=== PATIENT | female | born 1990 | race Caucasian/White ===

== ENCOUNTER 2025-06-28 13:55 | Emergency (ER) | payer OTHER, SELFPAY ==
[2025-06-28 13:56] VITALS: BP 110/76; PULSE 108; RESP 18; TEMP 37.1; O2SAT 99; BMI 28.0
[2025-06-28 16:00] LABS: Hematocrit 42.8 % (37-47); Hemoglobin 14.3 g/dL (12.0-15.0); Immature Granulocytes Count 0.010 X10^3/uL (0.0-0.0); Mean Corp Hgb Conc 33.4 g/dL (32-36); Mean Corpuscular Volume 84.1 fL (81-99); Mean Platelet Vol. 9.8 fl (6.2-12.0); NRBC Flagged by Analyzer 0 % (0-5); Platelet Count 280 K/mm3 (150-450); RBC Distribution Width CV 12.9 % (11.6-14.6); RBC Distribution Width SD 39.2 fl (35.1-43.9); Red Blood Count 5.09 M/mm3 (4.2-5.4); White Blood Count 6.6 K/mm3 (4.4-11.0)
[2025-06-28 17:05] LABS: Lipase 37 U/L (13-75)
[2025-06-28 17:08] LABS: AST(SGOT) 22 U/L (<=31); Alanine Aminotransfer ALT/SGPT 26 U/L (<=34); Albumin, Serum 4.7 g/dL (3.5-5.0); Alkaline Phosphatase 53 U/L (35-104); Anion Gap 13 (5-15); BUN 10 mg/dL (4-19); BUN/Creat Ratio 15.9 RATIO (10-20); Calcium,Total 9.6 mg/dL (7.6-11.0); Carbon Dioxide 19.7 mmol/L (21.0-32.0); Chloride 107 mmol/L (98-108); Estimated Creatinine Clearance 128.26 ml/min (50-250); Globulin 2.8 g/dL (2.2-4.2); Glucose 94 mg/dL (70-99); Potassium 4.0 mmol/L (3.3-5.1)
--- NOTE | 2025-06-28 17:16 | EX.ED.DYSGE1 ---
HPI History of Present Illness Chief Complaint: Abd Pain Detail of Chief Complaint: Right upper quadrant right lower abdominal pain Informant: patient and spouse/S.O. Onset/Context/Timing Onset: Month(s) (Intermittent since May 13 was seen at outside facility and had CAT scan.) Context: Sudden Onset Timing: Intermittent Quality: Pain Location: Points to the right upper quadrant Current Severity: Mild Maximum Severity: Moderate Worsened by: Movement Relieved by: Nothing Associated Symptoms Associated Symptoms: Today she had 3 formed stools which is not normal for her. Narrative Narrative: Patient is a 34-year-old woman. She was seen at outside facility. Records from that facility were obtained. The ER attending's note was reviewed. She did have a CAT scan. The CAT scan interpretation revealed the following: Status postcholecystectomy 3.7 cm slightly heterogeneous cyst in the right adnexa which could represent a hemorrhagic cyst with internal septation. There is also a nonspecific right costophrenic nodule noted. Apparently there is small right and left pleural effusion. There is some minimal atelectasis. Increased fecal stasis involving the right colon and transverse colon. Mild small bowel wall thickening left abdomen with small mesenteric nodes suggestive of underlying enteritis and mild mesenteric adenitis. The appendix was normal at that time. There was no evidence of colitis or pyelonephritis. There is no retroperitoneal hemorrhage noted. There is mild mid to lower lumbar spine degenerative changes noted. Patient did also have a small supraumbilical ventral hernia that contained fat only. She denies intolerance to any food. She denies nausea or vomiting. She denies history of renal ureterolithiasis. She denies dysuria, frequency, urgency or hematuria. There is no history of direct or indirect trauma. She denies cough, shortness of breath or difficulty breathing. She denies chest pain Prior similar symptoms: Yes PFSH PFSH Medical History no medical history no medical history Allergy/AdvReac Type Severity Reaction Status Date / Time No Known Allergies Allergy Verified 06/28/25 14:00 Family History no significant family his no significant family history Social History (Updated 06/28/25 @ 17:[address] Juan Hart MD) household members: spouse and children Smoking Status: Never smoker ROS ROS ED Constitutional Constitutional ED: Denies chills, fever(s), subjective, sweats or weight loss Eyes Eyes: Denies blurry vision or change in vision ENT ENT ED: Denies rhinorrhea or sore throat Cardiovascular Cardiovascular: Denies chest pain or palpitations Respiratory/Chest Respiratory/Chest: Denies cough, dyspnea or dyspnea on exertion Gastrointestinal Gastrointestinal: Reports abdominal pain; Denies constipation, diarrhea, melena, nausea or vomiting Genitourinary Genitourinary ED: Denies dysuria, hematuria or urinary frequency Musculoskeletal Musculoskeletal: Denies back pain Integumentary Denies rash Hematologic/Lymphatic Hematologic/Lymphatic: Reports systems reviewed and no addt'l complaints, except as documented EXAM Physical Exam Const Vital Signs: 06/28/25 13:56 Temperature 98.8 F Temperature Source Oral Pulse Rate 108 H Respiratory Rate 18 Blood Pressure 110/76 Blood Pressure Mean 87 Pulse Ox 99 Oxygen Delivery Method Room Air Positive well nourished and well developed General Appearance ED: well developed; Negative for pallor HEENT Reports moist mucous membranes HEENT Narrative: Head is atraumatic and normocephalic. Eyes PERRL and EOMs intact bilaterally General Eye ED: Negative for pale conjunctiva or scleral icterus Neck no lymphadenopathy, supple and no JVD Resp normal respiratory effort and clear to auscultation bilaterally Cardio regular rate, regular rhythm, S1 normal heart sound, S2 normal heart sound and no murmurs GI normal to inspection, nondistended, normoactive bowel sounds, non-distended and no masses; Negative for non-tender or hepatosplenomegaly GI Narrative: Tenderness right side of the abdomen. There is no tenderness over McBurney's point. Inspection: Negative for abdominal distention Auscultation: hypoactive bowel sounds Palpation: soft and tender other (Right mid abdomen) Extremity normal to inspection General Extremety ED: Negative for edema General Extremity: Negative for edema Neuro oriented x3 and CN's II-XII intact bilaterally Sensorium / Orientation: alert Skin no rashes or lesions noted, no wounds and skin turgor normal General Skin Exam: elasticity normal; Negative for jaundice or pallor MDM MDM MDM Narrative Medical decision making narrative: Differential diagnosis is abdominal pain of unknown etiology, doubt inflammatory bowel disorder. She had 1 episode that radiated to the groin. This may represent atypical presentation for renal/ureterolithiasis. However after reviewing records from outside facility there is no mention of kidney stone. History and physical is not consistent with appendicitis and the CAT scan revealed normal-appearing appendix when she had similar presentation in April this could be due to a ruptured ovarian cyst since that that was noted on the scan that was obtained May 13 at outside facility. Lab Data Attestation: I reviewed the patient's lab results. Lab results narrative: CBC is normal. Electrolyte panel is remarkable for CO2 of 19.7 which is slightly below lower end of normal. Anion gap is normal. Liver enzymes are normal. Lipase is normal Labs: Laboratory Results - last 24 hr 06/28/25 15:53 WBC 6.6 RBC 5.09 Hgb 14.3 Hct 42.8 MCV 84.1 MCH 28.1 MCHC 33.4 RDW Std Deviation 39.2 RDW Coeff of Vi 12.9 Plt Count 280 MPV 9.8 Immature Gran % (Auto) 0.200 Neut % (Auto) 62.4 Lymph % (Auto) 23.7 [place] % (Auto) 8.5 Eos % (Auto) 4.7 Baso % (Auto) 0.5 Absolute Neuts (auto) 4.1 Absolute Lymphs (auto) 1.56 Nucleated RBC % 0 Sodium 139 Potassium 4.0 Chloride 107 Carbon Dioxide 19.7 L Anion Gap 13 BUN 10 Creatinine 0.61 L Estim Creat Clear Calc 128.26 Est GFR (MDRD) Non-Af 120 BUN/Creatinine Ratio 15.9 Glucose 94 Calcium 9.6 Total Bilirubin 0.34 AST 22 ALT 26 Alkaline Phosphatase 53 Total Protein 7.4 Albumin 4.7 Globulin 2.8 Albumin/Globulin Ratio 1.7 Lipase 37 Serum , Qual NEGATIVE Treatment and Re-Evaluation :: Spoke to patient and . Reexamined her. She does not have pain in approximate McBurney's point. With CT that was done approximately 7 weeks ago and was unremarkable for any significant pathology we will discharge her to home with follow-up with Dr. Avila. They were informed of results. Discharge Plan Triage Chief Complaint: Abd Pain ED Provider: Juan Hart Dx/Rx/DC Orders Clinical Impression: Right-sided abdominal pain of unknown cause, Tachycardia, S/P cholecystectomy Instructions: ED Abdominal Pain Unkn Cause Fem Primary Care Provider: Odilia Ramirez Referrals: Sam Avila DO [Med Staff - Active Staff] - Keep Néstor appointment Odilia Ramirez PA [Primary Care Provider] - Activity Restrictions/Additional Instructions: 1. Recommend keeping scheduled appointment with Dr. Avila that the social secretary will schedule for you. 2. Return if you have a temperature greater than 100, unable to eat or drink anything, severe pain, blood or mucus in your stool. Print Language: Uzbek Disposition Disposition: Home, Self Care
[2025-06-28 17:19] LABS: Internal QC Validated? YES +Cl - CLEAR BKGD; Pregnancy, Serum, hCG Quali. NEGATIVE Negative; Record Kit Lot#, Serum Preg. 0000962302
[2025-06-28 18:00] VITALS: BP 117/86; PULSE 74; RESP 18; TEMP 36.8; O2SAT 100
== END 2025-06-28 18:01 | disposition home or self-care (01) ==
PROVIDERS: Emergency Provider Emergency Medicine; Visit Provider Emergency Medicine
DX: R10.11 Right upper quadrant pain (principal); R10.31 Right lower quadrant pain; R00.0 Tachycardia, unspecified; Z90.49 Acquired absence of other specified parts of digestive tract
CPT/HCPCS: 80053; 83690; 84703; 85025; 99283; A4216

== ENCOUNTER → 2025-06-29 | Outpatient (CLI) | payer OTHER, SELFPAY ==
--- NOTE | 2025-06-29 12:36 | CT_ITS ---
PROCEDURE: ABDOMEN/PELVIS WITH CONTRAST 06/29/2025 REASON FOR EXAM: RIGHT SIDE ABD PAIN, PREVIOUS ENTERITIS CT 05.13.25 TECHNIQUE: ABDOMEN/PELVIS WITH CONTRAST Coronal and Sagittal reconstruction series were provided. CONTRAST: Isovue-300 VOLUME: 100 mL One or more dose reduction techniques were used (e.g., Automated exposure control, adjustment of the mA and/or kV according to patient size, use of iterative reconstruction technique. RADIATION DOSE SUMMARY: CTDlvol: 11.5 mGy DLP: 689.28 mGycm COMPARISON: Prior study dated May 13, 2025. FINDINGS: Lung bases: Lung bases are clear. Liver: Normal size. No mass. Gallbladder: Surgically absent. Spleen: Normal size. Pancreas: Normal size without evidence of mass surrounding inflammation or ductal dilation. Adrenals: Unremarkable Kidneys: Normal renal sizes. No hydronephrosis. Bladder: Unremarkable Reproductive Organs: Unremarkable Bowel: Persistent inflammatory changes in the rectosigmoid colon suggestive of colitis. Appendix: The appendix is not identified. There is no inflammatory process identified in the right lower quadrant to suggest appendicitis. Lymph nodes: No suspicious lymph node enlargement. Vasculature: The abdominal aorta and IVC are normal. Peritoneum / Retroperitoneum: Small umbilical hernia containing fat. Bones: Mild degenerative changes. CT/Abdomen/Pelvis WITH Contrast IMPRESSION: Persistent colitis of the rectosigmoid colon. Reading Location: [id number]
== END | disposition home or self-care (01) ==
LOC: CT 12:19
DX: R10.9 Unspecified abdominal pain (principal); R19.7 Diarrhea, unspecified
CPT/HCPCS: 74177; Q9967; A4216

== ENCOUNTER → 2025-06-29 | Outpatient (CLI) | payer OTHER, SELFPAY ==
[2025-06-29 13:12] LABS: CRP < 3.00 mg/L (0.0-3.0)
[2025-06-30 13:08] LABS: ANTINUCLEAR ANTIBODIES DIRECT Negative (Negative)
[2025-07-02 02:07] LABS: Calprotectin, Stool 98 ug/g (0-120)
== END | disposition home or self-care (01) ==
DX: K58.0 Irritable bowel syndrome with diarrhea (principal)
CPT/HCPCS: 36415; 82653; 83993; 86038; 86140; 86225; 87329; 87493; 87506

== ENCOUNTER 2025-07-15 09:08 | Day surgery (SDC) | payer SELFPAY, OTHER ==
[2025-07-15] VITALS (11 sets, daily range): BP systolic 101–116; BP diastolic 70–76; PULSE 75–104; RESP 16; TEMP 36.1–36.7; O2SAT 98–100; BMI 27.2
[2025-07-15 10:18] LABS: Internal QC Validated? YES +Cl - CLEAR BKGD
[2025-07-15 10:19] LABS: Pregnancy, Urine Negative Negative; Record Kit Lot#,Urine Preg 0000962302
[2025-07-15] MEDS: Lactated Ringers 1,000 ML 15 ML IV (10:27)
--- NOTE | 2025-07-15 10:42 | PCM.PRE.AN2 ---
ASA Classification* ASA Classification ASA Classification: 2 Assessment & Plan Anesthesia* Anesthesia Assessment Anesthesia Assessment: Discussed sedation and/or anesthesia options, risks, benefits, and alternatives with patient/parents/legal guardian/POA. Questions invited. The patient/parents/legal guardian/POA seems to understand and agrees to proceed with anesthesia plan. Reviewed the physical assessment, medical history, allergy history and patient home medications list prior to surgery/procedure/anesthetic and documented any changes. Performed airway and anesthesia risk assessments. Anesthesia Type Anesthesia Type: MAC History Source History Obtained from:: Patient and Chart Anesthesia Focused Assessment* Temperature: 98.1 F Pulse Rate: 86 Blood Pressure: 116/74 Respiratory Rate: 16 Pulse Ox: 100 Oxygen Delivery Method: Room Air Airway Assessment Mouth opens: >3 cm Mallampati Score: II Teeth Condition: Intact Neck Range of motion (ROM): Full ROM Labs Anesthesia Preop lab: CBC WBC 6.6 K/mm3 (4.4-11.0) 06/28/25 15:53 06/28/25 RBC 5.09 M/mm3 (4.2-5.4) 06/28/25 15:53 06/28/25 Hgb 14.3 g/dL (12.0-15.0) 06/28/25 15:53 06/28/25 Hct 42.8 % (37-47) 06/28/25 15:53 06/28/25 Plt Count 280 K/mm3 (150-450) 06/28/25 15:53 06/28/25 CHEMISTRY Potassium 4.0 mmol/L (3.3-5.1) 06/28/25 15:53 06/28/25 Sodium 139 mmol/L (133-145) 06/28/25 15:53 06/28/25 BUN 10 mg/dL (4-19) 06/28/25 15:53 06/28/25 Creatinine 0.61 mg/dL (0.70-1.20) L 06/28/25 15:53 06/28/25 Glucose 94 mg/dL (70-99) 06/28/25 15:53 06/28/25 COAG Urine Test Negative Negative 07/15/25 10:00 07/15/25 Pre-Assessment Diagnosis/Proposed Procedure Planned Operative Procedure(s): COLONOSCOPY Anesthesia History Anesthesia History - party plan demonstrator: Anesthesia History - party plan demonstrator Hx Hospitalization No 07/13/25 16:09 Any Problems With Anesthesia No 07/13/25 16:09 Cholinesterase deficiency No 07/13/25 16:09 You/Your Family Experience No 07/13/25 16:09 fever (hyperthermia) with Relationship Recent Exposure to Contagious No 07/15/25 10:24 Disease Does patient have nerve No 07/13/25 16:09 stimulator Patient instructed to have device shut off --Does patient have Pacemaker No 07/15/25 10:24 or ICD? When Was Last Pacemaker Check QUESTION #4 FULL TEXT: You/Your Family Experience fever (hyperthermia) with Anesthesia Last Oral Intake Last Oral intake: Last Oral Intake NPO since 00:00 07/15/25 10:24 Meds taken in AM with sips of No 07/15/25 10:24 water? Meds patient instructed to take am of surgery PONV PONV - party plan demonstrator: PONV - party plan demonstrator Female Yes 07/13/25 16:09 HX of Motion Sickness No 07/13/25 16:09 HX of N/V After Surgery No 07/13/25 16:09 Non-Smoker Yes 07/13/25 16:09 Duration of Surgery greater No 07/13/25 16:09 than 60 minutes Number of Risk Factors 2 07/13/25 16:09 PONV Score Moderate Risk 07/13/25 16:09 Height & Weight Height & Weight: Anesthesia: Height & Weight Height 5 ft 4 in 07/15/25 10:24 Weight: 72 kg 07/15/25 10:24 Body Mass Index (BMI) 27.2 07/15/25 10:24 Respiratory Assessment Respiratory Assessment - party plan demonstrator: Respiratory Tract Infection Hx - party plan demonstrator Hx Respiratory Tract Infection No 07/13/25 16:09 STOP Sleep Apnea STOP Sleep Apnea - party plan demonstrator: STOP Sleep Apnea - party plan demonstrator Hx Hypertension No 07/13/25 16:09 Hx Sleep Apnea No 07/13/25 16:09 CPAP BIPAP Do you snore loudly (louder No 07/13/25 16:09 than talking or can be heard Do you often feel tired/ No 07/13/25 16:09 fatigued/ sleepy during daytime? Has anyone observed you stop No 07/13/25 16:09 breathing during sleep? STOP Results Negative 07/13/25 16:09 QUESTION #5 FULL TEXT : Do you snore loudly (louder than talking or can be heard through closed doors)? Tobacco Use History Tobacco Use History - party plan demonstrator: Tobacco Use History - party plan demonstrator Tobacco Use Smoking Status Never smoker 07/13/25 16:09 Hx Tobacco Use No 07/13/25 16:09 Years Smoking Packs Smoked per Day Smoking Cessation Date was within the last 15 years Hx Smoking Cessation Date Hx Smoking Cessation Counseling Hematologic Medial History Hematologic Hx - party plan demonstrator: Hematologic Medical Hx - visual merchandising coordinator Hx of Blood Transfusion No 07/13/25 16:09 Hx of Transfusion in last 3 No 07/13/25 16:09 Months Date of Last Transfusion (if within last 3 months) Ever experience any problems No 07/13/25 16:09 with transfusion(s)? Specify any problems Hx of Preganancy in last 3 No 07/13/25 16:09 Months Nurse Filling Out Transfusion [email or web address] 07/13/25 16:09 & Questions: Date: 07/13/25 07/13/25 16:09 Time: 16:13 07/13/25 16:09 Patient unable to answer at this time (ie. confused, unrespo /Reproduction History /Reproductive History - party plan demonstrator: /Reproductive Hx- party plan demonstrator Hx Now No 07/13/25 16:09 Gestational Age (in weeks): EDC: Hx Hx Para Hx Section SAB No 07/13/25 16:09 Active Medications Active Medications: Current Medications Generic Name Dose Route Start Last Admin Trade Name Juan Luisq PRN Reason Stop Dose Admin Lactated Ringer's 1,000 mls @ 15 mls/hr 07/15/25 10:15 07/15/25 10:27 IV 15 mls/hr .Q48H MINE Administration PFSH Medical History (Updated 07/13/25 @ 16:16 by Anders Shaw) Wears glasses Low iron Easy bruising Migraine headache Allergy/AdvReac Type Severity Reaction Status Date / Time No Known Allergies Allergy Verified 07/15/25 10:23 Surgical History (Updated 07/13/25 @ 16:16 by Anders Shaw) Hx laparoscopic cholecystectomy Social History household members: spouse and children Smoking Status: Never smoker Review of Systems (Anesthesia) ROS Narrative System reviewed and no additional complaints, except as documented.
--- NOTE | 2025-07-15 11:00 | COLBX_PTH ---
PATIENT: SABRINA BARRIENTOS LOC: EN U#:[id number] AGE/SX: 34/F ROOM: RE07/15/[address]: Dr. Sam Avila DO : 1990 BED: DIS: 07/15/2025 SPEC #: [id number] RECD: 07/15/25 13:23 STATUS: [place] REMarcio #: [id number] LANA: 07/15/25 11:[address]: Sam Avila DEPT: SURGICAL PATHOLOGY RECD BY: Cristian Chaudhry ENTERED: 07/15/25 14:51 SP TYPE: COLON BX OTHR DR: ASIF Aguirre Tissues: A - Ileum, NOS B - COLON BIOPSY Procedures: Surgery Specimen Level IV HEADER OPERATION: Colonoscopy biopsy PRE-OP DIAGNOSIS: Right-sided abdominal pain of unknown cause, diarrhea TISSUE SUBMITTED: A- Terminal ileum biopsy, B- Random colon biopsy MICROSCOPIC DIAGNOSIS A. Terminal ileum, biopsy: * Small bowel mucosa with no pathologic change B. Colon, random biopsy: * Focal active colitis (See note) Note: Sections show areas of focal active cryptitis with involvement of the surface mucosa. There are no granulomas or areas of dysplasia identified. There is minimal to no architectural disorder. The findings are not specific and may be seen in infections, medication-induced, NSAIDS and inflammatory bowel disease. Clinical and endoscopic correlation is recommended. MICROSCOPIC DESCRIPTION Slides are reviewed. GROSS DESCRIPTION A. Received in fixative is one container labeled with the patient's name and designated Terminal ileum biopsy. The specimen consists of three irregular fragments of light santos soft tissue that measure 0.4 to 0.6 cm. The specimen is totally submitted in one cassette. B. Received in fixative is one container labeled with the patient's name and designated Random colon biopsy. The specimen consists of multiple irregular fragments of light santos soft tissue that in aggregate measure 1.5 x 0.9 x 0.2 cm. The specimen is totally submitted in one cassette. DE 07/15/2025 CPT:30807l0
--- NOTE | 2025-07-15 11:04 | PCM.HP.STD ---
HPI - General General Date of Admission: 07/15/25 Date of Service: 07/15/25 Chief Complaint: diarrhea HPI Narrative SABRINA BARRIENTOS, is a 34 F who presentsSABRINA BARRIENTOS, is a 34 Mandae[place] F who presents to the office today for establishment with [facility] regarding concerns of right sided abdominal pain. [facility] ER visit on 06.28.25, CBC and CMP without significant abnormalities, no imaging performed. She states the right-sided abdominal pain is sharp and very crampy, rates the pain 8 out of 10 with 10 being the worst. She denies food increasing symptoms, but states physical activity does increase the severity. She had an ER visit at [facility] on May 13, had a CT of abd/pelvis that demonstrated enteritis of the small bowel and right adnexal cyst. She then visited her DATA REVIEW SPECIALIST MD in [place], where she had been told that she should probably have a hysterectomy but they wanted to try a control medication first, she received an injection of Depo Provera. She denies change in symptoms. She is now reporting, as of this morning, she is having urgent diarrhea. She denies hematochezia, melena, abdominal bloating, gas, and constipation. She has 2 days left of her 7-day Augmentin treatment from her PCP. She uses city water, consumes no raw or undercooked meats, washes all of the foods from her garden, denies exposure to known ill persons. She states that her gallbladder was removed due to gallstones. [facility] Medical History Wears glasses Low iron Easy bruising Migraine headache Allergy/AdvReac Type Severity Reaction Status Date / Time No Known Allergies Allergy Verified 07/15/25 10:23 Surgical History Hx laparoscopic cholecystectomy Social History household members: spouse and children Smoking Status: Never smoker ROS Constitutional Constitutional: Denies fatigue, fever(s), poor appetite, weight gain or weight loss Gastrointestinal Gastrointestinal: Denies belching, bloating, change in bowel habits, change in stool character, chewing difficulty, coffee ground emesis, constipation, cramping, diarrhea, dyspepsia, dysphagia, early satiety, excessive flatus, fecal incontinence, heartburn, hematemesis, hematochezia, hemorrhoids, loose stools, melena, nausea, odynophagia, rectal bleeding, tenesmus, vomiting or weight changes Vital Signs Vital Signs Vital Signs: 07/15/25 10:24 07/15/25 10:24 07/15/25 10:42 Temperature 98.1 F 98.1 F Temperature Source Temporal Pulse Rate 86 86 Respiratory Rate 16 16 Respiratory Pattern Normal Blood Pressure 116/74 116/74 Blood Pressure Mean 88 Blood Pressure Source Monitor Blood Pressure Position Semi-Fowlers Blood Pressure Location Right Arm Pulse Ox 100 100 Oxygen Delivery Method Room Air Room Air Weight Weight: 158 lb 11.725 oz Body Mass Index (BMI) 27.2 Physical Exam Const alert, oriented x3, no apparent distress and healthy appearing General Appearance: cooperative GI normal to inspection, nondistended, normoactive bowel sounds, soft to palpation, non-tender and non-distended Percussion: normal to percussion Rectal Exam: deferred Results Lab / Micro Data Labs: Laboratory Results - last 24 hr 07/15/25 10:00: Urine Test Negative Assessment & Plan Assessment/Plan (1) Diarrhea: QUALIFIERS: Diarrhea type: unspecified type Qualified Code(s): R19.7 - Diarrhea, unspecified PLAN: Assessment and Plan Assessment and Plan (1) Right-sided abdominal pain of unknown cause: Status: Acute (2) Diarrhea: Status: Acute Qualifiers: Diarrhea type: unspecified type Qualified Code(s): R19.7 - Diarrhea, unspecified Orders: Orders Calprotectin, Stool Today R10.9 - Unspecified abdominal pain, R19.7 - Diarrhea, unspecified ENTERIC PATHOGEN PANEL STOOL Today K58.9 - Irritable bowel syndrome, unspecified, R10.9 - Unspecified abdominal pain, R19.7 - Diarrhea, unspecified Giardia Lamblia, Stool EIA Today R10.9 - Unspecified abdominal pain, R19.7 - Diarrhea, unspecified Pancreatic Elastase, Fecal Today R10.9 - Unspecified abdominal pain, R19.7 - Diarrhea, unspecified Abdomen/Pelvis WITH Contrast Today R10.9 - Unspecified abdominal pain, R19.7 - Diarrhea, unspecified CRP Today R10.9 - Unspecified abdominal pain, R19.7 - Diarrhea, unspecified LORELEI w/ Reflex Mult Confirm Today R10.9 - Unspecified abdominal pain, R19.7 - Diarrhea, unspecified CDIFF (PCR) Today R10.9 - Unspecified abdominal pain, R19.7 - Diarrhea, unspecified Plan SABRINA BARRIENTOS, is a 34 F who presents to the office today for establishment with [facility] regarding concerns of right sided abdominal pain. Discussed care plan with her and her present for exam. Called radiology and discussed previous findings of enteritis with continued abdominal symptoms, she is able to complete the CT abd/pelvis today as a STAT order. stool for enteric, calprotectin, cdiff, elastase blood for IBD, inflammation CT abd/pelvis w/IV and PO contrast office FU 2wks
--- NOTE | 2025-07-15 11:32 | PCM.POST.ANE ---
Anesthesia: Postop Eval I Current Vital Signs Temperature: 97 F Pulse Rate: 104 Blood Pressure: 112/76 Respiratory Rate: 16 Pulse Ox: 100 Oxygen Delivery Method: Room Air Assessment Airway patent: Yes Spontaneous unlabored respirations: Yes Mental status: Awake and Calm nausea: No Vomiting: No Anesthesia Complication: No Fluid Hydration Crystalloid volume administer (ml): 100 Total IV fluid infused: 100 Progress Note Anesthesia document: Postop Eval 1 completed: Yes
--- NOTE | 2025-07-15 11:36 | POSTOPAN2_ITS ---
Anesthesia Postop Eval I Sum Postop Eval Completion status Anesthesia document: Postop Eval 1 completed: Yes Anesthesia Postop Eval I Summary Anesthesia Postop Eval I Summary: Anesthesia Postop Eval I: Assessment Summary Airway patent Yes 07/15/25 11:32 PSS DELIVERY PROFESSIONAL.MDOT Spontaneous unlabored Yes 07/15/25 11:32 PSS DELIVERY PROFESSIONAL.MDOT respirations Mental status Awake,Calm 07/15/25 11:32 PSS DELIVERY PROFESSIONAL.MDOT nausea No 07/15/25 11:32 PSS DELIVERY PROFESSIONAL.MDOT Vomiting No 07/15/25 11:32 PSS DELIVERY PROFESSIONAL.MDOT Anesthesia Postop Eval I: Fluid Summary Crystalloid volume administer 100 07/15/25 11:32 PSS DELIVERY PROFESSIONAL.MDOT (ml) Colloids volume administered ( ml) Blood Product volume administered (ml) Total IV fluid infused 100 07/15/25 11:32 PSS DELIVERY PROFESSIONAL.MDOT Anesthesia Postop Eval I: Summary Notes Anesthesia Complication No 07/15/25 11:32 PSS DELIVERY PROFESSIONAL.MDOT Anesthesia Complication Comment: Post-operative progress note Anesthesia: Postop Eval II Evaluation Mental status: Awake and Calm Pain Level: 0 nausea: No Vomiting: No Complications Anesthesia Complication: No
--- NOTE | 2025-07-15 11:36 | PCM.POSTANE2 ---
Anesthesia Postop Eval I Sum Postop Eval Completion status Anesthesia document: Postop Eval 1 completed: Yes Anesthesia Postop Eval I Summary Anesthesia Postop Eval I Summary: Anesthesia Postop Eval I: Assessment Summary Airway patent Yes 07/15/25 11:32 CONFERENCE [email or web address] Spontaneous unlabored Yes 07/15/25 11:32 CONFERENCE [email or web address] respirations Mental status Awake,Calm 07/15/25 11:32 CONFERENCE [email or web address] nausea No 07/15/25 11:32 CONFERENCE [email or web address].MDOT Vomiting No 07/15/25 11:32 CONFERENCE [email or web address] Anesthesia Postop Eval I: Fluid Summary Crystalloid volume administer 100 07/15/25 11:32 CONFERENCE [email or web address].MDOT (ml) Colloids volume administered ( ml) Blood Product volume administered (ml) Total IV fluid infused 100 07/15/25 11:32 CONFERENCE [email or web address] Anesthesia Postop Eval I: Summary Notes Anesthesia Complication No 07/15/25 11:32 CONFERENCE [email or web address] Anesthesia Complication Comment: Post-operative progress note Anesthesia: Postop Eval II Evaluation Mental status: Awake and Calm Pain Level: 0 nausea: No Vomiting: No Complications Anesthesia Complication: No
--- NOTE | 2025-07-15 11:50 | OP.COLON_ITS ---
Patient Name: Alessia Monroe Procedure Date: 07/15/2025 11:07 AM Date of : 1990 Age: 34 Procedure: Colonoscopy Indications: Clinically significant diarrhea of unexplained origin Providers: Sam Avila DO Referring MD: Akhil Aguirre Medicines: Monitored Anesthesia Care Patient Profile: This is a 34 year old female. Refer to note in patient chart for documentation of history and physical. Last Colonoscopy: none. The patient's first colonoscopy is today. Complications: No immediate complications. Procedure: Pre-Anesthesia Assessment: - Prior to the procedure, a History and Physical was performed, and patient medications and allergies were reviewed. The patient is competent. The risks and benefits of the procedure and the sedation options and risks were discussed with the patient. All questions were answered and informed consent was obtained. Patient identification and proposed procedure were verified by the physician in the pre-procedure area. Mental Status Examination: alert and oriented. Airway Examination: normal oropharyngeal airway and neck mobility. Respiratory Examination: clear to auscultation. CV Examination: normal. Prophylactic Antibiotics: The patient does not require prophylactic antibiotics. Prior Anticoagulants: The patient has taken no anticoagulant or antiplatelet agents except for NSAID medication. ASA Grade Assessment: II - A patient with mild systemic disease. After reviewing the risks and benefits, the patient was deemed in satisfactory condition to undergo the procedure. The anesthesia plan was to use monitored anesthesia care (MAC). Immediately prior to administration of medications, the patient was re-assessed for adequacy to receive sedatives. The heart rate, respiratory rate, oxygen saturations, blood pressure, adequacy of pulmonary ventilation, and response to care were monitored throughout the procedure. The physical status of the patient was re-assessed after the procedure. After I obtained informed consent, the scope was passed under direct vision. Throughout the procedure, the patient's blood pressure, pulse, and oxygen saturations were monitored continuously. The pediatric colonoscope was introduced through the anus and advanced to the terminal ileum. The colonoscopy was performed without difficulty. The patient tolerated the procedure well. The quality of the bowel preparation was adequate. Scope In: 11:18:50 AM Scope Withdrawal Time 0 hours 8 minutes 35 seconds Scope Out: 11:29:46 AM Total Procedure Duration Time 0 hours 10 minutes 56 seconds Findings: The perianal and digital rectal examinations were normal. An area of mildly congested mucosa was found at the hepatic flexure, in the ascending colon and in the cecum. Biopsies were taken with a cold forceps for histology. Verification of patient identification for the specimen was done. Estimated blood loss was minimal. The terminal ileum appeared normal. Biopsies were taken with a cold forceps for histology. Verification of patient identification for the specimen was done. Estimated blood loss was minimal. The exam was otherwise without abnormality on direct and retroflexion views. Impression: - Congested mucosa at the hepatic flexure, in the ascending colon and in the cecum. Biopsied. - The examined portion of the ileum was normal. Biopsied. - The examination was otherwise normal on direct and retroflexion views. Recommendation: - Discharge patient to home. - Resume previous diet. - Continue present medications. - Await pathology results. - Repeat colonoscopy in 5 years for surveillance based on pathology results. Procedure Code(s): --- Professional --- 59329, Colonoscopy, flexible; with biopsy, single or multiple CPT copyright 2021 [employer]. All rights reserved. The codes documented in this report are preliminary and upon insurance claims examiner review may be revised to meet current compliance requirements. Sam Avila DO 07/15/2025 11:49:39 AM This report has been signed electronically. Number of Addenda: 0 Note Initiated On: 07/15/2025 11:07 AM
--- NOTE | 2025-07-15 11:50 | OP.PROVAT_ITS ---
07/15/2025 Akhil Aguirre Re : Colonoscopy procedure for Alessia Burrowsr James This procedure was performed on June. My impressions and recommendations are as follows: Impressions : - Congested mucosa at the hepatic flexure, in the ascending colon and in the cecum. Biopsied. - The examined portion of the ileum was normal. Biopsied. - The examination was otherwise normal on direct and retroflexion views. Recommendations : - Discharge patient to home. - Resume previous diet. - Continue present medications. - Await pathology results. - Repeat colonoscopy in 5 years for surveillance based on pathology results. My findings are described in the full procedure note, which is enclosed. If I can be of further assistance, please feel free to contact me at . Sincerely, Sam Avila, 07/15/2025 11:49:39 AM This report has been signed electronically.
== END 2025-07-15 12:53 | disposition home or self-care (01) ==
LOC: EN 09:09 → AC 09:11
PROVIDERS: Anesthesiology; Visit Provider Internal Medicine Gastroenterology
PROC: 0DJD8ZZ Inspection of Lower Intestinal Tract, Via Natural or Artificial Opening Endoscopic (ICD-10-PCS; CPT 45378; principal; 2025-07-15 10:55)
DX: K52.9 Noninfective gastroenteritis and colitis, unspecified (principal); Z90.49 Acquired absence of other specified parts of digestive tract; R10.9 Unspecified abdominal pain; K63.89 Other specified diseases of intestine
CPT/HCPCS: 45380; 81025; 88305

== ENCOUNTER → 2025-09-08 | Outpatient (CLI) | payer OTHER, SELFPAY ==
[2025-09-08 10:54] LABS: Vitamin B12 663 pg/mL (180-914)
== END | disposition home or self-care (01) ==
PROVIDERS: Referring Provider Nurse Practitioner Acute Care; Visit Provider Nurse Practitioner Acute Care
DX: K58.0 Irritable bowel syndrome with diarrhea (principal); R20.8 Other disturbances of skin sensation
CPT/HCPCS: 36415; 82607

== ENCOUNTER → 2025-10-05 | Outpatient (CLI) | payer OTHER, SELFPAY ==
--- OUTSIDE RECORDS SUMMARY | 2025-10-05 17:15 | XMS RPT_ITS | CCD ---
Author Organization [facility] Care Team Providers Care Rapier Insertion Loom Fixer Name Role Phone ROHAN MARTINS Unavailable Unavailable Uptain CNM, Crystal K Unavailable [phone] Radha SENIOR IT RECRUITER, Jannet Unavailable Tierra Vidal MA Unavailable Unavailable Milan SENIOR IT RECRUITER, Gudelia Unavailable Unavailable Marthey SENIOR IT RECRUITER, Polina Unavailable Unavailable Zaugg SENIOR IT RECRUITER, Yeimy Unavailable Unavailable Unavailable Unavailable Reflow Operator/Gynecology Prov. Unavailable Un available Kimberly Roldan PA-C J Unavailable Kimberly Manrique Primary Care Provider Dr. Juan Hart MD Emergency Provider Kimberly Manrique Referring Provider Mane SEVERINO-Steffany Sosa Attending Provider TIARA NORIEGA DO Admitting Unavailable TIARA NORIEGA DO Attending Unavailable TIARA NORIEGA DO Primary Care Unavailable ROLDAN, KIMBERLY PAC Attending Unavailable YULI, KIMBERLY PAC Primary Care Unavailable YULI KIMBERLY PAC Admitting Unavailable Dr. Juan Hart MD Attending Provider Mane SEVERINO-Steffany Sosa Referring Provider Dr. Sam Avila DO Attending Provider Dr. Sam Avila DO Other Provider Micheal EDUCATION PROGRAM COORDINATOR-Dasia Sosa Attending Provider Kimberly Manrqiue Primary Care Physician [phone] Dr. Juan Hart MD Attending Physician [phone] Dr. Juan Hart MD Emergency Department Physician Mane ANNEC, Steffany Attending Physician [phone] Sam SOLER Attending Physician [phone] Sam SOLER Nurse Practitioner Micheal EDUCATION PROGRAM COORDINATOR-C, Dasia Attending Physician [phone] Hollie EDUCATION PROGRAM COORDINATOR-C, Luna Attending Physician [phone] Micheal EDUCATION PROGRAM COORDINATOR-C, Dasia Referring Provider Roldan, Kimberly Referring Unavailable Roldan, Kimberly Primary Care Unavailable Dasia Burton Attending Unavailable Gilliam, Steffany Referring Unavailable Roldan, Kimberly Primary Care Unavailable Steffany Gilliam Attending Unavailable Hart, Juan Attending Unavailable Roldan, Kimberly Primary Care Unavailable Gilliam, Steffany Referring Unavailable Roldan, Kimberly Primary Care Unavailable GilliamSteffany Attending Unavailable Gilliam, Steffany Attending Unavailable Roldan, Kimberly Primary Care Unavailable Roldan, Kimberly Referring Unavailable Luna Browne NP Attending Unavailable Roldan, Kimberly Referring Unavailable Roldan, Kimberly Primary Care Unavailable Roldan, Kimberly Primary Care Unavailable Dasia Burton Attending Unavailable Micheal, Dasia Referring Unavailable Roldan, Kimberly Primary Care Unavailable Roldan, Kimberly Referring Unavailable Sam Avila Attending Unavailable Roldan, Kimberly Referring Unavailable Roldan, Kimberly Primary Care Unavailable MichealDasia sunshine Attending Unavailable Roldan, Kimberly Primary Care Unavailable Roldan, Kimberly Referring Unavailable FriendSam Consulting Unavailable FriendSam Attending Unavailable Medications Current Medications Medication Drug Class(es) Dates Sig (Normalized) Sig (Original) sugar-free cholestyramine resin 4000 mg powder for oral suspension (4 sources) Bile Acid Sequestrant Start: 09-13-2025 take 0.5 dose by mouth twice daily Start: 09-13-2025 take 0.5 dose by beryl th twice daily Start: 09-07-2025 End: 09-08-2025 take 1 dose by mouth twice daily Cholestyramine 4 gram powder in packet Discontinued 2 g PO TWICE A DAY 14 September 07, 2025 12:00am September 08, 2025 8:58am avoid other meds 1hr before/4-6hr after dose estradiol 1 mg oral tablet (2 sources) Estrogen Start: 09-08-2025 take 1 tablet by beryl th once daily Completed/Discontinued Medications Medication Drug Class(es) Dates Sig (Normalized) Sig (Original) amoxicillin 875 mg / clavulanate 125 mg oral tablet (17 sources) Penicillin-class Antibacterial Start: 06-24-2025 End: 07-05-2025 Amoxicillin-Pot Clavulanate 875-125 mg tablet Discontinued 1 {tbl} PO TWICE A DAY June 29, 2025 12:00am July 05, 2025 2:06pm dicyclomine hydrochloride 20 mg oral tablet (4 sources) Anticholinergic Start: 07-06-2025 End: 07-13-2025 take 1 tablet by mouth three times daily as needed for pain Dicyclomine 20 mg tablet Discontinued 20 mg PO THREE TIMES A DAY as needed for abdominal pain 30 0 July 06, 2025 12:00am July 13, 2025 4:09pm hyoscyamine sulfate 0.125 mg disintegrating oral tablet (3 sources) Start: 07-27-2025 End: 09-07-2025 Hyoscyamine Sulfate 0.125 mg tablet,disintegrat ing Discontinued 0.125 mg PO 2 to 4 times per day as needed for dyspepsia 60 2 July 27, 2025 12:00am September 07, 2025 3:00pm Norethindrone (11 sources) Start: 09-06-2022 End: 06-24-2025 norethindrone (contraceptive) 0.35 mg tablet ; 1 (one) Tablet daily for 0 days Quantity: 1 {Packet} Refills: 5 Ordered: 24-Jun-2025 GORDON Yates Start: 06-Sep-2022 End: 24-Jun-2025 Status: Inactive Comments: Micronor OCP Comment on above: Micronor OCP Oral Tablet (11 sources) End: 06-24-2025 take 1 tablet by mouth once daily Oral Tablet ; one tablet daily End: 24-Jun-2025 Status: Inactive take 1 tablet by mouth once tabitha y Oral Tablet ; one tablet daily Problems Active Problems Problem Classification Problem Date Documented Da te Episodic/Chronic Abdominal pain (20 sources) Abdominal pain; Translations: [Epigastric pain] Onset: 07-03-2025 06-24-2025 Episodic Cardiac dysrhythmias (8 sources) Tachycardia; Translations: [Tachycardia, unspecified] 06-28-2025 Episodic Contraceptive and procreative management (20 sources) Patient encounter status; Translations: [Encounter for initial prescription of contraceptive pills] 06-24-2025 Episodic Diseases of mouth; excluding dental (5 sources) Lesion of oral mucosa; Translations: [Unspecified lesions of oral mucosa] Onset: 09-08-2025 09-07-2025 Episodic Early or threatened labor (20 sources) Premature uterine contraction; Translations: [False labor before 37 completed weeks of gestation, unspecified trimester] 05-18-2022 Episodic Noninfectious gastroenteritis (1 source) Noninfective gastroenteritis and colitis, unspecified; Translations: [Noninfective gastroenteritis and colitis, unspecified] Onset: 08-09-2025 Episodic Other female genital disorders (4 sources) Abnormal uterine bleeding; Translations: [Abnormal uterine and vaginal bleeding, unspecified] 09-08-2025 Chronic Other female genital disorders (1 source) Abnormal uterine and vaginal bleeding, unspecified; Translations: [Abnormal uterine and vaginal bleeding, unspecified] Onset: 09-08-2025 Chronic Other gastrointestinal disorders (6 sources) Irritable bowel syndrome with diarrhea; Translations: [Irritable bowel syndrome with diarrhea] 07-27-2025 Chronic Other gastrointestinal disorders (1 source) Irritable bowel syndrome with diarrhea; Translations: [Irritable bowel syndrome with diarrhea] Onset: 09-20-2025 Chronic Other gastrointestinal disorders (18 sources) Diarrhea; Translations: [Diarrhea, unspecified] 06-29-2025 Episodic Other gastrointestinal disorders (2 sources) Diarrhea, unspecified; Translations: [Diarrhea, unspecified] Onset: 08-09-2025 Episodic Other nervous system disorders (3 sources) Other disturbances of skin sensation; Translations: [Burning sensation of mouth] Onset: 09-08-2025 09-07-2025 Episodic Other and delivery including normal (20 sources) Normal ; Translations: [Encounter for supervision of other normal , second trimester] 06-22-2022 Episodic Ovarian cyst (20 sources) Cyst of right ovary; Translations: [Unspecified ovarian cyst, right side] 06-24-2025 Episodic Residual codes; unclassified (11 sources) Tobacco use and exposure - finding; Translations: [Other specified health status] 06-24-2025 Episodic Residual codes; unclassified (11 sources) Gestation period, 39 weeks; Translations: [39 weeks gestation of ] 06-22-2022 Episodic Residual codes; unclassified (11 sources) Gestation period, 38 weeks; Translations: [38 weeks gestation of ] 06-12-2022 Episodic Residual codes; unclassified (11 sources) Gestation period, 37 weeks; Translations: [37 weeks gestation of ] 06-05-2022 Episodic Residual codes; unclassified (11 sources) Gestation period, 35 weeks; Translations: [35 weeks gestation of ] 05-22-2022 Episodic Residual codes; unclassified (11 sources) Gestation period, 32 weeks; Translations: [32 weeks gestation of ] 05-07-2022 Episodic Residual codes; unclassified (11 sources) Gestation period, 30 weeks; Translations: [30 weeks gestation of ] 04-20-2022 Episodic Residual codes; unclassified (11 sources) Gestation period, 26 weeks; Translations: [26 weeks gestation of ] 03-23-2022 Episodic Residual codes; unclassified (11 sources) Gestation period, 22 weeks; Translations: [22 weeks gestation of ] 02-23-2022 Episodic Residual codes; unclassified (11 sources) Gestation period, 18 weeks; Translations: [18 weeks gestation of ] 01-26-2022 Episodic Unclassified (20 sources) Encounter for screening for malignant neoplasm of cervix; Translations: [Patient encounter status] Onset: 01-29-2018 05-22-2022 Episodic Unclassified (11 sources) 08-20-2022 Comment on above: 4. Unclassified (11 sources) Number of Children 08-20-2022 Comment on above: 4. Unclassified (11 sources) Number of Pregnancies 08-20-2022 Comment on above: 4. Unclassified (11 sources) Para 08-20-2022 Comment on above: 4. Unclassified (11 sources) Vaginal deliveries 08-20-2022 Comment on above: 4. Unclassified (8 sources) Cholecystectomy planned 06-28-2025 Unclassified (1 source) Pelvic and perineal pain unspecified side; Translations: [Pelvic and perineal pain unspecified side] Onset: 09-08-2025 Past or Other Problems Problem Classification Problem Date Documented Da te Episodic/Chronic Unclassified (11 sources) Post- visit - The patient is here for a scheduled follow-up visit after induced vaginal delivery. The was complicated by other complication(s) (Retained placenta). The patient feels well with no complaints, is sleeping well and has good energy level. The patient has complaints of abdominal pain. There are no urinary problems. There are no bowel problems. Perineum/wound: perineum healing well. There is no lochia. The patient is breast feeding the . There are no feeding difficulties. Menstruation: has not resumed. Patient states that sexual activity has not resumed and contraception is used. The patient's current method of control is natural family planning. The patient has resumed physical activity. Patient states that she is coping/adjusting to motherhood well and family is interacting well with . 08-20-2022 Unclassified (11 sources) visit - The patient is here for a 39 week (3 days) visit. 06-22-2022 Unclassified (11 sources) visit - The patient is here for a 38 week visit. 06-12-2022 Unclassified (11 sources) visit - The patient is here for a 37 week visit. The patient feels well with no complaints and has good energy level. 06-05-2022 Unclassified (11 sources) visit - The patient is here for a 35 week visit. 05-22-2022 Unclassified (11 sources) visit - The patient is here for a 32 week (6 days) visit. 05-07-2022 Unclassified (11 sources) visit - The patient is here for a 30 week visit. 04-20-2022 Unclassified (11 sources) visit - The patient is here for a 26 week visit. 03-23-2022 Unclassified (11 sources) visit - The patient is here for a 22 week visit. 02-23-2022 Unclassified (11 sources) visit - The patient is here for a 18 week (3 days) visit. 01-26-2022 Unclassified (11 sources) visit (initial) - The patient suspects she is due to missed menses. - (4) Parity - (3) Abortions - (0). The patient complains of nausea. There has been no vaginal discharge. There has been no vaginal bleeding. There have been no urinary problems. There have been no bowel problems. Contraceptive history includes none. There is no medical history of asthma, Crohn's disease, William's disease, diabetes mellitus type I, diabetes mellitus type II, endometriosis, gastritis, gastroesophageal reflux disease, HIV infection, hypertension, iron deficiency anemia, irritable bowel disease, lupus erythematosus, mitral valve disease, pelvic inflammatory disease, peptic ulcer disease, renal stones, rheumatoid arthritis, sexually transmitted disease, sickle cell disease, thalassemia, thyroid disease or menstrual irregularities. There is no previous surgical history. Current medications include vitamins. There is no alcohol, caffeine, illicit drug or tobacco use. 12-15-2021 Unclassified (10 sources) Abdominal pain - The onset of the abdominal pain has been gradual and has been occurring in an intermittent pattern for 4 days. The course has been increasing. The pain is described as a moderate cramping. The pain is located in the right upper quadrant and right lower quadrant and does not radiate. The symptoms have no aggravating factors but are relieved by nothing (Rest sometimes helps). The symptoms have been associated with bloating, while the symptoms have not been associated with bloody stools, chest pain, constipation, diarrhea, dysuria, fever, hematuria, nausea, vaginal discharge, vomiting or weight loss. Previous evaluations have included ultrasound (Patient could not get into [facility] easily, so she called Dr. Nuñez in [place] and got in 05/18/2025 and he told her the cysts are shrinking, he used US to look at them, he also gave her a DEPO shot. She has an OV with him the end of June but she is unsure if she will go back to him) and CT scan (Patient went to [facility] ER 05/13/2025 for abdominal pain, she had a CT scan that showed ovarian cysts with the largest on the right side. This scan also showed constipation and a mild enteritis.). Note for "Abdominal pain": Patient has her period 2 weeks ago.Patient reports that her pain went away for about a week before returning 4 days ago. 06-24-2025 Results Test Name Value Interpretation Reference Range Facility Acid Supervisor Office Visit Reporton 09-08-2025 Acid Supervisor Office Visit Report [facility] [address], [address] [place] [address] OFFICE VISIT Date of Service: 09/08/25 MR#: [id number] Acct: [id number] Name: ALESSIA BARRIENTOS Rep #: [id number] : 1990 Provider: JONATHAN hodgson Age/Sex: 34/F [place] [facility] [place]: Signed Intake Vital Signs 07/27/25 15:31 09/07/25 15:04 09/08/25 08:49 Height 5 ft 4 in 5 ft 4 in 5 ft 4 in Weight: 160 lb 2 oz 157 lb 4 oz 157 lb 8 oz BMI 27.4 26.9 27.0 BP 104/71 114/76 106/73 Respiration 14 16 Pulse 84 75 Temp 97.8 F 98.0 F Pulse Oximetry (%) 84 98 Oxygen Delivery Method room air room air Intake Visit Reasons: Ovarian Cyst (BLANCHARD) L D Rn Required: No Is patient in pain?: No Allergies No Known Allergies Allergy (Verified 09/08/25 08:57) Medications ???Medication ???Instructions ???Recorded ???Confirmed ???Type estradiol 1 mg tablet 1 mg PO DAILY #30 tabs 09/08/25 Rx Is last menstrual period known: No Post menopausal: No Patient : No : No PFSH Medical History Wears glasses Low iron Easy bruising Migraine headache Surgical History Hx laparoscopic cholecystectomy Family History (Updated 09/08/25 @ 08:59 by Gosia Barrientos) Uncle Cancer Paternal- Bone Uncle Cancer Paternal- Kidney Social History (Updated 09/08/25 @ 09:00 by Gosia Barrientos) household members: spouse and children Smoking Status: Never smoker do you feel safe at home: Yes additional social history: - Rajat HPI Ovarian Cyst (CHRISTIANE) Details: ALESSIA BARRIENTOS is a 34 year old who presents for new patient for recurrent ovarian cysts. Denies any pain today. Saw an "OB specialist" in [place] in April after an ED visit and told CT with ovarian cyst. Did office US at that time and confirmed cyst and was given a depoprovera injection. States she has had bleeding or brown discharge since. has had vasectomy History 4 Elective abortions Hx Para 4 Spontaneous abortions Hx # Term Pregnancies Ectopic pregnancies Hx # Pregnancies Multiple births # of living children 4 ROS Const Constitutional: Reports system reviewed and no additional complaints, except as documented Eyes Eyes: Reports system reviewed and no additional complaints, except as documented GI GI: Denies abdominal pain or change in bowel habits : Reports as per HPI Exam Const General: cooperative and no acute distress Orientation: oriented x3 HENMT Head: normal to inspection and normocephalic Eyes General: appearance normal, both eyes and all related structures Neck Neck: normal visual inspection Resp Effort Inspection: normal respiratory effort Neuro Cognition: normal cognition Speech: speech normal Psych Appearance: grossly normal Mood: congruent mood Affect: normal affect Speech and Movement: speech and movement normal Attitude: cooperative Judgment: judgment good Coding Level of Care Code Off vis,new,level 3 Diagnoses Abnormal uterine bleeding (AUB) N93.9 Cyst of right ovary N83.201 Laterality: right Assessment and Plan Assessment and Plan (1) Abnormal uterine bleeding (AUB): Status: Acute (2) Ovarian cyst: Status: Acute Qualifiers: Laterality: right Qualified Code(s): N83.201 - Unspecified ovarian cyst, right side Orders: Orders Pelvic w/ Transvaginal Today N93.9 - Abnormal uterine and vaginal bleeding, unspecified, R10.20 - Pelvic and perineal pain unspecified side Medications: New estradiol 1 mg PO DAILY 30 tabs 0RF Plan Pelvic ultrasound. Will monitor if normal and continues asymptomatic. Did discuss nuvaring and she is open to that if suppression needed. Add back estradiol for 30 days RTO prn Plan Details Follow Up: prn (EDUCATION PROGRAM COORDINATOR 3 code) 09/08/25 0945 Date Luna Browne NP EDUCATION PROGRAM COORDINATOR-Ian Ross Signature: Date (if applicable) CC: Normal [facility] Vitamin B12on 09-08-2025 Cobalamin (Vitamin B12) [Mass/Vol] 663 pg/mL Normal 180-914 [facility] Comment on above: Performed By: #### L [id number] #### [facility] [address] [place], [address] Vitamin B12 ser/plasOrdered By: Dasia Burton on 09-08-2025 Cobalamin (Vitamin B12) [Mass/Vol] 663 pg/mL 180-914 [facility] Gastroenterology Visit Repor ton 09-07-2025 Gastroenterology Visit Report [facility] Gastroenterology [address] [place] [address] OFFICE VISIT Date of Service: 09/07/25 MR#: [id number] Acct: [id number] Name: ALESSIA BARRIENTOS Rep #: [id number] : 1990 Provider: JONATHAN chilel Age/Sex: 34/F Location: [facility] [place] Status: Signed Intake Vital Signs 07/27/25 15:31 09/07/25 15:04 Height 5 ft 4 in 5 ft 4 in Weight: 160 lb 2 oz 157 lb 4 oz BMI 27.4 26.9 BP 104/71 114/76 Respiration 14 16 Pulse 84 75 Temp 97.8 F 98.0 F Temp Source Temporal Temporal Pulse Oximetry (%) 84 98 Oxygen Delivery Method room air room air Intake Visit Reasons: 6 wk FU Chief Complaint: Abdominal Pain L D Rn Required: No Accompanied by: Is patient in pain?: No Allergies No Known Allergies Allergy (Verified 09/07/25 15:11) Medications ???Medication ???Instructions ???Recorded ???Confirmed ???Type NK 09/07/25 09/07/25 History PFSH Medical History Wears glasses Low iron Easy bruising Migraine headache Surgical History Hx laparoscopic cholecystectomy Social History household members: spouse and children Smoking Status: Never smoker HPI HPI Chief Complaint: Abdominal Pain Details: OV 07/27/2025 34-year-old female presents for follow-up post colonoscopy which revealed focal active colitis on random biopsies. TI biopsy was unremarkable. CT scan performed 06/29/2025 revealed some inflammatory changes in the rectosigmoid colon suggestive of colitis. CT prior to this performed April 2025 revealed enteritis and a 3.1 cm right adnexal cyst. Fecal calprotectin was borderline with negative fecal elastase and Giardia. CBC, CMP, CRP and lipase were all unremarkable. She initially presented to the emergency department at [facility] April 2025 with right sided abdominal cramping pain and intermittent diarrhea. Symptoms appear to be dietary triggers with fatty and fried foods. History of cholecystectomy. Due to ongoing symptoms she was seen in our office initially by Steffany Gilliam CNP on 06/29/2025. The pathological findings of focal active colitis, with minimal to no architectural distortion, absence of granulomas, and no dysplasia is nonspecific and combined with borderline fecal calprotectin does not meet criteria for IBD. Her symptoms are triggered by dietary factors and are more likely related to IBS. I have recommended dietary/lifestyle modifications which include a high fiber, low fat diet. I have recommended a daily fiber supplements with probiotic. He will follow-up with our office in 6 weeks, sooner for worsening of symptoms. Note: Compendium speech recognition cyber software engineer software was used to create portions of this document. Sound-alike and misspelled words, as well as other cyber software engineer errors may be contained in the documentation. Patient Instructions: Fibercon 2 tablets once daily with 8 ounces of water after a meal. May take up to 3 weeks for symptom improvement. Start a probiotic ([employer], [employer]CommercialTribee or [employer]MeIn) once daily. These are all multispecies probiotics, pick the cheapest one. Hyoscyamine as needed for - seen in office today with - reports she still has diarrhea, but not as frequent - reports the only time she has abdominal pain is just before an episode of diarrhea - she did start fiber supplement and probiotic after last visit, now having 5-6 BM a day, but primarily formed - no longer having frequent diarrhea - this is a change from 2-3x a day - oral irritation, worse with acidic foods, this is new since last OV - mouth burning - denies any burning on her tongue - new oral lesion x3 days - denies any HB - denies any N/V - denies any regurgitation - denies any change in oral care ROS Const Constitutional: No fatigue, fever(s) or weight change ENT ENT: No difficulty swallowing Gastro GI: Positive for diarrhea; No abdominal pain, belching, bloating, change in bowel habits, change in stool character, coffee ground emesis, constipation, cramping, heartburn, difficulty swallowing, feeling full early, excessive flatus, incontinent of stools, Vomiting blood/hematemesis, Blood in stool, loose stools, Black,tarry stools, nausea/dyspepsia, pain with swallowing, vomiting or other Musc Musculoskeletal: No joint pain Skin Skin: No yellowing of the eye or itchy eyes Psych Psychiatric: No anxiety and No depression Endo Endocrine: No fatigue or weight change Aller/Imm Allergy/Immunologic: No itchy eyes Ru/Lymp Hematologic/Lymphatic: No easy bleeding or easy bruising Exam Const General: cooperative, healthy appearing, no acute distress and wel (more content not included)... Normal [facility] Gastroenterology Visit Repor ton 07-27-2025 Gastroenterology Visit Report [facility] Gastroenterology [address] [place] [address] OFFICE VISIT Date of Service: 07/27/25 MR#: [id number] Acct: [id number] Name: ILIANAALESSIA Rep #: [id number] : 1990 Provider: JONATHAN chilel Age/Sex: 34/F Location: [facility] Status: Signed Intake Vital Signs 07/15/25 10:24 07/27/25 15:31 Height 5 ft 4 in 5 ft 4 in Weight: 160 lb 2 oz BMI 27.4 BP 104/71 Respiration 14 Pulse 84 Temp 97.8 F Temp Source Temporal Pulse Oximetry (%) 84 Oxygen Delivery Method room air Intake Visit Reasons: Test Result-Abd Pain/Diarrhea Chief Complaint: Abdominal Pain L D Rn Required: No Accompanied by: Is patient in pain?: No Allergies No Known Allergies Allergy (Verified 07/27/25 15:24) Medications ???Medication ???Instructions ???Recorded ???Confirmed ???Type hyoscyamine sulfate 0.125 mg 0.125 mg PO BID-QID PRN dyspepsia 09/02/25 09/02/25 Rx disintegrating tablet #60 tabs Nurse's Note: Too much excercise can make it worse PFSH Medical History Wears glasses Low iron Easy bruising Migraine headache Surgical History Hx laparoscopic cholecystectomy Social History household members: spouse and children Smoking Status: Never smoker HPI HPI Chief Complaint: Abdominal Pain Details: OV 06/29/2025 ALESSIA BARRIENTOS, is a 34 F who presents to the office today for establishment with [place] [facility] regarding concerns of right sided abdominal pain. Discussed care plan with her and her present for exam. Called radiology and discussed previous findings of enteritis with continued abdominal symptoms, she is able to complete the CT abd/pelvis today as a STAT order. * stool for enteric, calprotectin, cdiff, elastase * blood for IBD, inflammation * CT abd/pelvis w/IV and PO contrast * office FU 2wks CT 06/29/2025 Persistent inflammatory changes in the rectosigmoid colon suggestive of colitis. CT 05/13/2025 mild mucosal thickening of the SB suggestive of enteritis. 3.1cm right adnexal cyst COLON 07/15/2025 - TI biopsy unremarkable Random biopsy: Focal active colitis - sections show areas of focal active cryptitis with involvement of the surface mucosa. There are no granulomas or areas of dysplasia identified. There is minimal to no architectural disorder. - Congested mucosa at the hepatic flexure, in the ascending colon and in the cecum. Biopsied. - The examined portion of the ileum was normal. Biopsied. - The examination was otherwise normal on direct and retroflexion views. CBC: 06/28/2025 unremarkable CMP: 06/28/2025 unremarkable CRP: 06/29/2025 WNL Lipase: 06/28/2025 unremarkable FECAL Calprotectin: 06/29/2025 borderline 98 Elastase: 06/29/2025 >800 Giardia: 06/29/2025 negative LORELEI: 06/29/2025 negative - seen in office today with her The patient is a 34-year-old female presenting with gastrointestinal symptoms. These symptoms began with right-sided abdominal pain and diarrhea, which led her to seek care at [facility] in April. A CT scan at that time revealed enteritis, indicating inflammation of the small intestine. The symptoms did not resolve initially but improved with dietary modifications such as avoiding greasy and raw foods. Between April and June, the patient continued to experience constant right-sided abdominal pain likened to a "hard cramp," especially postprandial. Foods like greasy, raw vegetables, particularly peppers and carrots with ranch dressing, exacerbated the symptoms. In June, when seen in the clinic, a CT scan showed inflammation in the rectosigmoid region, a change from the previously noted small intestine involvement. Blood and stool tests were conducted. A fecal calprotectin was borderline, indicating possible inflammation, yet not consistent with high levels associated with inflammatory bowel disease (IBD) such as Crohn's or ulcerative colitis. Colonoscopy revealed some congested mucosa particularly in hepatic flexure, ascending colon, and cecum, with biopsies showing focal active colitis and surface-level inflammation but no granulomas or dysplastic areas. The absence of severe inflammation suggested IBS rather than a definitive IBD. The patient has a history of cholecystectomy about nine years ago for gallstone disease, with no similar pain to past cholecystitis episodes. Additionally, the patient was found to have ovarian cysts during an ER visit, which required follow-up with an VISUAL TRAINING AIDE, but the management was interrupted due to concurrent gastrointestinal issues. Attestation: Documentation on this patient encounter was supported using ambient scribe technology/ voice AI te (more content not included)... Normal [facility] LORELEI w/ Reflex Mult Confirmon 07-18-2025 ANTI-DNA (DS)AB TNP Normal [facility] Comment on above: Performed By: #### L 3100.5450, L501.6710 #### [facility] [address] [place], [place], [id number] ANTI-SS-A TNP Normal [facility] Comment on above: Performed By: #### L 3100.5450, L501.6710 #### [facility] [address] [place], [place], [id number] ANTI-SS-B TNP Normal [facility] Comment on above: Performed By: #### L 3100.5450, L501.6710 #### [facility] [address] [facility] [place], [address] Colonoscopy Reporton 025 Colonoscopy Report [facility] Medical Records Department [address] [place] [address] Colonoscopy Report MR#: [id number] Acct: [id number] Name: ALESSIA BARRIENTOS Rep #: [id number] : 1990 34 From: Sam Avila DO PCP: ASIF Aguirre Status:REG [facility] Patient Name: Alessia Barrientos Procedure Date: 07/15/2025 11:07 AM Date of : 1990 Age: 34 Procedure: Colonoscopy Indications: Clinically significant diarrhea of unexplained origin Providers: Sam Avila DO Referring MD: Asif Aguirre Medicines: Monitored Anesthesia Care Patient Profile: This is a 34 year old female. Refer to note in patient chart for documentation of history and physical. Last Colonoscopy: none. The patient's first colonoscopy is today. Complications: No immediate complications. Procedure: Pre-Anesthesia Assessment: - Prior to the procedure, a History and Physical was performed, and patient medications and allergies were reviewed. The patient is competent. The risks and benefits of the procedure and the sedation options and risks were discussed with the patient. All questions were answered and informed consent was obtained. Patient identification and proposed procedure were verified by the physician in the pre-procedure area. Mental Status Examination: alert and oriented. Airway Examination: normal oropharyngeal airway and neck mobility. Respiratory Examination: clear to auscultation. CV Examination: normal. Prophylactic Antibiotics: The patient does not require prophylactic antibiotics. Prior Anticoagulants: The patient has taken no anticoagulant or antiplatelet agents except for NSAID medication. ASA Grade Assessment: II - A patient with mild systemic disease. After reviewing the risks and benefits, the patient was deemed in satisfactory condition to undergo the procedure. The anesthesia plan was to use monitored anesthesia care (MAC). Immediately prior to administration of medications, the patient was re-assessed for adequacy to receive sedatives. The heart rate, respiratory rate, oxygen saturations, blood pressure, adequacy of pulmonary ventilation, and response to care were monitored throughout the procedure. The physical status of the patient was re-assessed after the procedure. After I obtained informed consent, the scope was passed under direct vision. Throughout the procedure, the patient's blood pressure, pulse, and oxygen saturations were monitored continuously. The pediatric colonoscope was introduced through the anus and advanced to the terminal ileum. The colonoscopy was performed without difficulty. The patient tolerated the procedure well. The quality of the bowel preparation was adequate. Scope In: 11:18:50 AM Scope Withdrawal Time 0 hours 8 minutes 35 seconds Scope Out: 11:29:46 AM Total Procedure Duration Time 0 hours 10 minutes 56 seconds Findings: The perianal and digital rectal examinations were normal. An area of mildly congested mucosa was found at the hepatic flexure, in the ascending colon and in the cecum. Biopsies were taken with a cold forceps for histology. Verification of patient identification for the specimen was done. Estimated blood loss was minimal. The terminal ileum appeared normal. Biopsies were taken with a cold forceps for histology. Verification of patient identification for the specimen was done. Estimated blood loss was minimal. The exam was otherwise without abnormality on direct and retroflexion views. Impression: - Congested mucosa at the hepatic flexure, in the ascending colon and in the cecum. Biopsied. - The examined portion of the ileum was normal. Biopsied. - The examination was otherwise normal on direct and retroflexion views. Recommendation: - Discharge patient to home. - Resume previous diet. - Continue present medications. - Await pathology results. - Repeat colonoscopy in 5 years for surveillance based on pathology results. Procedure Code(s): --- Professional --- 90586, Colonoscopy, flexible; with biopsy, single or multiple CPT copyright 2021 [employer]. All rights reserved. The codes documented in this report are preliminary and upon physician coder review may be revised to meet current compliance requirements. Sam Avila DO 07/15/2025 11:49:39 AM This report has been signed electronically. Number of Addenda: 0 Note Initiated On: 07/15/2025 11:07 AM 07/15/25 1149 Date Sam Avila DO Cosigner Signature: Date (if indicated) CC: Sam Avila DO; ASIF Aguirre Date Dictated: 07/15/25 1107 Date Transcribed: Ship Superintendent: RF Signed [facility] MR/OP.PROVATon 07-15-2025 MR/OP.[facility] Medical Records Department [address] [place] [address] Provation Physician Letter MR#: [id number] Acct: [id number] Name: ALESSIA BARRIENTOS Rep #: [id number] : 1990 34 From: Sam Avila DO PCP: ASIF Aguirre Status:REG [facility] 07/15/2025 Asif Aguirre Re : Colonoscopy procedure for Alessia Barrientos Dear Yuli This procedure was performed on June. My impressions and recommendations are as follows: Impressions : - Congested mucosa at the hepatic flexure, in the ascending colon and in the cecum. Biopsied. - The examined portion of the ileum was normal. Biopsied. - The examination was otherwise normal on direct and retroflexion views. Recommendations : - Discharge patient to home. - Resume previous diet. - Continue present medications. - Await pathology results. - Repeat colonoscopy in 5 years for surveillance based on pathology results. My findings are described in the full procedure note, which is enclosed. If I can be of further assistance, please feel free to contact me at . Sincerely, Sam Avila DO 07/15/2025 11:49:39 AM This report has been signed electronically. 07/15/25 1149 Date Sam Harrell Signature: Date (if indicated) CC: Sam Avila, DO; ASIF Aguirre Date Dictated: 07/15/25 1107 Date Transcribed: Ship Superintendent: SERGIO Signed [facility] MR/POSTOP.ANEon 07-15-2025 MR/POSTOP.ANE [facility] Medical Records Department [address] [place] [address] Anesthesia Postop Eval I 07/15/25 1132 MR#: [id number] Acct: [id number] Name: ALESSIA BARRIENTOS Rep #: [id number] : 1990 34 From: Trav Hylton CRNA PCP: ASIF Aguirre Status:REG SDC Y Race: C Location: [place] [address] Anesthesia: Postop Eval I Current Vital Signs Temperature: 97 F Pulse Rate: 104 Blood Pressure: 112/76 Respiratory Rate: 16 Pulse Ox: 100 Oxygen Delivery Method: Room Air Assessment Airway patent: Yes Spontaneous unlabored respirations: Yes Mental status: Awake and Calm nausea: No Vomiting: No Anesthesia Complication: No Fluid Hydration Crystalloid volume administer (ml): 100 Total IV fluid infused: 100 Progress Note Anesthesia document: Postop Eval 1 completed: Yes 07/15/25 113 Date Trav Hylton CRNA Cosigner Signature: Date CC: Signed [facility] MR/[id number] 07-15-2025 MR/POSTOPAN2 [facility] Medical Records Department [address] [place] [address] Anesthesia Postop Eval II 07/15/25 1136 MR#: [id number] Acct: [id number] Name: ALESSIA BARRIENTOS Rep #: [id number] : 1990 34 From: Trav Hylton CRNA PCP: ASIF Aguirre Status:REG SDC Y Race: C Location: [place] [address] Anesthesia Postop Eval I Sum Postop Eval Completion status Anesthesia document: Postop Eval 1 completed: Yes Anesthesia Postop Eval I Summary Anesthesia Postop Eval I Summary: Anesthesia Postop Eval I: Assessment Summary Airway patent Yes 07/15/25 11:32 SPOT WELDER.MDOT Spontaneous unlabored Yes 07/15/25 11:32 SPOT WELDER.MDOT respirations Mental status Awake,Calm 07/15/25 11:32 SPOT WELDER.MDOT nausea No 07/15/25 11:32 SPOT WELDER.MDOT Vomiting No 07/15/25 11:32 SPOT WELDER.MDOT Anesthesia Postop Eval I: Fluid Summary Crystalloid volume administer 100 07/15/25 11:32 SPOT WELDER.MDOT (ml) Colloids volume administered ( ml) Blood Product volume administered (ml) Total IV fluid infused 100 07/15/25 11:32 SPOT WELDER.MDOT Anesthesia Postop Eval I: Summary Notes Anesthesia Complication No 07/15/25 11:32 SPOT WELDER.MDOT Anesthesia Complication Comment: Post-operative progress note Anesthesia: Postop Eval II Evaluation Mental status: Awake and Calm Pain Level: 0 nausea: No Vomiting: No Complications Anesthesia Complication: No 07/15/25 1136 Date Trav Hylton CRNA Cosigner Signature: Date CC: Signed Normal [facility] ,Urineon 07-15-2025 Beta HCG ( test) Ql (U) Negative Normal [facility] Comment on above: Result Comment: Very dilute urine specimens, as indicated by a low specific gravity, may not contain rental sales representative levels of hCG. If is still suspected, a first morning urine specimen should be collected 48 hours later and tested. Performed By: #### L 400.7600 #### [facility] [place], [address] Surgery Specimen Level Marlin 07-15-2025 Surgery Specimen Level IV Patient Age/Sex Location Account Attending Physician ALESSIA BARRIENTOS 34/F EN [id number] Sam Avila DO Specimen: [id number] Received: 07/15/25 Status: [place] Num: [id number] Spec Type: COLON BX Subm Dr: Sam Avila DO HEADER OPERATION: Colonoscopy biopsy PRE-OP DIAGNOSIS: Right-sided abdominal pain of unknown cause, diarrhea TISSUE SUBMITTED: A- Terminal ileum biopsy, B- Random colon biopsy MICROSCOPIC DIAGNOSIS A. Terminal ileum, biopsy: * Small bowel mucosa with no pathologic change B. Colon, random biopsy: * Focal active colitis (See note) Note: Sections show areas of focal active cryptitis with involvement of the surface mucosa. There are no granulomas or areas of dysplasia identified. There is minimal to no architectural disorder. The findings are not specific and may be seen in infections, medication-induced, NSAIDS and inflammatory bowel disease. Clinical and endoscopic correlation is recommended. MICROSCOPIC DESCRIPTION Slides are reviewed. GROSS DESCRIPTION A. Received in fixative is one container labeled with the patient's name and designated Terminal ileum biopsy. The specimen consists of three irregular fragments of light santos soft tissue that measure 0.4 to 0.6 cm. The specimen is totally submitted in one cassette. B. Received in fixative is one container labeled with the patient's name and designated "Random colon biopsy." The specimen consists of multiple irregular fragments of light santos soft tissue that in aggregate measure 1.5 x 0.9 x 0.2 cm. The specimen is totally submitted in one cassette. HI 07/15/2025 [facility]:[id number] Patient Age/Sex Location Account Attending Physician ALESSIA BARRIENTOS 34/F EN [id number] Sam Avila DO Signed (signature on file) Dr. Roshni Serrato DO 07/16/25 1128 Normal [facility] Comment on above: Performed By: #### P SUIV #### [facility] [address] [facility] [address] [place], [place], [id number] Urine testOrdered By: Raymundo Flores on 07-15-2025 HCG ( test) Ql (U) Negative [facility] Comment on above: Very dilute urine sp ecimens, as indicated by a low specificgravity, may not contain rental sales representative levels of hCG. If is still suspected, a first morning urinespecimen should be collected 48 hours later and tested. Giardia Lamblia, Stool EIAon 07-07-2025 Giardia Stool Negative Normal Negative [facility] Comment on above: Result Comment: Perf ormed at: [address] [id number] Graduate Teaching Associate: Mirlande Ch MD, Phone: [phone] Performed By: #### L 8204.5450, J715.4216 #### [facility] [address] [place], [place], [id number] L7000.0750on 07-07-2025 P ELASTASE,FECA > 800 Normal >200 [facility] Comment on above: Result Comment: Resu lt Units: ug Elast./g Severe Pancreatic Insufficiency: <100 Moderate Pancreatic Insufficiency: 100 - 200 Normal: >200 Performed By: #### L 3100.5450, L535.2721 #### [facility] [address] [place], [place], [address] Calprotectin, Stoolon [address] 98 ug/g Normal 0-120 [facility] Comment on above: Result Comment: Conc entration Interpretation Follow-Up < 5 - 50 ug/g Normal None >50 -120 ug/g Borderline Re-evaluate in 4-6 weeks >120 ug/g Abnormal Repeat as clinically indicated Performed at: [facility] [id number] Graduate Teaching Associate: Mirlande Ch MD, Phone: [phone] Performed By: #### L 3252.4980, Z127.4506 #### [facility] [address] [place], [place], [id number] Abdomen/Pelvis WITH Contrast on 06-29-2025 Abdomen/Pelvis WITH Contrast [facility] Imaging Services [address], [place] [address] Abdomen/Pelvis WITH Contrast MR#: [id number] Acct: [id number] Name: ALESSIA BARRIENTOS Rep #: [id number] : 1990 F 34 From: Dread donahue MD PCP: ASIF Aguirre Status: REG CLI Study: Abdomen/Pelvis WITH Contrast Date of Exam: 04/18 Exam# [id number] Ordering Dr: Steffany Gilliam EDUCATION PROGRAM COORDINATOR-C PROCEDURE: ABDOMEN/PELVIS WITH CONTRAST 06/29/2025 REASON FOR EXAM: RIGHT SIDE ABD PAIN, PREVIOUS ENTERITIS CT 05.13.25 TECHNIQUE: ABDOMEN/PELVIS WITH CONTRAST Coronal and Sagittal reconstruction series were provided. CONTRAST: Isovue-300 VOLUME: 100 mL One or more dose reduction techniques were used (e.g., Automated exposure control, adjustment of the mA and/or kV according to patient size, use of iterative reconstruction technique. RADIATION DOSE SUMMARY: CTDlvol: 11.5 mGy DLP: 689.28 mGycm COMPARISON: Prior study dated May 13, 2025. FINDINGS: Lung bases: Lung bases are clear. Liver: Normal size. No mass. Gallbladder: Surgically absent. Spleen: Normal size. Pancreas: Normal size without evidence of mass surrounding inflammation or ductal dilation. Adrenals: Unremarkable Kidneys: Normal renal sizes. No hydronephrosis. Bladder: Unremarkable Reproductive Organs: Unremarkable Bowel: Persistent inflammatory changes in the rectosigmoid colon suggestive of colitis. Appendix: The appendix is not identified. There is no inflammatory process identified in the right lower quadrant to suggest appendicitis. Lymph nodes: No suspicious lymph node enlargement. Vasculature: The abdominal aorta and IVC are normal. Peritoneum / Retroperitoneum: Small umbilical hernia containing fat. Bones: Mild degenerative changes. CT/Abdomen/Pelvis WITH Contrast IMPRESSION: Persistent colitis of the rectosigmoid colon. Reading Location: [id number] CC: JONATHAN Gilliam; ASIF Aguirre Ship Superintendent: Signed Normal [facility] CDIFF (PCR)on 06-29-2025 CDIFF Pending 027 027 NAP1-B1 Presumptive Negative *for epidemiolologic???use C. Diff PCR Negative- No toxigenic C. Diff Detected Normal [facility] Comment on above: Performed By: #### L 3100.5450, L501.6710 #### [facility] [address] [facility] [place], [address] CRPon 06-29-2025 C-REACTIVE PROT < 3.00 Normal 0.0-3.0 [facility] Comment on above: Performed By: #### L 3100.5450, L501.6710 #### [facility] [address] [facility] [place], [address] Calprotectin stoolOrdered By : Steffany Gilliam on 06-29-2025 Calprotectin stool 98 ug/g 0-120 [facility] Comment on above: Concentration Interp retation Follow-Up< 5 - 50 ug/g Normal None>50 -120 ug/g Borderline Re-evaluate in 4-6 weeks >120 ug/g Abnormal Repeat as clinically indicatedPerformed at: - [facility] [address] [id number] Director: Mirlande Ch MD, Phone: [phone] Clostridium difficile detect ion by polymerase chain reactionOrdered By: Steffany Gilliam on 06-29-2025 C. difficile DNA DRISS+probe Ql (Unsp spec) [facility] ENTERIC PATHOGEN PANEL STOOL on 06-29-2025 EP PANEL Not detected for Campylobacter group, Salmonella species, Shigella species, Vibrio Group, Yersinia enterocolitica, EHEC (Shiga Toxin 1, Shiga Toxin 2), Norovirus Gl/Gll, and Rotavirus A. Other common stool pathogens are not detected on this panel include: Aeromonas/Plesiomonas or parasites. Order testing for these organisms separately if suspected. This is an amplified DNA test which makes it both specific and sensitive. Normal Reference Range = Not Detected Nucleic acid amplification test method CAMPYLOBACTER Not Detected Norovirus Not Detected Rotavirus Not Detected Salmonella Not Detected Shiga Toxin Not Detected Shigella sp. Not Detected VIBRIO Not Detected Yersinia Not Detected Normal [facility] Comment on above: Performed By: #### L 3100.5450, L501.6710 #### [facility] [address] [place], [address] Gastroenterology Visit Repor ton 06-29-2025 Gastroenterology Visit Report [facility] [address] [place] [address] OFFICE VISIT Date of Service: 06/29/25 MR#: [id number] Acct: [id number] Name: ALESSIA BARRIENTOS Rep #: [id number] : 1990 Provider: JONATHAN Kruse ans Age/Sex: 34/F Location: [facility] Status: Signed Intake Vital Signs 06/28/25 13:56 Height 5 ft 4 in Intake Visit Reasons: RIGHT SIDED ABDOMINAL PAIN Chief Complaint: Abdominal Pain L D Rn Required: No Is patient in pain?: Yes (Right abdominal pain ) Pain scale (1-10): 8 Allergies No Known Allergies Allergy (Verified 06/29/25 11:26) Medications ???Medication ???Instructions ???Recorded ???Confirmed ???Type amoxicillin 875 mg-potassium 1 tab PO BID 06/29/25 06/29/25 His tory clavulanate 125 mg tablet Nurse's Note: Patient is here today with Right abdominal pain, patient states it is all of the time. She is having some diarrhea with it. No nausea or vomiting. Pain is achy, just on the right side. Patient did have a CT done May 13 at [facility] and was in the ER here in [place] on 06/28 [facility] Social History household members: spouse and children Smoking Status: Never smoker HPI HPI Chief Complaint: Abdominal Pain Details: ALESSIA BARRIENTOS, is a 34 [employer] F who presents to the office today for establishment with [facility] regarding concerns of right sided abdominal pain. [facility] ER visit on 06.28.25, CBC and CMP without significant abnormalities, no imaging performed. She states the right-sided abdominal pain is sharp and very crampy, rates the pain 8 out of 10 with 10 being the worst. She denies food increasing symptoms, but states physical activity does increase the severity. She had an ER visit at [facility] on May 13, had a CT of abd/pelvis that demonstrated enteritis of the small bowel and right adnexal cyst. She then visited her PUBLIC HEALTH OUTREACH WORKER MD in [place], where she had been told that she should probably have a hysterectomy" but they wanted to try a control medication first, she received an injection of Depo Provera. She denies change in symptoms. She is now reporting, as of this morning, she is having urgent diarrhea. She denies hematochezia, melena, abdominal bloating, gas, and constipation. She has 2 days left of her 7-day Augmentin treatment from her PCP. She uses city water, consumes no raw or undercooked meats, washes all of the foods from her garden, denies exposure to known ill persons. She states that her gallbladder was removed due to gallstones. ROS Const Constitutional: No fatigue, fever(s) or weight change ENT ENT: No difficulty swallowing Gastro GI: Positive for diarrhea; No abdominal pain, belching, bloating, change in bowel habits, change in stool character, coffee ground emesis, constipation, cramping, heartburn, difficulty swallowing, feeling full early, excessive flatus, incontinent of stools, Vomiting blood/hematemesis, Blood in stool, loose stools, Black,tarry stools, nausea/dyspepsia, pain with swallowing, vomiting or other Musc Musculoskeletal: No joint pain Skin Skin: No yellowing of the eye or itchy eyes Psych Psychiatric: No anxiety and No depression Endo Endocrine: No fatigue or weight change Aller/Imm Allergy/Immunologic: No itchy eyes Ru/Lymp Hematologic/Lymphatic: Positive for easy bruising; No easy bleeding Exam Const General: cooperative, comfortable, no acute distress and ill appearing acutely (appears very fatigued) Nutritional Appearance: average body habitus Orientation: alert and oriented x3 HENMT Head: normal to inspection Ears: hearing grossly normal bilaterally Eyes General: appearance normal, both eyes and all related structures Sclera: sclerae normal Neck Neck: normal visual inspection and full ROM Chest Chest palpation inspection: normal inspection of the chest Resp Effort Inspection: normal respiratory effort and able to speak in complete sentences GI Inspection: normal to inspection Auscultation: normal bowel sounds Percussion: no fluid wave Palpation: soft, no hepatosplenomegaly, no guarding and tender in the RLQ and in the RUQ; not at McBurney's point, obturator sign negative, psoas sign negative and with no rebound tenderness Rectal Exam: deferred Skin General: no rashes or lesions noted Neuro General: patient alert, patient oriented x3 and moves all extremities Cognition: normal cognition Speech: speech normal Gait: normal gait Extrem General: full ROM Psych Appearance: well kempt Mental Status: mental status grossly normal Mood: congruent mood Judgment: judgment good Assessment and Plan Assessment and Plan (1) Right-sided abdominal pain of unknown cause: Status: Acute (2) Diarrhea: Status: Acute Qualifiers: Diarrhea type: unspecified ty (more content not included)... Normal [facility] Giardia lamblia ag stool EIA Ordered By: Steffany Gilliam on 06-29-2025 G. lamblia Ag IA Ql (Stl) Negative Negative [facility] Comment on above: Performed at: [address] [id number] Director: Mirlande Ch MD, Phone: [phone] Serum DNA double strand anti body assay (units/volume)Ordered By: Steffany Gilliam on 06-29-2025 DNA double strand Ab Qn (S) TNP [facility] Comment on above: Test not performed Serum Scl-70 antibody assay (units/volume)Ordered By: Steffany Gilliam on 06-29-2025 SCL-70 extractable nuclear Ab Qn (S) TNP [facility] Comment on above: Test not performed Serum or plasma C reactive p rotein measurement (mass/volume)Ordered By: Steffany Gilliam on 06-29-2025 CRP [Mass/Vol] mg/L 0.0-3.0 [facility] Stool pancreatic elastase me asurement (mass/mass)Ordered By: Steffany Gilliam on 06-29-2025 Elastase.pancreatic (Stl) [Mass/Mass] > 800 >200 [facility] Comment on above: Result Units: ug Latha st./g Severe Pancreatic Insufficiency: <100 Moderate Pancreatic Insufficiency: 100 - 200 Normal: >200 Absolute lymphocyte countOrd ered By: Juan Hart on 06-28-2025 Lymphocytes Auto (Unsp spec) [#/Vol] 1.56 10*3/uL 0.83-4.51 [facility] Absolute neutrophil countOrd ered By: Juan Hart on 06-28-2025 Neutrophils (Bld) [#/Vol] 4.1 10*3/uL 2.0-7.7 [facility] Anion gap in Serum or Plasma Ordered By: Juan Hart on 06-28-2025 Anion gap [Moles/Vol] 13 mmol/L 5-15 [facility] Automated blood erythrocyte countOrdered By: Juan Hart on 06-28-2025 RBC (Bld) [#/Vol] 5.09 10*6/uL Normal 4.2-5.4 [facility] Comment on above: Performed By: #### L 3100.5450, L501.6710 #### [facility] [address] [place], [place], [id number] Automated blood hematocrit ( percentage)Ordered By: Juan Hart on 06-28-2025 Hematocrit (Bld) [Volume fraction] 42.8 % Normal 37-47 [facility] Comment on above: Performed By: #### L 3100.5450, L501.6710 #### [facility] [address] [place], [place], [id number] Automated lymphocyte count a s percentage of total leukocytesOrdered By: Juan Hart on 06-28-2025 Lymphocytes/100 WBC Auto (Unsp spec) 23.7 % - [facility] BUN/creatinine ratioOrdered By: Juan Hart on 06-28-2025 Urea nitrogen/Creatinine [Mass ratio] 15.9 mg/mg 10-20 [facility] Basophil percentageOrdered B y: Juan Hart on 06-28-2025 Basophils/100 WBC (Bld) 0.5 % Normal 0-1 [facility] Comment on above: Performed By: #### L 3100.5450, L501.6710 #### [facility] [address] [place], [address] Bilirubin, totalOrdered By: Juan Hart on 06-28-2025 Bilirubin [Mass/Vol] 0.34 mg/dL 0.00-1.30 [facility] CBC W/Diff, Automatedon Absolute Lymph 1.56 X10 3/uL Normal 0.83-4.51 [facility] Comment on above: Performed By: #### L 3100.5450, L501.6710 #### [facility] [address] [place], [address] Absolute Neut 4.1 X10 3/uL Normal 2.0-7.7 [facility] Comment on above: Performed By: #### L 3100.5450, L501.6710 #### [facility] [address] [place], [address] IG% 0.200 Normal 0.0-0.9 [facility] Comment on above: Result Comment: IG% - Immature Granulocytes (promyelocytes, myelocytes and metamyelocytes) > 1% indicates that a LEFT SHIFT is Present. Performed By: #### L 3100.5450, L501.6710 #### [facility] [address] [place], [address] Lymphocytes/100 WBC (Bld) 23.7 % Normal - [facility] Comment on above: Performed By: #### L 3100.5450, L5.10 #### [facility] [address] [place], [address] Nucleated RBC (Bld) [#/Vol] 0 10*3/uL Normal 0-5 [facility] Comment on above: Performed By: #### L 3100.5450, L5.10 #### [facility] [address] [place], [address] RDW SD 39.2 fl Normal 35.1-43.9 [facility] Comment on above: Performed By: #### L 3100.5450, L5.10 #### [facility] [address] [place], [address] Carbon dioxide, total [Moles /volume] in Central venous bloodOrdered By: Juan Hart on 06-28-2025 CO2 [Moles/Vol] 19.7 mmol/L Low 21.0-32.0 [facility] Chloride assayOrdered By: Ug o Tanner on 06-28-2025 Chloride [Moles/Vol] 107 mmol/L 98-108 [facility] Comprehensive Metabolic Prof ilon 06-28-2025 Albumin [Mass/Vol] 4.7 g/dL Normal 3.5-5.0 [facility] Comment on above: Performed By: #### L 3100.5450, L5.10 #### [facility] [address] [place], [address] Albumin/Globulin [Mass ratio] 1.7 {ratio} Normal 0.9-2.4 [facility] Comment on above: Performed By: #### L 3100.5450, L5.6710 #### [facility] [address] [place], [address] ALK PHOS 53 U/L Normal 35-104 [facility] Comment on above: Performed By: #### L 3100.5450, L5.6710 #### [facility] [address] [place], [address] ALT [Catalytic activity/Vol] 26 U/L Normal <=34 [facility] Comment on above: Performed By: #### L 3100.5450, L501.6710 #### [facility] [address] [place], [address] AST [Catalytic activity/Vol] 22 U/L Normal <=31 [facility] Comment on above: Result Comment: Hemo lysis present, Results??could be affected. ?? Performed By: #### L 3100.5450, L501.6710 #### [facility] [address] [place], [address] Bilirubin [Mass/Vol] 0.34 mg/dL Normal 0.00-1.30 [facility] Comment on above: Performed By: #### L 3100.5450, L501.6710 #### [facility] [address] [place], [address] BUN/CRE 15.9 RATIO Normal 10-20 [facility] Comment on above: Performed By: #### L 3100.5450, L501.6710 #### [facility] [address] [place], [address] Calcium [Mass/Vol] 9.6 mg/dL Normal 7.6-11.0 [facility] Comment on above: Performed By: #### L 3100.5450, L501.6710 #### [facility] [address] [place], [address] Chloride [Moles/Vol] 107 mmol/L Normal 98-108 [facility] Comment on above: Performed By: #### L 3100.5450, L501.6710 #### [facility] [address] [place], [address] CO2 [Moles/Vol] 19.7 mmol/L Low 21.0-32.0 [facility] Comment on above: Performed By: #### L 3100.5450, L501.6710 #### [facility] [address] [place], [address] Creatinine [Mass/Vol] 0.61 mg/dL Low 0.70-1.20 [facility] Comment on above: Performed By: #### L 3100.5450, L501.6710 #### [facility] [address] [place], [address] ECRCL 128.26 ml/min Normal 50-250 [facility] Comment on above: Performed By: #### L 3100.5450, L501.6710 #### [facility] [address] [place], [address] GAP 13 Normal 5-15 [facility] Comment on above: Performed By: #### L 3100.5450, L501.6710 #### [facility] [address] [place], [address] GFR/1.73 sq M.predicted among non-blacks MDRD (S/P/Bld) [Vol rate/Area] 120 mL/min/{1.73_m2} Normal >60 [facility] Comment on above: Result Comment: mL/m in/1.73m2 CKD-EPI Creatinine Equation (2020) Performed By: #### L 3100.5450, L501.6710 #### [facility] [address] [place], [address] Globulin (S) [Mass/Vol] 2.8 g/dL Normal 2.2-4.2 [facility] Comment on above: Performed By: #### L 3100.5450, L501.6710 #### [facility] [address] [place], [address] Glucose [Mass/Vol] 94 mg/dL Normal 70-99 [facility] Comment on above: Performed By: #### L 3100.5450, L501.6710 #### [facility] [address] [place], [address] Potassium [Moles/Vol] 4.0 mmol/L Normal 3.3-5.1 [facility] Comment on above: Result Comment: Hemo lysis present, Results??could be affected. ?? Performed By: #### L 3100.5450, L501.6710 #### [facility] [address] [place], [address] Sodium [Moles/Vol] 139 mmol/L Normal 133-145 [facility] Comment on above: Performed By: #### L 3100.5450, L501.6710 #### [facility] [address] [place], [address] T PROT 7.4 g/dL Normal 5.9-8.4 [facility] Comment on above: Performed By: #### L 3100.5450, L501.6710 #### [facility] [address] [place], [address] Urea nitrogen [Mass/Vol] 10 mg/dL Normal 4-19 [facility] Comment on above: Performed By: #### L 3100.5450, L501.6710 #### [facility] [address] [place], [address] Emergency Department Summary on 06-28-2025 Emergency Department Summary [facility] [address] [place] [address] Emergency Department Summary 06/28/25 MR#: [id number] Acct: [id number] Name: ALESSIA BARRIENTOS Rep #: [id number] : 1990 34 From: Juan Hart MD PCP: ASIF Aguirre Status:REG ER Location: ED HPI History of Present Illness Chief Complaint: Abd Pain Detail of Chief Complaint: Right upper quadrant right lower abdominal pain Informant: patient and spouse/S.O. Onset/Context/Timing Onset: Month(s) (Intermittent since May 13 was seen at outside facility and had CAT scan.) Context: Sudden Onset Timing: Intermittent Quality: Pain Location: Points to the right upper quadrant Current Severity: Mild Maximum Severity: Moderate Worsened by: Movement Relieved by: Nothing Associated Symptoms Associated Symptoms: Today she had 3 formed stools which is not normal for her. Narrative Narrative: Patient is a 34-year-old woman. She was seen at outside facility. Records from that facility were obtained. The ER attending's note was reviewed. She did have a CAT scan. The CAT scan interpretation revealed the following: Status postcholecystectomy 3.7 cm slightly heterogeneous cyst in the right adnexa which could represent a hemorrhagic cyst with internal septation. There is also a nonspecific right costophrenic nodule noted. Apparently there is small right and left pleural effusion. There is some minimal atelectasis. Increased fecal stasis involving the right colon and transverse colon. Mild small bowel wall thickening left abdomen with small mesenteric nodes suggestive of underlying enteritis and mild mesenteric adenitis. The appendix was normal at that time. There was no evidence of colitis or pyelonephritis. There is no retroperitoneal hemorrhage noted. There is mild mid to lower lumbar spine degenerative changes noted. Patient did also have a small supraumbilical ventral hernia that contained fat only. She denies intolerance to any food. She denies nausea or vomiting. She denies history of renal ureterolithiasis. She denies dysuria, frequency, urgency or hematuria. There is no history of direct or indirect trauma. She denies cough, shortness of breath or difficulty breathing. She denies chest pain Prior similar symptoms: Yes PFSH PFSH Medical History no medical history no medical history Allergy/AdvReac Type Severity Reaction Status Date / Time No Known Allergies Allergy Verified 06/28/25 14:00 Family History no significant family his no significant family history Social History (Updated 06/28/25 @ 17:[address] Juan Hart MD) household members: spouse and children Smoking Status: Never smoker ROS ROS ED Constitutional Constitutional ED: Denies chills, fever(s), subjective, sweats or weight loss Eyes Eyes: Denies blurry vision or change in vision ENT ENT ED: Denies rhinorrhea or sore throat Cardiovascular Cardiovascular: Denies chest pain or palpitations Respiratory/Chest Respiratory/Chest: Denies cough, dyspnea or dyspnea on exertion Gastrointestinal Gastrointestinal: Reports abdominal pain; Denies constipation, diarrhea, melena, nausea or vomiting Genitourinary Genitourinary ED: Denies dysuria, hematuria or urinary frequency Musculoskeletal Musculoskeletal: Denies back pain Integumentary Denies rash Hematologic/Lymphatic Hematologic/Lymphatic: Reports systems reviewed and no addt'l complaints, except as documented EXAM Physical Exam Const Vital Signs: 06/28/25 13:56 Temperature 98.8 F Temperature Source Oral Pulse Rate 108 H Respiratory Rate 18 Blood Pressure 110/76 Blood Pressure Mean 87 Pulse Ox 99 Oxygen Delivery Method Room Air Positive well nourished and well developed General Appearance ED: well developed; Negative for pallor HEENT Reports moist mucous membranes HEENT Narrative: Head is atraumatic and normocephalic. Eyes PERRL and EOMs intact bilaterally General Eye ED: Negative for pale conjunctiva or scleral icterus Neck no lymphadenopathy, supple and no JVD Resp normal respiratory effort and clear to auscultation bilaterally Cardio regular rate, regular rhythm, S1 normal heart sound, S2 normal heart sound and no murmurs GI normal to inspection, nondistended, normoactive bowel sounds, non-distended and no masses; Negative for non-tender or hepatosplenomegaly GI Narrative: Tenderness right side of the abdomen. There is no tenderness over McBurney's point. Inspection: Negative for abdominal distention Auscultation: hypoactive bowel sounds Palpation: soft and tender other (Right mid abdomen) Extremity normal to inspection General Extremety ED: Negative for edema General Extremity: Negative for edema Neuro oriented x3 and CN's II-XII intact bilaterally Sensorium / Orientation: alert Skin (more content not included)... Normal [facility] Eosinophil percentageOrdered By: Juan Hart on 06-28-2025 Eosinophils/100 WBC (Bld) 4.7 % Normal 0-5 [facility] Comment on above: Performed By: #### L 3100.5450, L501.6710 #### [facility] [address] [place], [address] Erythrocyte distribution wid th ratioOrdered By: Juan Hart on 06-28-2025 Erythrocyte distribution width (RBC) [Ratio] 12.9 % Normal 11.6-14.6 [facility] Comment on above: Performed By: #### L 3100.5450, L501.6710 #### [facility] [address] [place], [place], [address] Erythrocyte distribution wid th standard deviationOrdered By: Juan Hart on 06-28-2025 Erythrocyte distribution width (RBC) [Ratio] 39.2 fl 35.1-43.9 [facility] Glomerular filtration rate ( GFR) estimation/1.73 sq m using serum, plasma, or whole bOrdered By: Juan Hart on 06-28-2025 GFR/1.73 sq M.predicted among non-blacks MDRD (S/P/Bld) [Vol rate/Area] 120 mL/min/{1.73_m2} >60 [facility] Comment on above: mL/min/1.73m2 CKD-EP I Creatinine Equation (2020) Hemoglobin measurementOrdere d By: Juan Hart on 06-28-2025 Hemoglobin (Bld) [Mass/Vol] 14.3 g/dL Normal 12.0-15.0 [facility] Comment on above: Performed By: #### L 3100.5450, L501.6710 #### [facility] [address] [place], [place], [id number] Immature granulocytes/100 WB C Auto (Bld)Ordered By: Juan Hart on 06-28-2025 Immature granulocytes/100 WBC (Bld) 0.200 % 0.0-0.9 [facility] Comment on above: IG% - Immature Granu locytes (promyelocytes, myelocytes and metamyelocytes) > 1% indicates that a LEFT SHIFT is Present. Laboratory - Chemistry and C hemistry - challengeOrdered By: Juan Hart on 06-28-2025 AST [Catalytic activity/Vol] 22 U/L <32 [facility] Comment on above: Hemolysis present, R esults could be affected. Lipaseon 06-28-2025 Lipase [Catalytic activity/Vol] 37 U/L Normal 13-75 [facility] Comment on above: Result Comment: Plea se note: LIPASE revised reference range effective 23. New Lipase methodology. Expected to produce lower values than the previous assay method. NEW Reference Range: 13 - 75 U/L Performed By: #### L 3100.5450, L501.6710 #### [facility] [address] [place], [address] Lipase measurementOrdered By : Juan Hart on 06-28-2025 Lipase [Catalytic activity/Vol] 37 U/L 13-75 [facility] Comment on above: Please note:LIPASE r evised reference range effective 23. New Lipase methodology. Expected to produce lower values than the previous assay method. NEW Reference Range: 13 - 75 U/L MCV (mean corpuscular volume ) determinationOrdered By: Juan Hart on 06-28-2025 MCV (RBC) [Entitic vol] 84.1 fL Normal 81-99 [facility] Comment on above: Performed By: #### L 3100.5450, L501.6710 #### [facility] [address] [place], [address] Mean corpuscular hemoglobin (MCH) determinationOrdered By: Juan Hart on 06-28-2025 MCH (RBC) [Entitic mass] 28.1 pg Normal 27.0-32.0 [facility] Comment on above: Performed By: #### L 3100.5450, L501.6710 #### [facility] [address] [place], [address] Mean corpuscular hemoglobin concentration (MCHC) determinationOrdered By: Juan Hart on 06-28-2025 MCHC (RBC) [Mass/Vol] 33.4 g/dL Normal 32-36 [facility] Comment on above: Performed By: #### L 3100.5450, L501.6710 #### [facility] [address] [place], [address] Mean platelet volume determi nationOrdered By: Juan Hart on 06-28-2025 Platelet mean volume (Bld) [Entitic vol] 9.8 fL Normal 6.2-12.0 [facility] Comment on above: Performed By: #### L 3100.5450, L501.6710 #### [facility] [address] [place], [address] Monocyte percentageOrdered B y: Juanstanislav Kurtzo on 06-28-2025 Monocytes/100 WBC (Bld) 8.5 % Normal 0-10 [facility] Comment on above: Performed By: #### L 3100.5450, L501.6710 #### [facility] [address] [place], [address] Neutrophil percentageOrdered By: Juan Kurtzo on 06-28-2025 Neutrophils/100 WBC (Bld) 62.4 % Normal 47-70 [facility] Comment on above: Performed By: #### L 3100.5450, L501.6710 #### [facility] [address] [place], [address] Nucleated red blood cell per centageOrdered By: Juan Hart on 06-28-2025 Nucleated RBC/100 WBC (Bld) [Ratio] 0 % 0-5 [facility] Platelet countOrdered By: Ug o Hart on 06-28-2025 Platelets (Bld) [#/Vol] 280 10*3/uL Normal 150-450 [facility] Comment on above: Performed By: #### L 3100.5450, L501.6710 #### [facility] [address] [place], [address] Potassium measurement (mass/ volume)Ordered By: Juan Kurtzo on 06-28-2025 Potassium (Unsp spec) [Mass/Vol] 4.0 mmol/L 3.3-5.1 [facility] Comment on above: Hemolysis present, R esults could be affected. ,Serum,hCG Quali.on 06-28-2025 HCG, SERUM QUAL Negative Normal [facility] Comment on above: Performed By: #### L 3100.5450, L501.6710 #### [facility] [address] [place], [address] Serum beta-hCG test, qualita tiveOrdered By: Juan Hart on 06-28-2025 Beta HCG ( test) Ql Negative [facility] Serum creatinine measurement (mass/volume)Ordered By: Juan Hart on 06-28-2025 Creatinine [Mass/Vol] 0.61 mg/dL Low 0.70-1.20 [facility] Serum globulin measurementOr dered By: Juan Hart on 06-28-2025 Globulin (S) [Mass/Vol] 2.8 g/dL 2.2-4.2 [facility] Serum glucose measurement (m ass/volume)Ordered By: Juan Hart on 06-28-2025 Glucose [Mass/Vol] 94 mg/dL 70-99 [facility] Serum or plasma alanine leyva otransferase (ALT) measurementOrdered By: Juan Hart on 06-28-2025 ALT [Catalytic activity/Vol] 26 U/L <35 [facility] Serum or plasma albumin ignacio urement (mass/volume)Ordered By: Juan Hart on 06-28-2025 Albumin [Mass/Vol] 4.7 g/dL 3.5-5.0 [facility] Serum or plasma albumin/glob ulin mass ratioOrdered By: Juan Hart on 06-28-2025 Albumin/Globulin [Mass ratio] 1.7 {ratio} 0.9-2.4 [facility] Serum or plasma alkaline nancy sphatase measurementOrdered By: Juanstanislav Hart on 06-28-2025 ALP [Catalytic activity/Vol] 53 U/L 35-104 [facility] Serum or plasma calcium ignacio urement (mass/volume)Ordered By: Juan Hart on 06-28-2025 Calcium [Mass/Vol] 9.6 mg/dL 7.6-11.0 [facility] Serum or plasma urea nitroge n measurement (mass/volume)Ordered By: Juan Hart on 06-28-2025 Urea nitrogen [Mass/Vol] 10 mg/dL 4-19 [facility] Sodium levelOrdered By: Juan Hart on 06-28-2025 Sodium [Moles/Vol] 139 mmol/L 133-145 [facility] Total proteinOrdered By: Juan Hart on 06-28-2025 Protein [Mass/Vol] 7.4 g/dL 5.9-8.4 [facility] White blood cell (WBC) count Ordered By: Juan Hart on 06-28-2025 WBC (Bld) [#/Vol] 6.6 10*3/uL Normal 4.4-11.0 [facility] Comment on above: Performed By: #### L 3100.5450, L501.6710 #### [facility] [address] [place], [place] [address] [place], [address] C-REACTIVE PROTEINon 025 CRP 2.32 mg/dl High 0.00 - 0.[address] [facility] Comment on above: Performed By: #### 2 [id number] ####[facility],[address] [place] [address] CBC + DIFFon 05-13-2025 Baso # 0.01 x10EE3/UL Normal 0.00 - 0.[address] [facility] Comment on above: Performed By: #### 2 [id number] #### [facility],[address] [place] [address] Basophils/100 WBC (Bld) 0.1 % Normal 0.0 - 2.[address] [facility] Comment on above: Performed By: #### 2 [id number] #### [facility],[address] [place] [address] CBC + DIFF Normal [facility] Comment on above: Result Comment: CBC- COMPLETE BLOOD COUNT Performed By: #### 2 11132 #### [facility],[address] [place] [address] EO # 0.35 x10EE3/UL Normal 0.00 - 0.[address] [facility] Comment on above: Performed By: #### 2 [id number] #### [facility],[address] [place] [address] Eosinophils/100 WBC (Bld) 2.8 % Normal 0.0 - 7.[address] [facility] Comment on above: Performed By: #### 2 65529 #### [facility] [facility],[address] [place] [address] Erythrocyte distribution width (RBC) [Ratio] 13.7 % Normal 12.0 - 15.[address] [facility] Comment on above: Performed By: #### 2 [id number] #### [facility],[address] [place] [address] 09011 Hematocrit (Bld) [Volume fraction] 38.6 % Normal 34.0 - 46.[address] [facility] Comment on above: Performed By: #### 2 25077 #### [facility],[address] [place] [address] Hemoglobin (Bld) [Mass/Vol] 13.3 g/dL Normal 12.0 - 16.[address] [facility] Comment on above: Performed By: #### 2 16826 #### [facility],[address] [place] [address] 94979 Lymph # 1.01 x10EE3/UL Normal 0.80 - 2.[address] [facility] Comment on above: Performed By: #### 2 81240 #### [facility],[address] [place] [address] 80173 Lymphocytes/100 WBC (Bld) 8.2 % Low 20.0 - 45.[address] [facility] Comment on above: Performed By: #### 2 93463 #### [facility],[address] [place] [address] 26020 MANUAL DIFF N/A Normal [facility] Comment on above: Performed By: #### 2 97846 #### [facility],[address] [place] [address] 75233 MCH (RBC) [Entitic mass] 29 pg Normal 27 - [address] [facility] Comment on above: Performed By: #### 2 77827 #### [facility],[address] [place] [address] MCHC 35 X10 3 Normal 32 - [address] [facility] Comment on above: Performed By: #### 2 73536 #### [facility],[address] [place], [place] [id number] MCV (RBC) [Entitic vol] 84 fL Normal 80 - [address] [facility] Comment on above: Performed By: #### 2 62588 #### [facility],[address] [place] [address] Jerome # 0.75 x10EE3/UL Normal 0.20 - 1.[address] [facility] Comment on above: Performed By: #### 2 95807 #### [facility],[address] [place] [address] MONOS % 6.0 % Normal 0.0 - 10.[address] [facility] Comment on above: Performed By: #### 2 09753 #### [facility],[address] [place], [place] [id number] Morphology Darius (Bld) [Interp] N/A Normal [facility] Comment on above: Performed By: #### 2 19542 #### [facility],[address] [place] [address] Neut # 10.25 x10EE3/UL High 1.50 - 7.[address] [facility] Comment on above: Performed By: #### 2 43324 #### [facility],[address] [place] [address] Neutrophils/100 WBC (Bld) 82.9 % High 46.0 - 76.[address] [facility] Comment on above: Performed By: #### 2 44553 #### [facility],[address] [place], [place] [id number] PLATELET 210 x10EE3/UL Normal 150 - [address] [facility] Comment on above: Performed By: #### 2 57944 #### [facility],[address] [place] [address] 64414 Platelet mean volume (Bld) [Entitic vol] 7.7 fL Normal 6.6 - 10.[address] [facility] Comment on above: Result Comment: AUTO MATED DIFFERENTIAL Performed By: #### 2 01774 #### [facility],[address] [place] [address] 21754 RBC 4.60 x 10EE6/UL Normal 4.10 - 5.[address] [facility] Comment on above: Performed By: #### 2 19534 #### [facility],[address] [place] [address] 59535 WBC 12.4 x 10EE3/UL High 4.5 - 10.[address] [facility] Comment on above: Performed By: #### 2 19167 #### [facility],[address] [place] [address] 50281 CMP with eGFRon 05-13-2025 AGE 34 years Normal [facility] Comment on above: Performed By: #### 2 89269 #### [facility],[address] [place] [address] 85348 Albumin [Mass/Vol] 3.7 g/dL Normal 3.4 - 5.[address] [facility] Comment on above: Performed By: #### 2 95665 #### [facility],[address] [place] [address] 67095 Albumin/Globulin [Mass ratio] 1.2 {ratio} Normal 0.9 - 1.[address] [facility] Comment on above: Performed By: #### 2 66721 #### [facility],[address] [place] [address] 05690 ALK PHOS 58 U/L Normal 46 - [address] [facility] Comment on above: Performed By: #### 2 32750 #### [facility],[address] [place] [address] 97358 ALT [Catalytic activity/Vol] 30 U/L Normal 16 - [address] [facility] Comment on above: Performed By: #### 2 40412 #### [facility],[address] [place] [address] 96240 Anion gap [Moles/Vol] 8 mmol/L Low 10 - 20 [facility] Comment on above: Performed By: #### 2 79680 #### [facility],[address] [place] [address] 01509 AST [Catalytic activity/Vol] 13 U/L Normal 13 - [address] [facility] Comment on above: Performed By: #### 2 50729 #### [facility],[address] [place] [address] 19294 B/C RATIO 19 ratio Normal 0 - [address] [facility] Comment on above: Performed By: #### 2 15694 #### [facility],[address] [place] [address] 95525 Bilirubin [Mass/Vol] 0.5 mg/dL Normal 0.2 - 1.[address] [facility] Comment on above: Performed By: #### 2 14500 #### [facility],[address] [place] [address] 68906 Calcium [Mass/Vol] 8.7 mg/dL Normal 8.5 - 10.[address] [facility] Comment on above: Performed By: #### 2 17280 #### [facility],[address] [place] [address] 76539 Chloride [Moles/Vol] 103 mmol/L Normal 98 - [address] [facility] Comment on above: Performed By: #### 2 03203 #### [facility],[address] [place] [address] 34172 CMP with eGFR Normal [facility] Comment on above: Result Comment: COMP REHENSIVE METABOLIC PANEL Performed By: #### 2 82631 #### [facility],[address] [place] [address] 73168 CO2 [Moles/Vol] 30.0 mmol/L Normal 21.0 - 32.[address] [facility] Comment on above: Performed By: #### 2 26086 #### [facility],[address] [place] [address] 67190 Creatinine [Mass/Vol] 0.48 mg/dL Low 0.55 - 1.[address] [facility] Comment on above: Performed By: #### 2 14780 #### [facility],[address] [place] [address] 09093 GFR/1.73 sq M.predicted among non-blacks MDRD (S/P/Bld) [Vol rate/Area] mL/min/{1.73_m2} Normal 60 - [address] [facility] Comment on above: Performed By: #### 2 82487 #### [facility],[address] [place], [place] [id number] Result Comment: ACCO RDING TO THE NATIONAL KIDNEY DISEASE EDUCATION PROGRAM(NKDE), A NORMAL eGFR IS A VALUE GREATER THAN OR EQUAL TO 60 ML/MIN/1.73 SQ METERS. CHRONIC KIDNEY DISEASE: <60mL/MIN/1.73 SQ METERS KIDNEY FAILURE: <15mL/MIN/1.73 SQ METERS THIS TEST SHOULD ONLY BE USED FOR PATIENTS 18 YEARS OF AGE AND OLDER. Globulin (S) [Mass/Vol] 3.2 g/dL Normal 1.5 - 3.[address] [facility] Comment on above: Performed By: #### 2 05220 #### [facility],[address] [place] [address] 73926 Glucose [Mass/Vol] 103 mg/dL Normal 74 - [address] [facility] Comment on above: Performed By: #### 2 71951 #### [facility],[address] [place] [address] 93894 Potassium [Moles/Vol] 3.5 mmol/L Normal 3.5 - 5.1 [facility] Comment on above: Performed By: #### 2 14721 #### [address] [address] Protein [Mass/Vol] 6.9 g/dL Normal 6.4 - 8.[address] [facility] Comment on above: Performed By: #### 2 69777 #### [facility],[address] [place] [address] 46480 Sodium [Moles/Vol] 137 mmol/L Normal 136 - [address] [facility] Comment on above: Performed By: #### 2 33206 #### [facility],[address] [place] [address] 83196 Urea nitrogen [Mass/Vol] 9 mg/dL Normal 7 - [address] [facility] Comment on above: Performed By: #### 2 43501 #### [facility],[address] [place], [place] [address] CT ABDOMEN/PELVIS Won 2024 CT ABDOMEN/PELVIS [place] [address] Patient: ALESSIA BARRIENTOS Phone#: : 1990 Age: 34 Gender: F Pt. Type: ER Account: [id number] Location: [facility] Ordering: TIARA NORIEGA Exam Date: 05/13/2025/4:17 Family Phys: Charge Code: [id number] Physician: Hatillo Order #: [id number] Dose#: 12.6 PROCEDURE: CT ABDOMEN/PELVIS WITH CONTRAST COMPARISON: [facility], CT, ABDOMEN/PELVIS W CON, 05/23/2019, 12:07. INDICATIONS: Abdominal pain. TECHNIQUE: After obtaining the patient's consent, CT images were created with non-ionic intravenous contrast material. All CT scans at this facility use dose modulation, iterative reconstruction, and/or weight based dosing when appropriate to reduce radiation dose to as low as reasonably achievable. IV CONTRAST: Omnipaque 350,80ml TOTAL DOSE: 12.6 CTDIvol(mGy) FINDINGS: LIVER: Normal. No enlargement, atrophy, abnormal density, or significant focal lesion. BILIARY: Gallbladder is absent. Surgical clips are present fossa. PANCREAS: Normal. No lesion, fluid collection, ductal dilatation, or atrophy. SPLEEN: Normal. No enlargement or focal lesion. KIDNEYS: Normal. No mass, obstruction, or calcification. ADRENALS: Normal. No mass or enlargement. AORTA/VASCULAR: Normal. No aneurysm or dissection. RETROPERITONEUM: Normal. No mass or adenopathy. BOWEL/MESENTERY: There is mild mucosal thickening small bowel suggestive of enteritis. The appendix is normal. ABDOMINAL WALL: Normal. No mass or hernia. URINARY BLADDER: Normal. No visible focal wall thickening, lesion, or calculus. PELVIC NODES: Normal. No adenopathy. PELVIC ORGANS: There is a 3.1 centimeter right adnexal cyst. No visible mass. Pelvic organs appropriate for patient age. BONES: Normal. No bony lesion or fracture. LUNG BASES: Normal. No visible pulmonary or pleural disease. Continued Report - Page 2 of 2 Patient: ALESSIA BARRIENTOS. Phone#: : 1990 Age: 34 Gender: F Pt. Type: ER Account: [id number] Location: [facility] Ordering: TIARA NORIEGA Exam Date: 05/13/2025/4:17 Family Phys: Charge Code: 758604 Physician: Hatillo Order #: [id number] Dose#: 12.6 OTHER: Negative. CONCLUSION: 1. Findings consistent with enteritis. Dictated by: Jany James MD on 05/13/2025 at 6:37 Approved by: Jany James MD on 05/13/2025 at 6:[address] [facility] ED MED ADMINISTRATION DETAIL on 05-13-2025 ED MED ADMINISTRATION DETAIL [facility] Medication Administration Record [address] [place] [address] [id number] 05/13/2025 Patient: ALESSIA BARRIENTOS Sex: Female : 1990 Age: 34y MEASUREMENTS: Wt: 74.8 kg, Ht/Parth: 65.0 in, BMI: 27.46 ALLERGIES: No known drug allergies Medication Ordered Medication Administration Date/Time IV NS 0.9 % 1000 03:32 05/13 IV NS 0.9 % 1000 mL started in bag#1 1000 mL at Started mL at 999 mL/hr 999 mL/hr via Site# 1. Allergies verified and confirmed 5 rights. Via 03:32 05/13/2025 (NOW x1) dial-a-flow. IV patency established. IV site checked: no pain, Logan Freed R.N. redness, or swelling. IV flushed thoroughly pre-medication Stopped administration. Information reviewed with patient and spouse 06:00 05/13/2025 including reason for taking this medication. Verbalizes Logan Freed R.N. understanding. - 03:33 Logan Freed R.N. Scanned 06:00 05/13 Medication Discontinued: bag #1 infused. Total amount infused: 1000 mL. IV patency established. IV site checked: no pain, redness, or swelling. IV flushed thoroughly post-medication administration. - 06:27 Logan Freed R.N. KetorOLAC 03:35 05/13 KetorOLAC (Toradol) IVP 30 mg given via Site# 1. Given (Toradol) IVP 30 mg Allergies verified and confirmed 5 rights. IV patency established. IV 03:35 05/13/2025 (NOW x1) site checked: no pain, redness, or swelling. IV flushed thoroughly Logan Freed R.N. pre-medication administration. IVP given by nurse. Information Scanned reviewed with patient and spouse including reason for taking this medication. Verbalizes understanding. (07/04 abd pain). - 03:36 Logan Freed R.N. 1 of 2 [facility] Medication Ordered Medication Administration Date/Time Ondansetron IVP 4 03:33 05/13 Ondansetron IVP 4 mg given via Site# 1. Allergies Given mg (NOW x1) verified and confirmed 5 rights. IV patency established. IV site 03:33 05/13/2025 checked: no pain, redness, or swelling. IV flushed thoroughly Logan Freed R.N. pre-medication administration. IVP given by nurse. Information Scanned reviewed with patient including reason for taking this medication. Verbalizes understanding. - 03:35 Logan Freed R.N. MORPHine IVP 4 04:49 05/13 MORPHine IVP 4 mg given via Site# 1. Allergies Given mg (NOW x1, HIGH verified and confirmed 5 rights. IV patency established. IV site 04:49 05/13/2025 ALERT checked: no pain, redness, or swelling. IV flushed thoroughly Logan Freed R.N. MEDICATION) pre-medication administration. IVP given by nurse. Information Scanned reviewed with patient and spouse including reason for taking this medication. Verbalizes understanding. (05/04). - 04:50 Logan Freed R.N. Ondansetron IVP 4 04:46 05/13 Ondansetron IVP 4 mg given via Site# 1. Allergies Given mg (NOW x1) verified and confirmed 5 rights. IV patency established. IV site 04:46 05/13/2025 checked: no pain, redness, or swelling. IV flushed thoroughly Logan Freed R.N. pre-medication administration. IVP given by nurse. Information Scanned reviewed with patient including reason for taking this medication. Verbalizes understanding. - 04:47 Logan Freed R.N. 2 of [address] [facility] ED NURSES CLINICAL NOTEon ED NURSES CLINICAL NOTE Nurse Narrative Nurse Clinical Narrative [address] [place] [address] [id number] 05/13/2025 03:05:00 Patient: ALESSIA BARRIENTOS Sex: Female : 1990 Age: 34y Disposition: Discharge to Home Disposition Decision Time: 05:32 05/13/2025 Departure Time: 06:08 05/13/2025 TRIAGE Arrived by private vehicle. Historian: (patient). Accompanied by family. Primary physician (none). Triage time: 03:11 05/13/2025. Acuity: LEVEL 3. Chief Complaint: ABDOMINAL PAIN. This started yesterday. SEPSIS SCREEN: NEGATIVE. No possible sources of infection. -- 03:05/13/25 EDT See Love R.N. 03:05/13/25. BP: 113/75 MAP: 84 mmHg. HR: 109 bpm. -- 03:05/13/25 EDT See Love R.N. 03:05/13/25. RR: 18. Temperature: 98.3 F. Pain level now 8/10. -- 03:05/13/25 EDT See Love R.NJessi 03:05/13/25. O2 saturation: 98% -- 03:05/13/25 SOUMYA Love R.N. Measurements: 03:05/13/25 Wt: 74.8 kg, Ht/Parth: 65.0 in, BMI: 27.46 -- 03:05/13/25 SOUMYA Love R.N. Medications: no known home medications -- 03:05/13/25 SOUMYA Love R.N. 03:05/13/25. Preferred Pharmacy: ([facility]). -- 03:05/13/25 SOUMYA Love R.N. 1 of 4 Nurse Narrative Allergies: no known drug allergies -- 03:05/13/25 SOUMYA Love R.N. Problems: no known problem -- 03:05/13/25 SOUMYA Love R.N. Surgeries: Cholecystectomy -- 03:05/13/25 SOUMYA Love R.N. History 03:05/13/25. SOCIAL HX: Never smoker. No alcohol use or drug use. No recent travel. The patient has not traveled outside the [place] Infectious disease exposure: No infectious disease exposure. ABUSE ASSESSMENT: The patient answered "yes" to the question(s) "Do you feel safe in your home?" and "no" to the question(s) Are you afraid to go home?". SELF HARM ASSESSMENT: Self harm assessment was performed. The patient answered "no" to the question(s) "Have you recently felt down, depressed, or hopeless?" and "Do you have thoughts of harming or killing yourself?". NUTRITIONAL RISK ASSESSMENT: The nutritional risk assessment revealed no deficiencies. FUNCTIONAL ASSESSMENT: Functional assessment: no impairments noted. FALL RISK ASSESSMENT: Fall risk assessment completed. No risk factors identified. -- 03:05/13/25 SOUMYA Love R.N. 03:05/13/25. PAST MEDICAL HX: LNMP: Last normal menstrual period was 1 week ago. -- 03:05/13/25 SOUMYA Love R.N. 2 of 4 Nurse Narrative Interventions 03:05/13/25. Identification band on patient. -- 03:05/13/25 SOUMYA Love R.N. PHYSICAL ASSESSMENT 03:05/13/25. Ambulatory to room. Patient gowned. GENERAL / NEURO / PSYCH: Alert. Oriented X 4. Appears in no acute distress. Appears in pain. ( 07/04 abd pain mid abd area non-radiating, started yesterday, earlier tonight was worse, 09/03, now describes as sharp and constant, denies any n/v states it hurts to urinate). RESPIRATORY: Respirations not labored. GI / : Abdomen soft. SKIN: Skin is warm and dry. -- 03:05/13/25 EDT Logan Freed R.N. NURSING PROGRESS NOTES 03:05/13/25. Site #1 started in the right hand with a 20g angiocath with aseptic technique and good blood return; 1 attempt. Blood drawn: rainbow set and senior tube(s). Labeled in the presence of the patient and sent to the lab. Saline lock flushed with 3 mL saline. -- 03:05/13/25 EDT Logan Freed R.N. 03:05/13/25. BP: 113/75 MAP: 84 mmHg. HR: 109 bpm. -- 03:05/13/25 EDT Logan Freed R.N. 03:05/13/25. NIBP monitor and pulse oximeter placed on patient. Head of bed elevated 45 degrees. Patient identifiers checked. Call light placed in reach. Side rails up x 2. Bed placed in lowest position. Brakes of bed on. Spouse at bedside. -- 03:05/13/25 EDT Logan Freed R.N. 03:05/13/25. RR: 18. Temperature: 98.3 F. Pain level now 07/04. -- 03:05/13/25 EDT Logan Freed R.N. 03:05/13/25. O2 saturation: 98% -- 03:05/13/25 EDT Logan Freed R.N. 03:05/13/25. HR: 112 bpm. O2 saturation: 97%. -- 03:05/13/25 EDT Logan Fered R.N. 03:05/13/25. IV NS 0.9 % 1000 mL started in bag#1 1000 mL at 999 mL/hr via Site# 1. Allergies verified and confirmed 5 rights. Via dial-a-flow. IV patency established. IV site checked: no pain, redness, or swelling. IV flushed thoroughly pre-medication administration. Information reviewed with patient and spouse including reason for taking this medication. Verbalizes understanding. -- 03:33 05/13/25 EDT Logan Freed R.N. 03:33 05/13/25. Ondansetron IVP 4 mg given via Site# 1. Allergies verified and confirmed 5 rights. IV patency established. IV site checked: no pain, redness, or swelling. IV flushed thoroughly pre-medication administration. IVP given by nurse. Information reviewed with patient including reason for taking this (more content not included)... Normal [facility] ED ORDER SHEET (CPOE ONLY)on 05-13-2025 ED ORDER SHEET (CPOE ONLY) Order Sheet Order Sheet [address] [place] [address] [id number] 05/13/2025 Patient: ALESSAI BARRIENTOS Sex: Female : 1990 Age: 34y MEASUREMENTS: Wt: 74.8 kg, Ht/Parth: 65.0 in, BMI: 27.46 ALLERGIES: No known drug allergies MEDICATION/IV/DRIP/FLUID ORDERS Order Description Priority Entered Acknowledged Completed IV NS 0.9 %1000 mL at 999 03:13 05/13/2025 03:25 03:33 mL/hr (NOW x1) Tiara Noriega D.O. 05/13/2025 05/13/2025 Logan Farmer R.N. RJessiN. KetorOLAC (Toradol) IVP30 mg 03:26 05/13/2025 03:29 03:36 (NOW x1) Tiara Noriega D.O. 05/13/2025 05/13/2025 Logan Farmer R.N. R.NJessi Ondansetron IVP4 mg (NOW x1) 03:26 05/13/2025 03:29 03:35 Tiara Noriega D.O. 05/13/2025 05/13/2025 Logan Farmer R.NJessi RJessiNJessi MORPHine IVP4 mg (NOW x1, 04:39 05/13/2025 04:41 04:50 HIGH ALERT MEDICATION) Tiara Noriega D.O. 05/13/2025 05/13/2025 Logan Farmer R.N. RGerardo 1 of 3 Order Sheet Ondansetron IVP4 mg (NOW x1) 04:39 05/13/2025 04:41 04:47 Tiara Noriega D.O. 05/13/2025 05/13/2025 Logan Farmer R.N. RJessiNJessi Reason for ordering with alerts: Clinical consideration given --04:39 05/13/2025 Tiara Noriega D.O. LAB ORDERS Order Description Priority Entered Acknowledged Collected Completed CBC w Diff Stat Stat 03:13 05/13/2025 03:25 05/13/2025 03:39 05/13/2025 Ross Hoyt Charles Wilbur, R.NJessi R.Yessenia CMP Stat Stat 03:13 05/13/2025 03:25 05/13/2025 03:39 05/13/2025 Ross Hoyt Charles Wilbur, R.N. R.NJessi Troponin-I Stat Stat 03:13 05/13/2025 03:25 05/13/2025 03:39 05/13/2025 Ross Hoyt Charles Wilbur, R.N. R.Yessenia Lactate, Serum Stat Stat 03:13 05/13/2025 03:25 05/13/2025 03:39 05/13/2025 Ross Hoyt Charles Wilbur, R.N. R.N. Urinalysis Stat Stat 03:13 05/13/2025 03:25 05/13/2025 04:43 05/13/2025 Ross Hoyt Charles Wilbur, R.N. R.N. Lipase Stat Stat 03:13 05/13/2025 03:25 05/13/2025 03:39 05/13/2025 Ross Hoyt Charles Wilbur R.N. RGerardo CRP Stat Stat 03:13 05/13/2025 03:25 05/13/2025 03:39 05/13/2025 Ross Hoyt Charles Wilbur, R.N. RGerardo HCG, Qual Serum Stat Stat 03:18 05/13/2025 03:25 05/13/2025 03:39 05/13/2025 2 of 3 Order Sheet Ross Hoyt Charles Wilbur, R.N. RGerardo DIAGNOSTIC STUDY ORDERS Order Description Priority Entered Acknowledged Completed CT ABD/PEL w Cont Stat Stat 03:13 05/13/2025 03:25 03:39 Tiara Noriega D.O. 05/13/2025 05/13/2025 Logan Farmer R.N. R.Yessenia Order Comments: 03:13 05/13/2025: Status: Not . Tiara Noriega D.O. Reason for Study: Abdominal Pain STAFF ORDERS Order Description Priority Entered Acknowledged Collected Completed Vital Signs every 30 03:13 05/13/2025 03:25 05/13/2025 03:39 05/13/2025 minutes Ross Hoyt Charles Wilbur, R.N. R.Yessenia Environmental Sciences Professor 03:13 05/13/2025 03:25 05/13/2025 03:39 05/13/2025 Ross Hoyt Charles Wilbur, R.NJessi R.Yessenia Oxygen titrate to 92% 03:13 05/13/2025 03:25 05/13/2025 03:39 05/13/2025 Ross Hoyt Charles Wilbur, R.N. RGerardo [Electronically signed by Tiara Noriega D.O. (05/13/2025 07:11 EDT)] 3 of [address] [facility] ED PHYSICIAN CLINICAL REPORT on 05-13-2025 ED PHYSICIAN CLINICAL REPORT Narrative Physician Clinical Narrative [address] [place] [address] [phone] 05/13/2025 03:05:00 Patient: ALESSIA BARRIENTOS Sex: Female : 1990 Age: 34y Disposition: Discharge to Home Disposition Decision Time: 05:32 05/13/2025 Departure Time: 06:08 05/13/2025 Measurements Wt: 74.8 kg, Ht/Parth: 65.0 in, BMI: 27.46 Initial Vital Sign Measured Time BP MAP HR RR O2Sat ETCO2 Temp Pain GCS RTS 03:21 05/13/2025 113/75 84 109 Time Seen: 02:53 05/13/2025. Arrived- By private vehicle. Historian- patient. HISTORY OF PRESENT ILLNESS Chief Complaint: ABDOMINAL PAIN. It is described as sharp and it is described as located in the periumbilical area. This started yesterday and is still present. No nausea, vomiting or diarrhea. The patient has had loss of appetite. No recent travel. Similar symptoms previously. None. Recent medical care: Not recently seen/assessed. REVIEW OF SYSTEMS 1 of 14 Narrative CONSTITUTIONAL: No fever or chills. The patient has not had weight loss. NEUROLOGICAL: No headache. EYES: No blurred vision. : No difficulty with urination, pain with urination or urinary frequency. CVS: No chest pain. RESPIRATORY: No difficulty breathing. MUSCULOSKELETAL: The patient has had joint pain and back pain. SKIN: The patient has had skin rash. THROAT: No sore throat. GI: No constipation, black stools or hematemesis. Status: Not . PAST HISTORY See nurses notes. no known problem Surgeries: Cholecystectomy Medications: no known home medications Allergies: no known drug allergies SOCIAL HISTORY Never smoker. No alcohol use or drug use. ADDITIONAL NOTES The nursing notes have been reviewed. PHYSICAL EXAM Appearance: Alert. Oriented X3. No acute distress. Eyes: Pupils equal, round and reactive to light. ENT: Dry mucous membranes present. Pharynx normal. Neck: Normal inspection. Neck supple. CVS: Normal heart rate and rhythm. Heart sounds normal. Pulses normal. Respiratory: No respiratory distress. Breath sounds normal. Chest nontender. Abdomen: Soft. Moderate tenderness in the periumbilical area with guarding present. No rebound tenderness. 2 of 14 Narrative Abnormal bowel sounds: hyperactive. No mass. No distention. Skin: Skin warm and dry. No rash. Extremities: Extremities exhibit normal ROM. No lower extremity edema. Neuro: Oriented X 3. No motor deficit. No sensory deficit. LABS, X-RAYS, AND EKG CT Abdomen - Pelvis: 3.7 cm slightly heterogeneous cyst in the right adnexa. Could represent a hemorrhagic cyst with internal septations. Normal heart size. Small sinus nonspecific right cardiophrenic nodules. Very small right and left pleural effusion. Minimal atelectasis in the lung bases no acute process seen in the liver spleen pancreas adrenal glands. Cholecystectomy. Constipation involves the right colon and transverse colon. Mild small bowel wall thickening in the left abdomen with small mesenteric nodes suggestive of underlying enteritis and mild mesenteric adenitis. Normal appendix is well seen. No features of cystitis. Slight leftward deviation of the uterus due to the mass effect in the right adnexal cyst. No colitis. No pyelonephritis. No retroperitoneal hemorrhage. 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 Small supraumbilical ventral hernia contains only fat. Interpretation time: 05:12 05/13/2025. Laboratory Tests: C-REACTIVE PROTEIN Final LANA: 05/13/2025 03:20:00 EDT MsgRcvd: 05/13/2025 04:04 EDT Lab Test Result Reference Status Received Comments 2.32 mg/dl 05/13/2025 04:04 CRP 0.00 - 0.90 Final Above high normal EDT CBC + DIFF Final LANA: 05/13/2025 03:20:00 EDT MsgRcvd: 05/13/2025 03:37 EDT Lab Test Result Reference Status Received Comments 05/13/2025 03:37 CBC-COMPLETE CBC + DIFF Final EDT BLOOD COUNT 3 of 14 Narrative Lab Test Result Reference Status Received Comments 12.4 x 10/UL 05/13/2025 03:37 WBC 4.5 - 10.8 Final Above high normal EDT 05/13/2025 03:37 RBC 4.60 x 10/UL 4.10 - 5.30 Final EDT 05/13/2025 03:37 HEMOGLOBIN 13.3 g/dl 12.0 - 16.0 Final EDT 05/13/2025 03:37 HEMATOCRIT 38.6 % 34.0 - 46.0 Final EDT 05/13/2025 03:37 MCV 84 fl 80 - 99 Final EDT 05/13/2025 03:37 MCH 29 pg 27 - 33 Final EDT 05/13/2025 03:37 MCHC 35 X10 3 32 - 36 Final EDT 05/13/2025 03:37 RDW/CV 13.7 % 12.0 - 15.6 Final EDT 05/13/2025 03:37 PLATELET 210 x10/UL 150 - 450 Final EDT 05/13/2025 03:37 AUTOMATED MPV 7.7 fl 6.6 - 10.5 Final EDT DIFFERENTIAL 82.9 % 05/13/2025 03:37 NEUT % 46.0 - 76.0 Final Above high normal EDT 8.2 % 05/13/2025 03:37 LYMPH % 20.0 - 45.0 Final Be (more content not included)... Normal [facility] ED SUPER BILLon 05-13-2025 ED [facility] [address] [address] [id number] 05/13/2025 Patient: ALESSIA BARRIENTOS Sex: Female : 1990 Age: 34y Item Facility Professional Category Description Code Code Quantity Fee Total Drugs Normal Saline 989186 2 $0.00 $0.00 1000cc (398975) Nurse/E/M EMERGENCY 454733 1 $0.00 $0.00 DEPARTMENT VISIT HIGH/URGENT SEVERITY (10738-03) Nurse/IV/IM/Infusions Hydration 763866 2 $0.00 $0.00 additional hour (26114) Nurse/IV/IM/Infusions IVP additional 831550 2 $0.00 $0.00 push (16876) Nurse/IV/IM/Infusions IVP initial 368885 1 $0.00 $0.00 (45663) Nurse/IV/IM/Infusions IVP same med 196088 1 $0.00 $0.00 (31 min apart) (24429) 1 of 2 [facility] Item Facility Professional Category Description Code Code Quantity Fee Total Nurse/Supplies Oxisensor 1957355 1 $0.00 $0.00 Adult (1428085) Grand Total $0.00 Providers Tiara Noriega D.O. Chief Complaint ABDOMINAL PAIN. Principal Diagnosis Acute periumbilical abdominal pain. Single simple right ovarian cyst. No ruptured ovarian cyst or torsion of ovary. ICD-10 Codes R10.33: Periumbilical pain N83.299: Other ovarian cyst, unspecified side N83.201: Unspecified ovarian cyst, right side 2 of [address] [facility] ED VISIT SUMMARYon ED VISIT SUMMARY Visit Overview Visit Overview [place] [address] [address] [id number] 05/13/2025 Patient: ALESSIA BARRIENTOS Sex: Female : 1990 Age: 34y 05/13/2025 07:21 AM EDT ED Arrival:03:05 05/13/2025 EDT Status:not Recent Travel:no Language:deu Adv Directive: Isolation Status: Ethnicity:N Fall Risk:no risk Infectious Disease Exposure:no Measurements:5'5" / 165.1 Self-Harm Status:risk Sepsis Screen:negative cm 165.0 lb / 74.8 kg Chief Complaint:ABDOMINAL PAIN and (none) ALLERGIES No Known Drug Allergies HOME MEDICATIONS None PAST MEDICAL HISTORY / PROBLEMS LNMP: Last normal menstrual period was 1 week ago None See nurses notes 1 of 3 Visit Overview PAST SURGICAL HISTORY Cholecystectomy SOCIAL HISTORY Nutritional assessment: No deficits Functional assessment: No impairments Smoking status: No Alcohol use: No Drug use: No ED COURSE MEDICATIONS GIVEN IN EMERGENCY DEPARTMENT 03:32 05/13/25 IV NS 0.9 % 1000 mL 999 mL/hr 03:33 05/13/25 Ondansetron IVP 4 mg 03:35 05/13/25 KetorOLAC (Toradol) IVP 30 mg 04:46 05/13/25 Ondansetron IVP 4 mg 04:49 05/13/25 MORPHine IVP 4 mg IV SITE INFORMATION INTAKE OUTPUT REASSESMENT (most recent) 04:50 05/13/25. The patient is resting quietly. Patient waiting for radiology results. VITAL SIGNS First Vitals Last Vitals Temp 03:21 05/13/25 Temp 06:08 05/13/25 BP 03:21 05/13/25 113/75 BP 06:08 05/13/25 HR 03:21 05/13/25 109 HR 06:08 05/13/25 RR 03:21 05/13/25 RR 06:08 05/13/25 16 O2 Sat 03:21 05/13/25 O2 Sat 06:08 05/13/25 Pain 03:21 05/13/25 Pain 06:08 05/13/25 5 2 of 3 Visit Overview First Vitals Last Vitals ETCO2 03:21 05/13/25 ETCO2 06:08 05/13/25 GCS 03:21 05/13/25 GCS 06:08 05/13/25 RTS 03:21 05/13/25 RTS 06:08 05/13/25 PROCEDURES NURSING INTERVENTIONS LABS / STUDIES LABS / STUDIES ORDERED CBC w Diff CMP CRP CT ABD/PEL w Cont HCG, Qual Serum Lactate, Serum Lipase Troponin-I Urinalysis CLINICAL IMPRESSION ACUTE PERIUMBILICAL ABDOMINAL PAIN SINGLE SIMPLE RIGHT OVARIAN CYST. NO RUPTURED OVARIAN CYST OR TORSION OF OVARY 3 of [address] [facility] ED VITALS FLOW SHEETon 05-13 ED VITALS FLOW SHEET Vitals Vital Sign Flow Sheet [address] [place] [address] [id number] 05/13/2025 Patient: ALESSIA BARRIENTOS Sex: Female : 1990 Age: 34y Measurements Wt: 74.8 kg, Ht/Parth: 65.0 in, BMI: 27.46 Measured Time BP MAP HR RR O2Sat ETCO2 Temp Pain GCS RTS 06:08 05/13/2025 16 5 06:03 05/13/2025 99 97% 05:58 05/13/2025 93 98% 05:53 05/13/2025 95 96% 05:51 05/13/2025 102/59 71 96 05:48 05/13/2025 99 96% 05:43 05/13/2025 100 97% 05:38 05/13/2025 94 95% 05:33 05/13/2025 96 96% 05:28 05/13/2025 96 97% 05:23 05/13/2025 99 97% 05:21 05/13/2025 99/60 73 87 05:18 05/13/2025 97 97% 05:13 05/13/2025 99 97% 05:08 05/13/2025 92 98% 1 of 3 Vitals Measured Time BP MAP HR RR O2Sat ETCO2 Temp Pain GCS RTS 05:03 05/13/2025 97 97% 04:58 05/13/2025 98 97% 04:53 05/13/2025 103 97% 04:51 05/13/2025 109/64 80 99 04:48 05/13/2025 100 98% 04:45 05/13/2025 109/64 73 96 04:33 05/13/2025 105 97% 04:28 05/13/2025 105 100% 04:23 05/13/2025 101 95% 04:21 05/13/2025 97/51 66 98 04:18 05/13/2025 93 99% 04:13 05/13/2025 101 98% 04:06 05/13/2025 99 98% 04:01 05/13/2025 96 98% 03:56 05/13/2025 104 98% 03:51 05/13/2025 104 97% 03:51 05/13/2025 106/65 75 98 03:46 05/13/2025 104 98% 03:41 05/13/2025 106 98% 03:36 05/13/2025 108 97% 03:31 05/13/2025 115 97% 03:26 05/13/2025 112 97% 03:22 05/13/2025 98% 03:22 05/13/2025 18 98.3 F 8 03:21 05/13/2025 113/75 84 109 2 of 3 Vitals 3 of [address] [facility] LACTATEon 05-13-2025 Lactate [Moles/Vol] 0.9 mmol/L Normal 0.4 - 2.[address] [facility] Comment on above: Performed By: #### 2 [id number] #### [facility],[address] [place] [address] LIPASEon 05-13-2025 Lipase [Catalytic activity/Vol] 33.0 U/L Normal 15.0 - 78.[address] [facility] Comment on above: Result Comment: *PLE ASE NOTE THAT RANGES FOR LIPASE HAVE CHANGED OF 11/22/23 DUE TO AN ASSAY UPDATE BY THE ICE PLANT OPERATOR.THE NEW ASSAY RANGE IS 6-250 U/L, WITH A REFERENCE RANGE OF 16-77 U/L. Performed By: #### 2 98871 #### [facility],[address] [place] [address] SERUM QUALon 05-13 EXTERNAL QC DONE? YES Normal [facility] Comment on above: Performed By: #### 2 66260 #### [facility],[address] [place] [address] INTERNAL QC PASS Normal [facility] Comment on above: Performed By: #### 2 27182 #### [facility],[address] [place] [address] SER Negative Normal NEGATIVE [facility] Comment on above: Performed By: #### 2 19025 #### [facility],[address] [place] [address] TROPONINon 05-13-2025 HS TROPONIN <4.0 Normal 0.0 - 51.[address] [facility] Comment on above: Performed By: #### 2 86271 ####[facility],[address] [place] [address] URINALYSISon 05-13-2025 Amorphous NONE Normal [facility] Comment on above: Performed By: #### 2 01682 #### [facility],[address] [place] [address] Bacteria TRACE Normal [facility] Comment on above: Performed By: #### 2 79064 #### [facility],[address] [place] [address] Bilirubin Ql (U) Negative Normal NORMAL: NEGATIVE [facility] Comment on above: Performed By: #### 2 04702 #### [facility],[address] [place] [address] Casts NONE Normal [facility] Comment on above: Performed By: #### 2 70708 #### [facility],[address] [place], [place] [id number] Clarity (U) clear Normal NORMAL: CLEAR [facility] Comment on above: Performed By: #### 2 84623 #### [facility],[address] [place], [place] [id number] Color (U) p.yel Normal NORMAL: YELLOW [facility] Comment on above: Performed By: #### 2 20725 #### [facility],[address] [place] [address] Crystals LM Nom (Urine sed) NONE Normal [facility] Comment on above: Performed By: #### 2 24653 #### [facility],[address] [place], [place] [id number] Epi Cells OCC Normal [facility] Comment on above: Performed By: #### 2 91927 #### [facility],[address] [place], [place] [id number] Glucose Ql (U) NORM Normal NORMAL: NORMAL [facility] Comment on above: Performed By: #### 2 16131 #### [facility],[address] [place] [address] Hemoglobin Ql (U) Negative Normal NORMAL: NEGATIVE [facility] Comment on above: Performed By: #### 2 00275 #### [facility],[address] [place] [address] Ketone Negative Normal NORMAL: NEGATIVE [facility] Comment on above: Performed By: #### 2 52084 #### [facility],[address] [place] [address] Leukocytes 25 Abnormal NORMAL: NEGATIVE [facility] Comment on above: Performed By: #### 2 37195 #### [facility],[address] [place] [address] Mucous NONE Normal [facility] Comment on above: Performed By: #### 2 58814 #### [facility],[address] [place] [address] Nitrite Ql (U) Negative Normal NORMAL: NEGATIVE [facility] Comment on above: Performed By: #### 2 64329 #### [facility],[address] [place] [address] pH (U) 7 [pH] Normal NORMAL: 5.0-8.[address] [facility] Comment on above: Performed By: #### 2 03821 #### [facility],[address] [place] [address] Protein Ql (U) 15 Abnormal NORMAL: NEGATIVE [facility] Comment on above: Performed By: #### 2 21320 #### [facility],[address] [place] [address] Rbc NONE Normal 0-3/hpf [facility] Comment on above: Performed By: #### 2 17677 #### [facility],[address] [place] [address] Sp [place] 1.010 Normal NORMAL: 1.010-1.[address] [facility] Comment on above: Performed By: #### 2 59696 #### [facility],[address] [place] [address] Specimen Type R Normal [facility] Comment on above: Performed By: #### 2 12642 #### [facility],[address] [place] [address] Urinalysis dipstick W Reflex Microscopic panel (U) SEE BELOW Normal [facility] Comment on above: Result Comment: MICR OSCOPIC Performed By: #### 2 28634 #### [facility],[address] [place] [address] Urobilinog NORM Normal NORMAL: NORMAL [facility] Comment on above: Performed By: #### 2 54922 #### [facility],[address] [place] [address] Wbc 6-10 Normal 0-5/hpf [facility] Comment on above: Performed By: #### 2 23883 #### [facility],[address] [place] [address]702 Yeast NONE Normal [facility] Comment on above: Performed By: #### 2 40998 #### [facility],[address] [place] [address] HPV GENOTYPES 16,18/45on HPV 16 RNA Not detected Normal NOT DETECTED [facility] Comment on above: Performed By: #### 9 0931, 29418 #### [facility]-[address], [address] [place] [address] Lead Caster Helper: Hesham Platt MD #### 1005 #### [facility] [address], [address] [place] [address] Lead Caster Helper: Hesham Platt MD HPV 18/45 RNA Not detected Normal NOT DETECTED [facility] Comment on above: Result Comment: Meth odology: [employer] Operator Mediated Amplification Cervical sources are required for HPV testing. If a vaginal source from a patient who has had a total hysterectomy with removal of cervix was submitted, please contact the testing laboratory for alternative testing options. Performed By: #### 9 0931, 65944 #### [facility]-[address], [address] [place] [address] Lead Caster Helper: Hesham Platt MD #### 1005 #### [facility] [address], [address] [place] [address] Lead Caster Helper: Hesham Platt MD TEST AUTHORIZATIONon 022 CLIENT CONTACT: POLINA Elizondo [facility] Comment on above: Performed By: #### 9 0931, 64963 #### [facility]-[address], [address] [place] [address] Lead Caster Helper: Hesham Platt MD #### 1005 #### [facility] [address], [address] [place] [address] Lead Caster Helper: Hesham Platt MD REPORT ALWAYS MESSAGE SIGNATURE Normal [facility] Comment on above: Result Comment: The laboratory testing on this patient was verbally requested or confirmed by the ordering physician or his or her authorized rental sales representative after contact with an employee of [employer]. Federal regulations require that we maintain on file written authorization for all laboratory testing. Accordingly we are asking that the ordering physician or his or her authorized rental sales representative sign a copy of this report and promptly return it to the client services administrator. Signature: Performed By: #### 9 0931, 58562 #### [facility]-[address], [address] [place] [address] Lead Caster Helper: Hesham Platt MD #### 1005 #### [facility] [address], [address] [place] [address] Lead Caster Helper: Hesham Platt MD TEST CODE: VERBAL AUTH Normal [facility] Comment on above: Performed By: #### 9 0931, 12888 #### [facility]-[address], [address] [place] [address] Lead Caster Helper: Hesham Platt MD #### 1005 #### [facility] [place] [address] Lead Caster Helper: Hesham Platt MD TEST NAME: VERBAL AUTH Normal [facility] Comment on above: Performed By: #### 9 0931, 57427 #### [facility]-[address], [address] [place] [address] Lead Caster Helper: Hesham Platt MD #### 1005 #### [facility] [place] [address] Lead Caster Helper: Hesham Platt MD THINPREP PAP AND HPV mRNA E6 /E7on 08-27-2022 CLINICAL INFORMATION: Normal [facility] Comment on above: Result Comment: None given Performed By: #### 9 0931, 11496 #### [facility] [place] [address] Lead Caster Helper: Hesham Platt MD #### 1005 #### [facility] [place] [address] Lead Caster Helper: Hesham Platt MD COMMENT Normal [facility] Comment on above: Result Comment: EXPL ANATORY NOTE: The Pap is a screening test for cervical cancer. It is not a diagnostic test and is subject to false negative and false positive results. It is most reliable when a satisfactory sample, regularly obtained, is submitted with relevant clinical findings and history, and when the Pap result is evaluated along with historic and current clinical information. Performed By: #### 9 0931, 12569 #### [facility] [address] Lead Caster Helper: Hesham Platt MD #### 1005 #### [facility] [place] [address] Lead Caster Helper: Hesham Platt MD Result Comment: Plea se have the ordering physician or his or her authorized rental sales representative sign a copy of this report and promptly return it by faxing it to: [phone] or by returning the form to your recording studio intern. DIESEL DRAGLINE OPERATOR: Normal See Note: [facility] Comment on above: Result Comment: Refe rence Range: ZL, CT(ASCP) CT screening location: [place] [address]. Performed By: #### 9 0931, 58943 #### [facility] [address] Lead Caster Helper: Hesham Platt MD #### 1005 #### [facility] [place] [address] Lead Caster Helper: Hesham Platt MD HPV mRNA E6/E7 Detected Abnormal Not Detected [facility] Comment on above: Result Comment: Meth odology: [employer] Operator-Mediated Amplification This assay detects E6/E7 viral messenger RNA (mRNA) from 14 high-risk HPV types (16,18,31,33,35,39,45,51,52,56,58,59,66,68). Cervical sources are required for HPV testing. If a vaginal source from a patient who has had a total hysterectomy with removal of cervix was submitted, please contact the testing laboratory for alternative testing options. For additional information, please refer to http://education.PayMins/faq/QJC364a4 (This link if provided for information/ educational purposes only.) Performed By: #### 9 930, 00145 #### [facility]-[address], [address] [place] [address] Lead Caster Helper: Hesham Platt MD #### 1005 #### [facility] [address], [address] [place] [address] Lead Caster Helper: Hesham Platt MD INTERPRETATION/RESULT: Normal [facility] Comment on above: Result Comment: Nega tive for intraepithelial lesion or malignancy. Performed By: #### 9 31, 45405 #### [facility]-[address], [address] [place] [address] Lead Caster Helper: Hesham Platt MD #### 1005 #### [facility] [place] [address] Lead Caster Helper: Hesham Platt MD LMP: Normal [facility] Comment on above: Result Comment: None given Performed By: #### 9 31, 54740 #### [facility], [address] [place] [address] Lead Caster Helper: Hesham Platt MD #### 1005 #### [facility] [address], [address] [place] [address] Lead Caster Helper: Hesham Platt MD PREV. BX: Normal [facility] Comment on above: Result Comment: None given Performed By: #### 9 930, 50438 #### [facility], [address] [place] [address] Lead Caster Helper: Hesham Platt MD #### 1005 #### [facility] [address], [address] [place] [id number] Lead Caster Helper: Hesham Platt MD PREV. PAP: Normal [facility] Comment on above: Result Comment: None given Performed By: #### 9 0931, 07348 #### [facility]-[address], [address] [place], [place] [address] Lead Caster Helper: Hesham Platt MD #### 1005 #### [facility] [address], [address] [place], [place] [phone] Lead Caster Helper: Hesham Platt MD REVIEW DIESEL DRAGLINE OPERATOR: Normal [facility] Comment on above: Result Comment: LLT, CT(ASCP) CT screening location: [place] [address]. Performed By: #### 9 0931, 62446 #### [facility]-[address], [address] [place], [place] [id number] Lead Caster Helper: Hesham Platt MD #### 1005 #### [facility] [address], [address] [place], [place] [phone] Lead Caster Helper: Hesham Platt MD SOURCE: Normal [facility] Comment on above: Result Comment: None given Performed By: #### 9 0931, 78878 #### [facility]-[address], [address] [place], [place] [phone] Lead Caster Helper: Hesham Platt MD #### 1005 #### [facility] [address], [address] [place], [place] [phone] Lead Caster Helper: Hesham Platt MD STATEMENT OF ADEQUACY: Normal [facility] Comment on above: Result Comment: Sati sfactory for evaluation. Endocervical/transformation zone component present. Performed By: #### 9 0931, 31866 #### [facility]-[address], [address] [place], [place] [phone] Lead Caster Helper: Hesham Platt MD #### 1005 #### [facility] [address], [address] [place] [address] Lead Caster Helper: Hesham Platt MD No Panel Informationon 08-20 [id number] SEE NOTE Normal [employer] [id number] See Below Normal [employer] Work Phone: CLIENT CONTACT: POLINA Alice Normal [employer] Work Phone: CLINICAL INFORMATION: SEE NOTE Normal [facility] [employer] [place] [place] DIESEL DRAGLINE OPERATOR: SEE NOTE Normal [employer] [place] HPV 16 RNA Not detected Normal [employer] [place] Work Phone: HPV 18/45 RNA Not detected Normal [employer] [place] [place] Work Phone: HPV mRNA E6/E7 Detected Abnormal [employer] [place] INTERPRETATION/RESULT: SEE NOTE Normal [facility] [employer] [place] [place] LMP: SEE NOTE Normal [employer] [place] PREV. BX: SEE NOTE Normal [employer] [place] [place] PREV. PAP: SEE NOTE Normal [employer] [place] REVIEW DIESEL DRAGLINE OPERATOR: SEE NOTE Normal [employer] SOURCE: SEE NOTE Normal [employer] [place] STATEMENT OF ADEQUACY: SEE NOTE Normal [facility] [employer] [place] [place] TEST CODE: VERBAL AUTH Normal [employer] Work Phone: TEST NAME: VERBAL AUTH Normal [employer] Work Phone: Laboratory - Hematology and Cell countson 06-24-2022 Basophils (Bld) [#/Vol] 0.10 {3/UL} Normal 0.00 - 0.10 {3/UL} [facility] [place] [employer] [facility] Work Phone: Basophils/100 WBC (Bld) 0.5 % Normal 0.0 - 2.0 % [facility] [place] [employer] [facility] Work Phone: CBC W Auto Differential panel (Bld) CBC + DIFF [facility]; [place] [employer] [facility] Work Phone: Eosinophils (Bld) [#/Vol] 0.10 {3/UL} Normal 0.00 - 0.50 {3/UL} [facility]; [place] [employer] Work Phone: Eosinophils/100 WBC (Bld) 0.5 % Normal 0.0 - 7.0 % [facility]; [place] [employer] Work Phone: Erythrocyte distribution width (RBC) [Ratio] 13.7 % Normal 12.0 - 15.6 % [facility]; [place] [employer] Work Phone: Hematocrit (Bld) [Volume fraction] 23.8 % Abnormal 34.0 - 46.0 % [facility]; [place] [employer] Work Phone: Hemoglobin (Bld) [Mass/Vol] 7.7 g/dL Abnormal 12.0 - 16.0 g/dL [facility]; [place] [employer] [facility] Work Phone: Lymphocytes (Bld) [#/Vol] 1.30 {3/UL} Normal 0.80 - 2.80 {3/UL} [facility]; [place] [employer] Work Phone: Lymphocytes/100 WBC (Bld) 10.5 % Abnormal 20.0 - 45.0 % [facility]; [place] [employer]. Work Phone: MCH (RBC) [Entitic mass] 28 pg Normal 27 - 33 pg [facility].; [place] [employer]. Work Phone: MCHC (RBC) [Mass/Vol] 33 {X10_3} Normal 32 - 3 6 {X10_3} [facility].; [place] [employer]. Work Phone: MCV (RBC) [Entitic vol] 86 fL Normal 80 - 99 fL [facility].; [place] [employer]. Work Phone: Monocytes (Bld) [#/Vol] 0.80 {3/UL} Normal 0.20 - 1.00 {3/UL} [facility].; [employer]. Work Phone: Monocytes/100 WBC (Bld) 6.5 % Normal 0.0 - 10.0 % [facility].; [employer]. Work Phone: Morphology Darius (Bld) [Interp] N/A Normal [facility]; [place] [employer]. Work Phone: Neutrophils (Bld) [#/Vol] 10.00 {3/UL} Abnormal 1.50 - 7.10 {3/UL} [facility] [employer]. Work Phone: Neutrophils/100 WBC (Bld) 82.0 % Abnormal 46.0 - 76.0 % [place] [facility] [facility] [facility].; [employer]. Work Phone: Platelet mean volume (Bld) [Entitic vol] 8.8 fL Normal 6.6 - 10.5 fL [place] [employer].; [employer]. Work Phone: Platelets (Bld) [#/Vol] 151 {3/UL} Normal 150 - 450 {3/UL} [place] [employer].; [employer]. Work Phone: RBC (Bld) [#/Vol] 2.76 {6/UL} Abnormal 4.10 - 5.30 {6/UL} [facility]; [facility] Work Phone: WBC (Bld) [#/Vol] 12.2 {3/UL} Abnormal 4.5 - 10.8 {3/UL} [facility]; [facility]. Work Phone: No Panel Informationon 06-24 MANUAL DIFF N/A Normal [facility]; [facility] Work Phone: Laboratory - Blood bankon ABO and Rh group Nom (Bld BPU) Positive Normal [facility]; [facility] Work Phone: ABO group Nom (Bld) Positive Normal [facility]; [facility] Work Phone: Major crossmatch Immediate spin [Interp] BB CROSSMATCH 1ST UNIT Normal [facility]; [facility] Work Phone: Major crossmatch Immediate spin [Interp] BB CROSSMATCH ADDITIONAL UNIT Normal [facility]; [facility] Work Phone: Laboratory - Hematology and Cell countson 06-23-2022 Basophils (Bld) [#/Vol] 0.10 {3/UL} Normal 0.00 - 0.10 {3/UL} [facility]; [facility] Work Phone: Basophils/100 WBC (Bld) 0.3 % Normal 0.0 - 2.0 % [facility]; [facility] Work Phone: CBC panel Auto (Bld) CBC (NO DIFF) Normal [facility]; [facility] Work Phone: CBC W Auto Differential panel (Bld) CBC + DIFF Normal [facility].; [place] [employer], [facility]. Work Phone: [phone] Eosinophils (Bld) [#/Vol] 0.20 {3/UL} Normal 0.00 - 0.50 {3/UL} [facility].; [place] [employer] [facility], [employer] Work Phone: [phone] Eosinophils (Bld) [#/Vol] 0.00 {3/UL} Normal 0.00 - 0.50 {3/UL} [facility].; [place] [employer] [facility], [facility]. Work Phone: [phone] Eosinophils/100 WBC (Bld) 1.0 % Normal 0.0 - 7.0 % [facility], [facility].; [place] [employer], [employer]. Work Phone: Eosinophils/100 WBC (Bld) 0.1 % Normal 0.0 - 7.0 % [facility].; [place] [employer], [facility]. Work Phone: Erythrocyte distribution width (RBC) [Ratio] 13.5 % Normal 12.0 - 15.6 % [facility], [facility].; [place] [employer], [employer]. Work Phone: Erythrocyte distribution width (RBC) [Ratio] 13.4 % Normal 12.0 - 15.6 % [facility], [facility].; [place] [employer], [facility]. Work Phone: Erythrocyte distribution width (RBC) [Ratio] 13.3 % Normal 12.0 - 15.6 % [facility].; [place] [employer]. Work Phone: Hematocrit (Bld) [Volume fraction] 32.9 % Abnormal 34.0 - 46.0 % [facility], [facility].; [place] [employer] Work Phone: Hematocrit (Bld) [Volume fraction] 26.4 % Abnormal 34.0 - 46.0 % [facility], [facility].; [place] [employer], [employer]. Work Phone: Hematocrit (Bld) [Volume fraction] 24.3 % Abnormal 34.0 - 46.0 % [facility]; [facility] Work Phone: Hemoglobin (Bld) [Mass/Vol] 10.8 g/dL Abnormal 12.0 - 16.0 g/dL [facility]; [facility] Work Phone: [phone] Hemoglobin (Bld) [Mass/Vol] 8.5 g/dL Abnormal 12.0 - 16.0 g/dL [facility]; [facility] Work Phone: [phone] Hemoglobin (Bld) [Mass/Vol] 8.0 g/dL Abnormal 12.0 - 16.0 g/dL [facility]; [facility] Work Phone: Lymphocytes (Bld) [#/Vol] 1.70 {3/UL} Normal 0.80 - 2.80 {3/UL} [facility]; [place] [employer] [facility]. Work Phone: [phone] Lymphocytes (Bld) [#/Vol] 0.90 {3/UL} Normal 0.80 - 2.80 {3/UL} [facility].; [place] [employer]. Work Phone: Lymphocytes/100 WBC (Bld) 9.3 % Abnormal 20.0 - 45.0 % [facility].; [facility]. Work Phone: [phone] Lymphocytes/100 WBC (Bld) 4 % Abnormal 20 - 40 % [facility].; [facility]. Work Phone: [phone] Lymphocytes/100 WBC (Bld) 4.3 % Abnormal 20.0 - 45.0 % [facility].; [place] [employer], [employer] Work Phone: MCH (RBC) [Entitic mass] 28 pg Normal 27 - 33 pg [facility]; [place] [employer]. Work Phone: MCHC (RBC) [Mass/Vol] 33 {X10_3} Normal 32 - 3 6 {X10_3} [facility].; [place] [employer] [facility]. Work Phone: MCHC (RBC) [Mass/Vol] 32 {X10_3} Normal 32 - 3 6 {X10_3} [facility].; [place] [employer]. Work Phone: MCV (RBC) [Entitic vol] 85 fL Normal 80 - 99 fL [facility].; [place] [employer]. Work Phone: MCV (RBC) [Entitic vol] 86 fL Normal 80 - 99 fL [facility].; [place] [employer]. Work Phone: Monocytes (Bld) [#/Vol] 0.70 {3/UL} Normal 0.20 - 1.00 {3/UL} [facility].; [employer]. Work Phone: Monocytes (Bld) [#/Vol] 1.10 {3/UL} Abnormal 0.20 - 1.00 {3/UL} [facility].; [employer]. Work Phone: Monocytes/100 WBC (Bld) 3.9 % Normal 0.0 - 10.0 % [facility].; [place] [employer]. Work Phone: Monocytes/100 WBC (Bld) 5.0 % Normal 0.0 - 10.0 % [facility].; [employer]. Work Phone: Morphology Darius (Bld) [Interp] REVIEWED Normal [facility].; [place] [employer]. Work Phone: Morphology Darius (Bld) [Interp] N/A Normal [facility].; [place] [employer]. Work Phone: Neutrophils (Bld) [#/Vol] 15.20 {3/UL} Abnormal 1.50 - 7.10 {3/UL} [place] [employer].; [employer]. Work Phone: Neutrophils (Bld) [#/Vol] 19.80 {3/UL} Abnormal 1.50 - 7.10 {3/UL} [place] [employer].; [employer]. Work Phone: [phone] Neutrophils/100 WBC (Bld) 85.5 % Abnormal 46.0 - 76.0 % [place] [employer].; [employer]. Work Phone: [phone] Neutrophils/100 WBC (Bld) 90.3 % Abnormal 46.0 - 76.0 % [place] [employer].; [employer], [employer]. Work Phone: [phone] Platelet mean volume (Bld) [Entitic vol] 9.1 fL Normal 6.6 - 10.5 fL [place] [employer].; [employer]. Work Phone: [phone] Platelet mean volume (Bld) [Entitic vol] 9.2 fL Normal 6.6 - 10.5 fL [employer].; [employer]. Work Phone: [phone] Platelet mean volume (Bld) [Entitic vol] 8.8 fL Normal 6.6 - 10.5 fL [place] [employer].; [employer]. Work Phone: Platelets (Bld) [#/Vol] 205 {3/UL} Normal 150 - 450 {3/UL} [employer].; [employer]. Work Phone: Platelets (Bld) [#/Vol] 148 {3/UL} Abnormal 150 - 450 {3/UL} [employer].; [employer], [employer] Work Phone: Platelets (Bld) [#/Vol] 158 {3/UL} Normal 150 - 450 {3/UL} [employer].; [employer]. Work Phone: RBC (Bld) [#/Vol] 3.89 {6/UL} Abnormal 4.10 - 5.30 {6/UL} [employer].; [employer]. Work Phone: RBC (Bld) [#/Vol] 3.06 {6/UL} Abnormal 4.10 - 5.30 {6/UL} [employer].; [employer]. Work Phone: RBC (Bld) [#/Vol] 2.84 {6/UL} Abnormal 4.10 - 5.30 {6/UL} [employer].; [employer], [employer] Work Phone: WBC (Bld) [#/Vol] 17.8 {3/UL} Abnormal 4.5 - 10.8 {3/UL} [employer].; [employer]. Work Phone: WBC (Bld) [#/Vol] 21.9 {3/UL} Abnormal 4.5 - 10.8 {3/UL} [employer].; [employer], [employer]. Work Phone: WBC (Bld) [#/Vol] 14.9 {3/UL} Abnormal 4.5 - 10.8 {3/UL} [employer].; [employer]. Work Phone: No Panel Informationon 06-23 BANDS 7 % Abnormal 0 - 5 % [employer].; [employer]. Work Phone: CELL COUNT 100 Normal [employer].; [employer]. Work Phone: Compatibility COMPATIBLE Normal [employer].; [employer], [employer]. Work Phone: Component LRPC Normal [employer].; [employer]. Work Phone: Donor's Unit No [id number] Normal [facility].; [facility]. Work Phone: Donor's Unit No [id number] Normal [facility].; [facility]. Work Phone: MANUAL DIFF SEE BELOW Normal [facility].; [facility]. Work Phone: MANUAL DIFF N/A Normal [facility]; [facility] Work Phone: MONOS 2 % Normal 0 - 8 % [facility]; [facility] Work Phone: SEGS 87 % Abnormal 50 - 70 % [facility]; [place] [employer] [facility] Work Phone: Unit Exp Date 07-27-22 Normal [facility]; [facility] Work Phone: Laboratory - Blood bankon ABO group Nom (Bld) O Normal [facility]; [place] [employer] [facility] Work Phone: Blood group antibody screen Ql Negative Normal [facility]; [place] [employer] [facility] Work Phone: Blood type and Indirect antibody screen panel (Bld) Normal [facility]; [facility] Work Phone: Rh Nom (Bld) Positive Normal [facility]; [place] [employer] [facility] Work Phone: Laboratory - Hematology and Cell countson 06-22-2022 CBC panel Auto (Bld) CBC (NO DIFF) Normal [facility]; [place] [employer] [facility] Work Phone: Erythrocyte distribution width (RBC) [Ratio] 13.4 % Normal 12.0 - 15.6 % [facility]; [facility] Work Phone: Hematocrit (Bld) [Volume fraction] 36.3 % Normal 34.0 - 46.0 % [facility]; [facility] Work Phone: Hemoglobin (Bld) [Mass/Vol] 11.7 g/dL Abnormal 12.0 - 16.0 g/dL [facility]; [facility] Work Phone: MCH (RBC) [Entitic mass] 28 pg Normal 27 - 33 pg [facility]; [place] [employer] Work Phone: MCHC (RBC) [Mass/Vol] 32 {X10_3} Normal 32 - 3 6 {X10_3} [facility]; [place] [employer] Work Phone: MCV (RBC) [Entitic vol] 86 fL Normal 80 - 99 fL [facility]; [place] [employer] Work Phone: Platelet mean volume (Bld) [Entitic vol] 9.0 fL Normal 6.6 - 10.5 fL [facility]; [facility] Work Phone: Platelets (Bld) [#/Vol] 183 {3/UL} Normal 150 - 450 {3/UL} [facility]; [place] [employer] Work Phone: RBC (Bld) [#/Vol] 4.24 {6/UL} Normal 4.10 - 5.30 {6/UL} [facility].; [place] [employer] Work Phone: WBC (Bld) [#/Vol] 8.4 {3/UL} Normal 4.5 - 10.8 {3/UL} [facility]; [place] [employer] Work Phone: Laboratory - Urinalysison Glucose Test strip (U) [Mass/Vol] Negative Normal [facility], [facility].; [facility]. Protein Ql (U) Negative Normal [facility].; [facility], [facility]. Laboratory - Urinalysison Glucose Test strip (U) [Mass/Vol] Negative Normal [facility].; [place] [employer] [facility] Protein Ql (U) Negative Normal [facility].; [facility], [facility]. CBC (INCLUDES DIFF/PLT)on Basophils (Bld) [#/Vol] 0.018 10*3/uL Normal 0-200 [facility] Comment on above: Performed By: #### 1 0256, [id number] #### [facility] [place] [address] [employer]: Hesham Platt MD Basophils/100 WBC (Bld) 0.2 % Normal [facility] Comment on above: Performed By: #### 1 0256, 6399 #### [facility] [place] [address] [employer]: Hesham Platt MD Eosinophils (Bld) [#/Vol] 0.08 10*3/uL Normal 15-500 [facility] Comment on above: Performed By: #### 1 0256, 6399 #### [facility] [place] [address] [employer]: Hesham Platt MD Eosinophils/100 WBC (Bld) 0.9 % Normal [facility] Comment on above: Performed By: #### 1 0256, 6399 #### [facility] [place] [address] [employer]: Hesham Platt MD Erythrocyte distribution width (RBC) [Ratio] 12.2 % Normal 11.0-15.0 [facility] Comment on above: Performed By: #### 1 0256, 6399 #### [facility] [place] [address] [employer]: Hesham Platt MD Hematocrit (Bld) [Volume fraction] 34.5 % Low 35.0-45.0 [facility] Comment on above: Performed By: #### 1 0256, 6399 #### [facility] of [place] [address] [employer]: Hesham Platt MD Hemoglobin (Bld) [Mass/Vol] 11.5 g/dL Low 11.7-15.5 [facility] Comment on above: Performed By: #### 1 0256, 6399 #### [facility] of [place] [address] [employer]: Hesham Platt MD Lymphocytes (Bld) [#/Vol] 1.299 10*3/uL Normal 850-3900 [facility] Comment on above: Performed By: #### 1 0256, 6399 #### [facility] of [place] [address] [employer]: Hesham Platt MD Lymphocytes/100 WBC (Bld) 14.6 % Normal [facility] Comment on above: Performed By: #### 1 0256, 6399 #### [facility] of [place] [address] [employer]: Hesham Platt MD MCH (RBC) [Entitic mass] 28.8 pg Normal 27.0-33.0 [facility] Comment on above: Performed By: #### 1 0256, 6399 #### [facility] of [place] [address] [employer]: Hesham Platt MD MCHC (RBC) [Mass/Vol] 33.3 g/dL Normal 32.0-36.[address] [facility] Comment on above: Performed By: #### 1 0256, 6399 #### [facility] of [place] [address] [employer]: Hesham Platt MD MCV (RBC) [Entitic vol] 86.3 fL Normal 80.0-100.0 [facility] Comment on above: Performed By: #### 1 0256, 6399 #### [facility] of [address], [address] [place] [address] [employer]: Hesham Platt MD Monocytes (Bld) [#/Vol] 0.694 10*3/uL Normal 200-950 [facility] Comment on above: Performed By: #### 1 0256, 6399 #### [facility] of [address], [address] [place] [address] [employer]: Hesham Platt MD Monocytes/100 WBC (Bld) 7.8 % Normal [facility] Comment on above: Performed By: #### 1 0256, 6399 #### [facility] of [address], [address] [place] [address] [employer]: Hesham Platt MD Neutrophils (Bld) [#/Vol] 6.809 10*3/uL Normal 1584-2743 [facility] Comment on above: Performed By: #### 1 0256, 6399 #### [facility] of [address], [address] [place] [address] [employer]: Hesham Platt MD Neutrophils/100 WBC (Bld) 76.5 % Normal [facility] Comment on above: Performed By: #### 1 0256, 6399 #### [facility] of [address], [address] [place] [address] [employer]: Hesham Platt MD Platelet mean volume (Bld) [Entitic vol] 10.8 fL Normal 7.5-12.5 [facility] Comment on above: Performed By: #### 1 0256, 6399 #### [facility] of [address], [address] [place] [address] [employer]: Hesham Platt MD Platelets (Bld) [#/Vol] 161 10*3/uL Normal 140-400 [facility] Comment on above: Performed By: #### 1 0256, 6399 #### [facility] of [address], [address] [place] [address] [employer]: Hesham Platt MD RBC (Bld) [#/Vol] 4.00 10*6/uL Normal 3.80-5.10 [facility] Comment on above: Performed By: #### 1 0256, 6399 #### [facility] of [place] [address] [employer]: Hesham Platt MD WBC (Bld) [#/Vol] 8.9 10*3/uL Normal 3.8-10.8 [facility] Comment on above: Performed By: #### 1 0256, 6399 #### [facility] of [place] [address] [employer]: Hesham Platt MD HEPATIC FUNCTION PANELon Albumin [Mass/Vol] 3.5 g/dL Low 3.6-5.1 [facility] Comment on above: Performed By: #### 1 0256, 6399 #### [facility] of [place] [address] [employer]: Hesham Platt MD Albumin/Globulin [Mass ratio] 1.4 {ratio} Normal 1.0-2.5 [facility] Comment on above: Performed By: #### 1 0256, 6399 #### [facility] of [place] [address] [employer]: Hesham Platt MD ALP [Catalytic activity/Vol] 113 U/L Normal 31-125 [facility] Comment on above: Performed By: #### 1 0256, 6399 #### [facility] of [place] [address] [employer]: Hesham Platt MD ALT [Catalytic activity/Vol] 11 U/L Normal 6-29 [facility] Comment on above: Performed By: #### 1 0256, 6399 #### [facility] of [place] [address] [employer]: Hesham Platt MD AST [Catalytic activity/Vol] 14 U/L Normal 10-30 [facility] Comment on above: Performed By: #### 1 0256, 6399 #### [facility] of [address], [address] [place] [address] [employer]: Hesham Platt MD Bilirubin [Mass/Vol] 0.6 mg/dL Normal 0.2-1.2 [facility] Comment on above: Performed By: #### 1 0256, 6399 #### [facility] of [place] [address] [employer]: Hesham Platt MD BILIRUBIN, INDIRECT 0.5 mg/dL (calc) Normal 0.2-1.2 [facility] Comment on above: Performed By: #### 1 0256, 6399 #### [facility] of [place] [address] [employer]: Hesham Platt MD Bilirubin.indirect [Mass/Vol] 0.1 mg/dL Normal < OR = 0.2 [facility] Comment on above: Performed By: #### 1 0256, 6399 #### [facility] of [place] [address] [employer]: Hesham Platt MD Globulin (S) [Mass/Vol] 2.5 g/dL Normal 1.9-3.7 [facility] Comment on above: Performed By: #### 1 0256, 6399 #### [facility] of [place] [address] [employer]: Hesham Platt MD Protein [Mass/Vol] 6.0 g/dL Low 6.1-8.1 [facility] Comment on above: Performed By: #### 1 0256, 6399 #### [facility] of [place] [address] [employer]: Hesham Platt MD Laboratory - Chemistry and C hemistry - challengeon 06-05-2022 Albumin [Mass/Vol] 3.5 g/dL Abnormal 3.6 - 5.1 g/dL [facility] Albumin/Globulin [Mass ratio] 1.4 {ratio} Normal 1.0 - 2.5 [facility]; [facility] ALP [Catalytic activity/Vol] 113 U/L Normal 31 - 125 U/L [facility]; [facility] ALT [Catalytic activity/Vol] 11 U/L Normal 6 - 29 U/L [facility]; [facility], [facility] AST [Catalytic activity/Vol] 14 U/L Normal 10 - 30 U/L [facility]; [facility] Bilirubin [Mass/Vol] 0.6 mg/dL Normal 0.2 - 1 .2 mg/dL [facility]; [facility] Bilirubin.indirect [Mass/Vol] 0.1 mg/dL Normal [facility]; [facility], [facility] Creatinine [Mass/Vol] 15.36 mg/dL Normal [facility]; [facility], [facility] Protein (24H U) [Mass/Vol] <6.00 Normal 0.00 - 10.00 mg/dL [facility]; [facility] Protein [Mass/Vol] 6.0 g/dL Abnormal 6.1 - 8.1 g/dL [facility]; [facility], [facility] Laboratory - Hematology and Cell countson 06-05-2022 Basophils (Bld) [#/Vol] 0.018 10*3/uL Normal 0 - 200 {cells/uL} [facility]; [facility] Basophils/100 WBC (Bld) 0.2 % Normal [facility]; [facility] Eosinophils (Bld) [#/Vol] 0.08 10*3/uL Normal 15 - 500 {cells/uL} [facility]; [facility], [facility] Eosinophils/100 WBC (Bld) 0.9 % Normal [facility]; [facility], [facility] Erythrocyte distribution width (RBC) [Ratio] 12.2 % Normal 11.0 - 15.0 % [facility]; [facility] Hematocrit (Bld) [Volume fraction] 34.5 % Abnormal 35.0 - 45.0 % [facility] Hemoglobin (Bld) [Mass/Vol] 11.5 g/dL Abnormal 11.7 - 15.5 g/dL [facility] Lymphocytes (Bld) [#/Vol] 1.299 10*3/uL Normal 850 - 3900 {cells/uL} [facility].; [facility] Lymphocytes/100 WBC (Bld) 14.6 % Normal [facility].; [facility], [facility]. MCH (RBC) [Entitic mass] 28.8 pg Normal 27.0 - 33.0 pg [facility].; [facility], [facility]. MCHC (RBC) [Mass/Vol] 33.3 g/dL Normal 32.0 - 36.0 g/dL [facility].; [facility], [facility] MCV (RBC) [Entitic vol] 86.3 fL Normal 80.0 - 100.0 fL [facility].; [facility] Monocytes (Bld) [#/Vol] 0.694 10*3/uL Normal 200 - 950 {cells/uL} [facility].; [facility]. Monocytes/100 WBC (Bld) 7.8 % Normal [facility].; [facility], [facility]. Neutrophils (Bld) [#/Vol] 6.809 10*3/uL Normal 1500 - 7800 {cells/uL} [facility]. Neutrophils/100 WBC (Bld) 76.5 % Normal [facility].; [facility], [facility]. Platelet mean volume (Bld) [Entitic vol] 10.8 fL Normal 7.5 - 12.5 fL [facility].; [facility]. Platelets (Bld) [#/Vol] 161 10*3/uL Normal 140 - 400 [facility].; [facility]. RBC (Bld) [#/Vol] 4.00 10*6/uL Normal 3.80 - 5.10 {Million/u L} [facility].; [facility] WBC (Bld) [#/Vol] 8.9 10*3/uL Normal 3.8 - 10.8 [facility]; [facility] Laboratory - Urinalysison Glucose Test strip (U) [Mass/Vol] Negative Normal [facility]; [facility] Protein Ql (U) Negative Normal [facility]; [facility]. No Panel Informationon 06-05 BILIRUBIN, INDIRECT 0.5 Normal 0.2 - 1.2 [facility]; [facility] GLOBULIN 2.5 Normal 1.9 - 3.7 [facility]; [facility] PC RATIO 0.16 mg/dL Normal 0.00 - 10.00 mg/dL [facility]; [place] [facility] Laboratory - Microbiology an d Antimicrobial susceptibilityon 05-22-2022 S. agalactiae Org specific cx Ql (Vag fld) CULTURE GBS SCREEN Normal [facility]; [facility]. Laboratory - Urinalysison Glucose Test strip (U) [Mass/Vol] Negative Normal [facility]; [facility], [facility]. Protein Ql (U) Negative Normal [facility].; [facility], [facility]. Laboratory - Urinalysison Glucose Test strip (U) [Mass/Vol] Negative Normal [facility]; [facility]. Protein Ql (U) Negative Normal [facility].; [facility]. No Panel Informationon 05-07 FIBRONECTIN Negative Normal [facility].; [facility]. Laboratory - Urinalysison Glucose Test strip (U) [Mass/Vol] Negative Normal [facility].; [facility], [facility]. Protein Ql (U) Negative Normal [facility].; [facility], [facility]. No Panel Informationon 03-26 FIBRONECTIN Negative Normal [facility].; [employer]. Laboratory - Hematology and Cell countson 03-24-2022 HbA1c (Bld) [Mass fraction] 4.8 % Normal 4.6 - 7.1 % [facility].; [employer]. Hemoglobin (Bld) [Mass/Vol] 12.6 g/dL Normal 11.5 - 14.2 g/dL [facility].; [employer]. Laboratory - Urinalysison Glucose Test strip (U) [Mass/Vol] Negative Normal [facility] [employer] [employer]. Protein Ql (U) Negative Normal [facility] [employer]. Laboratory - Urinalysison Glucose Test strip (U) [Mass/Vol] Negative Normal [facility] [employer].; [employer]. Protein Ql (U) Negative Normal [facility] [employer].; [employer]. Laboratory - Urinalysison Glucose Test strip (U) [Mass/Vol] Negative Normal [employer].; [employer]. Protein Ql (U) Negative Normal [facility] [employer].; [employer]. OBSTETRIC PANELon 12-19-2021 ABO group Nom (Bld) O Normal [facility] Comment on above: Performed By: #### 2 209, [id number] #### [facility] [address], [address] [place], [place] [id number] Lead Caster Helper: Hesham Platt MD ANTIBODY SCREEN, RBC W/REFL ID, TITER AND AG Detected Normal [facility] Comment on above: Result Comment: Refe rence range No antibodies detected This assay is a screening test for the detection of red blood cell antibodies. The test is not to be used for pretransfusion screening or for the medical management of an alloimmunized . Performed By: #### 2 209, [id number] #### [facility] [address], [address] [place] [id number] Lead Caster Helper: Hesham Platt MD Basophils (Bld) [#/Vol] 0.011 10*3/uL Normal 0-200 [facility] Comment on above: Performed By: #### 2 209, #### [facility] [place] [address] Lead Caster Helper: Hesham Platt MD Basophils/100 WBC (Bld) 0.2 % Normal [facility] Comment on above: Performed By: #### 2 209, #### [facility] [place] [address] Lead Caster Helper: Hesham Platt MD Eosinophils (Bld) [#/Vol] 0.028 10*3/uL Normal 15-500 [facility] Comment on above: Performed By: #### 2 209, #### [facility] [place] [address] Lead Caster Helper: Hesham Platt MD Eosinophils/100 WBC (Bld) 0.5 % Normal [facility] Comment on above: Performed By: #### 2 209, #### [facility] [place] [address] Lead Caster Helper: Hesham Platt MD Erythrocyte distribution width (RBC) [Ratio] 11.8 % Normal 11.0-15.0 [facility] Comment on above: Performed By: #### 2 209, #### [facility] [place] [address] Lead Caster Helper: Hesham Platt MD Hematocrit (Bld) [Volume fraction] 40.8 % Normal 35.0-45.0 [facility] Comment on above: Performed By: #### 2 209, #### [facility] [place] [address] Lead Caster Helper: Hesham Platt MD Hemoglobin (Bld) [Mass/Vol] 13.3 g/dL Normal 11.7-15.5 [facility] Comment on above: Performed By: #### 2 209, #### [facility] [place] [address] Lead Caster Helper: Hesham Platt MD HEPATITIS B SURFACE ANTIGEN Non-Reactive Normal NON-REACTI VE [facility] Comment on above: Performed By: #### 2 209, #### [facility] [place] [address] Lead Caster Helper: Hesham Platt MD Lymphocytes (Bld) [#/Vol] 1.546 10*3/uL Normal 850-3900 [facility] Comment on above: Performed By: #### 2 209, #### [facility] [place] [address] Lead Caster Helper: Hesham Platt MD Lymphocytes/100 WBC (Bld) 27.6 % Normal [facility] Comment on above: Performed By: #### 2 209, #### [facility] [place] [address] Lead Caster Helper: Hesham Platt MD MCH (RBC) [Entitic mass] 28.2 pg Normal 27.0-33.0 [facility] Comment on above: Performed By: #### 2 209, #### [facility] [place] [address] Lead Caster Helper: Hesham Paltt MD MCHC (RBC) [Mass/Vol] 32.6 g/dL Normal 32.0-36.[address] [facility] Comment on above: Performed By: #### 2 209, #### [facility] [place] [address] Lead Caster Helper: Hesham Platt MD MCV (RBC) [Entitic vol] 86.6 fL Normal 80.0-100.0 [facility] Comment on above: Performed By: #### 2 209, #### [facility] [place] [address] Lead Caster Helper: Hesham Platt MD Monocytes (Bld) [#/Vol] 0.291 10*3/uL Normal 200-950 [facility] Comment on above: Performed By: #### 2 209, #### [facility] [place] [address] Lead Caster Helper: Hesham Platt MD Monocytes/100 WBC (Bld) 5.2 % Normal [facility] Comment on above: Performed By: #### 2 209, #### [facility] [place] [address] Lead Caster Helper: Hesham Platt MD Neutrophils (Bld) [#/Vol] 3.724 10*3/uL Normal 8269-1599 [facility] Comment on above: Performed By: #### 2 209, #### [facility] [place] [address] Lead Caster Helper: Hesham Platt MD Neutrophils/100 WBC (Bld) 66.5 % Normal [facility] Comment on above: Performed By: #### 2 209, #### [facility] [place] [address] Lead Caster Helper: Hesham Platt MD Platelet mean volume (Bld) [Entitic vol] 11.3 fL Normal 7.5-12.5 [facility] Comment on above: Performed By: #### 2 209, #### [facility] [place] [address] Lead Caster Helper: Hesham Platt MD Platelets (Bld) [#/Vol] 179 10*3/uL Normal 140-400 [facility] Comment on above: Performed By: #### 2 209, #### [facility] [place] [address] Lead Caster Helper: Hesham Platt MD RBC (Bld) [#/Vol] 4.71 10*6/uL Normal 3.80-5.10 [facility] Comment on above: Performed By: #### 2 209, #### [facility] [place] [address] Lead Caster Helper: Hesham Platt MD RH TYPE Positive Normal [facility] Comment on above: Result Comment: For additional information, please refer to http://education.Rico/faq/DUL749 (This link is being provided for informational/ educational purposes only.) Performed By: #### 2 209, #### [facility] [place] [address] Lead Caster Helper: Hesham Platt MD RPR (DX) W/REFL TITER AND CONFIRMATORY TESTING Non-Reactive Normal NON-REACTI VE [facility] Comment on above: Performed By: #### 2 209, #### [facility] [place] [address] Lead Caster Helper: Hesham Platt MD RUBELLA AB (IGG), IMMUNE STATUS 4.85 Index Normal [facility] Comment on above: Result Comment: Inde x Interpretation ----- <0.90 Not consistent with immunity 0.90-0.99 Equivocal > or = 1.00 Consistent with immunity The presence of rubella IgG antibody suggests immunization or past or current infection with rubella virus. Performed By: #### 2 209, [id number] #### [facility] [place] [address] Lead Caster Helper: Hesham Platt MD WBC (Bld) [#/Vol] 5.6 10*3/uL Normal 3.8-10.8 [facility] Comment on above: Performed By: #### 2 209, #### [facility] [place] [address] Lead Caster Helper: Hesham Platt MD TSH W/REFLEX TO FT4on 2021 TSH W/REFLEX TO FT4 0.42 mIU/L Normal [facility] Comment on above: Result Comment: Refe rence Range > or = 20 Years 0.40-4.50 Ranges First trimester 0.26-2.66 Second trimester 0.55-2.73 Third trimester 0.43-2.91 Performed By: #### 2 0210, 15260 #### [facility] [address] [place] [address], [address] [place] [address] Lead Caster Helper: Hesham Platt MD Laboratory - Blood bankon ABO group Nom (Bld) O Normal [employer] [employer] [employer] [facility]. Rh Nom (Amn fld) Positive Normal [facility] [facility] [employer] Laboratory - Chemistry and C hemistry - challengeon 12-15-2021 Bilirubin Ql (U) Negative Normal [employer] [employer], [employer]. Ketones Ql (U) Negative Normal [employer] [employer] [employer] pH (U) 7.0 [pH] Normal [employer] [facility] [employer], [employer]. Specific gravity (U) [Rel density] 1.010 Normal [facility] [facility] [employer], [employer]. Urobilinogen Qn (U) 0.2 mg/dL Normal [employer], [employer] [employer] [employer] Laboratory - Hematology and Cell countson 12-15-2021 Basophils (Bld) [#/Vol] 0.011 10*3/uL Normal 0 - 200 {cells/uL} [employer] Basophils/100 WBC (Bld) 0.2 % Normal [employer] [facility] [employer], [employer]. Eosinophils (Bld) [#/Vol] 0.028 10*3/uL Normal 15 - 500 {cells/uL} [employer] [employer] [employer] [employer]. Eosinophils/100 WBC (Bld) 0.5 % Normal [employer] [facility] [employer], [employer] Erythrocyte distribution width (RBC) [Ratio] 11.8 % Normal 11.0 - 15.0 % [employer] [employer] Hematocrit (Bld) [Volume fraction] 40.8 % Normal 35.0 - 45.0 % [facility] [facility] [employer], [facility]. Hemoglobin (Bld) [Mass/Vol] 13.3 g/dL Normal 11.7 - 15.5 g/dL [facility].; [facility] Hemoglobin Ql (U) Negative Normal [facility].; [facility] Lymphocytes (Bld) [#/Vol] 1.546 10*3/uL Normal 850 - 3900 {cells/uL} [facility].; [facility] Lymphocytes/100 WBC (Bld) 27.6 % Normal [facility].; [facility]. MCH (RBC) [Entitic mass] 28.2 pg Normal 27.0 - 33.0 pg [facility].; [facility]. MCHC (RBC) [Mass/Vol] 32.6 g/dL Normal 32.0 - 36.0 g/dL [facility].; [place] [facility] MCV (RBC) [Entitic vol] 86.6 fL Normal 80.0 - 100.0 fL [facility].; [facility] Monocytes (Bld) [#/Vol] 0.291 10*3/uL Normal 200 - 950 {cells/uL} [facility].; [facility]. Monocytes/100 WBC (Bld) 5.2 % Normal [facility].; [facility]. Neutrophils (Bld) [#/Vol] 3.724 10*3/uL Normal 1500 - 7800 {cells/uL} [facility].; [facility]. Neutrophils/100 WBC (Bld) 66.5 % Normal [facility].; [place] [facility] Platelet mean volume (Bld) [Entitic vol] 11.3 fL Normal 7.5 - 12.5 fL [facility].; [facility]. Platelets (Bld) [#/Vol] 179 10*3/uL Normal 140 - 400 [facility].; [facility], [facility]. RBC (Bld) [#/Vol] 4.71 10*6/uL Normal 3.80 - 5.10 {Million/u L} [facility].; [employer]. WBC (Bld) [#/Vol] 5.6 10*3/uL Normal 3.8 - 10.8 [facility].; [employer]. Laboratory - Specimen inform ationon 12-15-2021 Appearance (U) Clear Normal [facility]; [employer] Color (U) Yellow Normal [facility].; [employer]. Laboratory - Urinalysison Glucose Test strip (U) [Mass/Vol] Negative Normal [facility].; [employer] Leukocyte esterase Test strip Ql (U) Negative Normal [facility]; [employer]. Nitrite Ql (U) Negative Normal [facility].; [employer]. Protein Ql (U) Negative Normal [facility] [employer]. No Panel Informationon 12-15 ANTIBODY SCREEN, RBC W/REFL ID, TITER AND AG Detected Normal [facility]; [employer]. HEPATITIS B SURFACE ANTIGEN Non-Reactive Normal [facility]; [employer]. RPR (DX) W/REFL TITER AND CONFIRMATORY TESTING Non-Reactive Normal [facility].; [employer]. RUBELLA AB (IGG), IMMUNE STATUS 4.85 {Index} Normal [facility].; [employer]. TSH W/REFLEX TO FT4 0.42 {mIU/L} Normal [facility].; [employer]. GL1on 07-24-2018 Glucose mass conc 180 mg/dL High 70-139 [facility] ([place]) Comment on above: Result Comment: *Joie betes mellitus is indicated in non- adults when the 2-hr glucose is greater than or equal to 200 mg/dL OR the FBS is greater than or equal to 126 mg/dL.*Gestational diabetes is indicated when two or more of the following glucose concentrations are met or exceeded: Fasting glucose 95 mg/dL 1-hr glucose 180 mg/dL 2-hr glucose 155 mg/dL 3-hr glucose 140 mg/dL Performed By: #### H GMP, HCG, PABO, PABS, RUBIS, RPR, HBSAG ####[place] [address] GL2on 07-24-2018 Glucose mass conc 173 mg/dL Normal [facility] ([place]) Comment on above: Performed By: #### H GMP, HCG, PABO, PABS, RUBIS, RPR, HBSAG ####[place] [address] GL3on 07-24-2018 Glucose mass conc 62 mg/dL Normal [facility] ([place]) Comment on above: Performed By: #### H GMP, HCG, PABO, PABS, RUBIS, RPR, HBSAG ####[place] [address] GLFon 07-24-2018 Glucose mass conc 70 mg/dL Normal 70-110 [facility] ([place]) Comment on above: Performed By: #### H GMP, HCG, PABO, PABS, RUBIS, RPR, HBSAG ####[place] [address] RQF2Rgi 07-17-2018 Glucose mass conc 173 mg/dL High 70-139 [facility] ([place]) Comment on above: Performed By: #### G LU1P ####[place] [address] Property Handler Cytology Reporton 2017 Property Handler Cytology Report . Pathology ReportsAccession: Collected Date/Time: Received Date/Time: Pathologist:[id number] 01/29/2018 17:30 EST 01/30/2018 18:00 EST Property Handler Cytology ReportSPECIMEN:Specimen Description: ConventionalSpecimen: Cervical/EndocervicalScree lizy or Diagnostic: ScreeningRELEVANT HISTORY:LMP: 11/01/2017SPECIMEN ADEQUACY:SATISFACTORY FOR EVALUATIONENDOCERVICAL/TRA NSFORMATIONAL ZONE COMPONENT ABSENT/INSUFFICIENTINTERPR ETATION/RESULTS:NEGATIVE FOR INTRAEPITHELIAL LESION OR MALIGNANCYElectronically Signed byPathology report verified by [facility], Avoncreened by: GLElectronically signed by Daria Broussardign-Out Date: 02/05/2018 10:13Performing Lab: [address]DisclaimerThe Pap test is a screening test for cervical cancer. As evidenced by published data, it is subject to both inherent false negative and false positive results. Your patient's results should be interpreted in context with pertinent clinical history including gynecological examination. Normal [facility] ([place]) Comment on above: Performed By: #### G YCR ####[place] [address] CURon 01-31-2018 CUR . MICRO - MicrobiologyPROCEDURE: Urine Culture [*1] Urine BODY SITE:COLLECTED DATE/TIME: 01/29/2018 15:30 EST RECEIVED DATE/TIME: 01/29/2018 19:42 ESTSTART DATE/TIME: 01/29/2018 19:42 EST FREE TEXT SOURCE:FINAL REPORTSFinal Report []Verified Date/Time/Personnel: 01/31/2018 07:08 EST30,000 organisms per mLMixed without predominant isolate(s). SensitivityTesting not indicated. Probably contamination. Repeatculture suggested.PRELIMINARY REPORTSPreliminary Report []Verified Date/Time/Personnel: 01/30/2018 07:36 ESTNo growth to datePerforming Locations*1: This test was performed at: [address], [address] [place] [address] Normal [facility] ([place]) Comment on above: Performed By: #### C UR ####[place] [address] HBSAGon 01-15-2018 Hep B Surf Ag Negative Normal Negative [facility] ([place]) Comment on above: Performed By: #### H GMP, HCG, PABO, PABS, RUBIS, RPR, HBSAG ####[place] [address] RPRon 01-15-2018 Reagin Ab RPR Ql (S) Non-Reactive Normal Non-Trish cti ve [facility] ([place]) Comment on above: Result Comment: The RPR test is a non-treponemal assay useful as an aidin the diagnosis of primary and secondary syphilis. Itconverts to positive generally within 2 weeks after theappearance of a lesion. This test is also useful formonitoring response to antibiotic therapy.A positive RPR screening test will be followed by theFTA ABS test.False positive RPR tests may occur in 1) patients withunderlying autoimmune disorders, 2) elderly patients,3) , and 4) other conditions with abnormal serumglobulins. Performed By: #### H GMP, HCG, PABO, PABS, RUBIS, RPR, HBSAG ####[address] [address] RUBISon 01-15-[address] Positive Normal Positive [facility] ([place]) Comment on above: Result Comment: This immune status assay detects IgM and/or IgG antibody to Rubella. Interpret results in conjunction with clinical history. POS: Antibody detected; exposure at undetermined recent or distant time. If clinically indicated, order Rubella IGM to rule out recent infection. NEG: No antibody detected. Performed By: #### H GMP, HCG, PABO, PABS, RUBIS, RPR, HBSAG ####[address] [address] HCGon 01-14-2018 Date of LMP Normal [facility] ([place]) Comment on above: Performed By: #### H GMP, HCG, PABO, PABS, RUBIS, RPR, HBSAG ####[address] [address] hCG, quantitative 737491.2 mIU/mL Normal [facility] ([place]) Comment on above: Result Comment: Naresh titative hCG reference ranges: Non adults. . . . . . . . . . .0 - 5 mIU/mL (All values referenced to 1st IRP / 3rd IS 75/537 standards.) females based on gestational age: 1 week. . . . . . . . . . . . . . . .5 - 50 mIU/mL 2 weeks . . . . . . . . . . . . . . .50 - 500 mIU/mL 3 weeks . . . . . . . . . . . . . . .100 - 10,000 mIU/ml 4 weeks . . . . . . . . . . . . . . .1,000 - 30,000 mIU/mL 6-8 weeks . . . . . . . . . . . . . . .12,000 - 270,000 mIU/mL 12 weeks . . . . . . . . . . . . . . .15,000 - 220,000 mIU/mL 2nd trimester . . . . . . . . . . . .2,500 - 82,000 mIU/mL 3rd trimester . . . . . . . . . . . .2,400 - 50,000 mIU/mL Performed By: #### H GMP, HCG, PABO, PABS, RUBIS, RPR, HBSAG ####[place] [address] HGMPon 01-14-2018 Erythrocyte distribution width Auto Ratio (RBC) 14.0 % Normal 11.5-15.5 [facility] ([place]) Comment on above: Performed By: #### H GMP, HCG, PABO, PABS, RUBIS, RPR, HBSAG ####[place] [address] Hematocrit Auto Volume Fraction (Bld) 38.2 % Normal 34.0-46.0 [facility] ([place]) Comment on above: Performed By: #### H GMP, HCG, PABO, PABS, RUBIS, RPR, HBSAG ####[place] [address] Hemoglobin mass conc (Bld) 12.7 G/dL Normal 12.0-16.0 [facility] ([place]) Comment on above: Performed By: #### H GMP, HCG, PABO, PABS, RUBIS, RPR, HBSAG ####[place] [address] MCH Auto Entitic mass (RBC) 28.3 pg Normal 27.0-33.0 [facility] ([place]) Comment on above: Performed By: #### H GMP, HCG, PABO, PABS, RUBIS, RPR, HBSAG ####[place] [address] MCHC Auto mass conc (RBC) 33.3 G/dL Normal 32.0-36.0 [facility] ([place]) Comment on above: Performed By: #### H GMP, HCG, PABO, PABS, RUBIS, RPR, HBSAG ####[place] [address] MCV Auto Entitic volume (RBC) 84.9 fL Normal 80.0-99.0 [facility] ([place]) Comment on above: Performed By: #### H GMP, HCG, PABO, PABS, RUBIS, RPR, HBSAG ####[place] [address] Platelet mean volume Auto Entitic volume (Bld) 9.3 fL Normal 6.6-10.5 [facility] ([place]) Comment on above: Performed By: #### H GMP, HCG, PABO, PABS, RUBIS, RPR, HBSAG ####[place] [address] Platelets Auto #/vol (Bld) 230 10 3/mcL Normal 150-450 [facility] ([place]) Comment on above: Performed By: #### H GMP, HCG, PABO, PABS, RUBIS, RPR, HBSAG ####[place] [address] RBC Auto #/vol (Bld) 4.50 10 6/mcL Normal 4.10-5.30 A [facility] ([place]) Comment on above: Performed By: #### H GMP, HCG, PABO, PABS, RUBIS, RPR, HBSAG ####[place] [address] WBC Auto #/vol (Bld) 7.20 10 3/mcL Normal 4.50-10.80 A [facility] ([place]) Comment on above: Performed By: #### H GMP, HCG, PABO, PABS, RUBIS, RPR, HBSAG ####[place] [address] PABOon 01-14-2018 PABO/Rh Interp Positive Invalid Interpretation Code [facility] ([place]) Comment on above: Performed By: #### H GMP, HCG, PABO, PABS, RUBIS, RPR, HBSAG ####[facility] [place] [id number] PABSon 01-14-2018 PABS Interp Negative Normal [facility] ([place]) Comment on above: Performed By: #### H GMP, HCG, PABO, PABS, RUBIS, RPR, HBSAG ####[place] [id number] [place] [id number] Vital Signs Date Time Vital Sign Value Performing Clinician Facility 09-08-2025 08:49-0400 Body height 162.56 cm Kimberly Roldan PA Work Phone: 2(139)290-158122 [place] [address] 09-08-2025 08:49-0400 Body mass index (BMI) [Ratio] 27 kg/m2 Kimberly Roldan PA Work Phone: 4(011)692-308991 [place] [address] 09-08-2025 08:49-0400 Body weight 71.44 kg Kimberly Roldan PA Work Phone: 2(629)379-334691 [place] [address] 09-08-2025 08:49-0400 Diastolic blood pressure 73 mm[Hg] Kimberly Roldan PA Work Phone: 7(324)761-531491 [place] [address] 09-08-2025 08:49-0400 Systolic blood pressure 106 mm[Hg] Kimberly Roldan PA Work Phone: 2(139)466-559891 [place] [address] 09-07-2025 15:04-0400 Body mass index (BMI) [Ratio] 26.9 kg/m2 Kimberly Roldan PA Work Phone: 1(221)675-928191 [place] [address] 09-07-2025 15:04-0400 Body temperature 98 [degF] Kimberly Roldan PA Work Phone: 7(725)508-999991 [place] [address] 09-07-2025 15:04-0400 Body weight 71.32 kg Kimberly Roldan PA Work Phone: 0(881)577-427391 [place] [address] 09-07-2025 15:04-0400 Diastolic blood pressure 76 mm[Hg] Kimberly Roldan PA Work Phone: 1(264)135-422203 [place] [address] 09-07-2025 15:04-0400 Heart rate 75 /min Kimberly Roldan PA Work Phone: 3(222)867-901643 [address] 09-07-2025 15:04-0400 Respiratory rate 16 /min Kimberly Roldan PA Work Phone: 8(725)527-551403 [place] [address] 09-07-2025 15:04-0400 SaO2% (BldA) [Mass fraction] 98 % Kimberly Roldan PA Work Phone: 0(629)050-470703 [place] [address] 09-07-2025 15:04-0400 Systolic blood pressure 114 mm[Hg] Kimberly Roldan PA Work Phone: 9(951)171-292691 [place] [address] 07-27-2025 15:31-0400 Body height 162.56 cm Kimberly Roldan PA Work Phone: 4(936)197-924391 [place] [address] 07-27-2025 15:31-0400 Body mass index (BMI) [Ratio] 27.4 kg/m2 Kimberly Roldan PA Work Phone: 0(244)735-559591 [place] [address] 07-27-2025 15:31-0400 Body temperature 97.8 [degF] Kimberly Roldan PA Work Phone: 4(132)310-794691 [place] [address] 07-27-2025 15:31-0400 Body weight 72.63 kg Kimberly Roldan PA Work Phone: 6(768)099-484991 [place] [address] 07-27-2025 15:31-0400 Diastolic blood pressure 71 mm[Hg] Kimberly Roldan PA Work Phone: 3(271)322-209291 [place] [address] 07-27-2025 15:31-0400 Heart rate 84 /min Kimberly Roldan PA Work Phone: 4(074)536-909291 [place] [address] 07-27-2025 15:31-0400 Respiratory rate 14 /min Kimberly Roldan PA Work Phone: 3(547)640-080691 [place] [address] 07-27-2025 15:31-0400 SaO2% (BldA) [Mass fraction] 84 % Kimberly Roldan PA Work Phone: 0(860)569-484903 [place] [address] 07-27-2025 15:31-0400 Systolic blood pressure 104 mm[Hg] Kimberly Roldan PA Work Phone: 0(416)908-838803 [place] [address] 07-15-2025 12:15-0400 Body temperature 97.6 [degF] Kimberly Roldan PA Work Phone: 7(063)084-527803 [place] [address] 07-15-2025 12:15-0400 Diastolic blood pressure 71 mm[Hg] Kimberly Roldan PA Work Phone: 7(127)043-406491 [place] [address] 07-15-2025 12:15-0400 Heart rate 75 /min Kimberly Roldan PA Work Phone: 4(044)099-900203 [place] [address] 07-15-2025 12:15-0400 Respiratory rate 16 /min Kimberly Roldan PA Work Phone: 6(775)891-551691 [place] [address] 07-15-2025 12:15-0400 SaO2% (BldA) [Mass fraction] 100 % Kimberly Roldan PA Work Phone: 4(492)220-039391 [place] [address] 07-15-2025 12:15-0400 Systolic blood pressure 101 mm[Hg] Kimberly Roldan PA Work Phone: 1(958)394-589991 [place] [address] 07-15-2025 10:24-0400 Body height 162.56 cm Kimberly Roldan PA Work Phone: 7(750)688-140691 [place] [address] 07-15-2025 10:24-0400 Body mass index (BMI) [Ratio] 27.2 kg/m2 Kimberly Roldan PA Work Phone: 0(232)573-176691 [place] [address] 07-15-2025 10:24-0400 Body weight 72 kg Kimberly Roldan PA Work Phone: 4(805)032-944403 [place] [address] 06-28-2025 18:00-0400 Body temperature 98.2 [degF] Kimberly Roldan PA Work Phone: 2(695)278-898003 [place] [address] 06-28-2025 18:00-0400 Diastolic blood pressure 86 mm[Hg] Kimberly Roldan PA Work Phone: 3(339)597-491403 [place] [address] 06-28-2025 18:00-0400 Heart rate 74 /min Kimberly Roldan PA Work Phone: 6(301)900-533603 [place] [address] 06-28-2025 18:00-0400 Respiratory rate 18 /min Kimberly Roldan PA Work Phone: 6(478)164-227691 [place] [address] 06-28-2025 18:00-0400 SaO2% (BldA) [Mass fraction] 100 % Kimberly Roldan PA Work Phone: 4(554)171-362503 [place] [address] 06-28-2025 18:00-0400 Systolic blood pressure 117 mm[Hg] Kimberly Roldan PA Work Phone: 7(502)660-587991 [place] [address] 06-28-2025 13:56-0400 Body height 162.56 cm Kimberly Roldan PA Work Phone: 2(359)378-189191 [place] [address] 06-28-2025 13:56-0400 Body mass index (BMI) [Ratio] 28 kg/m2 Kimberly Roldan PA Work Phone: 9(047)982-976191 [place] [address] 06-28-2025 13:56-0400 Body weight 74.25 kg Kimberly Roldan PA Work Phone: 4(252)656-201691 [place] [address] 06-24-2025 13:13-0400 Body height 162.56 cm Gudelia Yates LPN [facility].; [facility]. 06-24-2025 13:13-0400 Body mass index (BMI) [Ratio] 27.98 kg/m2 Gudelia Yates LPN [facility].; [facility]. 06-24-2025 13:13-0400 Body surface area Derived from formula 1.79 m2 Gudelia Yates LPN [facility].; [facility]. 06-24-2025 13:13-0400 Body temperature 98.8 [degF] Gudelia Yates LPN [facility].; [facility]. Comment on above: Method: Tympanic 06-24-2025 13:13-0400 Body weight 73.94 kg [facility]. 06-24-2025 13:13-0400 Diastolic blood pressure 69 mm[Hg] Gudelia Yates LPN [facility].; [facility]. Comment on above: Patient Position: Sitting; Cuff Location : Left Arm; Cuff Size: Standard 06-24-2025 13:13-0400 Heart rate 69 /min Gudelia Milan LEYVA [facility] [employer] [employer]. Comment on above: Pattern: Regular 06-24-2025 13:13-0400 Systolic blood pressure 102 mm[Hg] Gudeliamohamud Yates GORDON [facility] [employer], [employer]. Comment on above: Patient Position: Sitting; Cuff Location : Left Arm; Cuff Size: Standard 08-20-2022 10:45-0400 Body weight 75.75 kg Polina [email or web address] SENIOR IT RECRUITER [facility], [employer]. 08-20-2022 10:45-0400 Diastolic blood pressure 78 mm[Hg] Polina [email or web address] SENIOR IT RECRUITER [facility] [employer]. Comment on above: Patient Position: Sitting; Cuff Location : Left Arm; Cuff Size: Standard 08-20-2022 10:45-0400 Heart rate 93 /min Polina [email or web address] ARAIZAN [facility], [employer]. Comment on above: Pattern: Regular 08-20-2022 10:45-0400 Systolic blood pressure 111 mm[Hg] Polinacameron Joey SENIOR IT RECRUITER [place] [employer] [facility] [employer]. Comment on above: Patient Position: Sitting; Cuff Location : Left Arm; Cuff Size: Standard 06-22-2022 09:44-0400 Body weight 78.02 kg Polina [email or web address] ARAIZAN [facility] [facility], [employer]. 06-22-2022 09:44-0400 Diastolic blood pressure 69 mm[Hg] Polinacameron Olivares LPN [place] [employer] [facility] [employer]. Comment on above: Patient Position: Sitting; Cuff Location : Left Arm; Cuff Size: Standard 06-22-2022 09:44-0400 Heart rate 90 /min Polina [email or web address] SENIOR IT RECRUITER [place] [employer] [facility] [employer]. Comment on above: Pattern: Regular 06-22-2022 09:44-0400 Systolic blood pressure 104 mm[Hg] Polina Martyariy SENIOR IT RECRUITER [place] [employer]. Comment on above: Patient Position: Sitting; Cuff Location : Left Arm; Cuff Size: Standard 06-12-2022 10:59-0400 Body weight 78.93 kg Yeimy Zaugg SENIOR IT RECRUITER [employer], [employer]. 06-12-2022 10:59-0400 Diastolic blood pressure 69 mm[Hg] Yeimy Zaugg SENIOR IT RECRUITER [employer] Comment on above: Patient Position: Sitting; Cuff Location : Left Arm; Cuff Size: Standard 06-12-2022 10:59-0400 Heart rate 105 /min Yeimy Zaugg SENIOR IT RECRUITER [employer]. Comment on above: Pattern: Regular 06-12-2022 10:59-0400 Systolic blood pressure 109 mm[Hg] Yeimy Zaugg SENIOR IT RECRUITER [employer], [employer] Comment on above: Patient Position: Sitting; Cuff Location : Left Arm; Cuff Size: Standard 06-05-2022 08:21-0400 Body weight 79.11 kg Tierra Vidal MA [employer], [employer]. 06-05-2022 08:21-0400 Diastolic blood pressure 71 mm[Hg] Tierra Vidal MA [employer]. Comment on above: Patient Position: Sitting; Cuff Location : Left Arm; Cuff Size: Standard 06-05-2022 08:21-0400 Heart rate 96 /min Tierra Vidal MA [employer]. Comment on above: Pattern: Regular 06-05-2022 08:21-0400 Systolic blood pressure 105 mm[Hg] Tierra Vidal MA [employer]. Comment on above: Patient Position: Sitting; Cuff Location : Left Arm; Cuff Size: Standard 05-22-2022 09:04-0400 Body weight 78.02 kg Tierra Vidal MA [employer], [employer] 05-22-2022 09:04-0400 Diastolic blood pressure 76 mm[Hg] Tierra Vidal MA [employer]. Comment on above: Patient Position: Sitting; Cuff Location : Left Arm; Cuff Size: Standard 05-22-2022 09:04-0400 Heart rate 106 /min Tierra Vidal [facility] [employer]. Comment on above: Pattern: Regular 05-22-2022 09:04-0400 Systolic blood pressure 115 mm[Hg] Tierra Vidal MA [facility] [employer]. Comment on above: Patient Position: Sitting; Cuff Location : Left Arm; Cuff Size: Standard 05-07-2022 15:24-0400 Body weight 77.11 kg Polina Olivares LPN [facility] [employer]. 05-07-2022 15:24-0400 Diastolic blood pressure 71 mm[Hg] Polina Olivares LPN [facility] [employer]. Comment on above: Patient Position: Sitting; Cuff Location : Left Arm; Cuff Size: Standard 05-07-2022 15:24-0400 Heart rate 116 /min Polina Olivares LPN [facility] [facility] [employer]. Comment on above: Pattern: Regular 05-07-2022 15:24-0400 Systolic blood pressure 109 mm[Hg] Polina Olivares LPN [place] [employer] [facility] [employer]. Comment on above: Patient Position: Sitting; Cuff Location : Left Arm; Cuff Size: Standard 04-20-2022 07:49-0400 Body weight 76.66 kg Jannet Garcia SENIOR IT RECRUITER Work Phone: [place] [employer] [facility] [employer]. 04-20-2022 07:49-0400 Diastolic blood pressure 70 mm[Hg] Jannet Sanchezy SENIOR IT RECRUITER Work Phone: [place] [employer] [facility] [employer]. Comment on above: Patient Position: Sitting; Cuff Location : Left Arm; Cuff Size: Standard 04-20-2022 07:49-0400 Heart rate 96 /min Jannet Sanchezy SENIOR IT RECRUITER Work Phone: [place] [employer] [facility] [employer]. Comment on above: Pattern: Regular 04-20-2022 07:49-0400 Systolic blood pressure 111 mm[Hg] Jannet Radha SENIOR IT RECRUITER Work Phone: [employer].; [employer]. Comment on above: Patient Position: Sitting; Cuff Location : Left Arm; Cuff Size: Standard 03-23-2022 09:25-0400 Body weight 73.48 kg Yeimy Zaugg SENIOR IT RECRUITER [employer].; [employer]. 03-23-2022 09:25-0400 Diastolic blood pressure 72 mm[Hg] Yeimy Zaugg SENIOR IT RECRUITER [employer]. Comment on above: Patient Position: Sitting; Cuff Location : Left Arm; Cuff Size: Standard 03-23-2022 09:25-0400 Heart rate 85 /min Yeimy Zaugg SENIOR IT RECRUITER [employer].; [employer]. Comment on above: Pattern: Regular 03-23-2022 09:25-0400 Systolic blood pressure 118 mm[Hg] Yeimy Zaugg SENIOR IT RECRUITER [employer]. Comment on above: Patient Position: Sitting; Cuff Location : Left Arm; Cuff Size: Standard 02-23-2022 09:01-0400 Body weight 72.58 kg Jannet Radha SENIOR IT RECRUITER Work Phone: [employer]. 02-23-2022 09:01-0400 Diastolic blood pressure 66 mm[Hg] Jannet Radha SENIOR IT RECRUITER Work Phone: [employer]. Comment on above: Patient Position: Sitting; Cuff Location : Left Arm; Cuff Size: Standard 02-23-2022 09:01-0400 Heart rate 103 /min Jannet Radha SENIOR IT RECRUITER Work Phone: [employer]. Comment on above: Pattern: Regular 02-23-2022 09:01-0400 Systolic blood pressure 101 mm[Hg] Jannet Radha SENIOR IT RECRUITER Work Phone: [employer]. Comment on above: Patient Position: Sitting; Cuff Location : Left Arm; Cuff Size: Standard 02-22-2022 10:26-0400 Body height 162.56 cm Jannet Garcia LPN Work Phone: [facility], [employer] 01-26-2022 10:37-0500 Body weight 69.85 kg Polina Olivares GORDON [facility], [employer], [employer] 01-26-2022 10:37-0500 Diastolic blood pressure 74 mm[Hg] Polinacamerno Olivares GORDON [employer] [facility], [employer], [employer] Comment on above: Patient Position: Sitting; Cuff Location : Left Arm; Cuff Size: Standard 01-26-2022 10:37-0500 Heart rate 91 /min Polina Walitayler LEYVA [facility], [employer], [employer] Comment on above: Pattern: Regular 01-26-2022 10:37-0500 Systolic blood pressure 115 mm[Hg] Polina Olivares GORDON [employer] [facility], [employer], [employer] Comment on above: Patient Position: Sitting; Cuff Location : Left Arm; Cuff Size: Standard 12-15-2021 11:05-0500 Body weight 69.85 kg Yeimy Zita LEYVA [facility], [employer] 12-15-2021 11:05-0500 Diastolic blood pressure 69 mm[Hg] Yeimy Zita LEYVA [employer] [facility], [employer], [employer] Comment on above: Patient Position: Sitting; Cuff Location : Left Arm; Cuff Size: Standard 12-15-2021 11:05-0500 Heart rate 92 /min Yeimy Zita LEYVA [employer], [employer], [employer] Comment on above: Pattern: Regular 12-15-2021 11:05-0500 Systolic blood pressure 105 mm[Hg] Yeimy Yakelinugg SENIOR IT RECRUITER [employer], [employer], [employer] Comment on above: Patient Position: Sitting; Cuff Location : Left Arm; Cuff Size: Standard Encounters Encounter Date Encounter Type Care Provider Facility Start: 09-08-2025 End: 09-08-2025 Patient encounter procedure Luna Browne EDUCATION PROGRAM COORDINATOR-Ian -[facility] Work Phone: Start: 09-08-2025 End: 09-08-2025 ambulatory Kimberly Roldan PA Work Phone: -[facility] Start: 09-07-2025 End: 09-07-2025 Patient encounter procedure Dasia CASTILLO -[facility] Work Phone: Start: 09-07-2025 End: 09-08-2025 ambulatory Kimberly Roldan PA Work Phone: [facility] Start: 08-09-2025 Encounter for other preprocedural examination [facility] Start: 07-27-2025 End: 07-27-2025 Patient encounter procedure Dasia CASTILLO -[facility] Work Phone: Start: 07-27-2025 End: 07-27-2025 ambulatory Kimberly Roldan PA Work Phone: [facility] Start: 07-15-2025 ambulatory Kimberly Roldan Facility:[facility] Start: 07-15-2025 Non-patient / Non-visit Sam Hubbard nd DO -[facility] Start: 07-15-2025 End: 07-15-2025 Admission to same day surgery center Samcali Avila -Endoscopy Work Phone: Start: 07-15-2025 End: 07-15-2025 ambulatory Kimberly Roldan PA Work Phone: -Endoscopy Start: 06-30-2025 End: 06-30-2025 Telephone follow-up Candice Benitez CNM Work Phone: [facility] Start: 06-29-2025 End: 06-29-2025 Patient encounter procedure Steffany CASTILLO -[facility] Work Phone: Start: 06-29-2025 End: 06-29-2025 ambulatory Kimberly Roldan PA Work Phone: -[facility] Start: 06-29-2025 ambulatory KIMBERLY ROLDAN [facility] Start: 06-29-2025 End: 06-29-2025 ambulatory Steffany Gilliam Facility:[facility] Start: 06-28-2025 End: 06-28-2025 Emergency department patient visit Kimberly GOLD Work Phone: -Emergency Department Work Phone: Start: 06-28-2025 End: 06-28-2025 Orders Crystal Uptain CNM Work Phone: [employer] Start: 06-24-2025 End: 06-24-2025 Office outpatient visit 15 minutes Crystal Uptain CNM Work Phone: [employer] Start: 06-24-2025 Review Crystal Uptain CNM Work Phone: [employer] Start: 05-13-2025 End: 05-13-2025 Emergency department patient visit TIARA BAKER [facility] Start: 09-06-2022 End: 09-06-2022 Orders Crystal Uptain CNM Work Phone: [employer] Start: 08-20-2022 End: 08-20-2022 Office outpatient visit 25 minutes Crystal Uptain CNM Work Phone: [employer] Start: 06-22-2022 End: 06-22-2022 Office outpatient visit 15 minutes Crystal Uptain CNM Work Phone: [employer] Start: 06-12-2022 End: 06-12-2022 Office outpatient visit 15 minutes Crystal Uptain CNM Work Phone: [employer] Start: 06-05-2022 End: 06-05-2022 Office outpatient visit 15 minutes Crystal Uptain CNM Work Phone: [employer] Start: 05-22-2022 End: 05-22-2022 Office outpatient visit 15 minutes Crystal Uptain CNM Work Phone: [employer] Start: 05-16-2022 End: 05-18-2022 Orders Crystal Uptain CNM Work Phone: [employer]. Start: 05-07-2022 End: 05-07-2022 Office outpatient visit 15 minutes Crystal Uptain CNM Work Phone: [employer]. Start: 04-20-2022 End: 04-20-2022 Office outpatient visit 15 minutes Crystal Uptain CNM Work Phone: [employer] Start: 03-26-2022 End: 03-26-2022 Office outpatient visit 15 minutes Crystal Uptain CNM Work Phone: [employer] Start: 03-24-2022 End: 03-24-2022 Orders Crystal Uptain CNM Work Phone: [employer]. Start: 03-23-2022 End: 03-23-2022 Office outpatient visit 15 minutes Crystal Uptain CNM Work Phone: [employer] Start: 02-23-2022 End: 02-22-2022 Historical Summary Crystal Uptain CNM Work Phone: [employer] Start: 02-23-2022 End: 02-23-2022 Patient encounter procedure Crystal Uptain CNM Work Phone: [employer]. Start: 01-26-2022 End: 01-26-2022 Office outpatient visit 15 minutes Crystal Uptain CNM Work Phone: [employer]. Start: 12-15-2021 End: 12-15-2021 Office outpatient visit 25 minutes Crystal Uptain CNM Work Phone: [employer] Start: 01-29-2018 End: 02-03-2018 Patient encounter ROHAN MARTINS Facility:[facility] Procedures Date Procedure Procedure Detail Performing Clinician Start: 08-21-2025 Colonoscopy Kimberly Be an PA Work Phone: Start: 06-29-2025 Iadna-dna/rna gi pth gn multiplex probe tq 6-11 Kimberly Roldan PA Work Phone: Start: 06-29-2025 Clostridium difficil e detection Kimberly Roldan PA Work Phone: Start: 06-29-2025 Nucleic acid assay Marquita cca Roldan PA Work Phone: Start: 06-29-2025 Computed tomography of abdomen and pelvis with contrast Kimberly Roldan PA Work Phone: Start: 06-29-2025 LORELEI measurement Kimberly Roldan PA Work Phone: Comment on above: Performed at: [address] [id number] Director: Arnold Lr PhD, Phone: [phone] Start: 06-29-2025 Antibody to centrome re measurement Kimberly Roldan PA Work Phone: Comment on above: Test not performed Start: 06-29-2025 Antibody to extracta ble nuclear antigen measurement Kimberly Roldan PA Work Phone: Comment on above: Test not performed Start: 06-29-2025 Antibody to ELAINE-1 measurement Kimberly Roldan PA Work Phone: Comment on above: Test not performed Start: 06-29-2025 Antibody to lupus La protein measurement Kimberly Roldan PA Work Phone: Comment on above: Test not performed Start: 06-29-2025 Antibody to SS-A measurement Kimberly Roldan PA Work Phone: Comment on above: Test not performed Start: 06-29-2025 Autoantibody measurement Kimberly Roldan PA Work Phone: Comment on above: Test not performed Start: 06-29-2025 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,[address] [place] [address] Start: 08-20-2022 End: 08-20-2022 Screening for depression performed Crystal K Uptain CNM Work Phone: Start: 06-22-2022 End: 06-22-2022 Ob care antepartum vag dlvr & Crystal K Uptain CNM Work Phone: Start: 06-12-2022 End: 06-12-2022 Ob care antepartum vag dlvr & Crystal K Uptain CNM Work Phone: Start: 06-05-2022 End: 06-05-2022 Ob care antepartum vag dlvr & Crystal K Uptain CNM Work Phone: Start: 05-22-2022 End: 05-22-2022 Ob care antepartum vag dlvr & Crystal K Uptain CNM Work Phone: Start: 05-07-2022 End: 05-07-2022 Ob care antepartum vag dlvr & Crystal K Uptain CNM Work Phone: Start: 04-20-2022 End: 04-20-2022 Ob care antepartum vag dlvr & Crystal K Uptain CNM Work Phone: Start: 03-23-2022 End: 03-23-2022 Ob care antepartum vag dlvr & Crystal K Uptain CNM Work Phone: Start: 02-23-2022 End: 02-26-2022 Us preg uterus after 1st trimest 11/25 gestation Sandeep Barraza MD Work Phone: Start: 02-23-2022 End: 02-23-2022 Ob care antepartum vag dlvr & Sandeep Barraza MD Work Phone: Start: 01-26-2022 End: 01-26-2022 Ob care antepartum vag dlvr & Candice Benitez CNM Work Phone: Start: 12-15-2021 End: 12-15-2021 Us preg uterus after 1st trimest 1/ gestation Candice Mak [facility] CNM Work Phone: Start: 12-15-2021 End: 12-15-2021 Ob care antepartum vag dlvr & Candice Mak [facility] CNM Work Phone: Cholecystectomy Polina Mei deleon SENIOR IT RECRUITER Dilation and curetta ge of uterus Polina Elise SENIOR IT RECRUITER Comment on above: Retained placental t issue History of cholecystectomy S/P cholecyste ctomy Kimberly GOLD Work Phone: Plan of Treatment Date Care Activity Detail Author Start: 07-15-2025 Colonoscopy w/biopsy single/multiple COLONOSCOPY AND BIOPSY [facility] Start: 07-15-2025 Patient discharge [facility] Start: 06-29-2025 Elastase.pancreatic [Presence] in Stool [facility] Start: 06-29-2025 Giardia lamblia Ag [Presence] in Stool by Immunoassay [facility] Start: 06-29-2025 Cytoplasmic ANCA Screen [facility] Start: 06-28-2025 [facility] Start: 06-28-2025 Ct abdomen & pelvis w/contrast material Abdomen/Pelvis CT W/ Contrast per protocol (05344) Start: 28-Jun-2025 Intent [facility] Start: 05-18-2022 Us uterus limited 1/> fetuses LIMITED OBSTETRICAL ULTRASOUND (15895) Start: 18-May-2022 Intent Comments: Cervical length [facility] Comment on above: Cervical length Antibody to lupus La protein measurement [facility] Antibody to SS-A measurement [facility] DNA double strand Ab [Units/volume] in Serum [facility] Patient Education ED Abdominal P ain Unkn Cause Fem [facility] Work Phone: US Pelvis [facility] Payers Date Payer Category Payer Unknown 2025 Unknown [id number] 2018 Self-pay 1990 Unknown [id number] 2.16.8 [id number] 1990 Unknown [id number] 2.16.8 [id number] Unknown 157 Unknown [id number] 2.16.8 [id number] Unknown [id number] 2.16.8 [id number] Unknown [id number] 2.16.8 [id number] Unknown [id number] 2.16.8 [id number] Unknown [id number] 2.16.8 [id number] Unknown [id number] 2.16.8 [id number] Unknown [id number] 2.16.8 [id number] Unknown [id number] 2.16.8 [id number] Unknown [id number] 2.16.8 [id number] Unknown [id number] 2.16.8 [id number] Social History Date Type Detail Facility Spouse Spouse [employer] [place] Tobacco/Smoke Exposure: Tobacco/Smoke Exposure: ; None. [employer] Start: 1990 Female [facility] None [employer] examples.; [employer] Work Phone: Start: 06-28-2025 End: 09-08-2025 Tobacco smoking status NHIS Never smoked tobacco (finding) [facility] Not [facility] Goals Date Patient Goal Desired Activity /State Mental Status Date Assessment Result Facility 07-15-2025 Cognitive function Voice/Name [facility] Work Phone: Clinical Notes 06-28-2025 to 09-08-2025 Note Date & Type Note Facility 09-08-2025 Progress note [facility] 09-07-2025 Progress note [facility] 09-07-2025 Progress note Note Date/Time September 07, 2025 3:29pm [facility] [address] [place] [address] OFFICE VISIT Date of Service: 09/07/25 MR#: [id number] Acct: [id number] Name: ALESSIA BARRIENTOS Rep #: [id number] : 1990 Provider: JONATHAN Burton Age/Sex: 34/F Location: [facility] Status: Signed Intake Vital Signs 07/27/25 15:31 09/07/25 15:04 Height 5 ft 4 in 5 ft 4 in Weight: 160 lb 2 oz 157 lb 4 oz BMI 27.4 26.9 BP 104/71 114/76 Respiration 14 16 Pulse 84 75 Temp 97.8 F 98.0 F Temp Source Temporal Temporal Pulse Oximetry (%) 84 98 Oxygen Delivery Method room air room air Intake Visit Reasons: 6 wk FU Chief Complaint: Abdominal Pain L D Rn Required: No Accompanied by: Is patient in pain?: No Allergies No Known Allergies Allergy (Verified 09/07/25 15:11) Medications ?Medication ?Instructions ?Recorded ?Confirmed ?Type NK 09/07/25 09/07/25 History PFSH Medical History Wears glasses Low iron Easy bruising Migraine headache Surgical History Hx laparoscopic cholecystectomy Social History household members: spouse and children Smoking Status: Never smoker HPI HPI Chief Complaint: Abdominal Pain Details: OV 07/27/2025 34-year-old female presents for follow-up post colonoscopy which revealed focal active colitis on random biopsies. TI biopsy was unremarkable. CT scan performed 06/29/2025 revealed some inflammatory changes in the rectosigmoid colon suggestive of colitis. CT prior to this performed April 2025 revealed enteritis and a 3.1 cm right adnexal cyst. Fecal calprotectin was borderline with negative fecal elastase and Giardia. CBC, CMP, CRP and lipase were all unremarkable. She initially presented to the emergency department at [facility] April 2025 with right sided abdominal cramping pain and intermittent diarrhea. Symptoms appear to be dietary triggers with fatty and fried foods. History of cholecystectomy. Due to ongoing symptoms she was seen in our office initially by Steffany Gilliam CNP on 06/29/2025. The pathological findings of focal active colitis, with minimal to no architectural distortion, absence of granulomas, andno dysplasia is nonspecific and combined with borderline fecal calprotectin doesnot meet criteria for IBD. Her symptoms are triggered by dietary factors and aremore likely related to IBS. I have recommended dietary/lifestyle modifications which include a high fiber, low fat diet. I have recommended a daily fiber supplements with probiotic. He will follow-up with our office in 6 weeks, sooner for worsening of symptoms. Note: Compendium speech recognition cyber software engineer software was used to create portions of this document. Sound-alike and misspelled words, as well as other cyber software engineer errors may be contained in the documentation. Patient Instructions: Fibercon 2 tablets once daily with 8 ounces of water after a meal. May take up to 3 weeks for symptom improvement. Start a probiotic (ChinaCache, Culturelle or [employer]MeIn) once daily. Theseare all multispecies probiotics, pick the cheapest one. Hyoscyamine as needed for - seen in office today with - reports she still has diarrhea, but not as frequent - reports the only time she has abdominal pain is just before an episode of diarrhea - she did start fiber supplement and probiotic after last visit, now having 5-6 BM a day, but primarily formed - no longer having frequent diarrhea - this is a change from 2-3x a day - oral irritation, worse with acidic foods, this is new since last OV - mouth burning - denies any burning on her tongue - new oral lesion x3 days - denies any HB - denies any N/V - denies any regurgitation - denies any change in oral care ROS Const Constitutional: No fatigue, fever(s) or weight change ENT ENT: No difficulty swallowing Gastro GI: Positive for diarrhea; No abdominal pain, belching, bloating, change in bowel habits, change in stool character, coffee ground emesis, constipation, cramping, heartburn, difficulty swallowing, feeling full early, excessive flatus, incontinent of stools, Vomiting blood/hematemesis, Blood in stool, loose stools, Black,tarry stools, nausea/dyspepsia, pain with swallowing, vomiting or other Musc Musculoskeletal: No joint pain Skin Skin: No yellowing of the eye or itchy eyes Psych Psychiatric: No anxiety and No depression Endo Endocrine: No fatigue or weight change Aller/Imm Allergy/Immunologic: No itchy eyes Ru/Lymp Hematologic/Lymphatic: No easy bleeding or easy bruising Exam Const General: cooperative, healthy appearing, no acute distress and well developed Nutritional Appearance: average body habitus and well nourished Orientation: alert and oriented x3 HENMT Head: normocephalic Ears: hearing grossly normal bilaterally Teeth and gingiva: fair dentition Other: small oral lesion right buccal mucosa Eyes Conjunctivae: conjunctivae normal Sclera: sclerae normal Neck Neck: normal visual inspection, full ROM and trachea midline Resp Effort & Inspection: normal respiratory effort, able to speak in complete sentences and symmetric chest movement Neuro General: patient alert and patient oriented x3 Cranial Nerves: other (CN's grossly intact, non-focal exam) Cognition: normal cognition Speech: speech normal Gait: normal gait Psych Appearance: grossly normal and well kempt Affect: normal affect Attitude: cooperative Thought Process: normal Assessment and Plan Assessment and Plan (1) Irritable bowel syndrome with diarrhea: Status: Acute (2) Oral mucosal lesion: Status: Acute Plan 34-year-old female presents for follow-up of IBS diarrhea predominant. Since last seen in the office she started a daily probiotic and fiber supplement. Shehas noted an improvement in diarrhea and abdominal pain; although, reports an increase in frequency of stools which are now formed. She denies any improvement with trial of hyoscyamine as needed and will discontinue. She complains of oral burning and right buccal lesion. Denies any heartburn, nausea, vomiting, or abdominal pain. History of cholecystectomy and will start cholestyramine half packet once daily. I have ordered labs and she will follow-up in the office in 1 month. Patient Instructions: 1. Continue Fibercon 1 tablet daily and Probiotic once daily 2. Start cholestyramine 1/2 packet once a day and increased to 1/2 packet BID pending symptoms 3. Hold hyoscyamine if no previously noted symptomatic improvement 4. Labs tomorrow 5. Follow-up with dentist/PCP for evaluation of oral burning andf right buccal lesion Coding Level of Care Code Off vis,est,level 3 Diagnoses Irritable bowel syndrome with diarrhea K58.0 Oral mucosal lesion K13.70 Clinical Quality Measures Smoking Screening Smoking Status: Never smoker 09/07/25 1627 <Electronically signed by Dasia CASTILLO> Date _ Dasia CASTILLO Cosigner Signature: Date (if applicable) CC: ~ [facility] Work Phone: 1(806) 264-504208-21-2025 Consult note Author Gerber Arthur [facility] Note Date/Time July 15, 2025 10 :42[facility] Medical Records Department [address] [place] [address] Pre-Anesthesia Evaluation 07/15/25 1042 MR#: [id number] Acct: [id number] Name: ALESSIA BARRIENTOS Rep #:[id number] : 1990 34 From: Gerber Arthur MD PCP: ASIF Aguirre Status:REG SD Y Race: C Location: [place] [address] ASA Classification* ASA Classification ASA Classification: 2 Assessment & Plan Anesthesia* Anesthesia Assessment Anesthesia Assessment: Discussed sedation and/or anesthesia options, risks, benefits, and alternatives with patient/parents/legal guardian/POA. Questions invited. The patient/parents/legal guardian/POA seems to understand and agrees to proceedwith anesthesia plan. Reviewed the physical assessment, medical history, allergy history and patient home medications list prior to surgery/procedure/anesthetic and documented any changes. Performed airway and anesthesia risk assessments. Anesthesia Type Anesthesia Type: MAC History Source History Obtained from:: Patient and Chart Anesthesia Focused Assessment* Temperature: 98.1 F Pulse Rate: 86 Blood Pressure: 116/74 Respiratory Rate: 16 Pulse Ox: 100 Oxygen Delivery Method: Room Air Airway Assessment Mouth opens: >3 cm Mallampati Score: II Teeth Condition: Intact Neck Range of motion (ROM): Full ROM Labs Anesthesia Preop lab: CBC WBC 6.6 K/mm3 (4.4-11.0) 06/28/25 15:53 06/28/25 RBC 5.09 M/mm3 (4.2-5.4) 06/28/25 15:53 06/28/25 Hgb 14.3 g/dL (12.0-15.0) 06/28/25 15:53 06/28/25 Hct 42.8 % (37-47) 06/28/25 15:53 06/28/25 Plt Count 280 K/mm3 (150-450) 06/28/25 15:53 06/28/25 CHEMISTRY Potassium 4.0 mmol/L (3.3-5.1) 06/28/25 15:53 06/28/25 Sodium 139 mmol/L (133-145) 06/28/25 15:53 06/28/25 BUN 10 mg/dL (4-19) 06/28/25 15:53 06/28/25 Creatinine 0.61 mg/dL (0.70-1.20) L 06/28/25 15:53 Glucose 94 mg/dL (70-99) 06/28/25 15:53 06/28/25 COAG Urine Test Negative Negative 07/15/25 10:00 07/15/25 Pre-Assessment Diagnosis/Proposed Procedure Planned Operative Procedure(s): COLONOSCOPY Anesthesia History Anesthesia History - machine binder stripper: Anesthesia History - machine binder stripper Hx Hospitalization No 07/13/25 16:09 Any Problems With Anesthesia No 07/13/25 16:09 Cholinesterase deficiency No 07/13/25 16:09 You/Your Family Experience No 07/13/25 16:09 fever (hyperthermia) with Relationship Recent Exposure to Contagious No 07/15/25 10:24 Disease Does patient have nerve No 07/13/25 16:09 stimulator Patient instructed to have device shut off --Does patient have Pacemaker No 07/15/25 10:24 or ICD? When Was Last Pacemaker Check QUESTION #4 FULL TEXT: You/Your Family Experience fever (hyperthermia) with Anesthesia Last Oral Intake Last Oral intake: Last Oral Intake NPO since 00:00 07/15/25 10:24 Meds taken in AM with sips of No 07/15/25 10:24 water? Meds patient instructed to take am of surgery PONV PONV - machine binder stripper: PONV - machine binder stripper Female Yes 07/13/25 16:09 HX of Motion Sickness No 07/13/25 16:09 HX of N/V After Surgery No 07/13/25 16:09 Non-Smoker Yes 07/13/25 16:09 Duration of Surgery greater No 07/13/25 16:09 than 60 minutes Number of Risk Factors 2 07/13/25 16:09 PONV Score Moderate Risk 07/13/25 16:09 Height & Weight Height & Weight: Anesthesia: Height & Weight Height 5 ft 4 in 07/15/25 10:24 Weight: 72 kg 07/15/25 10:24 Body Mass Index (BMI) 27.2 07/15/25 10:24 Respiratory Assessment Respiratory Assessment - machine binder stripper: Respiratory Tract Infection Hx - machine binder stripper Hx Respiratory Tract Infection No 07/13/25 16:09 STOP Sleep Apnea STOP Sleep Apnea - machine binder stripper: STOP Sleep Apnea - machine binder stripper Hx Hypertension No 07/13/25 16:09 Hx Sleep Apnea No 07/13/25 16:09 CPAP BIPAP Do you snore loudly (louder No 07/13/25 16:09 than talking or can be heard Do you often feel tired/ No 07/13/25 16:09 fatigued/ sleepy during daytime? Has anyone observed you stop No 07/13/25 16:09 breathing during sleep? STOP Results Negative 07/13/25 16:09 QUESTION #5 FULL TEXT : Do you snore loudly (louder than talking or can be heard through closed doors)? 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 Specify any problems Hx of Preganancy in last 3 No 07/13/25 16:09 Months Nurse Filling Out Transfusion [id number] 07/13/25 16:09 & Questions: Date: 07/13/25 07/13/25 16:09 Time: 16:13 07/13/25 16:09 Patient unable to answer at this time (ie. confused, unrespo /Reproduction History /Reproductive History - machine binder stripper: /Reproductive Hx- machine binder stripper Hx Now No 07/13/25 16:09 Gestational Age (in weeks): EDC: Hx Hx Para Hx Section SAB No 07/13/25 16:09 Active Medications Active Medications: Current Medications Generic Name Dose Route Start Last Admin Trade Name Freq PRN Reason Stop Dose Admin Lactated Ringer's 1,000 mls @ 15 mls/hr 07/15/25 10:15 07/15/25 10:27 IV 15 mls/hr .Q48H MINE Administration PFSH Medical History (Updated 07/13/25 @ 16:16 by Anders Shaw) Wears glasses Low iron Easy bruising Migraine headache Allergy/AdvReac Type Severity Reaction Status Date / Time No Known Allergies Allergy Verified 07/15/25 10:23 Surgical History (Updated 07/13/25 @ 16:16 by Anders Shaw) Hx laparoscopic cholecystectomy Social History household members: spouse and children Smoking Status: Never smoker Review of Systems (Anesthesia) ROS Narrative System reviewed and no additional complaints, except as documented. 07/15/25 1042 <Electronically signed by Gerber Padilla> Date _ Gerber Ross Signature: Date CC: ~ Signed [facility] Work Phone: 1(623) 542-149008-21-2025 Procedure note [facility] Medical Records Department [address] [place] [address] Colonoscopy Report MR#: [id number] Acct: [id number] Name: ALESSIA BARRIENTOS Rep #:[id number] : 1990 34 From: Sam Avila DO PCP: ASIF Aguirre Status:REG [facility] Patient Name: Alessia Barrientos Procedure Date: 07/15/2025 11:07 AM Date of : 1990 Age: 34 Procedure: Colonoscopy Indications: Clinically significant diarrhea of unexplained origin Providers: Sam Avila DO Referring MD: Asif Aguirre Medicines: Monitored Anesthesia Care Patient Profile: This is a 34 year old female. Refer to note in patient chart for documentation of history and physical. Last Colonoscopy: none. The patient's first colonoscopy is today. Complications: No immediate complications. Procedure: Pre-Anesthesia Assessment: - Prior to the procedure, a History and Physical was performed, and patient medications and allergies were reviewed. The patient is competent. The risks and benefits of the procedure and the sedation options and risks were discussed with the patient. All questions were answered and informed consent was obtained. Patient identification and proposed procedure were verified by the physician in the pre-procedure area. Mental Status Examination: alert and oriented. Airway Examination: normal oropharyngeal airway and neck mobility. Respiratory Examination: clear to auscultation. CV Examination: normal. Prophylactic Antibiotics: The patient does not require prophylactic antibiotics. Prior Anticoagulants: The patient has taken no anticoagulant or antiplatelet agents except for NSAID medication. ASA Grade Assessment: II - A patient with mild systemic disease. After reviewing the risks and benefits, the patient was deemed in satisfactory condition to undergo the procedure. The anesthesia plan was to use monitored anesthesia care (MAC). Immediately prior to administration of medications, the patient was re-assessed for adequacy to receive sedatives. The heart rate, respiratory rate, oxygen saturations, blood pressure, adequacy of pulmonary ventilation, and response to care were monitored throughout the procedure. The physical status of the patient was re-assessed after the procedure. After I obtained informed consent, the scope was passed under direct vision. Throughout the procedure, the patient's blood pressure, pulse, and oxygen saturations were monitored continuously. The pediatric colonoscope was introduced through the anus and advanced to the terminal ileum. The colonoscopy was performed without difficulty. The patient tolerated the procedure well. The quality of the bowel preparation was adequate. Scope In: 11:18:50 AM Scope Withdrawal Time 0 hours 8 minutes 35 seconds Scope Out: 11:29:46 AM Total Procedure Duration Time 0 hours 10 minutes 56 seconds Findings: The perianal and digital rectal examinations were normal. An area of mildly congested mucosa was found at the hepatic flexure, in the ascending colon and in the cecum. Biopsies were taken with a cold forceps for histology. Verification of patient identification for the specimen was done. Estimated blood loss was minimal. The terminal ileum appeared normal. Biopsies were taken with a cold forceps for histology. Verification of patient identification for the specimen was done. Estimated blood loss was minimal. The exam was otherwise without abnormality on direct and retroflexion views. Impression: - Congested mucosa at the hepatic flexure, in the ascending colon and in the cecum. Biopsied. - The examined portion of the ileum was normal. Biopsied. - The examination was otherwise normal on direct and retroflexion views. Recommendation: - Discharge patient to home. - Resume previous diet. - Continue present medications. - Await pathology results. - Repeat colonoscopy in 5 years for surveillance based on pathology results. Procedure Code(s): --- Professional --- 35226, Colonoscopy, flexible; with biopsy, single or multiple CPT copyright 2021 [employer]. All rights reserved. The codes documented in this report are preliminary and upon physician coder review may be revised to meet current compliance requirements. Sam Avila DO 07/15/2025 11:49:39 AM This report has been signed electronically. Number of Addenda: 0 Note Initiated On: 07/15/2025 11:07 AM 07/15/25 1149 Date _ Sam Harrell Signature: Date (if indicated) CC: Sam Avila DO; ASIF Aguirre ~ Date Dictated: 07/15/25 1107 Date Transcribed: Ship Superintendent: RF Signed [facility]08-21-2025 Procedure note [facility] Medical Records Department [address] [place] [address] Provation Physician Letter MR#: [id number] Acct: [id number] Name: ALESSIA BARRIENTOS Rep #:[id number] : 1990 34 From: Sam Avila DO PCP: ASIF Aguirre Status:REG [facility] 07/15/2025 Asif Aguirre Re : Colonoscopy procedure for Alessia Barrientos Dear Yuli This procedure was performed on , July 15, 2025. My impressions and recommendations are as follows: Impressions : - Congested mucosa at the hepatic flexure, in the ascending colon and in the cecum. Biopsied. - The examined portion of the ileum was normal. Biopsied. - The examination was otherwise normal on direct and retroflexion views. Recommendations : - Discharge patient to home. - Resume previous diet. - Continue present medications. - Await pathology results. - Repeat colonoscopy in 5 years for surveillance based on pathology results. My findings are described in the full procedure note, which is enclosed. If I can be of further assistance, please feel free to contact me at . Sincerely, Sam Avila DO 07/15/2025 11:49:39 AM This report has been signed electronically. 07/15/25 1149 Date _ Sam Harrell Signature: Date (if indicated) CC: Sam Avila DO; ASIF Aguirre ~ Date Dictated: 07/15/25 1107 Date Transcribed: Ship Superintendent: SERGIO Signed [facility]08-21-2025 Consult note [facility] Medical Records Department [address] [place] [address] Anesthesia Postop Eval II 07/15/25 1136 MR#: [id number] Acct: [id number] Name: ALESSIA BARRIENTOS Rep #:[id number] : 1990 34 From: Trav Sosa RNA PCP: ASIF Aguirre Status:REG [facility] Y Race: C Location: [place] [address] Anesthesia Postop Eval I Sum Postop Eval Completion status Anesthesia document: Postop Eval 1 completed: Yes Anesthesia Postop Eval I Summary Anesthesia Postop Eval I Summary: Anesthesia Postop Eval I: Assessment Summary Airway patent Yes 07/15/25 11:32 SPOT WELDER.MDOT Spontaneous unlabored Yes 07/15/25 11:32 SPOT WELDER.MDOT respirations Mental status Awake,Calm 07/15/25 11:32 SPOT WELDER.MDOT nausea No 07/15/25 11:32 SPOT WELDER.MDOT Vomiting No 07/15/25 11:32 SPOT WELDER.MDOT Anesthesia Postop Eval I: Fluid Summary Crystalloid volume administer 100 07/15/25 11:32 SPOT WELDER.MDOT (ml) Colloids volume administered ( ml) Blood Product volume administered (ml) Total IV fluid infused 100 07/15/25 11:32 SPOT WELDER.MDOT Anesthesia Postop Eval I: Summary Notes Anesthesia Complication No 07/15/25 11:32 SPOT WELDER.MDOT Anesthesia Complication Comment: Post-operative progress note Anesthesia: Postop Eval II Evaluation Mental status: Awake and Calm Pain Level: 0 nausea: No Vomiting: No Complications Anesthesia Complication: No 07/15/25 1136 SPOT WELDER> Date _ Trav Hylton CRNA Cosigner Signature: Date CC: ~ Signed [facility]08-21-2025 Consult note [facility] Medical Records Department [address] [place] [address] Anesthesia Postop Eval I 07/15/25 1132 MR#: [id number] Acct: [id number] Name: ALESSIA BARRIENTOS Rep #:[id number] : 1990 34 From: Trav CHAND PCP: ASIF Aguirre Status:REG SDC Y Race: C Location: [place] [address] Anesthesia: Postop Eval I Current Vital Signs Temperature: 97 F Pulse Rate: 104 Blood Pressure: 112/76 Respiratory Rate: 16 Pulse Ox: 100 Oxygen Delivery Method: Room Air Assessment Airway patent: Yes Spontaneous unlabored respirations: Yes Mental status: Awake and Calm nausea: No Vomiting: No Anesthesia Complication: No Fluid Hydration Crystalloid volume administer (ml): 100 Total IV fluid infused: 100 Progress Note Anesthesia document: Postop Eval 1 completed: Yes 07/15/25 113 SPOT WELDER> Date _ Trav Hylton SPOT WELDER Cosigner Signature: Date CC: ~ Signed [facility]08-21-2025 History and physical note [facility] Medical Records Department [address] [place] [address] History & Physical Exam 07/15/25 1104 MR#: [id number] Acct: [id number] Name: BARRIENTOSALESSIA Rep #:[id number] : 1990 34 From: Sam Avila DO PCP: ASIF Agurire Status:REG SDC Location: [place] [address] HPI - General General Date of Admission: 07/15/25 Date of Service: 07/15/25 Chief Complaint: diarrhea HPI Narrative ALESSIA BARRIENTOS, is a 34 F who presentsVIVIENNEJOVANNY BARRIENTOS, is a 34 Baptism F who presentsto the office todayfor establishment with [facility] regarding concerns of right sidedabdominal pain. [facility] ER visit on 06.28.25,CBC and CMP without significant abnormalities, no imaging performed. She states the right-sided abdo abhi pain is sharp and very crampy, rates the pain 8 out of 10 with 10 being the worst. She denies food increasing symptoms, but states physical activity does increase the severity. She had an ER visit at [facility] on May 13, had a CT ofabd/pelvis that demonstrated enteritis of the small bowel and right adnexal cyst. She then visited her PUBLIC HEALTH OUTREACH WORKER MD in [place], where she had been told that she"should probably have a hysterectomy" but they wanted to try a control medication first, she received an injection of Depo Provera. She denies change in symptoms. She is now reporting, as of this morning, she is having urgent diarrhea. She denies hematochezia, melena, abdominal bloating, gas, and constipation. She has 2 days left of her 7-day Augmentin treatment from her PCP. She uses city water, consumes no raw or undercooked meats, washes all of the foods from her garden, denies exposure to known ill persons. She states that her gallbladder was removed due to gallstones. [facility] Medical History Wears glasses Low iron Easy bruising Migraine headache Allergy/AdvReac Type Severity Reaction Status Date / Time No Known Allergies Allergy Verified 07/15/25 10:23 Surgical History Hx laparoscopic cholecystectomy Social History household members: spouse and children Smoking Status: Never smoker ROS Constitutional Constitutional: Denies fatigue, fever(s), poor appetite, weight gain or weight loss Gastrointestinal Gastrointestinal: Denies belching, bloating, change in bowel habits, change in stool character, chewing difficulty, coffee ground emesis, constipation, cramping, diarrhea, dyspepsia, dysphagia, earlysatiety, excessive flatus, fecalincontinence, heartburn, hematemesis, hematochezia, hemorrhoids, loose stools, melena, nausea, odynophagia, rectal bleeding, tenesmus, vomiting or weight changes Vital Signs Vital Signs Vital Signs: 07/15/25 10:24 07/15/25 10:24 07/15/25 10:42 Temperature 98.1 F 98.1 F Temperature Source Temporal Pulse Rate 86 86 Respiratory Rate 16 16 Respiratory Pattern Normal Blood Pressure 116/74 116/74 Blood Pressure Mean 88 Blood Pressure Source Monitor Blood Pressure Position Semi-Fowlers Blood Pressure Location Right Arm Pulse Ox 100 100 Oxygen Delivery Method Room Air Room Air Weight Weight: 158 lb 11.725 oz Body Mass Index (BMI) 27.2 Physical Exam Const alert, oriented x3, no apparent distress and healthy appearing General Appearance: cooperative GI normal to inspection, nondistended, normoactive bowel sounds, soft to palpation,non-tender and non-distended Percussion: normal to percussion Rectal Exam: deferred Results Lab / Micro Data Labs: Laboratory Results - last 24 hr 07/15/25 10:00: Urine Test Negative Assessment & Plan Assessment/Plan (1) Diarrhea: QUALIFIERS: Diarrhea type: unspecified type Qualified Code(s): R19.7 - Diarrhea, unspecified PLAN: Assessment and Plan Assessment and Plan (1) Right-sided abdominal pain of unknown cause: Status: Acute (2) Diarrhea: Status: Acute Qualifiers: Diarrhea type: unspecified type Qualified Code(s): R19.7 - Diarrhea, unspecified Orders: Orders Calprotectin, Stool Today R10.9 - Unspecified abdominal pain, R19.7 - Diarrhea,unspecified ENTERIC PATHOGEN PANEL STOOL Today K58.9 - Irritable bowel syndrome, unspecified, R10.9 - Unspecified abdominal pain, R19.7 - Diarrhea, unspecified Giardia Lamblia, Stool EIA Today R10.9 - Unspecified abdominal pain, R19.7 - Diarrhea, unspecified Pancreatic Elastase, Fecal Today R10.9 - Unspecified abdominal pain, R19.7 - Diarrhea, unspecified Abdomen/Pelvis WITH Contrast Today R10.9 - Unspecified abdominal pain, R19.7 - Diarrhea, unspecified CRP Today R10.9 - Unspecified abdominal pain, R19.7 - Diarrhea, unspecified LORELEI w/ Reflex Mult Confirm Today R10.9 - Unspecified abdominal pain, R19.7 - Diarrhea, unspecified CDIFF (PCR) Today R10.9 - Unspecified abdominal pain, R19.7 - Diarrhea, unspecified Plan ALESSIA BARRIENTOS, is a 34 F who presents to the office today for [facility] regarding concerns of right sided abdominal pain. Discussed care plan with her and her present for exam. Called radiology and discussed previous findings of enteritis with continued abdominal symptoms, she is able to completethe CT abd/pelvis today as a STAT order. * stool for enteric, calprotectin, cdiff, elastase * blood for IBD, inflammation * CT abd/pelvis w/IV and PO contrast * office FU 2wks 07/15/25 1107 Cosigner Signature (if applicable): CC: Sam Avila DO; ASIF Aguirre~ Signed [facility]08-21-2025 [facility] Medical Records Department [address] [place] [id number] History Physical Exam 07/15/25 1104 MR#: [id number] Acct: [id number] Name: ALESSIA BARRIENTOS Rep #: [id number] : 1990 34 From: Sam Avila DO PCP: ASIF Aguirre Status:[facility] Location: [place] [address] HPI - General General Date of Admission: 07/15/25 Date of Service: 07/15/25 Chief Complaint: diarrhea HPI Narrative ALESSIA BARRIENTOS, is a 34 F who presentsVIVIENNEJOVANNY BARRIENTOS, is a 34 Baptism F who presents to the office today for establishment with [facility] regarding concerns of right sided abdominal pain. [facility] ER visit on 06.28.25, CBC and CMP without significant abnormalities, no imaging performed. She states the right-sided abdominal pain is sharp and very crampy, rates the pain 8 out of 10 with 10 being the worst. She denies food increasing symptoms, but states physical activity does increase the severity. She had an ER visit at [facility] on May 13, had a CT of abd/pelvis that demonstrated enteritis of the small bowel and right adnexal cyst. 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 She denies change in symptoms. She is now reporting, as of this morning, she is having urgent diarrhea. She denies hematochezia, melena, abdominal bloating, gas, and constipation. She has 2 days left of her 7- day Augmentin treatment from her PCP. She uses city water, consumes no raw or undercooked meats, washes all of the foods from her garden, denies exposure to known ill persons. She states that her gallbladder was removed due to gallstones. [facility] Medical History Wears glasses Low iron Easy bruising Migraine headache Allergy/AdvReac Type Severity Reaction Status Date / Time No Known Allergies Allergy Verified 07/15/25 10:23 Surgical History Hx laparoscopic cholecystectomy Social History household members: spouse and children Smoking Status: Never smoker ROS Constitutional Constitutional: Denies fatigue, fever(s), poor appetite, weight gain or weight loss Gastrointestinal Gastrointestinal: Denies belching, bloating, change in bowel habits, change in stool character, chewing difficulty, coffee ground emesis, constipation, cramping, diarrhea, dyspepsia, dysphagia, early satiety, excessive flatus, fecal incontinence, heartburn, hematemesis, hematochezia, hemorrhoids, loose stools, melena, nausea, odynophagia, rectal bleeding, tenesmus, vomiting or weight changes Vital Signs Vital Signs Vital Signs: 07/15/25 10:24 07/15/25 10:24 07/15/25 10:42 Temperature 98.1 F 98.1 F Temperature Source Temporal Pulse Rate 86 86 Respiratory Rate 16 16 Respiratory Pattern Normal Blood Pressure 116/74 116/74 Blood Pressure Mean 88 Blood Pressure Source Monitor Blood Pressure Position Semi-Fowlers Blood Pressure Location Right Arm Pulse Ox 100 100 Oxygen Delivery Method Room Air Room Air Weight Weight: 158 lb 11.725 oz Body Mass Index (BMI) 27.2 Physical Exam Const alert, oriented x3, no apparent distress and healthy appearing General Appearance: cooperative GI normal to inspection, nondistended, normoactive bowel sounds, soft to palpation, non-tender and non- distended Percussion: normal to percussion Rectal Exam: deferred Results Lab / Micro Data Labs: Laboratory Results - last 24 hr 07/15/25 10:00: Urine Test Negative Assessment Plan Assessment/Plan (1) Diarrhea: QUALIFIERS: Diarrhea type: unspecified type Qualified Code(s): R19.7 - Diarrhea, unspecified PLAN: Assessment and Plan Assessment and Plan (1) Right-sided abdominal pain of unknown cause: Status: Acute (2) Diarrhea: Status: Acute Qualifiers: Diarrhea type: unspecified type Qualified Code(s): R19.7 - Diarrhea, unspecified Orders: Orders Calprotectin, Stool Today R10.9 - Unspecified abdominal pain, R19.7 - Diarrhea, unspecified ENTERIC PATHOGEN PANEL STOOL Today K58.9 - Irritable bowel syndrome, unspecified, R10.9 - Unspecified abdominal pain, R19.7 - Diarrhea, unspecified Giardia Lamblia, Stool EIA Today R10.9 - Unspecified abdominal pain, R19.7 - Diarrhea, unspecified Pancreatic Elastase, Fecal Today R10.9 - Unspecified abdominal pain, R19.7 - Diarrhea, unspecified Abdomen/Pelvis WITH Contrast Today R10.9 - Unspecified abdominal pain, R19.7 - Diarrhea, unspecified CRP Today R10.9 - Unspecified abdominal pain, R19.7 - Diarrhea, unspecified LORELEI w/ Reflex Mult Confirm Today R10.9 - Unspeci (more content not included)... [facility]08-21-2025 Consult note [facility] Medical Records Department [address] [place] [address] Pre-Anesthesia Evaluation 07/15/25 1042 MR#: [id number] Acct: [id number] Name: ALESSIA BARRIENTOS Rep #:[id number] : 1990 34 From: Gerber Arthur MD PCP: ASIF Aguirre Status:REG SDC Y Race: C Location: [place] [address] ASA Classification* ASA Classification ASA Classification: 2 Assessment & Plan Anesthesia* Anesthesia Assessment Anesthesia Assessment: Discussed sedation and/or anesthesia options, risks, benefits, and alternatives with patient/parents/legal guardian/POA. Questions invited. The patient/parents/legal guardian/POA seems to understand and agrees to proceedwith anesthesia plan. Reviewed the physical assessment, medical history, allergy history and patient home medications list prior to surgery/procedure/anesthetic and documented any changes. Performed airway and anesthesia risk assessments. Anesthesia Type Anesthesia Type: MAC History Source History Obtained from:: Patient and Chart Anesthesia Focused Assessment* Temperature: 98.1 F Pulse Rate: 86 Blood Pressure: 116/74 Respiratory Rate: 16 Pulse Ox: 100 Oxygen Delivery Method: Room Air Airway Assessment Mouth opens: >3 cm Mallampati Score: II Teeth Condition: Intact Neck Range of motion (ROM): Full ROM Labs Anesthesia Preop lab: CBC WBC 6.6 K/mm3 (4.4-11.0) 06/28/25 15:53 06/28/25 RBC 5.09 M/mm3 (4.2-5.4) 06/28/25 15:53 06/28/25 Hgb 14.3 g/dL (12.0-15.0) 06/28/25 15:53 06/28/25 Hct 42.8 % (37-47) 06/28/25 15:53 06/28/25 Plt Count 280 K/mm3 (150-450) 06/28/25 15:53 06/28/25 CHEMISTRY Potassium 4.0 mmol/L (3.3-5.1) 06/28/25 15:53 06/28/25 Sodium 139 mmol/L (133-145) 06/28/25 15:53 06/28/25 BUN 10 mg/dL (4-19) 06/28/25 15:53 06/28/25 Creatinine 0.61 mg/dL (0.70-1.20) L 06/28/25 15:53 Glucose 94 mg/dL (70-99) 06/28/25 15:53 06/28/25 COAG Urine Test Negative Negative 07/15/25 10:00 07/15/25 Pre-Assessment Diagnosis/Proposed Procedure Planned Operative Procedure(s): COLONOSCOPY Anesthesia History Anesthesia History - machine binder stripper: Anesthesia History - machine binder stripper Hx Hospitalization No 07/13/25 16:09 Any Problems With Anesthesia No 07/13/25 16:09 Cholinesterase deficiency No 07/13/25 16:09 You/Your Family Experience No 07/13/25 16:09 fever (hyperthermia) with Relationship Recent Exposure to Contagious No 07/15/25 10:24 Disease Does patient have nerve No 07/13/25 16:09 stimulator Patient instructed to have device shut off --Does patient have Pacemaker No 07/15/25 10:24 or ICD? When Was Last Pacemaker Check QUESTION #4 FULL TEXT: You/Your Family Experience fever (hyperthermia) with Anesthesia Last Oral Intake Last Oral intake: Last Oral Intake NPO since 00:00 07/15/25 10:24 Meds taken in AM with sips of No 07/15/25 10:24 water? Meds patient instructed to take am of surgery PONV PONV - machine binder stripper: PONV - machine binder stripper Female Yes 07/13/25 16:09 HX of Motion Sickness No 07/13/25 16:09 HX of N/V After Surgery No 07/13/25 16:09 Non-Smoker Yes 07/13/25 16:09 Duration of Surgery greater No 07/13/25 16:09 than 60 minutes Number of Risk Factors 2 07/13/25 16:09 PONV Score Moderate Risk 07/13/25 16:09 Height & Weight Height & Weight: Anesthesia: Height & Weight Height 5 ft 4 in 07/15/25 10:24 Weight: 72 kg 07/15/25 10:24 Body Mass Index (BMI) 27.2 07/15/25 10:24 Respiratory Assessment Respiratory Assessment - machine binder stripper: Respiratory Tract Infection Hx - machine binder stripper Hx Respiratory Tract Infection No 07/13/25 16:09 STOP Sleep Apnea STOP Sleep Apnea - machine binder stripper: STOP Sleep Apnea - machine binder stripper Hx Hypertension No 07/13/25 16:09 Hx Sleep Apnea No 07/13/25 16:09 CPAP BIPAP Do you snore loudly (louder No 07/13/25 16:09 than talking or can be heard Do you often feel tired/ No 07/13/25 16:09 fatigued/ sleepy during daytime? Has anyone observed you stop No 07/13/25 16:09 breathing during sleep? STOP Results Negative 07/13/25 16:09 QUESTION #5 FULL TEXT : Do you snore loudly (louder than talking or can be heard through closeddoors)? 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 Specify any problems Hx of Preganancy in last 3 No 07/13/25 16:09 Months Nurse Filling Out Transfusion [email or web address] 07/13/25 16:09 & Questions: Date: 07/13/25 07/13/25 16:09 Time: 16:13 07/13/25 16:09 Patient unable to answer at this time (ie. confused, unrespo /Reproduction History /Reproductive History - machine binder stripper: /Reproductive Hx- machine binder stripper Hx Now No 07/13/25 16:09 Gestational Age (in weeks): EDC: Hx Hx Para Hx Section SAB No 07/13/25 16:09 Active Medications Active Medications: Current Medications Generic Name Dose Route Start Last Admin Trade Name Freq PRN Reason Stop Dose Admin Lactated Ringer's 1,000 mls @ 15 mls/hr 07/15/25 10:15 07/15/25 10:27 IV 15 mls/hr .Q48H MINE Administration PFSH Medical History (Updated 07/13/25 @ 16:16 by Anders Shaw) Wears glasses Low iron Easy bruising Migraine headache Allergy/AdvReac Type Severity Reaction Status Date / Time No Known Allergies Allergy Verified 07/15/25 10:23 Surgical History (Updated 07/13/25 @ 16:16 by Anders Shaw) Hx laparoscopic cholecystectomy Social History household members: spouse and children Smoking Status: Never smoker Review of Systems (Anesthesia) ROS Narrative System reviewed and no additional complaints, except as documented. 07/15/25 1042 D> Date _ Gerber Ross Signature: Date CC: ~ Signed [facility]08-05-2025 Radiology Diagnostic study note [facility] Imaging Services [address] [place], [place] [address] Abdomen/Pelvis WITH Contrast MR#: [id number] Acct: [id number] Name: ALESSIA BARRIENTOS Rep #: [id number] : 1990 F 34 From: Shar Estevez MD PCP: ASIF Aguirre Status: REG CLI Study:Abdomen/Pelvis WITH Contrast Date of Ex am: 06/29/25 Exam# [id number] Ordering Dr: Yari Gilliam EDUCATION PROGRAM COORDINATOR-C PROCEDURE: ABDOMEN/PELVIS WITH CONTRAST 06/29/2025 REASON FOR EXAM: RIGHT SIDE ABD PAIN, PREVIOUS ENTERITIS CT 05.13.25 TECHNIQUE: ABDOMEN/PELVIS WITH CONTRAST Coronal and Sagittal reconstruction series were provided. CONTRAST: Isovue-300 VOLUME: 100 mL One or more dose reduction techniques were used (e.g., Automated exposure control, adjustment of the mA and/or kV according to patient size, use of iterative reconstruction technique. RADIATION DOSE SUMMARY: CTDlvol: 11.5 mGy DLP: 689.28 mGycm COMPARISON: Prior study dated May 13, 2025. FINDINGS: Lung bases: Lung bases are clear. Liver: Normal size. No mass. Gallbladder: Surgically absent. Spleen: Normal size. Pancreas: Normal size without evidence of mass surrounding inflammation or ductal dilation. Adrenals: Unremarkable Kidneys: Normal renal sizes. No hydronephrosis. Bladder: Unremarkable Reproductive Organs: Unremarkable Bowel: Persistent inflammatory changes in the rectosigmoid colon suggestive of colitis. Appendix: The appendix is not identified. There is no inflammatory process identified in the right lower quadrant to suggest appendicitis. Lymph nodes: No suspicious lymph node enlargement. Vasculature: The abdominal aorta and IVC are normal. Peritoneum / Retroperitoneum: Small umbilical hernia containing fat. Bones: Mild degenerative changes. CT/Abdomen/Pelvis WITH Contrast IMPRESSION: Persistent colitis of the rectosigmoid colon. Reading Location: [id number] CC: JONATHAN Gilliam; ASIF Aguirre ~ Ship Superintendent: Signed [facility]08-05-2025 Evaluation note* Diagnosis Onset Date Resolution Status Admit Date Diarrhea acute June 29 11:20am Right-sided abdominal pain o f unknown cause acute June 29, 2025 11:20am [facility] Work Phone: 1(893) 559-120808-05-2025 Evaluation note* Diagnosis Onset Date Resolution Status Admit Date Diarrhea acute June 29 11:20am Right-sided abdominal pain o f unknown cause inactive June 29, 2025 11:20am Diarrhea acute July 15, 2 025 9:08am [facility] Work Phone: 1(144) 645-710108-05-2025 Evaluation note* Diagnosis Onset Date Resolution Status Admit Date Diarrhea acute June 29 11:20am Right-sided abdominal pain of unknown cause inactive June 29 11:20am Diarrhea acute July 15, 2 025 9:08am Irritable bowel syndrome with diarrhea acute July 27, 025 3:03pm Irritable bowel syndrome with diarrhea acute September 07 2:45pm Oral mucosal lesion acute Octob er 2024 2:45pm Abnormal uterine bleeding (AUB) acute September 08 8:44am Ovarian cyst acute August 8:44am [facility] Work Phone: 1(640) 779-316608-04-2025 Discharge summary [facility] Medical Records Department [address] [place] [address] Emergency Department Summary 06/28/25 MR#: [id number] Acct: [id number] Name: NEFTALI BARRIENTOSRAGHAV Tan Rep #:[id number] : 1990 34 From: Juan Hart MD PCP: ASIF Aguirre Status:REG ER Location: ED HPI History of Present Illness Chief Complaint: Abd Pain Detail of Chief Complaint: Right upper quadrant right lower abdominal pain Informant: patient and spouse/S.O. Onset/Context/Timing Onset: Month(s) (Intermittent since May 13 was seen at outside facility and hadCAT scan.) Context: Sudden Onset Timing: Intermittent Quality: Pain Location: Points to the right upper quadrant Current Severity: Mild Maximum Severity: Moderate Worsened by: Movement Relieved by: Nothing Associated Symptoms Associated Symptoms: Today she had 3 formed stools which is not normal for her. Narrative Narrative: Patient is a 34-year-old woman. She was seen at outside facility. Records fromthat facility were obtained. The ER attending's note was reviewed. She did have a CAT scan. The CAT scan interpretation revealed the following: Status postcholecystectomy 3.7 cm slightly heterogeneous cyst in the right adnexa whichcould represent a hemorrhagic cyst with internal septation. There is also a nonspecific right costophrenic nodule noted. Apparently there is small right and left pleural effusion. There is some minimal atelectasis. Increased fecal stasis involving the right colon and transverse colon. Mildsmall bowel wall thickening left abdomen with small mesenteric nodes suggestive of underlying enteritis and mild mesenteric adenitis. The appendix was normal at that time. There was no evidence of colitis or pyelonephritis. There is no retroperitonealhemorrhage noted. There is mild mid to lower lumbar spine degenerative changes noted. Patient did also have a small supraumbilical ventral hernia that contained fat only. She denies intolerance to any food. She denies nausea or vomiting. She denies history of renal ureterolithiasis. She denies dysuria, frequency, urgency or hematuria. There is no history of direct or indirect trauma. She denies cough,shortness of breath or difficulty breathing. She denies chest pain Prior similar symptoms: Yes PFSH PFSH Medical History no medical history no medical history Allergy/AdvReac Type Severity Reaction Status Date / Time No Known Allergies Allergy Verified 06/28/25 14:00 Family History no significant family his no significant family history Social History (Updated 06/28/25 @ 17:[address] Juan Hart MD) household members: spouse and children Smoking Status: Never smoker ROS ROS ED Constitutional Constitutional ED: Denies chills, fever(s), subjective, sweats or weight loss Eyes Eyes: Denies blurry vision or change in vision ENT ENT ED: Denies rhinorrhea or sore throat Cardiovascular Cardiovascular: Denies chest pain or palpitations Respiratory/Chest Respiratory/Chest: Denies cough, dyspnea or dyspnea on exertion Gastrointestinal Gastrointestinal: Reports abdominal pain; Denies constipation, diarrhea, melena,nausea or vomiting Genitourinary Genitourinary ED: Denies dysuria, hematuria or urinary frequency Musculoskeletal Musculoskeletal: Denies back pain Integumentary Denies rash Hematologic/Lymphatic Hematologic/Lymphatic: Reports systems reviewed and no addt'l complaints, exceptas documented EXAM Physical Exam Const Vital Signs: 06/28/25 13:56 Temperature 98.8 F Temperature Source Oral Pulse Rate 108 H Respiratory Rate 18 Blood Pressure 110/76 Blood Pressure Mean 87 Pulse Ox 99 Oxygen Delivery Method Room Air Positive well nourished and well developed General Appearance ED: well developed; Negative for pallor HEENT Reports moist mucous membranes HEENT Narrative: Head is atraumatic and normocephalic. Eyes PERRL and EOMs intact bilaterally General Eye ED: Negative for pale conjunctiva or scleral icterus Neck no lymphadenopathy, supple and no JVD Resp normal respiratory effort and clear to auscultation bilaterally Cardio regular rate, regular rhythm, S1 normal heart sound, S2 normal heart sound and no murmurs GI normal to inspection, nondistended, normoactive bowel sounds, non-distended and no masses; Negativefor non-tender or hepatosplenomegaly GI Narrative: Tenderness right side of the abdomen. There is no tenderness over McBurney's point. Inspection: Negative for abdominal distention Auscultation: hypoactive bowel sounds Palpation: soft and tender other (Right mid abdomen) Extremity normal to inspection General Extremety ED: Negative for edema General Extremity: Negative for edema Neuro oriented x3 and CN's II-XII intact bilaterally Sensorium / Orientation: alert Skin no rashes or lesions noted, no wounds and skin turgor normal General Skin Exam: elasticity normal; Negative for jaundice or pallor MDM MDM MDM Narrative Medical decision making narrative: Differential diagnosis is abdominal pain of unknown etiology, doubt inflammatorybowel disorder. Shehad 1 episode that radiated to the groin. This may represent atypical presentation for renal/ureterolithiasis. However after reviewing records from outside facility there is no mention of kidney stone. History and physical is not consistent with appendicitis and the CAT scan revealed normal-appearing appendix when she had similar presentation in April this could be due to a ruptured ovarian cyst since that that was noted on the scan that was obtained May 13 at outside facility. Lab Data Attestation: I reviewed the patient's lab results. Lab results narrative: CBC is normal. Electrolyte panel is remarkable for CO2 of 19.7 which is slightly below lower end ofnormal. Anion gap is normal. Liver enzymes are normal. Lipase is normal Labs: Laboratory Results - last 24 hr 06/28/25 15:53 WBC 6.6 RBC 5.09 Hgb 14.3 Hct 42.8 MCV 84.1 MCH 28.1 MCHC 33.4 RDW Std Deviation 39.2 RDW Coeff of Vi 12.9 Plt Count 280 MPV 9.8 Immature Gran % (Auto) 0.200 Neut % (Auto) 62.4 Lymph % (Auto) 23.7 Jerome % (Auto) 8.5 Eos % (Auto) 4.7 Baso % (Auto) 0.5 Absolute Neuts (auto) 4.1 Absolute Lymphs (auto) 1.56 Nucleated RBC % 0 Sodium 139 Potassium 4.0 Chloride 107 Carbon Dioxide 19.7 L Anion Gap 13 BUN 10 Creatinine 0.61 L Estim Creat Clear Calc 128.26 Est GFR (MDRD) Non-Af 120 BUN/Creatinine Ratio 15.9 Glucose 94 Calcium 9.6 Total Bilirubin 0.34 AST 22 ALT 26 Alkaline Phosphatase 53 Total Protein 7.4 Albumin 4.7 Globulin 2.8 Albumin/Globulin Ratio 1.7 Lipase 37 Serum , Qual NEGATIVE Treatment and Re-Evaluation :: Spoke to patient and . Reexamined her. She does not have pain in approximate McBurney's point. With CT that was done approximately 7 weeks ago and was unremarkable for any significant pathology we will discharge her to homewith follow-up with Dr. Avila. They were informed of results. Discharge Plan Triage Chief Complaint: Abd Pain ED Provider: Juan Hart Dx/Rx/DC Orders Clinical Impression: Right-sided abdominal pain of unknown cause, Tachycardia, S/P cholecystectomy Instructions: ED Abdominal Pain Unkn Cause Fem Primary Care Provider: Kimberly Roldan Referrals: Sam Avila DO [Med Staff - Active Staff] - Keep Mine appointment Kimberly Roldan PA [Primary Care Provider] - Activity Restrictions/Additional Instructions: 1. Recommend keeping scheduled appointment with Dr. Avila that the typing secretary will schedule for you. 2. Return if you have a temperature greater than 100, unable to eat or drink anything, severe pain,blood or mucus in your stool. Print Language: Bruneian Disposition Disposition: Home, Self Care What to do if you have Problems For any increased pain, shortness of breath, bleeding, nausea or vomiting, chestpain, or any unexpected problems, contact your Primary Care Provider. Call [facility] ([phone]) or report tothe closest Emergency Room. Call 911 if necessary. 06/28/25 1748 Cosigner Signature (if applicable): CC: ASIF Aguirre ~ Signed [facility]08-04-2025 Discharge summary Author Juan Hart [facility] Note Date/Time June 28, 2025 5:4 8pm [facility] Medical Records Department [address] [place] [address] Emergency Department Summary 06/28/25 MR#: [id number] Acct: [id number] Name: ALESSIA BARRIENTOS Rep #:[id number] : 1990 34 From: Juan Hart MD PCP: ASIF Aguirre Status:REG ER Location: ED HPI History of Present Illness Chief Complaint: Abd Pain Detail of Chief Complaint: Right upper quadrant right lower abdominal pain Informant: patient and spouse/S.O. Onset/Context/Timing Onset: Month(s) (Intermittent since May 13 was seen at outside facility and hadCAT scan.) Context: Sudden Onset Timing: Intermittent Quality: Pain Location: Points to the right upper quadrant Current Severity: Mild Maximum Severity: Moderate Worsened by: Movement Relieved by: Nothing Associated Symptoms Associated Symptoms: Today she had 3 formed stools which is not normal for her. Narrative Narrative: Patient is a 34-year-old woman. She was seen at outside facility. Records fromthat facility were obtained. The ER attending's note was reviewed. She did have a CAT scan. The CAT scan interpretation revealed the following: Status postcholecystectomy 3.7 cm slightly heterogeneous cyst in the right adnexa whichcould represent a hemorrhagic cyst with internal septation. There is also a nonspecific right costophrenic nodule noted. Apparently there is small right and left pleural effusion. There is some minimal atelectasis. Increased fecal stasis involving the right colon and transverse colon. Mild small bowel wall thickening left abdomen with small mesenteric nodes suggestive of underlying enteritis and mild mesenteric adenitis. The appendix was normal at that time. There was no evidence of colitis or pyelonephritis. There is no retroperitonealhemorrhage noted. There is mild mid to lower lumbar spine degenerative changes noted. Patient did also have a small supraumbilical ventral hernia that contained fat only. She denies intolerance to any food. She denies nausea or vomiting. She denies history of renal ureterolithiasis. She denies dysuria, frequency, urgency or hematuria. There is no history of direct or indirect trauma. She denies cough,shortness of breath or difficulty breathing. She denies chest pain Prior similar symptoms: Yes PFSH PFSH Medical History no medical history no medical history Allergy/AdvReac Type Severity Reaction Status Date / Time No Known Allergies Allergy Verified 06/28/25 14:00 Family History no significant family his no significant family history Social History (Updated 06/28/25 @ 17:[address] Juan Hart MD) household members: spouse and children Smoking Status: Never smoker ROS ROS ED Constitutional Constitutional ED: Denies chills, fever(s), subjective, sweats or weight loss Eyes Eyes: Denies blurry vision or change in vision ENT ENT ED: Denies rhinorrhea or sore throat Cardiovascular Cardiovascular: Denies chest pain or palpitations Respiratory/Chest Respiratory/Chest: Denies cough, dyspnea or dyspnea on exertion Gastrointestinal Gastrointestinal: Reports abdominal pain; Denies constipation, diarrhea, melena,nausea or vomiting Genitourinary Genitourinary ED: Denies dysuria, hematuria or urinary frequency Musculoskeletal Musculoskeletal: Denies back pain Integumentary Denies rash Hematologic/Lymphatic Hematologic/Lymphatic: Reports systems reviewed and no addt'l complaints, exceptas documented EXAM Physical Exam Const Vital Signs: 06/28/25 13:56 Temperature 98.8 F Temperature Source Oral Pulse Rate 108 H Respiratory Rate 18 Blood Pressure 110/76 Blood Pressure Mean 87 Pulse Ox 99 Oxygen Delivery Method Room Air Positive well nourished and well developed General Appearance ED: well developed; Negative for pallor HEENT Reports moist mucous membranes HEENT Narrative: Head is atraumatic and normocephalic. Eyes PERRL and EOMs intact bilaterally General Eye ED: Negative for pale conjunctiva or scleral icterus Neck no lymphadenopathy, supple and no JVD Resp normal respiratory effort and clear to auscultation bilaterally Cardio regular rate, regular rhythm, S1 normal heart sound, S2 normal heart sound and no murmurs GI normal to inspection, nondistended, normoactive bowel sounds, non-distended and no masses; Negative for non-tender or hepatosplenomegaly GI Narrative: Tenderness right side of the abdomen. There is no tenderness over McBurney's point. Inspection: Negative for abdominal distention Auscultation: hypoactive bowel sounds Palpation: soft and tender other (Right mid abdomen) Extremity normal to inspection General Extremety ED: Negative for edema General Extremity: Negative for edema Neuro oriented x3 and CN's II-XII intact bilaterally Sensorium / Orientation: alert Skin no rashes or lesions noted, no wounds and skin turgor normal General Skin Exam: elasticity normal; Negative for jaundice or pallor MDM MDM MDM Narrative Medical decision making narrative: Differential diagnosis is abdominal pain of unknown etiology, doubt inflammatorybowel disorder. She had 1 episode that radiated to the groin. This may represent atypical presentation for renal/ureterolithiasis. However after reviewing records from outside facility there is no mention of kidney stone. History and physical is not consistent with appendicitis and the CAT scan revealed normal-appearing appendix when she had similar presentation in April this could be due to a ruptured ovarian cyst since that that was noted on the scan that was obtained May 13 at outside facility. Lab Data Attestation: I reviewed the patient's lab results. Lab results narrative: CBC is normal. Electrolyte panel is remarkable for CO2 of 19.7 which is slightly below lower end of normal. Anion gap is normal. Liver enzymes are normal. Lipase is normal Labs: Laboratory Results - last 24 hr 06/28/25 15:53 WBC 6.6 RBC 5.09 Hgb 14.3 Hct 42.8 MCV 84.1 MCH 28.1 MCHC 33.4 RDW Std Deviation 39.2 RDW Coeff of Vi 12.9 Plt Count 280 MPV 9.8 Immature Gran % (Auto) 0.200 Neut % (Auto) 62.4 Lymph % (Auto) 23.7 Jerome % (Auto) 8.5 Eos % (Auto) 4.7 Baso % (Auto) 0.5 Absolute Neuts (auto) 4.1 Absolute Lymphs (auto) 1.56 Nucleated RBC % 0 Sodium 139 Potassium 4.0 Chloride 107 Carbon Dioxide 19.7 L Anion Gap 13 BUN 10 Creatinine 0.61 L Estim Creat Clear Calc 128.26 Est GFR (MDRD) Non-Af 120 BUN/Creatinine Ratio 15.9 Glucose 94 Calcium 9.6 Total Bilirubin 0.34 AST 22 ALT 26 Alkaline Phosphatase 53 Total Protein 7.4 Albumin 4.7 Globulin 2.8 Albumin/Globulin Ratio 1.7 Lipase 37 Serum , Qual NEGATIVE Treatment and Re-Evaluation :: Spoke to patient and . Reexamined her. She does not have pain in approximate McBurney's point. With CT that was done approximately 7 weeks ago and was unremarkable for any significant pathology we will discharge her to homewith follow-up with Dr. Avila. They were informed of results. Discharge Plan Triage Chief Complaint: Abd Pain ED Provider: Juan Hart Dx/Rx/DC Orders Clinical Impression: Right-sided abdominal pain of unknown cause, Tachycardia, S/P cholecystectomy Instructions: ED Abdominal Pain Unkn Cause Fem Primary Care Provider: Kimberly Roldan Referrals: Sam Avila DO [Med Staff - Active Staff] - Keep Mine appointment Kimberly Roldan PA [Primary Care Provider] - Activity Restrictions/Additional Instructions: 1. Recommend keeping scheduled appointment with Dr. Avila that the typing secretary will schedule for you. 2. Return if you have a temperature greater than 100, unable to eat or drink anything, severe pain, blood or mucus in your stool. Print Language: Bruneian Disposition Disposition: Home, Self Care What to do if you have Problems For any increased pain, shortness of breath, bleeding, nausea or vomiting, chestpain, or any unexpected problems, contact your Primary Care Provider. Call [facility] ([phone]) or report to the closest Emergency Room. Call 911 if necessary. 06/28/259 <Electronically signed by Juan Hart MD> Cosigner Signature (if applicable): CC: ASIF Aguirre ~ Signed [facility] Work Phone: Consult note Author Trav Hylton [facility] Note Date/Time July 15, 2025 11 :32am [facility] Medical Records Department [address] [place] [address] Anesthesia Postop Eval I 07/15/25 1132 MR#: [id number] Acct: [id number] Name: ALESSIA BARRIENTOS Rep #:[id number] : 1990 34 From: Trav CHAND PCP: ASIF Aguirre Status:REG SDC Y Race: C Location: [place] [address] Anesthesia: Postop Eval I Current Vital Signs Temperature: 97 F Pulse Rate: 104 Blood Pressure: 112/76 Respiratory Rate: 16 Pulse Ox: 100 Oxygen Delivery Method: Room Air Assessment Airway patent: Yes Spontaneous unlabored respirations: Yes Mental status: Awake and Calm nausea: No Vomiting: No Anesthesia Complication: No Fluid Hydration Crystalloid volume administer (ml): 100 Total IV fluid infused: 100 Progress Note Anesthesia document: Postop Eval 1 completed: Yes 07/15/251131 <Electronically signed by Trav Hylton CRNA> Date _ Trav Hylton CRNA Cosigner Signature: Date CC: ~ Signed [facility] Work Phone: Consult note Author Trav [facility] Note Date/Time July 15, 2025 11 :36am [facility] Medical Records Department [address] [place] [address] Anesthesia Postop Eval II 07/15/25 1136 MR#: [id number] Acct: [id number] Name: ALESSIA BARRIENTOS Rep #:[id number] : 1990 34 From: Trav CHAND PCP: ASIF Aguirre Status:REG SDC Y Race: C Location: [place] [address] Anesthesia Postop Eval I Sum Postop Eval Completion status Anesthesia document: Postop Eval 1 completed: Yes Anesthesia Postop Eval I Summary Anesthesia Postop Eval I Summary: Anesthesia Postop Eval I: Assessment Summary Airway patent Yes 07/15/25 11:32 [email or web address] Spontaneous unlabored Yes 07/15/25 11:32 [email or web address] [email or web address] respirations Mental status Awake,Calm 07/15/25 11:32 [email or web address] [email or web address].[email or web address] nausea No 07/15/25 11:32 [email or web address] Vomiting No 07/15/25 11:32 [email or web address] Anesthesia Postop Eval I: Fluid Summary Crystalloid volume administer 100 07/15/25 11:32 SPOT [email or web address].MDOT (ml) Colloids volume administered ( ml) Blood Product volume administered (ml) Total IV fluid infused 100 07/15/25 11:32 [email or web address] Anesthesia Postop Eval I: Summary Notes Anesthesia Complication No 07/15/25 11:32 [email or web address] Anesthesia Complication Comment: Post-operative progress note Anesthesia: Postop Eval II Evaluation Mental status: Awake and Calm Pain Level: 0 nausea: No Vomiting: No Complications Anesthesia Complication: No 07/15/25 1136 <Electronically signed by Trav Hylton CRNA> Date _ Trav Hylton CRNA Cosigner Signature: Date CC: ~ Signed [facility] Work Phone: Evaluation noteNo assessment information available [facility] Work Phone: Evaluation note* Diagnosis Onset Date Resolution Status Admit Date Diarrhea acute June 29 11:20am Right-sided abdominal pain o f unknown cause acute June 29, 2025 11:20am [facility] Work Phone: History and physical note Author Sam Friend [facility] Note Date/Time July 15, 2025 11 :07am [facility] Medical Records Department [address] [place] [address] History & Physical Exam 07/15/25 1104 MR#: [id number] Acct: [id number] Name: ALESSIA BARRIENTOS Rep #:[id number] : 1990 34 From: Sam Avila DO PCP: ASIF Aguirre Status:REG [facility] Location: [place] [address] HPI - General General Date of Admission: 07/15/25 Date of Service: 07/15/25 Chief Complaint: diarrhea HPI Narrative ALESSIA BARRIENTOS, is a 34 F who presentsVIVIENNEJOVANNY BARRIENTOS, is a 34 [employer] F who presentsto the office today for establishment with [facility] regarding concerns of right sidedabdominal pain. [facility] ER visit on 06.28.25, CBC and CMP without significant abnormalities, no imaging performed. She states the right-sided abdominal pain is sharp and very crampy, rates the pain 8 out of 10 with 10 being the worst. She denies food increasing symptoms, but states physical activity does increase the severity. She had an ER visit at [facility] on May 13, had a CT ofabd/pelvis that demonstrated enteritis of the small bowel and right adnexal cyst. She then visited her [facility] MD in [place], where she had been told that she"should probably have a hysterectomy" but they wanted to try a control medication first, she received an injection of Depo Provera. She denies change in symptoms. She is now reporting, as of this morning, she is having urgent diarrhea. She denies hematochezia, melena, abdominal bloating, gas, and constipation. She has 2 days left of her 7-day Augmentin treatment from her PCP. She uses city water, consumes no raw or undercooked meats, washes all of the foods from her garden, denies exposure to known ill persons. She states that her gallbladder was removed due to gallstones. [facility] Medical History Wears glasses Low iron Easy bruising Migraine headache Allergy/AdvReac Type Severity Reaction Status Date / Time No Known Allergies Allergy Verified 07/15/25 10:23 Surgical History Hx laparoscopic cholecystectomy Social History household members: spouse and children Smoking Status: Never smoker ROS Constitutional Constitutional: Denies fatigue, fever(s), poor appetite, weight gain or weight loss Gastrointestinal Gastrointestinal: Denies belching, bloating, change in bowel habits, change in stool character, chewing difficulty, coffee ground emesis, constipation, cramping, diarrhea, dyspepsia, dysphagia, early satiety, excessive flatus, fecalincontinence, heartburn, hematemesis, hematochezia, hemorrhoids, loose stools, melena, nausea, odynophagia, rectal bleeding, tenesmus, vomiting or weight changes Vital Signs Vital Signs Vital Signs: 07/15/25 10:24 07/15/25 10:24 07/15/25 10:42 Temperature 98.1 F 98.1 F Temperature Source Temporal Pulse Rate 86 86 Respiratory Rate 16 16 Respiratory Pattern Normal Blood Pressure 116/74 116/74 Blood Pressure Mean 88 Blood Pressure Source Monitor Blood Pressure Position Semi-Fowlers Blood Pressure Location Right Arm Pulse Ox 100 100 Oxygen Delivery Method Room Air Room Air Weight Weight: 158 lb 11.725 oz Body Mass Index (BMI) 27.2 Physical Exam Const alert, oriented x3, no apparent distress and healthy appearing General Appearance: cooperative GI normal to inspection, nondistended, normoactive bowel sounds, soft to palpation,non-tender and non-distended Percussion: normal to percussion Rectal Exam: deferred Results Lab / Micro Data Labs: Laboratory Results - last 24 hr 07/15/25 10:00: Urine Test Negative Assessment & Plan Assessment/Plan (1) Diarrhea: QUALIFIERS: Diarrhea type: unspecified type Qualified Code(s): R19.7 - Diarrhea, unspecified PLAN: Assessment and Plan Assessment and Plan (1) Right-sided abdominal pain of unknown cause: Status: Acute (2) Diarrhea: Status: Acute Qualifiers: Diarrhea type: unspecified type Qualified Code(s): R19.7 - Diarrhea, unspecified Orders: Orders Calprotectin, Stool Today R10.9 - Unspecified abdominal pain, R19.7 - Diarrhea,unspecified ENTERIC PATHOGEN PANEL STOOL Today K58.9 - Irritable bowel syndrome, unspecified, R10.9 - Unspecified abdominal pain, R19.7 - Diarrhea, unspecified Giardia Lamblia, Stool EIA Today R10.9 - Unspecified abdominal pain, R19.7 - Diarrhea, unspecified Pancreatic Elastase, Fecal Today R10.9 - Unspecified abdominal pain, R19.7 - Diarrhea, unspecified Abdomen/Pelvis WITH Contrast Today R10.9 - Unspecified abdominal pain, R19.7 - Diarrhea, unspecified CRP Today R10.9 - Unspecified abdominal pain, R19.7 - Diarrhea, unspecified LORELEI w/ Reflex Mult Confirm Today R10.9 - Unspecified abdominal pain, R19.7 - Diarrhea, unspecified CDIFF (PCR) Today R10.9 - Unspecified abdominal pain, R19.7 - Diarrhea, unspecified Plan ALESSIA BARRIENTOS, is a 34 F who presents to the office today for establishment withBGI regarding concerns of right sided abdominal pain. Discussed care plan with her and her present for exam. Called radiology and discussed previous findings of enteritis with continued abdominal symptoms, she is able to completethe CT abd/pelvis today as a STAT order. * stool for enteric, calprotectin, cdiff, elastase * blood for IBD, inflammation * CT abd/pelvis w/IV and PO contrast * office FU 2wks 07/15/25 1107 <Electronically signed by Sam Avila DO> Cosigner Signature (if applicable): CC: Sam Avila DO; ASIF Aguirre~ Signed [facility] Work Phone: Hospital Discharge instructionsAdditional Instructions 1. Recommend keeping scheduled appointment with Dr. Avila that the typing secretary will schedule for you. 2. Return if you have a temperature greater than 100, unable to eat or drink anything, severe pain, blood or mucus in your stool.[facility] Work Phone: Progress note Author Luna Browne [facility] Note Date/Time September 08, 2025 9 :17am [facility] [address] [place] [address], [address] [place] [address] OFFICE VISIT Date of Service: 09/08/25 MR#: [id number] Acct: [id number] Name: ALESSIA BARRIENTOS Rep #: [id number] : 1990 Provider: JONATHAN Browne Age/Sex: 34/F [place] [facility] Status: Signed Intake Vital Signs 07/27/25 15:31 09/07/25 15:04 09/08/25 08:49 Height 5 ft 4 in 5 ft 4 in 5 ft 4 in Weight: 160 lb 2 oz 157 lb 4 oz 157 lb 8 oz BMI 27.4 26.9 27.0 BP 104/71 114/76 106/73 Respiration 14 16 Pulse 84 75 Temp 97.8 F 98.0 F Pulse Oximetry (%) 84 98 Oxygen Delivery Method room air room air Intake Visit Reasons: Ovarian Cyst (CHRISTIANE) L D Rn Required: No Is patient in pain?: No Allergies No Known Allergies Allergy (Verified 09/08/25 08:57) Medications ?Medication ?Instructions ?Recorded ?Confirmed ?Type estradiol 1 mg tablet 1 mg PO DAILY #30 tabs 09/0809/08/25 Rx Is last menstrual period known: No Post menopausal: No Patient : No : No PFSH Medical History Wears glasses Low iron Easy bruising Migraine headache Surgical History Hx laparoscopic cholecystectomy Family History (Updated 09/08/25 @ 08:59 by Gosia Barrientos) Uncle Cancer Paternal- Bone Uncle Cancer Paternal- Kidney Social History (Updated 09/08/25 @ 09:00 by Gosia Barrientos) household members: spouse and children Smoking Status: Never smoker do you feel safe at home: Yes additional social history: - Rajat HPI Ovarian Cyst (CHRISTIANE) Details: ALESSIA BARRIENTOS is a 34 year old who presents for new patient for recurrent ovarian cysts. Denies any pain today. Saw an "OB specialist" in [place] in April after an ED visit and told CT with ovarian cyst. Did office US at that time and confirmed cyst and was given a depoprovera injection. States she has had bleeding or brown discharge since. has had vasectomy History 4 Elective abortions Hx Para 4 Spontaneous abortions Hx # Term Pregnancies Ectopic pregnancies Hx # Pregnancies Multiple births # of living children 4 ROS Const Constitutional: Reports system reviewed and no additional complaints, except as documented Eyes Eyes: Reports system reviewed and no additional complaints, except as documented GI GI: Denies abdominal pain or change in bowel habits : Reports as per HPI Exam Const General: cooperative and no acute distress Orientation: oriented x3 HENMT Head: normal to inspection and normocephalic Eyes General: appearance normal, both eyes and all related structures Neck Neck: normal visual inspection Resp Effort & Inspection: normal respiratory effort Neuro Cognition: normal cognition Speech: speech normal Psych Appearance: grossly normal Mood: congruent mood Affect: normal affect Speech and Movement: speech and movement normal Attitude: cooperative Judgment: judgment good Coding Level of Care Code Off vis,new,level 3 Diagnoses Abnormal uterine bleeding (AUB) N93.9 Cyst of right ovary N83.201 Laterality: right Assessment and Plan Assessment and Plan (1) Abnormal uterine bleeding (AUB): Status: Acute (2) Ovarian cyst: Status: Acute Qualifiers: Laterality: right Qualified Code(s): N83.201 - Unspecified ovarian cyst, right side Orders: Orders Pelvic w/ Transvaginal Today N93.9 - Abnormal uterine and vaginal bleeding, unspecified, R10.20 - Pelvic and perineal pain unspecified side Medications: New estradiol 1 mg PO DAILY 30 tabs 0RF Plan Pelvic ultrasound. Will monitor if normal and continues asymptomatic. Did discuss nuvaring and she is open to that if suppression needed. Add back estradiol for 30 days RTO prn Plan Details Follow Up: prn (EDUCATION PROGRAM COORDINATOR 3 code) 09/08/25 5467 <Electronically signed by Luna lopez EDUCATION PROGRAM COORDINATOR EDUCATION PROGRAM COORDINATOR-C> Date _ Luna Browne NP EDUCATION PROGRAM COORDINATOR-C Cosigner Signature: Date (if applicable) CC: ~ [facility] Work Phone: Reason for referral (narrative)No reason for referral information [facility] Work Phone: Summary Purpose Family History No Family History Records Found Relationship Condition Age at Onset Recorded Date/T berkley uncle Malignant neoplasm Unknown Advance Directives No Advanced Directives Records Found Advance Directive Response Recorded Date/ Time Do you have a Healthcare Power of Operations Engineer? No June 28, 2025 4:06pm Advance Directive Response Recorded Date/ Time Do you have a Healthcare Power of Operations Engineer? No June 28, 2025 4:06pm Do you have a Healthcare Power of Operations Engineer? No July 13, 2025 4:09pm Chief Complaint and Reason for Visit Chief Complaint Admit Date abd June 28, 2025 1:5 5pm Chief Complaint Admit Date abd June 28, 2025 1:5 5pm RIGHT SIDED ABDOMINAL PAIN June 29, 2 025 11:20am Reason for Visit Admit Date Diarrhea June 29, 2025 11: 20am Right-sided abdominal pain of unknown ca use June 29, 2025 11:20am Chief Complaint Admit Date abd June 28, 2025 1:5 5pm RIGHT SIDED ABDOMINAL PAIN June 29, 2 025 11:20am INT LAB ORDERS June 29, 2025 12: 06pm STAT ABD PAIN June 29, 2025 12: 18pm Reason for Visit Admit Date Diarrhea June 29, 2025 11: 20am Right-sided abdominal pain of unknown ca use June 29, 2025 11:20am Diarrhea July 15, 2025 9: 08am Chief Complaint Admit Date abd June 28, 2025 1:5 5pm RIGHT SIDED ABDOMINAL PAIN June 29, 2 025 11:20am INT LAB ORDERS June 29, 2025 12: 06pm STAT ABD PAIN June 29, 2025 12: 18pm Test Result-Abd Pain/Diarrhea July 27, 2025 3:03pm Chief Complaint Admit Date abd June 28, 2025 1:5 5pm RIGHT SIDED ABDOMINAL PAIN June 29, 2 025 11:20am INT LAB ORDERS June 29, 2025 12: 06pm STAT ABD PAIN June 29, 2025 12: 18pm Test Result-Abd Pain/Diarrhea July 27, 2025 3:03pm 6 wk FU September 07, 2025 2 :45pm Ovarian Cyst ([place]) September 08, 2025 8:44am INT LABS September 08, 2025 9 :22am Reason for Visit Admit Date Diarrhea June 29, 2025 11: 20am Right-sided abdominal pain of unknown ca use June 29, 2025 11:20am Diarrhea July 15, 2025 9: 08am Irritable bowel syndrome with diarrhea S eptember 2024 3:03pm Irritable bowel syndrome with diarrhea O ctober 2024 2:45pm Oral mucosal lesion September 07, 2025 2 :45pm Abnormal uterine bleeding (AUB) September 08, 2025 8:44am Ovarian cyst September 08, 2025 8 :44am Additional Source Comments INFORMATION SOURCE (unrecogn ized section and content) DATE CREATED AUTHOR 07/27/2018 [facility] ([place] DATE CREATED AUTHOR AUTHOR'S ORGANIZ ATION 08/28/2022 [facility] DATE CREATED AUTHOR AUTHOR'S ORGANIZ ATION 07/01/2025 [facility] DATE CREATED AUTHOR AUTHOR'S OR[facility]IZ ATION [facility] Care Teams (unrecognized sec tion and content) Team Status: Active Member Role/Relationship Status Dates ASIF Aguirre Primary Care Provider Active Team Status: Inactive Member Role/Relationship Status Dates ASIF Aguirre Primary Care Provider Active S tart: June 28, 2025 End: June 28, 2025 Dr. Juan Hart MD Emergency Provider Active Sta rt: June 28, 2025 End: June 28, 2025 Team Status: Inactive Member Role/Relationship Status Dates ASIF Aguirre Primary Care Provider Active S tart: June 29, 2025 End: June 29, 2025 ASIF Aguirre Referring Provider Active Star t: June 29, 2025 End: June 29, 2025 JONATHAN David Attending Provider Active S tart: June 29, 2025 End: June 29, 2025 Team Status: Inactive Member Role/Relationship Status Dates ASIF Aguirre Primary Care Provider Active S tart: June 28, 2025 End: June 28, 2025 Dr. Juan Hart MD Attending Provider Active Sta rt: June 28, 2025 End: June 28, 2025 Dr. Juan Hart MD Emergency Provider Active Sta rt: June 28, 2025 End: June 28, 2025 Team Status: Active Member Role/Relationship Status Dates ASIF Aguirre Primary Care Provider Active S tart: June 29, 2025 JONATHAN David Attending Provider Active S tart: June 29, 2025 JONATHAN David Referring Provider Active S tart: June 29, 2025 Team Status: Inactive Member Role/Relationship Status Dates Kimberly Roldan PA Primary Care Provider Active S tart: June 29, 2025 End: June 29, 2025 Steffany Gilliam NP-C Attending Provider Active S tart: June 29, 2025 End: June 29, 2025 Steffany Gilliam NP-C Referring Provider Active S tart: June 29, 2025 End: June 29, 2025 Team Status: Inactive Member Role/Relationship Status Dates ASIF Aguirre Primary Care Provider Active S tart: June 29, 2025 End: June 29, 2025 Steffany Gilliam NP-C Attending Provider Active S tart: June 29, 2025 End: June 29, 2025 Steffany Gilliam NP-C Referring Provider Active S tart: June 29, 2025 End: June 29, 2025 Team Status: Inactive Member Role/Relationship Status Dates ASIF Aguirre Primary Care Provider Active S tart: July 15, 2025 End: July 15, 2025 Kimberly Roldan PA Referring Provider Active Star t: July 15, 2025 End: July 15, 2025 Dr. Sam Avila , Attending Provider Active Start: July 15, 2025 End: July 15, 2025 Team Status: Active Member Role/Relationship Status Dates ASIF Aguirre Primary Care Provider Active S tart: July 15, 2025 Kimberly Roldan PA Referring Provider Active Star t: July 15, 2025 Dr. Sam Avila DO Attending Provider Active Start: July 15, 2025 Dr. Sam Avila , Other Provider Active St art: July 15, 2025 Team Status: Inactive Member Role/Relationship Status Dates Kimberly Roldan PA Primary Care Provider Active S tart: July 27, 2025 End: July 27, 2025 Kimberlygino Roldan , PA Referring Provider Active Star t: July 27, 2025 End: July 27, 2025 DAYANA LagunasC Attending Provider Active Start: July 27, 2025 End: July 27, 2025 Team Status: Active Member Role/Relationship Status Dates ASIF Aguirre Primary care physician Active Team Status: Inactive Member Role/Relationship Status Dates Kimberly Roldan PA Primary care physician Active Start: June 28, 2025 End: June 28, 2025 Dr. Juan Hart MD Attending physician Active St art: June 28, 2025 End: June 28, 2025 Dr. Juan Hart MD Emergency Department Physician Acti ve Start: June 28, 2025 End: June 28, 2025 Team Status: Inactive Member Role/Relationship Status Dates ASIF Aguirre Primary care physician Active Start: June 29, 2025 End: June 29, 2025 Kimberlygino Roldan , PA Referring Provider Active Star t: June 29, 2025 End: June 29, 2025 Steffany Gilliam EDUCATION PROGRAM COORDINATOR-C Attending physician Active Start: June 29, 2025 End: June 29, 2025 Team Status: Inactive Member Role/Relationship Status Dates Kimberly Roldan PA Primary care physician Active Start: June 29, 2025 End: June 29, 2025 Steffany Gilliam EDUCATION PROGRAM COORDINATOR-C Attending physician Active Start: June 29, 2025 End: June 29, 2025 Steffany Gilliam EDUCATION PROGRAM COORDINATOR-C Referring Provider Active S tart: June 29, 2025 End: June 29, 2025 Team Status: Inactive Member Role/Relationship Status Dates ASIF Aguirre Primary care physician Active Start: June 29, 2025 End: June 29, 2025 Steffany Gilliam NP-C Attending physician Active Start: June 29, 2025 End: June 29, 2025 Steffany Gilliam EDUCATION PROGRAM COORDINATOR-C Referring Provider Active S tart: June 29, 2025 End: June 29, 2025 Team Status: Inactive Member Role/Relationship Status Dates ASIF Aguirre Primary care physician Active Start: July 15, 2025 End: July 15, 2025 Kimberlygino Roldan , PA Referring Provider Active Star t: July 15, 2025 End: July 15, 2025 Dr. Sam Avila DO Attending physician Active Start: July 15, 2025 End: July 15, 2025 Team Status: Active Member Role/Relationship Status Dates ASIF Aguirre Primary care physician Active Start: July 15, 2025 Kimberly Roldan , PA Referring Provider Active Star t: July 15, 2025 Dr. Sam Avila DO Attending physician Active Start: July 15, 2025 Dr. Sam Avila DO Nurse Practitioner Active Start: July 15, 2025 Team Status: Inactive Member Role/Relationship Status Dates Kimberly Roldan PA Primary care physician Active Start: July 27, 2025 End: July 27, 2025 Kimberlygino Roldan , PA Referring Provider Active Star t: July 27, 2025 End: July 27, 2025 JONATHAN Lagunas Attending physician Active Start: July 27, 2025 End: July 27, 2025 Team Status: Inactive Member Role/Relationship Status Dates ASIF Aguirre Primary care physician Active Start: September 07, 2025 End: September 07, 2025 ASIF Aguirre Referring Provider Active Star t: September 07, 2025 End: September 07, 2025 JONATHAN Lagunas Attending physician Active Start: September 07, 2025 End: September 07, 2025 Team Status: Inactive Member Role/Relationship Status Dates ASIF Aguirre Primary care physician Active Start: September 08, 2025 End: September 08, 2025 ASIF Aguirre Referring Provider Active Star t: September 08, 2025 End: September 08, 2025 JONATHAN Mcrae NP Attending physician Active Start: September 08, 2025 End: September 08, 2025 Team Status: Inactive Member Role/Relationship Status Dates ASIF Aguirre Primary care physician Active Start: September 08, 2025 End: September 08, 2025 JONATHAN Lagunas Attending physician Active Start: September 08, 2025 End: September 08, 2025 JONATHAN Lagunas Referring Provider Active Start: September 08, 2025 End: September 08, 2025 Goals (unrecognized section and content) Goals may be documented in a n alternate sectionGoals may be documented in an alternate sectionGoals may be documented in an alternate sectionGoals may be documented in an alternate section FOR RECORDS PERTAINING TO PATIENTS WHO ARE OR HAVE BEEN ENROLLED IN A CHEMICAL DEPENDENCY/SUBSTANCEABUSE PROGRAM, SOME INFORMATION MAY BE OMITTED. This clinical summary was aggregated from multiple sources. Caution should be exercised in using it in the provision of clinical care. This summary normalizes information from multiple sources, and as a consequence, information in this document may materially change the coding, format and clinical context of patient data. In addition, data may be omitted in some cases. CLINICAL DECISIONS SHOULD BE BASED ON THE PRIMARY CLINICAL RECORDS. [facility] [employer] [facility]. provides no warranty or guarantee of the accuracy or completeness of information in this document.
[2025-10-07 17:08] LABS: Immunoglobulin A 103 mg/dL (87-352)
== END | disposition home or self-care (01) ==
LOC: LAB 15:47
PROVIDERS: Referring Provider Student in an Organized Health Care Education/Training Program; Visit Provider Student in an Organized Health Care Education/Training Program
DX: R19.7 Diarrhea, unspecified (principal)
CPT/HCPCS: 36415; 82784; 83516; 86255

== ENCOUNTER → 2025-10-29 | Outpatient (CLI) | payer SELFPAY, OTHER ==
--- NOTE | 2025-10-29 12:43 | US_ITS ---
PROCEDURE: PELVIC W/ TRANSVAGINAL 10/29/2025 REASON FOR EXAM: PELVIC PAIN TECHNIQUE: Procedure Code: [id number] Modality: US Procedure: PELVIC W/ TRANSVAGINAL COMPARISON: None FINDINGS: Uterus is anteverted and measures 9.7 x 7 x 4.5 cm. No obvious fibroids. Endometrium measures 7 mm. Increased echogenicity is noted. Cervical nabothian cysts are noted. No IUD. Right ovary measures 3.5 by 4 x 3.2 cm. Normal blood flow. No obvious mass. The left ovary measures 6.8 x 5.1 x 4.3 cm. Normal blood flow. Anechoic cyst measuring 4.2 x 4.2 x 3.5 cm. Both adnexa are unremarkable. Prominent uterine vessels. US/Pelvic w/ Transvaginal IMPRESSION: Prominent uterine vessels. Enlarged left ovary with simple cyst. Cervical nabothian cysts. Reading [facility] [place]
--- OUTSIDE RECORDS SUMMARY | 2025-10-29 13:01 | XMS RPT_ITS | CCD ---
Author Organization [facility] Care Team Providers Care Liner Replacer Name Role Phone ROHAN MARTINS Unavailable Unavailable Uptain CNM, Crystal K Unavailable Radha TEACHERS' AIDE, Jannet Unavailable Tierra Vidal MA Unavailable Unavailable Milan TEACHERS' AIDE, Gudelia Unavailable Unavailable Marthey TEACHERS' AIDE, Polina Unavailable Unavailable Zaugg TEACHERS' AIDE, Yeimy Unavailable Unavailable Unavailable Unavailable Stain Applicator/Gynecology Prov. Unavailable Un available Kimberly Roldan PA-C J Unavailable Kimberly Manrique Primary Care Provider Dr. Juan Hart MD Emergency Provider Kimberly Manrique Referring Provider [phone] Mane SEVERINO-Steffany Sosa Attending Provider [phone] TIARA NORIEGA DO Admitting Unavailable TIARA NORIEGA DO Attending Unavailable TIARA NORIEGA DO Primary Care Unavailable ROLDAN, KIMBERLY PAC Attending Unavailable YULI, KIMBERLY PAC Primary Care Unavailable YULI KIMBERLY PAC Admitting Unavailable Dr. Juan Hrat MD Attending Provider Mane SEVERINO-Steffany Sosa Referring Provider Dr. Sam Avila DO Attending Provider Dr. Sam Avila DO Other Provider Micheal AIRCRAFT SHEET METAL MECHANIC-Dasia Sosa Attending Provider Kimberly Manrique Primary Care Physician [phone] Dr. Juan Hart MD Attending Physician Dr. Juan Hart MD Emergency Department Physician Mane ANNEC, Steffany Attending Physician [phone] Friend , Dr. Vargas Attending Physician [phone] Sam SOLER Nurse Practitioner Micheal AIRCRAFT SHEET METAL MECHANIC-C, Dasia Attending Physician [phone] Hollie AIRCRAFT SHEET METAL MECHANIC-C, Luna Attending Physician [phone] Micheal AIRCRAFT SHEET METAL MECHANIC-C, Dasia Referring Provider Roldan, Kimberly Referring Unavailable Roldan, Kimberly Primary Care Unavailable Safia Austin Attending Unavailable Roldan, Kimberly Primary Care Unavailable Roldan, Kimberly Referring Unavailable GilliamSteffany Attending Unavailable Roldan, Kimberly Primary Care Unavailable Gilliam, Steffany Attending Unavailable Gilliam, Steffany Referring Unavailable Roldan, Kimberly Primary Care Unavailable GilliamSteffany Attending Unavailable Gilliam, Steffany Referring Unavailable Hart, Juan Attending Unavailable Roldan, Kimberly Primary Care Unavailable Roldan, Kimberly Referring Unavailable Roldan, Kimberly Primary Care Unavailable FriendSam Consulting Unavailable Friend, Sam Attending Unavailable Roldan, Kimberly Referring Unavailable Roldan, Kimberly Primary Care Unavailable MichealDasia sunshine Attending Unavailable Roldan, Kimberly Primary Care Unavailable Safia Austin Attending Unavailable AdilsonnasovSafia Referring Unavailable Roldan, Kimberly Primary Care Unavailable MichealDasia sunshine Attending Unavailable MichealDasia Referring Unavailable Roldan, Kimberly Primary Care Unavailable Roldan, Kimberly Referring Unavailable FriendSam Attending Unavailable Roldan, Kimberly Referring Unavailable Roldan, Kimberly Primary Care Unavailable MichealDasia sunshine Attending Unavailable Hollie Luna SEVERINO Attending Unavailable Roldan, Kimberly Referring Unavailable Roldan, Kimberly Primary Care Unavailable Medications Current Medications Medication Drug Class(es) [...] Classification Problem Date Documented Da te Episodic/Chronic Cardiac dysrhythmias (8 sources) Tachycardia; Translations: [Tachycardia, [...] Translations: [Irritable bowel syndrome with diarrhea] Onset: 10-06-2025 Chronic Other gastrointestinal disorders (18 sources) Diarrhea; [...] Other Problems Problem Classification Problem Date Documented Date Episodic/Chronic Abdominal pain (20 sources) Abdominal pain; Translations: [Epigastric pain] Onset: 07-03-2025 06-24-2025 Episodic Unclassified (11 sources) Post- visit - The [...] lochia. The patient is breast feeding the infant. There are no feeding difficulties. Menstruation: has [...] included ultrasound (Patient could not get into OBGYN easily, so she called Dr. Nuñez in [place] and got in 05/18/2025 and he told her the cysts are shrinking, he used US to look at them, he also gave her a DEPO shot. She has an OV with him the end of June but she is unsure if she will go back to him) and CT scan (Patient went to [facility] ER 05/13/2025 for abdominal pain, she had a CT scan that showed ovarian cysts with the largest on the right side. This scan also showed constipation and a mild enteritis.). Note for Abdominal pain: Patient has her period 2 weeks ago.Patient reports that her pain went away for about a week before returning 4 days ago. 06-24-2025 Results Test Name Value Interpretation Reference Range Facility Gastroenterology Visit Repor ton 10-05-[address] [facility] [address] [place] [address] OFFICE VISIT Date of Service: 10/05/25 MR#: [id number] Acct: [id number] Name: ALESSIA BARRIENTOS Rep #: [id number] : 1990 Provider: ASIF Osorio Age/Sex: 34/F [place] [facility] Status: Signed Intake Vital Signs 09/07/25 15:04 09/08/25 08:49 Height 5 ft 4 in 5 ft 4 in Weight: 157 lb 8 oz BMI 27.0 BP 106/73 Intake Visit Reasons: 1 M FU Irritable bowel syndrome with diarrhea Chief Complaint: Abdominal Pain Edi Analyst Required: No Accompanied by: Is patient in pain?: No Allergies No Known Allergies Allergy (Verified 10/05/25 15:28) Medications ???Medication ???Instructions ???Recorded ???Confirmed ???Type estradiol 1 mg tablet 1 mg PO DAILY #30 tabs 09/08/25 Rx cholestyramine 4 gram oral powder 2 g PO QDAY 10/05/25 History for suspension in a packet [facility] Medical History Wears glasses Low iron Easy bruising Migraine headache Surgical History Hx laparoscopic cholecystectomy Family History Uncle Cancer Paternal- Bone Uncle Cancer Paternal- Kidney Social History household members: spouse and children Smoking Status: Never smoker do you feel safe at home: Yes additional social history: - Rajat [facility] Chief Complaint: Abdominal Pain Details: ALESSIA BARRIENTOS, is a 34 F who presents to the office today for follow-up. Colonoscopy 07/22/2025 - Congested mucosa at the hepatic flexure, in the ascending colon and in the cecum. Biopsied. - The examined portion of the ileum was normal. Biopsied. - The examination was otherwise normal on direct and retroflexion views Pathology:Terminal ileum small bowel mucosa with no pathologic change. Colon random biopsy with focal active colitis Calprotectin 06/29/2025: 98 Last office visit 09/07/2025 with Dasia Burton for management IBS with diarrhea. Symptom improvement with daily probiotic and fiber supplement. Stools are now formed and having less abdominal pain. Recommendation continue fiber, probiotic and cholestyramine. OV 10/05/2025 -has a BM at least 3x per day -Certain foods trigger symptoms like greasy foods -Stools are formed -Continues with fiber, cholestyramine and probiotics - Feels cholestyramine has helped with her mouth pain -denies abd pain, n/v, heartburn, or blood in stool ROS Const Constitutional: No fatigue, fever(s) or [...] easy bruising Exam Const General: cooperative, healthy appearing and comfortable Nutritional Appearance: average body habitus Orientation: alert HENMT Head: normal to inspection Eyes General: appearance normal, both eyes and all related structures Neck Neck: normal visual inspection Chest Chest palpation inspection: normal inspection of the chest Resp Effort Inspection: normal respiratory effort GI Inspection: normal to inspection Assessment and Plan Assessment and Plan (1) Diarrhea: Status: Acute Qualifiers: Diarrhea type: unspecified type Qualified Code(s): R19.7 - Diarrhea, unspecified (2) Irritable bowel syndrome with diarrhea: Status: Acute Plan: Alessia is a 34-year-old female patient with past medical history of cholecystectomy, IBS, abnormal uterine bleeding and pelvic pain here today for follow-up. In May 2025 patient started to have fr equent loose bowel movements and CT showing colitis of the sigmoid colon. She underwent colonoscopy which demonstrated congested mucosa throughout the colon and normal terminal ileum. Pathology with focal active colitis. Treatment thus far has included probiotics, fiber and cholestyramine. Patient reports that her stools more formed but she continues to have frequent bowel movements. She is having at least 3 bowel movements per day. Recommended increasing cholestyramine to 2 scoops per day. Joel (more content not included)... Normal Bookmaker'S Clerk Office Visit Reporton 09-08-2025 Bookmaker'S Clerk Office Visit Report [facility] [address], [address] [place] [address] OFFICE VISIT Date of Service: 09/08/25 MR#: [id number] Acct: [id number] Name: ALESSIA BARRIENTOS Rep #: [id number] : 1990 Provider: JONATHAN hodgson Age/Sex: 34/F [place] [facility] [place]: Signed Intake Vital Signs 07/27/25 15:31 [...] air Intake Visit Reasons: Ovarian Cyst (BLANCHARD) Edi Analyst Required: No Is patient in pain?: No [...] cysts. Denies any pain today. Saw an OB specialist in [place] in April after an ED visit and [...] RTO prn Plan Details Follow Up: prn (AIRCRAFT SHEET METAL MECHANIC 3 code) 09/08/25 0945 Date Luna Browne MAYCOL Ross Signature: Date (if applicable) CC: Normal Vitamin B12on 09-08-2025 Cobalamin (Vitamin B12) [Mass/Vol] 663 pg/mL Normal 180-914 Comment on above: Performed By: #### L 503.0106 #### Laboratory [address] [place], [address] Vitamin B12 ser/plasOrdered By: Dasia Burton on 09-08-2025 Cobalamin (Vitamin B12) [Mass/Vol] 663 pg/mL 180-914 Gastroenterology Visit Repor ton 09-07-2025 Gastroenterology Visit Report [facility] [address] [place] [address] OFFICE VISIT Date of Service: 09/07/25 MR#: [id number] Acct: [id number] Name: ALESSIA BARRIENTOS Rep #: [id number] : 1990 Provider: JONATHAN chilel Age/Sex: 34/F [place] [facility]: Signed Intake Vital Signs 07/27/25 15:31 [...] 6 wk FU Chief Complaint: Abdominal Pain Edi Analyst Required: No Accompanied by: Is patient in [...] initially presented to the emergency department at [facility] April 2025 with right sided abdominal [...] weeks, sooner for worsening of symptoms. Note: [employer] speech recognition marketing and communications officer software was used to create portions of this document. Sound-alike and misspelled words, as well as other marketing and communications officer errors may be contained in the documentation. Patient Instructions: Fibercon 2 tablets once daily with 8 ounces of water after a meal. May take up to 3 weeks for symptom improvement. Start a probiotic ([employer], [employer] 2.0 or Cirrascale) once daily. These are all multispecies probiotics, [...] and wel (more content not included)... Normal Gastroenterology Visit Repor ton 07-27-[address] [facility] [address] [place] [address] OFFICE VISIT Date of Service: 07/27/25 MR#: [id number] Acct: [id number] Name: ALESSIA BARRIENTOS Rep #: [id number] : 1990 Provider: JONATHAN chilel Age/Sex: 34/F Location[place] [facility] Status: Signed Intake Vital Signs 07/15/25 10:24 07/27/25 15:31 Height 5 ft 4 in 5 ft 4 in Weight: 160 lb 2 oz BMI 27.4 BP 104/71 Respiration 14 Pulse 84 Temp 97.8 F Temp Source Temporal Pulse Oximetry (%) 84 Oxygen Delivery Method room air Intake Visit Reasons: Test Result-Abd Pain/Diarrhea Chief Complaint: Abdominal Pain Edi Analyst Required: No Accompanied by: Is patient in pain?: No Allergies No Known Allergies Allergy (Verified 07/27/25 15:24) Medications ???Medication ???Instructions ???Recorded ???Confirmed ???Type hyoscyamine sulfate 0.125 mg 0.125 mg PO BID-QID PRN dyspepsia 07/27/25 07/27/25 Rx disintegrating tablet #60 tabs Nurse's Note: [...] to the office today for establishment with [facility] regarding concerns of right sided abdominal pain. [...] which led her to seek care at [facility] in April. A CT scan at that time revealed enteritis, indicating inflammation of the small intestine. The symptoms did not resolve initially but improved with dietary modifications such as avoiding greasy and raw foods. Between April and June, the patient continued to experience constant right-sided abdominal pain likened to a hard cramp, especially postprandial. Foods like greasy, raw vegetables, [...] ER visit, which required follow-up with an TEACHER BALLET, but the management was interrupted due to concurrent gastrointestinal issues. Attestation: Documentation on this patient encounter was supported using ambient scribe technology/ voice AI te (more content not included)... Normal LORELEI w/ Reflex Mult Confirmon 07-18-2025 ANTI-DNA (DS)AB TNP Normal Comment on above: Performed By: #### L 3100.5450, L503.6710 #### Laboratory [address] [place], [address] ANTI-SS-A TNP Normal Comment on above: Performed By: #### L 3100.5450, L501.6710 #### Laboratory [address] [place], [address] ANTI-SS-B TNP Normal Comment on above: Performed By: #### L 3100.5450, L574.6710 #### Laboratory [address] [place], [address] Colonoscopy Reporton 025 Colonoscopy Report [facility] Medical Records Department [address] [place] [address] Colonoscopy Report MR#: [id number] Acct: [id number] Name: ALESSIA BARRIENTOS Rep #: [id number] : 1990 34 From: Sam Avila DO PCP: ASIF Aguirre Status:[facility] Patient Name: Alessia Barrientos Procedure Date: 07/15/2025 [...] pathology results. Procedure Code(s): --- Professional --- 63660, Colonoscopy, flexible; with biopsy, single or multiple CPT copyright 2021 [employer]. All rights reserved. The codes documented in this report are preliminary and upon mill controller review may be revised to meet current compliance requirements. Sam Avila DO 07/15/2025 11:49:39 AM This report has been signed electronically. Number of Addenda: 0 Note Initiated On: 07/15/2025 11:07 AM 07/15/25 1149 Date Sam Avila DO Cosigner Signature: Date (if indicated) CC: Sam Avila DO; ASIF Aguirre Date Dictated: 07/15/25 1107 Date Transcribed: Timber Hewer: RF Signed [facility] MR/OP.[facility] Medical Records Department [address] [place] [address] Provation Physician Letter MR#: [id number] Acct: [id number] Name: ALESSIA BARRIENTOS Rep #: [id number] : 1990 34 From: Sam Avila DO PCP: ASIF Aguirre Status:[facility] [place] 07/15/2025 Asif Aguirre Re : Colonoscopy procedure for Alessia Barrientos Stormyr Yuli This procedure was performed on June. [...] been signed electronically. 07/15/25 1149 Date Sam Avila DO Cosclemente Signature: Date (if indicated) CC: Sam Avila DO; ASIF Aguirre Date Dictated: 07/15/25 1107 Date Transcribed: Timber Hewer: SERGIO Signed [facility] MR/POSTOP.[facility] 07-15-2025 MR/POSTOP.[facility] Medical Records Department [address] [place] [address] Anesthesia Postop Eval I 07/15/25 113 MR#: [id number] Acct: [id number] Name: NEFTALI BARRIENTOSRAGHAV Tan Rep #: [id number] : 1990 34 From: Trav Hylton CRNA PCP: ASIF Aguirre Status:REG SDC Y Race: C Location: [place] [address] Anesthesia: Postop Eval I Current Vital Signs [...] completed: Yes 07/15/25 113 Date Trav Hylton PULMONARY NURSE PRACTITIONER Cosigner Signature: Date CC: Signed Normal MR/[id number] 07-15-2025 MR/POSTOPAN2 [facility] Medical Records Department [address] [place] [address] Anesthesia Postop Eval II 07/15/25 1136 MR#: [id number] Acct: [id number] Name: ALESSIA BARRIENTOS Rep #: [id number] : 1990 34 From: Trav Hylton CRNA PCP: ASIF Aguirre Status:REG SDC Y Race: C Location: [address] Anesthesia Postop Eval I Sum Postop Eval Completion status Anesthesia document: Postop Eval 1 completed: Yes Anesthesia Postop Eval I Summary Anesthesia Postop Eval I Summary: Anesthesia Postop Eval I: Assessment Summary Airway patent Yes 07/15/25 11:32 PULMONARY NURSE PRACTITIONER.MDOT Spontaneous unlabored Yes 07/15/25 11:32 PULMONARY NURSE PRACTITIONER.MDOT respirations Mental status Awake,Calm 07/15/25 11:32 PULMONARY NURSE PRACTITIONER.MDOT nausea No 07/15/25 11:32 PULMONARY NURSE PRACTITIONER.MDOT Vomiting No 07/15/25 11:32 PULMONARY NURSE PRACTITIONER.MDOT Anesthesia Postop Eval I: Fluid Summary Crystalloid volume administer 100 07/15/25 11:32 PULMONARY NURSE PRACTITIONER.MDOT (ml) Colloids volume administered ( ml) Blood Product volume administered (ml) Total IV fluid infused 100 07/15/25 11:32 PULMONARY NURSE PRACTITIONER.MDOT Anesthesia Postop Eval I: Summary Notes Anesthesia Complication No 07/15/25 11:32 PULMONARY NURSE PRACTITIONER.MDOT Anesthesia Complication Comment: Post-operative progress note Anesthesia: Postop Eval II Evaluation Mental status: Awake and Calm Pain Level: 0 nausea: No Vomiting: No Complications Anesthesia Complication: No 07/15/25 1136 Date Trav Hylton CRNA Cosigner Signature: Date CC: Signed Normal ,Urineon 07-15-2025 Beta HCG ( test) Ql (U) Negative Normal Comment on above: Result Comment: Very dilute urine specimens, as indicated by a low specific gravity, may not contain sales representative livestock levels of hCG. If is still suspected, a first morning urine specimen should be collected 48 hours later and tested. Performed By: #### L 3100.5450, L501.6710 #### Laboratory [address] [place], [address] Surgery Specimen Level Marlin 07-15-2025 Surgery Specimen Level IV Patient Age/Sex Location Account Attending Physician ALESSIA BARRIENTOS 34/F EN [id number] Sam Avila DO Specimen: [id number] Received: 07/15/25 Status: [place] Num: [id number] Spec Type: COLON BX Subm Dr: Sam Avila, HEADER OPERATION: Colonoscopy biopsy PRE-OP DIAGNOSIS: Right-sided [...] labeled with the patient's name and designated Random colon biopsy. The specimen consists of multiple irregular fragments of light santos soft tissue that in aggregate measure 1.5 x 0.9 x 0.2 cm. The specimen is totally submitted in one cassette. AK 07/15/2025 [facility]:[id number] Patient Age/Sex Location Account Attending Physician ALESSIA BARRIENTOS 34/F EN [id number] Sam Margarita DO Signed (signature on file) Dr. Roshni Serrato DO 07/16/25 1128 Normal Comment on above: Performed By: #### P SUIV #### Laboratory [address] [place] [address], [id number] Urine testOrdered By: Raymundo Flores on 07-15-2025 HCG ( test) Ql (U) Negative Comment on above: Very dilute urine sp ecimens, as indicated by a low specificgravity, may not contain sales representative livestock levels of hCG. If is still suspected, a first morning urinespecimen should be collected 48 hours later and tested. Giardia Lamblia, Stool EIAon 07-07-2025 Giardia Stool Negative Normal Negative Comment on above: Result Comment: Perf ormed at: [address] [id number] Drapery Rod Assembler: Mirlande Ch MD, Phone: [phone] Performed By: #### L 0454.5450, L501.6710 #### Laboratory [address] [place], [address] L7000.0750on 07-07-2025 P ELASTASE,FECA > 800 Normal >200 Comment on above: Result Comment: Resu lt Units: ug Elast./g Severe Pancreatic Insufficiency: <100 Moderate Pancreatic Insufficiency: 100 - 200 Normal: >200 Performed By: #### L 3100.5450, L501.6710 #### Laboratory [address] [place], [address] Calprotectin, Stoolon [address] 98 ug/g Normal 0-120 Comment on above: Result Comment: Conc entration Interpretation Follow-Up < 5 - 50 ug/g Normal None >50 -120 ug/g Borderline Re-evaluate in 4-6 weeks >120 ug/g Abnormal Repeat as clinically indicated Performed at: - [facility] [id number] Drapery Rod Assembler: Mirlande Ch MD, Phone: [phone] Performed By: #### L 3100.5450, L501.6710 #### Laboratory [address] [place], [place], [address] Abdomen/Pelvis WITH Contrast on 06-29-2025 Abdomen/Pelvis WITH Contrast [facility] [address] [place], [place] [address] Abdomen/Pelvis WITH Contrast MR#: [id number] Acct: [id number] Name: NEFTALI BARRIENTOSRAGHAV Tan Rep #: [id number] : 1990 F 34 From: Dread donahue MD PCP: ASIF Aguirre Status: REG CLI Study: Abdomen/Pelvis WITH Contrast Date of Exam: 04/18 Exam# [id number] Ordering Dr: Steffany Gilliam AIRCRAFT SHEET METAL MECHANIC-C PROCEDURE: ABDOMEN/PELVIS WITH CONTRAST 06/29/2025 REASON FOR [...] colitis of the rectosigmoid colon. Reading Location: [id number] CC: JONATHAN Gilliam; ASIF Aguirre Timber Hewer: Signed Normal CDIFF (PCR)on 06-29-2025 CDIFF Pending 027 027 NAP1-B1 Presumptive Negative *for epidemiolologic???use C. Diff PCR Negative- No toxigenic C. Diff Detected Normal Comment on above: Performed By: #### L 3100.5450, L500.6710 #### Laboratory [address] [place], [place], [id number] CRPon 06-29-2025 C-REACTIVE PROT < 3.00 Normal 0.0-3.0 Comment on above: Performed By: #### L 3100.5450, L501.6710 #### Laboratory [address] [place], [address] Calprotectin stoolOrdered By : Setffany Gilliam on 06-29-2025 Calprotectin stool 98 ug/g 0-120 [facility] Comment on above: Concentration Interp retation Follow-Up< 5 - 50 ug/g Normal None>50 -120 ug/g Borderline Re-evaluate in 4-6 weeks >120 ug/g Abnormal Repeat as clinically indicatedPerformed at: [facility] [id number] Director: Mirlande Ch MD, Phone: [phone] Clostridium difficile detect ion by polymerase chain reactionOrdered By: Steffany Gilliam on 06-29-2025 C. difficile DNA DRISS+probe Ql (Unsp spec) ENTERIC PATHOGEN PANEL STOOL on 06-29-2025 EP [...] VIBRIO Not Detected Yersinia Not Detected Normal Comment on above: Performed By: #### L 3100.5450, L501.6710 #### Laboratory [address] [place], [address] Gastroenterology Visit Repor ton 06-29-[address] [facility] [address] [place] [address] OFFICE VISIT Date of Service: 06/29/25 MR#: [id number] Acct: [id number] Name: ALESSIA BARRIENTOS Rep #: [id number] : 1990 Provider: JONATHAN saxena Age/Sex: 34/F Location[place] [facility] Status: Signed Intake Vital Signs 06/28/25 13:56 Height 5 ft 4 in Intake Visit Reasons: RIGHT SIDED ABDOMINAL PAIN Chief Complaint: Abdominal Pain Edi Analyst Required: No Is patient in pain?: Yes [...] have a CT done May 13 at [facility] and was in the ER here in [place] on 06/28 [facility] Social History household members: spouse and children Smoking Status: Never smoker HPI HPI Chief Complaint: Abdominal Pain Details: ALESSIA BARRIENTOS, is a 34 [employer] F who presents to the office today for establishment with [facility] regarding concerns of right sided abdominal pain. [facility] ER visit on 06.28.25, CBC and CMP without significant abnormalities, no imaging performed. She states the right-sided abdominal pain is sharp and very crampy, rates the pain 8 out of 10 with 10 being the worst. She denies food increasing symptoms, but states physical activity does increase the severity. She had an ER visit at [facility] on May 13, had a CT of abd/pelvis that demonstrated enteritis of the small bowel and right adnexal cyst. She then visited her EYEGLASS LENS CUTTER MD in [place], where she had been told that she should probably have a hysterectomy but they wanted to try a control [...] body habitus Orientation: alert and oriented x3 HENKY Head: normal to inspection Ears: hearing grossly [...] unspecified ty (more content not included)... Normal Giardia lamblia ag stool EIA Ordered By: Steffany Gilliam on 06-29-2025 G. lamblia Ag IA Ql (Stl) Negative Negative Comment on above: Performed at: - [address] [id number] Director: Mirlande Ch MD, Phone: [phone] Serum DNA double strand anti body assay (units/volume)Ordered By: Steffany Gilliam on 06-29-2025 DNA double strand Ab Qn (S) [facility] Comment on above: Test not performed Serum Scl-70 antibody assay (units/volume)Ordered By: Steffany Gilliam on 06-29-2025 SCL-70 extractable nuclear Ab Qn (S) [facility] Comment on above: Test not performed Serum or plasma C reactive p rotein measurement (mass/volume)Ordered By: Steffany Gilliam on 06-29-2025 CRP [Mass/Vol] mg/L 0.0-3.0 Stool pancreatic elastase me asurement (mass/mass)Ordered By: Steffany Gilliam on 06-29-2025 Elastase.pancreatic (Stl) [Mass/Mass] > 800 >200 Comment on above: Result Units: ug Latha st./g Severe Pancreatic Insufficiency: <100 Moderate Pancreatic Insufficiency: 100 - 200 Normal: >200 Absolute lymphocyte countOrd ered By: Juan Hart on 06-28-2025 Lymphocytes Auto (Unsp spec) [#/Vol] 1.56 10*3/uL 0.83-4.51 Absolute neutrophil countOrd ered By: Juan Hart on 06-28-2025 Neutrophils (Bld) [#/Vol] 4.1 10*3/uL 2.0-7.7 Anion gap in Serum or Plasma Ordered By: Juan Hart on 06-28-2025 Anion gap [Moles/Vol] 13 mmol/L 5-15 [facility] Automated blood erythrocyte countOrdered By: Juan Hart on 06-28-2025 RBC (Bld) [#/Vol] 5.09 10*6/uL Normal 4.2-5.4 [facility] [place] Comment on above: Performed By: #### L 3100.5450, L501.6710 #### Laboratory [address] [place], [place], [id number] Automated blood hematocrit ( percentage)Ordered By: Juan Hart on 06-28-2025 Hematocrit (Bld) [Volume fraction] 42.8 % Normal 37-47 Comment on above: Performed By: #### L 3100.5450, L501.6710 #### Laboratory [address] [place], [place], [id number] Automated lymphocyte count a s percentage of total leukocytesOrdered By: Juan Hart on 06-28-2025 Lymphocytes/100 WBC Auto (Unsp spec) 23.7 % 19-41 BUN/creatinine ratioOrdered By: Juan Hart on 06-28-2025 Urea nitrogen/Creatinine [Mass ratio] 15.9 mg/mg 10-20 Basophil percentageOrdered B y: Juan Hart on 06-28-2025 Basophils/100 WBC (Bld) 0.5 % Normal 0-1 Comment on above: Performed By: #### L 3100.5450, L501.6710 #### Laboratory [address] [place], [place], [id number] Bilirubin, totalOrdered By: Juan Hart on 06-28-2025 Bilirubin [Mass/Vol] 0.34 mg/dL 0.00-1.30 [facility] CBC W/Diff, Automatedon 08-0 Absolute Lymph 1.56 X10 3/uL Normal 0.83-4.51 Comment on above: Performed By: #### L 3100.5450, L501.6710 #### Laboratory [address] [place], [place], [id number] Absolute Neut 4.1 X10 3/uL Normal 2.0-7.7 Comment on above: Performed By: #### L 3100.5450, L501.6710 #### Laboratory [address] [place], [address] IG% 0.200 Normal 0.0-0.9 Comment on above: Result Comment: IG% - Immature Granulocytes (promyelocytes, myelocytes and metamyelocytes) > 1% indicates that a LEFT SHIFT is Present. Performed By: #### L 3100.5450, L501.6710 #### Laboratory [address] [place], [address] Lymphocytes/100 WBC (Bld) 23.7 % Normal 19-41 Comment on above: Performed By: #### L 3100.5450, L501.6710 #### Laboratory [address] [place], [address] Nucleated RBC (Bld) [#/Vol] 0 10*3/uL Normal 0-5 Comment on above: Performed By: #### L 3100.5450, L501.6710 #### Laboratory [address] [place], [address] RDW SD 39.2 fl Normal 35.1-43.9 Comment on above: Performed By: #### L 3100.5450, L501.6710 #### Laboratory [address] [place], [address] Carbon dioxide, total [Moles /volume] in Central venous bloodOrdered By: Juan Hart on 06-28-2025 CO2 [Moles/Vol] 19.7 mmol/L Low 21.0-32.0 Chloride assayOrdered By: Gwen Hart on 06-28-2025 Chloride [Moles/Vol] 107 mmol/L 98-108 [facility] Comprehensive Metabolic Prof ilon 06-28-2025 Albumin [Mass/Vol] 4.7 g/dL Normal 3.5-5.0 [facility] Comment on above: Performed By: #### L 3100.5450, L501.6710 #### Laboratory [address] [place], [address] Albumin/Globulin [Mass ratio] 1.7 {ratio} Normal 0.9-2.4 Comment on above: Performed By: #### L 3100.5450, L501.6710 #### Laboratory [address] [place], [address] ALK PHOS 53 U/L Normal 35-104 Comment on above: Performed By: #### L 3100.5450, L501.6710 #### Laboratory [address] [place], [address] ALT [Catalytic activity/Vol] 26 U/L Normal <=34 Comment on above: Performed By: #### L 3100.5450, L501.6710 #### Laboratory [address] [place], [address] AST [Catalytic activity/Vol] 22 U/L Normal <=31 Comment on above: Result Comment: Hemo lysis present, Results??could be affected. ?? Performed By: #### L 3100.5450, L501.6710 #### Laboratory [address] [place], [address] Bilirubin [Mass/Vol] 0.34 mg/dL Normal 0.00-1.30 [facility] Comment on above: Performed By: #### L 3100.5450, L501.6710 #### Laboratory [address] [place], [address] BUN/CRE 15.9 RATIO Normal 10-20 Comment on above: Performed By: #### L 3100.5450, L501.6710 #### Laboratory [address] [place], [address] Calcium [Mass/Vol] 9.6 mg/dL Normal 7.6-11.0 [facility] Comment on above: Performed By: #### L 3100.5450, L501.6710 #### Laboratory [address] [place], [address] Chloride [Moles/Vol] 107 mmol/L Normal 98-108 [facility] Comment on above: Performed By: #### L 3100.5450, L501.6710 #### Laboratory [address] [place], [address] CO2 [Moles/Vol] 19.7 mmol/L Low 21.0-32.0 Comment on above: Performed By: #### L 3100.5450, L501.6710 #### Laboratory [address] [place], [address] Creatinine [Mass/Vol] 0.61 mg/dL Low 0.70-1.20 [facility] Comment on above: Performed By: #### L 3100.5450, L501.6710 #### Laboratory [address] [place], [address] ECRCL 128.26 ml/min Normal 50-250 Comment on above: Performed By: #### L 3100.5450, L501.6710 #### Laboratory [address] [place], [address] GAP 13 Normal 5-15 Comment on above: Performed By: #### L 3100.5450, L501.6710 #### Laboratory [address] [place], [address] GFR/1.73 sq M.predicted among non-blacks MDRD (S/P/Bld) [Vol rate/Area] 120 mL/min/{1.73_m2} Normal >60 Comment on above: Result Comment: mL/m in/1.73m2 CKD-EPI Creatinine Equation (2020) Performed By: #### L 3100.5450, L501.6710 #### Laboratory [address] [place], [address] Globulin (S) [Mass/Vol] 2.8 g/dL Normal 2.2-4.2 Comment on above: Performed By: #### L 3100.5450, L501.6710 #### Laboratory [address] [place], [address] Glucose [Mass/Vol] 94 mg/dL Normal 70-99 [facility] Comment on above: Performed By: #### L 3100.5450, L501.6710 #### Laboratory [address] [place], [address] Potassium [Moles/Vol] 4.0 mmol/L Normal 3.3-5.1 [facility] Comment on above: Result Comment: Hemo lysis present, Results??could be affected. ?? Performed By: #### L 3100.5450, L501.6710 #### Laboratory [address] [place], [address] Sodium [Moles/Vol] 139 mmol/L Normal 133-145 [facility] Comment on above: Performed By: #### L 3100.5450, L501.6710 #### Laboratory [address] [place], [address] T PROT 7.4 g/dL Normal 5.9-8.4 Comment on above: Performed By: #### L 3100.5450, L501.6710 #### Laboratory [address] [place], [address] Urea nitrogen [Mass/Vol] 10 mg/dL Normal 4-19 Comment on above: Performed By: #### L 3100.5450, L501.6710 #### Laboratory [address] [place], [address] Emergency Department Summary on 06-28-2025 Emergency Department Summary [facility] Medical Records Department [address] [place] [address] Emergency Department Summary 06/28/25 MR#: [id number] Acct: [id number] Name: ALESSIA BARRIENTOS Rep #: [id number] : 1990 34 From: Juan Hart MD [...] denies chest pain Prior similar symptoms: Yes [facility] Medical History no medical history no medical [...] alert Skin (more content not included)... Normal Eosinophil percentageOrdered By: Juan Hart on 06-28-2025 Eosinophils/100 WBC (Bld) 4.7 % Normal 0-5 Comment on above: Performed By: #### L 3100.5450, L501.6710 #### Laboratory [address] [place], [place], [address] Erythrocyte distribution wid th ratioOrdered By: Juan Hart on 06-28-2025 Erythrocyte distribution width (RBC) [Ratio] 12.9 % Normal 11.6-14.6 Comment on above: Performed By: #### L 3100.5450, L501.6710 #### Laboratory [address] [place], [place], [id number] (117) Erythrocyte distribution wid th standard deviationOrdered By: Juan Hart on 06-28-2025 Erythrocyte distribution width (RBC) [Ratio] 39.2 fl 35.1-43.9 Glomerular filtration rate ( GFR) estimation/1.73 sq m using serum, plasma, or whole bOrdered By: Juan Hart on 06-28-2025 GFR/1.73 sq M.predicted among non-blacks MDRD (S/P/Bld) [Vol rate/Area] 120 mL/min/{1.73_m2} >60 Comment on above: mL/min/1.73m2 CKD-EP I Creatinine Equation (2020) Hemoglobin measurementOrdere d By: Juan Hart on 06-28-2025 Hemoglobin (Bld) [Mass/Vol] 14.3 g/dL Normal 12.0-15.0 Comment on above: Performed By: #### L 3100.5450, L501.6710 #### Laboratory [address] [place], [address] Immature granulocytes/100 WB C Auto (Bld)Ordered By: Juan Hart on 06-28-2025 Immature granulocytes/100 WBC (Bld) 0.200 % 0.0-0.9 Comment on above: IG% - Immature Granu locytes (promyelocytes, myelocytes and metamyelocytes) > 1% indicates that a LEFT SHIFT is Present. Laboratory - Chemistry and C hemistry - challengeOrdered By: Juan Hart on 06-28-2025 AST [Catalytic activity/Vol] 22 U/L <32 Comment on above: Hemolysis present, R esults could be affected. Lipaseon 06-28-2025 Lipase [Catalytic activity/Vol] 37 U/L Normal 13-75 Comment on above: Result Comment: Cinthya augustin note: LIPASE revised reference range effective 23. New Lipase methodology. Expected to produce lower values than the previous assay method. NEW Reference Range: 13 - 75 U/L Performed By: #### L 3100.5450, L501.6710 #### Laboratory [address] [place], [address] Lipase measurementOrdered By : Juan Hart on 06-28-2025 Lipase [Catalytic activity/Vol] 37 U/L 13-75 Comment on above: Please note:LIPASE r evised reference range effective 23. New Lipase methodology. Expected to produce lower values than the previous assay method. NEW Reference Range: 13 - 75 U/L MCV (mean corpuscular volume ) determinationOrdered By: Juan Hart on 06-28-2025 MCV (RBC) [Entitic vol] 84.1 fL Normal 81-99 Comment on above: Performed By: #### L 3100.5450, L501.6710 #### Laboratory [address] [place], [address] Mean corpuscular hemoglobin (MCH) determinationOrdered By: Juan Hart on 06-28-2025 MCH (RBC) [Entitic mass] 28.1 pg Normal 27.0-32.0 Comment on above: Performed By: #### L 3100.5450, L501.6710 #### Laboratory [address] [place], [address] Mean corpuscular hemoglobin concentration (MCHC) determinationOrdered By: Juan Hart on 06-28-2025 MCHC (RBC) [Mass/Vol] 33.4 g/dL Normal 32-36 [facility] Comment on above: Performed By: #### L 3100.5450, L501.6710 #### Laboratory [address] [place], [address] Mean platelet volume determi nationOrdered By: Juan Hart on 06-28-2025 Platelet mean volume (Bld) [Entitic vol] 9.8 fL Normal 6.2-12.0 Comment on above: Performed By: #### L 3100.5450, L501.6710 #### Laboratory [address] [place], [address] Monocyte percentageOrdered B y: Juan Hart on 06-28-2025 Monocytes/100 WBC (Bld) 8.5 % Normal 0-10 Comment on above: Performed By: #### L 3100.5450, L501.6710 #### Laboratory [address] [place], [address] Neutrophil percentageOrdered By: Juan Hart on 06-28-2025 Neutrophils/100 WBC (Bld) 62.4 % Normal 47-70 Comment on above: Performed By: #### L 3100.5450, L501.6710 #### Laboratory [address] [place], [address] Nucleated red blood cell per centageOrdered By: Juan Hart on 06-28-2025 Nucleated RBC/100 WBC (Bld) [Ratio] 0 % 0-5 Platelet countOrdered By: Ug o Hart on 06-28-2025 Platelets (Bld) [#/Vol] 280 10*3/uL Normal 150-450 Comment on above: Performed By: #### L 3100.5450, L501.6710 #### Laboratory [address] [place], [place], [address] Potassium measurement (mass/ volume)Ordered By: Juan Hart on 06-28-2025 Potassium (Unsp spec) [Mass/Vol] 4.0 mmol/L 3.3-5.1 Comment on above: Hemolysis present, R esults could be affected. ,Serum,hCG Quali.on 06-28-2025 HCG, SERUM QUAL Negative Normal Comment on above: Performed By: #### L 3100.5450, L501.6710 #### Laboratory [address] [place], [place], [address] Serum beta-hCG test, qualita tiveOrdered By: Juan Hart on 06-28-2025 Beta HCG ( test) Ql Negative Serum creatinine measurement (mass/volume)Ordered By: Juan Hart on 06-28-2025 Creatinine [Mass/Vol] 0.61 mg/dL Low 0.70-1.20 [facility] Serum globulin measurementOr dered By: Juan Hart on 06-28-2025 Globulin (S) [Mass/Vol] 2.8 g/dL 2.2-4.2 Serum glucose measurement (m ass/volume)Ordered By: Juan Hart on 06-28-2025 Glucose [Mass/Vol] 94 mg/dL 70-99 [facility] Serum or plasma alanine leyva otransferase (ALT) measurementOrdered By: Juan Hart on 06-28-2025 ALT [Catalytic activity/Vol] 26 U/L <35 Serum or plasma albumin ignacio urement (mass/volume)Ordered By: Juan Hart on 06-28-2025 Albumin [Mass/Vol] 4.7 g/dL 3.5-5.0 [facility] Serum or plasma albumin/glob ulin mass ratioOrdered By: Juan Hart on 06-28-2025 Albumin/Globulin [Mass ratio] 1.7 {ratio} 0.9-2.4 Serum or plasma alkaline nancy sphatase measurementOrdered By: Juanstanislav Hart on 06-28-2025 ALP [Catalytic activity/Vol] 53 U/L 35-104 Serum or plasma calcium ignacio urement (mass/volume)Ordered By: Juanstanislav Hart on 06-28-2025 Calcium [Mass/Vol] 9.6 mg/dL 7.6-11.0 [facility] Serum or plasma urea nitroge n measurement (mass/volume)Ordered By: Juanstanislav Hart on 06-28-2025 Urea nitrogen [Mass/Vol] 10 mg/dL 4-19 Sodium levelOrdered By: [facility] 06-28-2025 Sodium [Moles/Vol] 139 mmol/L 133-145 [facility] Total proteinOrdered By: Juan Hart on 06-28-2025 Protein [Mass/Vol] 7.4 g/dL 5.9-8.4 [facility] White blood cell (WBC) count Ordered By: Juan Hart on 06-28-2025 WBC (Bld) [#/Vol] 6.6 10*3/uL Normal 4.4-11.0 [facility] Comment on above: Performed By: #### L 3100.5450, L501.6710 #### Laboratory [address] [place] [address], [address] C-REACTIVE PROTEINon 025 CRP 2.32 mg/dl High 0.00 - 0.[address] [facility] Comment on above: Performed By: #### 2 26791 ####[facility],[address] [place] [address] CBC + DIFFon 05-13-2025 Baso # 0.01 x10EE3/UL Normal 0.00 - 0.[address] [facility] Comment on above: Performed By: #### 2 56837 #### [facility],[address] [place] [address] Basophils/100 WBC (Bld) 0.1 % Normal 0.0 - 2.[address] [facility] Comment on above: Performed By: #### 2 77800 #### [facility],[address] [place] [address] 60016 CBC + DIFF Normal [facility] Comment on above: Result Comment: CBC- COMPLETE BLOOD COUNT Performed By: #### 2 28846 #### [facility],[address] [place] [address]145 EO # 0.35 x10EE3/UL Normal 0.00 - 0.[address] [facility] Comment on above: Performed By: #### 2 93784 #### [facility],[address] [place] [address]15 Eosinophils/100 WBC (Bld) 2.8 % Normal 0.0 - 7.[address] [facility] Comment on above: Performed By: #### 2 19244 #### [facility],[address] [place], [place] [id number] Erythrocyte distribution width (RBC) [Ratio] 13.7 % Normal 12.0 - 15.[address] [facility] Comment on above: Performed By: #### 2 59844 #### [facility],[address] [place] [address] Hematocrit (Bld) [Volume fraction] 38.6 % Normal 34.0 - 46.[address] [facility] Comment on above: Performed By: #### 2 53690 #### [facility],[address] [place] [address] Hemoglobin (Bld) [Mass/Vol] 13.3 g/dL Normal 12.0 - 16.[address] [facility] Comment on above: Performed By: #### 2 45732 #### [facility],[address] [place] [address]1815 Lymph # 1.01 x10EE3/UL Normal 0.80 - 2.[address] [facility] Comment on above: Performed By: #### 2 57208 #### [facility],[address] [place] [address] Lymphocytes/100 WBC (Bld) 8.2 % Low 20.0 - 45.[address] [facility] Comment on above: Performed By: #### 2 06344 #### [facility],[address] [place] [address] MANUAL DIFF N/A Normal [facility] Comment on above: Performed By: #### 2 22146 #### [facility],[address] [place] [address] MCH (RBC) [Entitic mass] 29 pg Normal 27 - [address] [facility] Comment on above: Performed By: #### 2 13737 #### [facility],[address] [place] [address] MCHC 35 X10 3 Normal 32 - [address] [facility] Comment on above: Performed By: #### 2 93751 #### [facility],[address] [place] [address] MCV (RBC) [Entitic vol] 84 fL Normal 80 - [address] [facility] Comment on above: Performed By: #### 2 85834 #### [facility],[address] [place] [address] [place]ron # 0.75 x10EE3/UL Normal 0.20 - 1.[address] [facility] Comment on above: Performed By: #### 2 46273 #### [facility],[address] [place] [address]791 MONOS % 6.0 % Normal 0.0 - 10.[address] [facility] Comment on above: Performed By: #### 2 52325 #### [facility],[address] [place] [address] 79726 Morphology Darius (Bld) [Interp] N/A Normal [facility] Comment on above: Performed By: #### 2 28349 #### [facility],[address] [place] [address] Neut # 10.25 x10EE3/UL High 1.50 - 7.[address] [facility] Comment on above: Performed By: #### 2 69293 #### [facility],[address] [place] [address]96 Neutrophils/100 WBC (Bld) 82.9 % High 46.0 - 76.[address] [facility] Comment on above: Performed By: #### 2 80024 #### [facility],[address] [place] [address] 43702 PLATELET 210 x10EE3/UL Normal 150 - [address] [facility] Comment on above: Performed By: #### 2 60906 #### [facility],[address] [place] [address] 11779 Platelet mean volume (Bld) [Entitic vol] 7.7 fL Normal 6.6 - 10.[address] [facility] Comment on above: Result Comment: AUTO MATED DIFFERENTIAL Performed By: #### 2 72980 #### [facility],[address] [place] [address] 37725 RBC 4.60 x 10EE6/UL Normal 4.10 - 5.[address] [facility] Comment on above: Performed By: #### 2 96741 #### [facility],[address] [place] [address] 23029 WBC 12.4 x 10EE3/UL High 4.5 - 10.[address] [facility] Comment on above: Performed By: #### 2 02413 #### [facility],[address] [place] [address] 67486 CMP with eGFRon 05-13-2025 AGE 34 [address] [facility] Comment on above: Performed By: #### 2 40219 #### [facility],[address] [place] [address] 71127 Albumin [Mass/Vol] 3.7 g/dL Normal 3.4 - 5.[address] [facility] Comment on above: Performed By: #### 2 05291 #### [facility],[address] [place] [address] 03093 Albumin/Globulin [Mass ratio] 1.2 {ratio} Normal 0.9 - 1.[address] [facility] Comment on above: Performed By: #### 2 67334 #### [facility],[address] [place] [address] 95166 ALK PHOS 58 U/L Normal 46 - [address] [facility] Comment on above: Performed By: #### 2 50231 #### [facility],[address] [place] [address] 44360 ALT [Catalytic activity/Vol] 30 U/L Normal 16 - [address] [facility] Comment on above: Performed By: #### 2 11798 #### [facility],[address] [place] [address] 23553 Anion gap [Moles/Vol] 8 mmol/L Low 10 - 20 [facility] Comment on above: Performed By: #### 2 63636 #### [facility],[address] [place] [address] 37236 AST [Catalytic activity/Vol] 13 U/L Normal 13 - [address] [facility] Comment on above: Performed By: #### 2 69819 #### [facility],[address] [place] [address] 01621 B/C RATIO 19 ratio Normal 0 - [address] [facility] Comment on above: Performed By: #### 2 50455 #### [facility],[address] [place] [address] 53929 Bilirubin [Mass/Vol] 0.5 mg/dL Normal 0.2 - 1.[address] [facility] Comment on above: Performed By: #### 2 72293 #### [facility],[address] [place] [address] 18030 Calcium [Mass/Vol] 8.7 mg/dL Normal 8.5 - 10.[address] [facility] Comment on above: Performed By: #### 2 16081 #### [facility],[address] [place] [address] 21727 Chloride [Moles/Vol] 103 mmol/L Normal 98 - [address] [facility] Comment on above: Performed By: #### 2 09634 #### [facility],[address] [place], [place] [id number] CMP with eGFR Normal [facility] Comment on above: Result Comment: COMP REHENSIVE METABOLIC PANEL Performed By: #### 2 28743 #### [facility],[address] [place], [place] [phone] CO2 [Moles/Vol] 30.0 mmol/L Normal 21.0 - 32.[address] [facility] Comment on above: Performed By: #### 2 77035 #### [facility],[address] [place] [address] Creatinine [Mass/Vol] 0.48 mg/dL Low 0.55 - 1.[address] [facility] Comment on above: Performed By: #### 2 27524 #### [place] [address] GFR/1.73 sq M.predicted among non-blacks MDRD (S/P/Bld) [Vol rate/Area] mL/min/{1.73_m2} Normal 60 - [address] [facility] Comment on above: Performed By: #### 2 20088 #### [place] [address] Result Comment: ACCO RDING TO THE NATIONAL KIDNEY DISEASE EDUCATION PROGRAM(NKDE), A NORMAL eGFR IS A VALUE GREATER THAN OR EQUAL TO 60 ML/MIN/1.73 SQ METERS. CHRONIC KIDNEY DISEASE: <60mL/MIN/1.73 SQ METERS KIDNEY FAILURE: <15mL/MIN/1.73 SQ METERS THIS TEST SHOULD ONLY BE USED FOR PATIENTS 18 YEARS OF AGE AND OLDER. Globulin (S) [Mass/Vol] 3.2 g/dL Normal 1.5 - 3.[address] [facility] Comment on above: Performed By: #### 2 61647 #### [place] [id number] Glucose [Mass/Vol] 103 mg/dL Normal 74 - [address] [facility] Comment on above: Performed By: #### 2 26053 #### [facility],[address] [place] [address] 70624 Potassium [Moles/Vol] 3.5 mmol/L Normal 3.5 - 5.1 [facility] Comment on above: Performed By: #### 2 77176 #### [address] [address] Protein [Mass/Vol] 6.9 g/dL Normal 6.4 - 8.[address] [facility] Comment on above: Performed By: #### 2 10857 #### [address] [address] Sodium [Moles/Vol] 137 mmol/L Normal 136 - [address] [facility] Comment on above: Performed By: #### 2 82525 #### [facility],[address] [place] [address] 36787 Urea nitrogen [Mass/Vol] 9 mg/dL Normal 7 - [address] [facility] Comment on above: Performed By: #### 2 59972 #### [address] [address] [address] ABDOMEN/PELVIS Won 2024 CT ABDOMEN/PELVIS W [place] [address] Patient: ALESSIA BARRIENTOS Phone#: : 1990 Age: 34 Gender: F Pt. Type: ER Account: [id number] Location: 052 Ordering: TIARA NORIEGA Exam Date: 05/13/2025/4:17 Family Phys: Charge Code: 612607 Physician: Eaton Order #: [id number] Dose#: 12.6 PROCEDURE: CT ABDOMEN/PELVIS WITH CONTRAST COMPARISON: [facility], CT, ABDOMEN/PELVIS W CON, 05/23/2019, 12:07. [...] - Page 2 of 2 Patient: ALESSIA BARRIENTOS Phone#: : 1990 Age: 34 Gender: F Pt. Type: ER Account: [id number] Location: 052 Ordering: TIARA NORIEGA Exam Date: 05/13/2025/4:17 Family Phys: Charge Code: 576674 Physician: Eaton Order #: [id number] Dose#: 12.6 OTHER: Negative. CONCLUSION: 1. Findings consistent with enteritis. Dictated by: Jany James MD on 05/13/2025 at 6:37 Approved by: Jany James MD on 05/13/2025 at 6:[address] [facility] ED MED ADMINISTRATION DETAIL on 05-13-2025 ED MED ADMINISTRATION DETAIL Chronometer Adjuster Medication Administration Record [address] [place] [address] [id number] 05/13/2025 Patient: ALESSIA BARRIENTOS Sex: Female : [...] 03:36 Logan Freed R.N. 1 of 2 Chronometer Adjuster Medication Ordered Medication Administration Date/Time Ondansetron IVP [...] Logan Freed R.N. [address] [facility] ED NURSES CLINICAL NOTEon ED NURSES CLINICAL NOTE Nurse Narrative Nurse Clinical [address] [address] [phone] 05/13/2025 03:05:00 Patient: ALESSIA BARRIENTOS Sex: Female : 1990 Age: 34y Disposition: Discharge to Home Disposition Decision Time: 05:32 05/13/2025 Departure Time: 06:08 05/13/2025 TRIAGE Arrived by private vehicle. Historian: (patient). Accompanied by family. Primary physician (none). Triage time: 03:11 05/13/2025. Acuity: LEVEL 3. Chief Complaint: ABDOMINAL PAIN. This started yesterday. SEPSIS SCREEN: NEGATIVE. No possible sources of infection. -- 03:22 06/19/25 EDT See Love R.N. 03:05/13/25. BP: 113/75 MAP: 84 mmHg. HR: 109 bpm. -- 03:05/13/25 EDT See Love R.N. 03:05/13/25. RR: 18. Temperature: 98.3 F. Pain level now 8/10. -- 03:05/13/25 EDT See Love R.N. 03:05/13/25. O2 saturation: 98% -- 03:05/13/25 EDT See Love R.N. Measurements: 03:05/13/25 Wt: 74.8 kg, Ht/Parth: 65.0 in, BMI: 27.46 -- 03:05/13/25 EDT See Love R.N. Medications: no known home medications -- 03:05/13/25 EDT Sanjeev DelgadoN. 03:05/13/25. [facility] Pharmacy: ([facility] -- 03:05/13/25 EDT See Love RJessiNJessi 1 of 4 Nurse Narrative Allergies: no known drug allergies -- 03:05/13/25 SOUMYA Love RJessiNJessi Problems: no known problem -- 03:05/13/25 EDT See Love RJessiNJessi Surgeries: Cholecystectomy -- 03:05/13/25 EDT See Love RGerardo History 03:05/13/25. SOCIAL HX: Never smoker. No alcohol use or drug use. No recent travel. The patient has not traveled outside the [place] Infectious disease exposure: No infectious disease exposure. ABUSE ASSESSMENT: The patient answered yes to the question(s) Do you feel safe in your home? and no to the question(s) Are you afraid to go home?. SELF HARM ASSESSMENT: Self harm assessment was performed. The patient answered no to the question(s) Have you recently felt down, depressed, or hopeless? and Do you have thoughts of harming or killing yourself?. NUTRITIONAL RISK ASSESSMENT: The nutritional risk assessment revealed no deficiencies. FUNCTIONAL ASSESSMENT: Functional assessment: no impairments noted. FALL RISK ASSESSMENT: Fall risk assessment completed. No risk factors identified. -- 03:05/13/25 EDT See Love R.N. 03:05/13/25. PAST MEDICAL HX: LNMP: Last normal menstrual period was 1 week ago. -- 03:05/13/25 EDT See Love R.N. 2 of 4 Nurse Narrative Interventions 03:05/13/25. Identification band on patient. -- 03:05/13/25 EDT See Love R.N. PHYSICAL ASSESSMENT 03:05/13/25. Ambulatory to room. Patient gowned. GENERAL / NEURO / PSYCH: Alert. Oriented X 4. Appears in no acute distress. Appears in pain. ( 8/10 abd pain mid abd area non-radiating, started yesterday, earlier tonight was worse, 10/10, now describes as sharp and constant, denies [...] Pain level now 8/10. -- 03:05/13/25 EDT Logan Freed R.N. 03:05/13/25. O2 saturation: 98% -- 03:05/13/25 EDT Logan Freed R.N. 03:05/13/25. HR: 112 bpm. O2 saturation: 97%. -- 03:05/13/25 EDT Logan Freed R.N. 03:32 05/13/25. IV NS 0.9 % 1000 mL started in bag#1 1000 mL at 999 mL/hr via Site# 1. Allergies verified and confirmed 5 rights. Via dial-a-flow. IV patency established. IV site checked: no pain, redness, or swelling. IV flushed thoroughly pre-medication administration. Information reviewed with patient and spouse including reason for taking this medication. Verbalizes understanding. -- 03:05/13/25 EDT Logan Freed R.N. 03:05/13/25. Ondansetron IVP 4 mg given via Site# 1. Allergies verified and confirmed 5 rights. IV patency established. IV site checked: no pain, redness, or swelling. IV flushed thoroughly pre-medication administration. IVP given by nurse. Information reviewed with patient including reason for taking this (more content not included)... Normal [facility] ED ORDER SHEET (CPOE ONLY)on 05-13-2025 ED ORDER SHEET (CPOE ONLY) Order Sheet Order Sheet [address] [place] [address] [id number] 05/13/2025 Patient: ALESSIA BARRIENTOS Sex: Female : 1990 Age: 34y MEASUREMENTS: Wt: 74.8 kg, Ht/Parth: 65.0 in, BMI: 27.46 ALLERGIES: No known drug allergies MEDICATION/IV/DRIP/FLUID ORDERS Order Description Priority Entered Acknowledged Completed IV NS 0.9 %1000 mL at 999 03:13 05/13/2025 03:25 03:33 mL/hr (NOW x1) Tiara Noriega D.O. 05/13/2025 05/13/2025 Logan Farmer R.N. RGerardo KetorOLAC (Toradol) IVP30 mg 03:26 05/13/2025 03:29 03:36 (NOW x1) Tiara Noriega D.O. 05/13/2025 05/13/2025 Logan Farmer R.N. R.NJessi Ondansetron IVP4 mg (NOW x1) 03:26 05/13/2025 03:29 03:35 Tiara Noriega D.O. 05/13/2025 05/13/2025 Logan Farmer R.N. R.NJessi MORPHine IVP4 mg (NOW x1, 04:39 05/13/2025 04:41 04:50 HIGH ALERT MEDICATION) Tiara Noriega D.O. 05/13/2025 05/13/2025 Logan Farmer R.N. RJessiNJessi 1 of 3 Order Sheet Ondansetron IVP4 mg (NOW x1) 04:39 05/13/2025 04:41 04:47 Tiara Noriega D.O. 05/13/2025 05/13/2025 Logan Farmer R.N. R.NJessi Reason for ordering with alerts: Clinical consideration given --04:39 05/13/2025 Tiara Noriega D.O. LAB ORDERS Order Description Priority Entered Acknowledged Collected Completed CBC w Diff Stat Stat 03:13 05/13/2025 03:25 05/13/2025 03:39 05/13/2025 Ross Hoyt Charles Wilbur, R.N. R.NJessi CMP Stat Stat 03:13 05/13/2025 03:25 05/13/2025 03:39 05/13/2025 Ross Hoyt Charles Wilbur, R.N. R.NJessi Troponin-I Stat Stat 03:13 05/13/2025 03:25 05/13/2025 03:39 05/13/2025 Ross Hoyt Charles Wilbur, R.N. R.NJessi Lactate, Serum Stat Stat 03:13 05/13/2025 03:25 05/13/2025 03:39 05/13/2025 Ross Hoyt Charles Wilbur, SanjeevNJessi R.N. Urinalysis Stat Stat 03:13 05/13/2025 03:25 05/13/2025 04:43 05/13/2025 Ross Hoyt Charles Wilbur, Mayank.N. R.N. Lipase Stat Stat 03:13 05/13/2025 03:25 05/13/2025 03:39 05/13/2025 Ross Hoyt Charles Wilbur, Mayank.N. R.N. CRP Stat Stat 03:13 05/13/2025 03:25 05/13/2025 03:39 05/13/2025 Ross Hoyt Charles Wilbur, R.N. R.NJessi HCG, Qual Serum Stat Stat 03:18 05/13/2025 03:25 05/13/2025 03:39 05/13/2025 2 of 3 Order Sheet Ross Hoyt Charles Wilbur, Mayank.N. R.NJessi DIAGNOSTIC STUDY ORDERS Order Description Priority Entered Acknowledged Completed CT ABD/PEL w Cont Stat Stat 03:13 05/13/2025 03:25 03:39 Tiara Noriega D.O. 05/13/2025 05/13/2025 Logan Farmer R.N. R.NJessi Order Comments: 03:13 05/13/2025: Status: Not . Tiara Noriega D.O. Reason for Study: Abdominal Pain STAFF ORDERS Order Description Priority Entered Acknowledged Collected Completed Vital Signs every 30 03:13 05/13/2025 03:25 05/13/2025 03:39 05/13/2025 minutes Ross Hoyt Charles Wilbur, R.N. R.NJessi Hot Stamp Operator 03:13 05/13/2025 03:25 05/13/2025 03:39 05/13/2025 Ross Hoyt Charles Wilbur, R.N. R.NJessi Oxygen titrate to 92% 03:13 05/13/2025 03:25 05/13/2025 03:39 05/13/2025 Ross Hoyt Charles Wilbur, R.N. R.N. [Electronically signed by Tiara Noriega D.O. (05/13/2025 07:11 EDT)] 3 of [address] [facility] ED PHYSICIAN CLINICAL REPORT on 05-13-2025 ED PHYSICIAN CLINICAL REPORT Narrative Physician Clinical Narrative [facility] [address] [place] [address] [id number] 05/13/2025 03:05:00 Patient: ALESSIA BARRIENTOS Sex: Female [...] Final Be (more content not included)... Normal [facility] ED [facility]25 ED [facility] [address] [place] [address] [id number] 05/13/2025 Patient: ILIANA ALESSIA Tan Sex: Female : 1990 Age: 34y Item Facility Professional Category Description Code Code Quantity Fee Total Drugs Normal Saline 855875 2 $0.00 $0.00 1000cc (362406) Nurse/E/M EMERGENCY 404393 1 $0.00 $0.00 DEPARTMENT VISIT HIGH/URGENT SEVERITY (46999-21) Nurse/IV/IM/Infusions Hydration 866847 2 $0.00 $0.00 additional hour (10462) Nurse/IV/IM/Infusions IVP additional 912252 2 $0.00 $0.00 push (64404) Nurse/IV/IM/Infusions IVP initial 072894 1 $0.00 $0.00 (74168) Nurse/IV/IM/Infusions IVP same med 489498 1 $0.00 $0.00 (31 min apart) (27798) 1 of 2 [facility] Facility Professional Category Description Code Code Quantity Fee Total Nurse/Supplies [employer] 0098267 1 $0.00 $0.00 Adult (6019628) Grand Total $0.00 Providers Tiara Noriega D.O. Chief Complaint ABDOMINAL PAIN. Principal Diagnosis Acute periumbilical abdominal pain. Single simple right ovarian cyst. No ruptured ovarian cyst or torsion of ovary. ICD-10 Codes R10.33: Periumbilical pain N83.299: Other ovarian cyst, unspecified side N83.201: Unspecified ovarian cyst, right side [address] [facility] ED VISIT SUMMARYon ED VISIT SUMMARY Visit Overview Visit Overview [place] [address] [place] [address] [id number] 05/13/2025 Patient: ALESSIA BARRIENTOS Sex: Female : 1990 Age: 34y 05/13/2025 07:21 AM EDT ED Arrival:03:05 05/13/2025 EDT Status:not Recent Travel:no Language:deu Adv Directive: Isolation Status: Ethnicity:N Fall Risk:no risk Infectious Disease Exposure:no Measurements:5'5 / 165.1 Self-Harm Status:risk Sepsis Screen:negative cm [...] TORSION OF OVARY 3 of [address] [facility] ED VITALS FLOW SHEETon 05-13 ED VITALS FLOW SHEET Vitals Vital Sign Flow Sheet [address] [place] [address] [id number] 05/13/2025 Patient: ALESSIA BARRIENTOS Sex: Female : [...] of 3 Vitals 3 of [address] [facility] LACTATEon 05-13-2025 Lactate [Moles/Vol] 0.9 mmol/L Normal 0.4 - 2.[address] [facility] Comment on above: Performed By: #### 2 63657 #### [facility],[address] [place] [address] LIPASEon 05-13-2025 Lipase [Catalytic activity/Vol] 33.0 U/L Normal 15.0 - 78.[address] [facility] Comment on above: Result Comment: *PLE ASE NOTE THAT RANGES FOR LIPASE HAVE CHANGED OF 11/22/23 DUE TO AN ASSAY UPDATE BY THE JUNIOR UNDERWRITER.THE NEW ASSAY RANGE IS 6-250 U/L, WITH A REFERENCE RANGE OF 16-77 U/L. Performed By: #### 2 33413 #### [facility],[address] [place] [address] SERUM QUALon 05-13 EXTERNAL QC DONE? YES Normal [facility] Comment on above: Performed By: #### 2 27399 #### [facility],[address] [place] [address] INTERNAL QC PASS Normal [facility] Comment on above: Performed By: #### 2 94129 #### [facility],[address] [place] [address] SER Negative Normal NEGATIVE [facility] Comment on above: Performed By: #### 2 53491 #### [facility],[address] [place] [address] TROPONINon 05-13-2025 HS TROPONIN <4.0 Normal 0.0 - 51.[address] [facility] Comment on above: Performed By: #### 2 33952 ####[facility],[address] [place] [address] URINALYSISon 05-13-2025 Amorphous NONE Normal [facility] Comment on above: Performed By: #### 2 43772 #### [facility],[address] [place] [address] Bacteria TRACE Normal [facility] Comment on above: Performed By: #### 2 05984 #### [facility],[address] [place], [place] [phone] Bilirubin Ql (U) Negative Normal NORMAL: NEGATIVE [facility] Comment on above: Performed By: #### 2 14861 #### [facility],[address] [place] [address] Casts NONE Normal [facility] Comment on above: Performed By: #### 2 95707 #### [facility],[address] [place] [address] Clarity (U) clear Normal NORMAL: CLEAR [facility] Comment on above: Performed By: #### 2 87569 #### [facility],[address] [place] [address] Color (U) p.yel Normal NORMAL: YELLOW [facility] Comment on above: Performed By: #### 2 98598 #### [facility],[address] [place] [address] Crystals LM Nom (Urine sed) NONE Normal [facility] Comment on above: Performed By: #### 2 96346 #### [facility],[address] [place], [place] [phone] Epi Cells OCC Normal [facility] Comment on above: Performed By: #### 2 50382 #### [facility],[address] [place], [place] [phone] Glucose Ql (U) NORM Normal NORMAL: NORMAL [facility] Comment on above: Performed By: #### 2 65423 #### [facility],[address] [place] [address] 63785 Hemoglobin Ql (U) Negative Normal NORMAL: NEGATIVE [facility] Comment on above: Performed By: #### 2 87994 #### [facility],[address] [place] [address] 08207 Ketone Negative Normal NORMAL: NEGATIVE [facility] Comment on above: Performed By: #### 2 54724 #### [facility],[address] [place] [address] 76551 Leukocytes 25 Abnormal NORMAL: NEGATIVE [facility] Comment on above: Performed By: #### 2 34009 #### [facility],[address] [place] [address] 98744 Mucous NONE Normal [facility] Comment on above: Performed By: #### 2 62067 #### [facility],[address] [place] [address] 11705 Nitrite Ql (U) Negative Normal NORMAL: NEGATIVE [facility] Comment on above: Performed By: #### 2 63575 #### [facility],[address] [place] [address] pH (U) 7 [pH] Normal NORMAL: 5.0-8.[address] [facility] Comment on above: Performed By: #### 2 44250 #### [facility],[address] [place] [address] Protein Ql (U) 15 Abnormal NORMAL: NEGATIVE [facility] Comment on above: Performed By: #### 2 91622 #### [facility],[address] [place] [address] 96233 Rbc NONE Normal 0-3/hpf [facility] Comment on above: Performed By: #### 2 15642 #### [facility],[address] [place] [address] 53905 Sp [place] 1.010 Normal NORMAL: 1.010-1.[address] [facility] Comment on above: Performed By: #### 2 76155 #### [facility],[address] [place] [address] 42302 Specimen Type R Normal [facility] Comment on above: Performed By: #### 2 77179 #### [facility],[address] [place] [address] 85762 Urinalysis dipstick W Reflex Microscopic panel (U) SEE BELOW Normal [facility] Comment on above: Result Comment: MICR OSCOPIC Performed By: #### 2 71637 #### [facility],[address] [place] [address] 25159 Urobilinog NORM Normal NORMAL: NORMAL [facility] Comment on above: Performed By: #### 2 68585 #### [facility],[address] [place] [address],[facility] [address] Wbc 6-10 Normal 0-5/hpf [facility] Comment on above: Performed By: #### 2 61973 #### [facility],[address] [place] [address] 45760 Yeast NONE Normal [facility] Comment on above: Performed By: #### 2 05740 #### [facility],[address] [place] [address] 42332 HPV GENOTYPES 16,18/45on HPV 16 RNA Not detected Normal NOT DETECTED [facility] Comment on above: Performed By: #### 9 0931, 92559 #### [facility]-[address], [address] [place] [address] [employer]: Hesham Platt MD #### 1005 #### [facility] [place] [address] [employer]: Hesham Platt MD HPV 18/45 RNA Not detected Normal NOT DETECTED [facility] Comment on above: Result Comment: Meth odology: [employer] Underwriter Mediated Amplification Cervical sources are required for HPV testing. If a vaginal source from a patient who has had a total hysterectomy with removal of cervix was submitted, please contact the testing laboratory for alternative testing options. Performed By: #### 9 0931, 27013 #### [facility]-[address], [address] [place] [address] [employer]: Hesham Platt MD #### 1005 #### [facility] [address], [address] [place] [address] [employer]: Hesham Platt MD TEST AUTHORIZATIONon 022 CLIENT CONTACT: POLINA Elizondo [facility] Comment on above: Performed By: #### 9 0931, 17839 #### [facility]-[address], [address] [place] [address] [employer]: Hesham Platt MD #### 1005 #### [facility] [address], [address] [place] [address] [employer]: Hesham Platt MD REPORT ALWAYS MESSAGE SIGNATURE Normal [facility] Comment on above: Result Comment: The laboratory testing on this patient was verbally requested or confirmed by the ordering physician or his or her authorized sales representative livestock after contact with an employee of [email or web address]. Federal regulations require that we maintain on file written authorization for all laboratory testing. Accordingly we are asking that the ordering physician or his or her authorized sales representative livestock sign a copy of this report and promptly return it to the financial service representative. Signature: Performed By: #### 9 0931, 22391 #### [facility]-[address], [address] [place] [address] [employer]: Hesham Platt MD #### 1005 #### [facility] [address], [address] [place] [address] [employer]: Hesham Platt MD TEST CODE: VERBAL AUTH Normal [facility] Comment on above: Performed By: #### 9 0931, 96214 #### [facility]-[address], [address] [place] [address] [employer]: Hesham Platt MD #### 1005 #### [facility] [address], [address] [place] [address] [employer]: Hesham Platt MD TEST NAME: VERBAL AUTH Normal [facility] Comment on above: Performed By: #### 9 0931, 69206 #### [facility]-[address], [address] [place] [address] [employer]: Hesham Platt MD #### 1005 #### [facility] [address], [address] [place] [address] [employer]: Hesham Platt MD THINPREP PAP AND HPV mRNA E6 /E7on 08-27-2022 CLINICAL INFORMATION: Normal [facility] Comment on above: Result Comment: None given Performed By: #### 9 0931, 11990 #### [facility]-[address], [address] [place] [address] [employer]: Hesham Platt MD #### 1005 #### [facility] [address], [address] [place] [address] [employer]: Hesham Platt MD COMMENT Normal [facility] [...] clinical information. Performed By: #### 9 0931, 08048 #### [facility], [address] [place] [address] [employer]: Hesham Platt MD #### 1005 #### [facility] [place] [address] [employer]: Hesham Platt MD Result Comment: Plea se have the ordering physician or his or her authorized sales representative livestock sign a copy of this report and promptly return it by faxing it to: [phone] or by returning the form to your nanotechnology engineering technologist. VACUUM FRAME OPERATOR: Normal See Note: [facility] Comment on above: Result Comment: Refe rence Range: ZL, CT(ASCP) CT screening location: [facility] [place] [address]. Performed By: #### 9 0931, 67802 #### [facility]-[address], [address] [place] [address] [employer]: Hesham lPatt MD #### 1005 #### [facility] [place] [address] [employer]: Hesham Platt MD HPV mRNA E6/E7 Detected Abnormal Not Detected [facility] Comment on above: Result Comment: Meth odology: [employer] Underwriter-Mediated Amplification This assay detects E6/E7 viral messenger RNA (mRNA) from 14 high-risk HPV types (16,18,31,33,35,39,45,51,52,56,58,59,66,68). Cervical sources are required for HPV testing. If a vaginal source from a patient who has had a total hysterectomy with removal of cervix was submitted, please contact the testing laboratory for alternative testing options. For additional information, please refer to http://education.[employer]/faq/YRB492s4 (This link if provided for information/ educational purposes only.) Performed By: #### 9 0931, 31957 #### [facility]-[place] [address] [employer]: Hesham Platt MD #### 1005 #### [facility] [place] [address] [employer]: Hesham Platt MD INTERPRETATION/RESULT: Normal [facility] Comment on above: Result Comment: Nega tive for intraepithelial lesion or malignancy. Performed By: #### 9 31, 78207 #### [facility], [address] [place] [address] [employer]: Hesham Platt MD #### 1005 #### [facility] [place] [address] [employer]: Hesham Platt MD LMP: Normal [facility] Comment on above: Result Comment: None given Performed By: #### 9 31, 11101 #### [facility], [address] [place] [address] [employer]: Hesham Platt MD #### 1005 #### [facility] of [address], [address] [place] [phone] [employer]: Hesham Platt MD PREV. BX: Normal [facility] Comment on above: Result Comment: None given Performed By: #### 9 0931, 99096 #### [facility]-[address], [address] [place] [phone] [employer]: Hesham Platt MD #### 1005 #### [facility] of [address], [address] [place] [phone] [employer]: Hesham Platt MD PREV. PAP: Normal [facility] Comment on above: Result Comment: None given Performed By: #### 9 0931, 21800 #### [facility]-[address], [address] [place] [phone] [employer]: Hesham Platt MD #### 1005 #### [facility] of [address], [address] [place] [phone] [employer]: Hesham Platt MD REVIEW VACUUM FRAME OPERATOR: Normal [facility] Comment on above: Result Comment: LLT, CT(ASCP) CT screening location: [place] [address]. Performed By: #### 9 0931, 98663 #### [facility]-[address], [address] [place] [phone] [employer]: Hesham Platt MD #### 1005 #### [facility] of [address], [address] [place] [phone] [employer]: Hesham Platt MD SOURCE: Normal [facility] Comment on above: Result Comment: None given Performed By: #### 9 0931, 37422 #### [facility]-[address], [address] [place] [address] [employer]: Hesham Platt MD #### 1005 #### [facility] of [address], [address] [place] [phone] [employer]: Hesham Platt MD STATEMENT OF ADEQUACY: Normal [facility] Comment on above: Result Comment: Sati sfactory for evaluation. Endocervical/transformation zone component present. Performed By: #### 9 0931, 36829 #### [facility]-[address], [address] [place] [address] [place] [address] [employer]: Hesham Platt MD #### 1005 #### [facility] [address], [address] [place], [place] [phone] [employer]: Hesham Platt MD No Panel Informationon 08-20 [id number] SEE NOTE Normal [employer] [id number] See Below Normal [employer], [employer] Work Phone: CLIENT CONTACT: POLINA Jenkins Normal [employer]. Work Phone: CLINICAL INFORMATION: SEE NOTE Normal [facility] [employer] VACUUM FRAME OPERATOR: SEE NOTE Normal [employer].; [employer] HPV 16 RNA Not detected Normal [employer] Work Phone: HPV 18/45 RNA Not detected Normal [employer].; [employer], [employer]. Work Phone: HPV mRNA E6/E7 Detected Abnormal [employer] INTERPRETATION/RESULT: SEE NOTE Normal [facility] [employer] LMP: SEE NOTE Normal [employer] PREV. BX: SEE NOTE Normal [employer] PREV. PAP: SEE NOTE Normal [employer] REVIEW VACUUM FRAME OPERATOR: SEE NOTE Normal [employer] SOURCE: SEE NOTE Normal [facility]; [facility] STATEMENT OF ADEQUACY: SEE NOTE Normal [facility].; [facility] TEST CODE: VERBAL AUTH Normal [facility]; [facility] Work Phone: TEST NAME: VERBAL AUTH Normal St. [facility]; [facility] Work Phone: Laboratory - Hematology and Cell countson 06-24-2022 Basophils (Bld) [#/Vol] 0.10 {3/UL} Normal 0.00 - 0.10 {3/UL} [facility]; [facility] Work Phone: Basophils/100 WBC (Bld) 0.5 % Normal 0.0 - 2.0 % [facility]; [place] [employer] [facility] Work Phone: CBC W Auto Differential panel (Bld) CBC + DIFF Normal [facility]; [place] [employer] [facility] Work Phone: Eosinophils (Bld) [#/Vol] 0.10 {3/UL} Normal 0.00 - 0.50 {3/UL} [facility]; [place] [employer]. Work Phone: Eosinophils/100 WBC (Bld) 0.5 % Normal 0.0 - 7.0 % [facility]; [place] [employer] Work Phone: Erythrocyte distribution width (RBC) [Ratio] 13.7 % Normal 12.0 - 15.6 % [facility].; [place] [employer] Work Phone: Hematocrit (Bld) [Volume fraction] 23.8 % Abnormal 34.0 - 46.0 % [facility]; [place] [employer] Work Phone: Hemoglobin (Bld) [Mass/Vol] 7.7 g/dL Abnormal 12.0 - 16.0 g/dL [facility]; [facility] Work Phone: Lymphocytes (Bld) [#/Vol] 1.30 {3/UL} Normal 0.80 - 2.80 {3/UL} [facility]; [place] [employer] [facility] Work Phone: Lymphocytes/100 WBC (Bld) 10.5 % Abnormal 20.0 - 45.0 % [facility]; [place] [employer] [facility] Work Phone: MCH (RBC) [Entitic mass] 28 pg Normal 27 - 33 pg [facility]; [place] [employer] [facility] Work Phone: MCHC (RBC) [Mass/Vol] 33 {X10_3} Normal 32 - 3 6 {X10_3} [facility]; [place] [employer]. Work Phone: MCV (RBC) [Entitic vol] 86 fL Normal 80 - 99 fL [facility]; [employer]. Work Phone: Monocytes (Bld) [#/Vol] 0.80 {3/UL} Normal 0.20 - 1.00 {3/UL} [facility]; [employer]. Work Phone: Monocytes/100 WBC (Bld) 6.5 % Normal 0.0 - 10.0 % [facility]; [place] [employer] [facility]. Work Phone: Morphology Darius (Bld) [Interp] N/A Normal [facility]; [place] [employer] Work Phone: Neutrophils (Bld) [#/Vol] 10.00 {3/UL} Abnormal 1.50 - 7.10 {3/UL} [facility]; [employer] Work Phone: Neutrophils/100 WBC (Bld) 82.0 % Abnormal 46.0 - 76.0 % [facility]; [facility] Work Phone: Platelet mean volume (Bld) [Entitic vol] 8.8 fL Normal 6.6 - 10.[address] [facility]; [facility] Work Phone: Platelets (Bld) [#/Vol] 151 {3/UL} Normal 150 - 450 {3/UL} [facility]; [facility] Work Phone: RBC (Bld) [#/Vol] 2.76 {6/UL} Abnormal 4.10 - 5.30 {6/UL} [facility]; [facility] Work Phone: WBC (Bld) [#/Vol] 12.2 {3/UL} Abnormal 4.5 - 10.8 {3/UL} [facility]; [facility] Work Phone: No Panel Informationon 06-24 MANUAL DIFF N/A Normal [facility]; [facility] Work Phone: Laboratory - Blood bankon ABO and Rh group Nom (Bld BPU) Positive Normal [facility]; [facility] Work Phone: ABO group Nom (Bld) Positive Normal [facility]; [facility] Work Phone: Major crossmatch Immediate spin [Interp] BB CROSSMATCH 1ST UNIT Normal [facility]; [facility] Work Phone: Major crossmatch Immediate spin [Interp] BB CROSSMATCH ADDITIONAL UNIT Normal [facility]; [facility] Work Phone: Laboratory - Hematology and Cell countson 06-23-2022 Basophils (Bld) [#/Vol] 0.10 {3/UL} Normal 0.00 - 0.10 {3/UL} [facility].; [facility]. Work Phone: Basophils/100 WBC (Bld) 0.3 % Normal 0.0 - 2.0 % [facility].; [facility] Work Phone: CBC panel Auto (Bld) CBC (NO DIFF) Normal H [facility], [facility]. Work Phone: CBC W Auto Differential panel (Bld) CBC + DIFF Normal [facility].; [facility], [facility]. Work Phone: Eosinophils (Bld) [#/Vol] 0.20 {3/UL} Normal 0.00 - 0.50 {3/UL} [facility], [facility].; [facility], [facility]. Work Phone: Eosinophils (Bld) [#/Vol] 0.00 {3/UL} Normal 0.00 - 0.50 {3/UL} [facility].; [facility], [facility]. Work Phone: Eosinophils/100 WBC (Bld) 1.0 % Normal 0.0 - 7.0 % [facility].; [facility] Work Phone: Eosinophils/100 WBC (Bld) 0.1 % Normal 0.0 - 7.0 % [facility].; [facility], [facility]. Work Phone: Erythrocyte distribution width (RBC) [Ratio] 13.5 % Normal 12.0 - 15.6 % [facility], [facility].; [facility], [facility]. Work Phone: Erythrocyte distribution width (RBC) [Ratio] 13.4 % Normal 12.0 - 15.6 % [facility], [facility].; [facility] Work Phone: Erythrocyte distribution width (RBC) [Ratio] 13.3 % Normal 12.0 - 15.6 % [facility].; [facility]. Work Phone: Hematocrit (Bld) [Volume fraction] 32.9 % Abnormal 34.0 - 46.0 % [facility].; [facility]. Work Phone: Hematocrit (Bld) [Volume fraction] 26.4 % Abnormal 34.0 - 46.0 % [facility].; [place] [employer]. Work Phone: Hematocrit (Bld) [Volume fraction] 24.3 % Abnormal 34.0 - 46.0 % [facility].; [place] [employer], [employer]. Work Phone: Hemoglobin (Bld) [Mass/Vol] 10.8 g/dL Abnormal 12.0 - 16.0 g/dL [facility].; [place] [employer], [employer]. Work Phone: Hemoglobin (Bld) [Mass/Vol] 8.5 g/dL Abnormal 12.0 - 16.0 g/dL [facility].; [place] [employer]. Work Phone: Hemoglobin (Bld) [Mass/Vol] 8.0 g/dL Abnormal 12.0 - 16.0 g/dL [facility].; [place] [employer], [employer]. Work Phone: [phone] Lymphocytes (Bld) [#/Vol] 1.70 {3/UL} Normal 0.80 - 2.80 {3/UL} [facility].; [place] [employer]. Work Phone: [phone] Lymphocytes (Bld) [#/Vol] 0.90 {3/UL} Normal 0.80 - 2.80 {3/UL} [facility].; [place] [employer], [employer]. Work Phone: Lymphocytes/100 WBC (Bld) 9.3 % Abnormal 20.0 - 45.0 % [facility].; [place] [employer]. Work Phone: Lymphocytes/100 WBC (Bld) 4 % Abnormal 20 - 40 % [facility].; [place] [employer] [facility]. Work Phone: Lymphocytes/100 WBC (Bld) 4.3 % Abnormal 20.0 - 45.0 % [facility].; [place] [employer] [facility], [employer]. Work Phone: MCH (RBC) [Entitic mass] 28 pg Normal 27 - 33 pg [facility].; [place] [employer]. Work Phone: MCHC (RBC) [Mass/Vol] 33 {X10_3} Normal 32 - 3 6 {X10_3} [facility].; [place] [employer], [employer]. Work Phone: MCHC (RBC) [Mass/Vol] 32 {X10_3} Normal 32 - 3 6 {X10_3} [facility].; [place] [employer]. Work Phone: MCV (RBC) [Entitic vol] 85 fL Normal 80 - 99 fL [facility].; [employer]. Work Phone: MCV (RBC) [Entitic vol] 86 fL Normal 80 - 99 fL [facility].; [employer]. Work Phone: Monocytes (Bld) [#/Vol] 0.70 {3/UL} Normal 0.20 - 1.00 {3/UL} [facility].; [place] [employer]. Work Phone: Monocytes (Bld) [#/Vol] 1.10 {3/UL} Abnormal 0.20 - 1.00 {3/UL} [facility].; [place] [employer]. Work Phone: Monocytes/100 WBC (Bld) 3.9 % Normal 0.0 - 10.0 % [facility].; [place] [employer]. Work Phone: Monocytes/100 WBC (Bld) 5.0 % Normal 0.0 - 10.0 % [facility].; [place] [employer] [facility]. Work Phone: Morphology Darius (Bld) [Interp] REVIEWED Normal [facility].; [facility] Work Phone: Morphology Darius (Bld) [Interp] N/A Normal [facility].; [facility], [facility]. Work Phone: Neutrophils (Bld) [#/Vol] 15.20 {3/UL} Abnormal 1.50 - 7.10 {3/UL} [facility].; [place] [employer] [facility], [employer]. Work Phone: Neutrophils (Bld) [#/Vol] 19.80 {3/UL} Abnormal 1.50 - 7.10 {3/UL} [facility].; [place] [employer], [employer]. Work Phone: Neutrophils/100 WBC (Bld) 85.5 % Abnormal 46.0 - 76.0 % [facility].; [place] [employer], [employer]. Work Phone: Neutrophils/100 WBC (Bld) 90.3 % Abnormal 46.0 - 76.0 % [facility].; [place] [employer], [employer]. Work Phone: Platelet mean volume (Bld) [Entitic vol] 9.1 fL Normal 6.6 - 10.5 fL [facility].; [place] [employer]. Work Phone: Platelet mean volume (Bld) [Entitic vol] 9.2 fL Normal 6.6 - 10.5 fL [facility].; [place] [employer], [employer]. Work Phone: Platelet mean volume (Bld) [Entitic vol] 8.8 fL Normal 6.6 - 10.5 fL [facility].; [employer], [employer]. Work Phone: Platelets (Bld) [#/Vol] 205 {3/UL} Normal 150 - 450 {3/UL} [place] [employer].; [employer]. Work Phone: Platelets (Bld) [#/Vol] 148 {3/UL} Abnormal 150 - 450 {3/UL} [employer].; [employer]. Work Phone: Platelets (Bld) [#/Vol] 158 {3/UL} Normal 150 - 450 {3/UL} [employer].; [employer]. Work Phone: RBC (Bld) [#/Vol] 3.89 {6/UL} Abnormal 4.10 - 5.30 {6/UL} [employer].; [employer], [employer]. Work Phone: RBC (Bld) [#/Vol] 3.06 {6/UL} Abnormal 4.10 - 5.30 {6/UL} [employer].; [employer]. Work Phone: RBC (Bld) [#/Vol] 2.84 {6/UL} Abnormal 4.10 - 5.30 {6/UL} [employer].; [employer]. Work Phone: WBC (Bld) [#/Vol] 17.8 {3/UL} Abnormal 4.5 - 10.8 {3/UL} [employer].; [employer]. Work Phone: WBC (Bld) [#/Vol] 21.9 {3/UL} Abnormal 4.5 - 10.8 {3/UL} [employer].; [employer], [employer]. Work Phone: WBC (Bld) [#/Vol] 14.9 {3/UL} Abnormal 4.5 - 10.8 {3/UL} [employer].; [employer], [employer]. Work Phone: No Panel Informationon 06-23 BANDS 7 % Abnormal 0 - 5 % [facility].; [facility]. Work Phone: CELL COUNT [address] [facility]; [facility] Work Phone: Compatibility COMPATIBLE Normal [facility]; [facility]. Work Phone: Component LRPC Normal [facility]; [facility]. Work Phone: Donor's Unit No [phone] Normal [facility]; [facility]. Work Phone: Donor's Unit No [phone] Normal [facility].; [place] [employer] [facility]. Work Phone: MANUAL DIFF SEE BELOW Normal [facility]; [facility] Work Phone: MANUAL DIFF N/A Normal [facility]; [place] [employer] [facility]. Work Phone: MONOS 2 % Normal 0 - 8 % [facility]; [facility] Work Phone: SEGS 87 % Abnormal 50 - 70 % [facility]; [place] [employer] [facility] Work Phone: Unit Exp Date 07-27-[address] [facility]; [place] [employer] [facility] Work Phone: Laboratory - Blood bankon ABO group Nom (Bld) O Normal [facility]; [place] [employer] [facility] Work Phone: Blood group antibody screen Ql Negative Normal [facility]; [place] [employer] [facility]. Work Phone: Blood type and Indirect antibody screen panel (Bld) Normal [facility]; [place] [employer] [facility]. Work Phone: Rh Nom (Bld) Positive Normal [facility]; [facility] Work Phone: Laboratory - Hematology and Cell countson 06-22-2022 CBC panel Auto (Bld) CBC (NO DIFF) [facility]; [facility] Work Phone: Erythrocyte distribution width (RBC) [Ratio] 13.4 % Normal 12.0 - 15.6 % [facility]; [facility] Work Phone: Hematocrit (Bld) [Volume fraction] 36.3 % Normal 34.0 - 46.0 % [facility]; [facility] Work Phone: Hemoglobin (Bld) [Mass/Vol] 11.7 g/dL Abnormal 12.0 - 16.0 g/dL [facility]; [facility] Work Phone: MCH (RBC) [Entitic mass] 28 pg Normal 27 - [address] [facility]; [facility] Work Phone: MCHC (RBC) [Mass/Vol] 32 {X10_3} Normal 32 - 3 6 {X10_3} [facility]; [facility] Work Phone: MCV (RBC) [Entitic vol] 86 fL Normal 80 - 99 fL [facility]; [facility] Work Phone: Platelet mean volume (Bld) [Entitic vol] 9.0 fL Normal 6.6 - 10.5 fL [facility]; [facility] Work Phone: Platelets (Bld) [#/Vol] 183 {3/UL} Normal 150 - 450 {3/UL} [facility]; [facility] Work Phone: RBC (Bld) [#/Vol] 4.24 {6/UL} Normal 4.10 - 5.30 {6/UL} [employer] Work Phone: WBC (Bld) [#/Vol] 8.4 {3/UL} Normal 4.5 - 10.8 {3/UL} [employer] Work Phone: Laboratory - Urinalysison Glucose Test strip (U) [Mass/Vol] Negative Normal [employer] Protein Ql (U) Negative Normal [employer].; [employer]. Laboratory - Urinalysison Glucose Test strip (U) [Mass/Vol] Negative Normal [employer].; [employer] Protein Ql (U) Negative Normal [employer].; [employer]. CBC (INCLUDES DIFF/PLT)on Basophils (Bld) [#/Vol] 0.018 10*3/uL Normal 0-200 [facility] Comment on above: Performed By: #### 1 [id number], [id number] #### [facility] [place] [address] [employer]: Hesham Platt MD Basophils/100 WBC (Bld) 0.2 % Normal [facility] Comment on above: Performed By: #### 1 [id number], [id number] #### [facility] [place] [address] [employer]: Hesham Platt MD Eosinophils (Bld) [#/Vol] 0.08 10*3/uL Normal 15-500 [facility] Comment on above: Performed By: #### 1 0256, [id number] #### [facility] [place] [address] [employer]: Hesham Platt MD Eosinophils/100 WBC (Bld) 0.9 % Normal [facility] Comment on above: Performed By: #### 1 0256, [id number] #### [facility] of [address], [address] [place] [address] [employer]: Hesham Platt MD Erythrocyte distribution width (RBC) [Ratio] 12.2 % Normal 11.0-15.0 [facility] Comment on above: Performed By: #### 1 [id number], [id number] #### [facility] of [address], [address] [place] [address] [employer]: Hesham Platt MD Hematocrit (Bld) [Volume fraction] 34.5 % Low 35.0-45.0 [facility] Comment on above: Performed By: #### 1 [id number], [id number] #### [facility] of [address], [address] [place] [address] [employer]: Hesham Platt MD Hemoglobin (Bld) [Mass/Vol] 11.5 g/dL Low 11.7-15.5 [facility] Comment on above: Performed By: #### 1 [id number], [id number] #### [facility] of [address], [address] [place] [address] [employer]: Hesham Platt MD Lymphocytes (Bld) [#/Vol] 1.299 10*3/uL Normal 850-3900 [facility] Comment on above: Performed By: #### 1 [id number], [id number] #### [facility] of [address], [address] [place] [address] [employer]: Hesham Platt MD Lymphocytes/100 WBC (Bld) 14.6 % Normal [facility] Comment on above: Performed By: #### 1 [id number], [id number] #### [facility] of [address], [address] [place] [address] [employer]: Hesham Platt MD MCH (RBC) [Entitic mass] 28.8 pg Normal 27.0-33.0 [facility] Comment on above: Performed By: #### 1 [id number], [id number] #### [facility] of [address], [address] [place] [address] [employer]: Hesham Platt MD MCHC (RBC) [Mass/Vol] 33.3 g/dL Normal 32.0-36.[address] [facility] Comment on above: Performed By: #### 1 [id number], [id number] #### [facility] of [place] [address] [employer]: Hesham Platt MD MCV (RBC) [Entitic vol] 86.3 fL Normal 80.0-100.0 [facility] Comment on above: Performed By: #### 1 0256, [id number] #### [facility] of [place] [address] [employer]: Hesham Platt MD Monocytes (Bld) [#/Vol] 0.694 10*3/uL Normal 200-950 [facility] Comment on above: Performed By: #### 1 0256, [id number] #### [facility] [place] [address] [employer]: Hesham Platt MD Monocytes/100 WBC (Bld) 7.8 % Normal [facility] Comment on above: Performed By: #### 1 0256, 6399 #### [facility] [place] [address] [employer]: Hesham Paltt MD Neutrophils (Bld) [#/Vol] 6.809 10*3/uL Normal 3881-3802 [facility] Comment on above: Performed By: #### 1 0256, 6399 #### [facility] of [place] [address] [employer]: Hesham Platt MD Neutrophils/100 WBC (Bld) 76.5 % Normal [facility] Comment on above: Performed By: #### 1 0256, 6399 #### [facility] of [place] [address] [employer]: Hesham Platt MD Platelet mean volume (Bld) [Entitic vol] 10.8 fL Normal 7.5-12.5 [facility] Comment on above: Performed By: #### 1 0256, [id number] #### [facility] of [address], [address] [place] [address] [employer]: Hesham Platt MD Platelets (Bld) [#/Vol] 161 10*3/uL Normal 140-400 [facility] Comment on above: Performed By: #### 1 0256, [id number] #### [facility] of [address], [address] [place] [address] [employer]: Hesham Platt MD RBC (Bld) [#/Vol] 4.00 10*6/uL Normal 3.80-5.10 [facility] Comment on above: Performed By: #### 1 0256, [id number] #### [facility] of [address], [address] [place] [address] [employer]: Hesham Platt MD WBC (Bld) [#/Vol] 8.9 10*3/uL Normal 3.8-10.8 [facility] Comment on above: Performed By: #### 1 0256, [id number] #### [facility] of [address], [address] [place] [address] [employer]: Hesham Platt MD HEPATIC FUNCTION PANELon Albumin [Mass/Vol] 3.5 g/dL Low 3.6-5.1 [facility] Comment on above: Performed By: #### 1 0256, 6399 #### [facility] of [place] [address] [employer]: Hesham Platt MD Albumin/Globulin [Mass ratio] 1.4 {ratio} Normal 1.0-2.5 [facility] Comment on above: Performed By: #### 1 0256, [id number] #### [facility] of [place] [address] [employer]: Hesham Platt MD ALP [Catalytic activity/Vol] 113 U/L Normal 31-125 [facility] Comment on above: Performed By: #### 1 0256, 6399 #### [facility] of [address] [place] [address] [employer]: Hesham Platt MD ALT [Catalytic activity/Vol] 11 U/L Normal 6-29 [facility] Comment on above: Performed By: #### 1 0256, 6399 #### [facility] of [place] [address] [employer]: Hesham Platt MD AST [Catalytic activity/Vol] 14 U/L Normal 10-30 [facility] Comment on above: Performed By: #### 1 0256, 6399 #### [facility] of [place] [address] [employer]: Hesham Platt MD Bilirubin [Mass/Vol] 0.6 mg/dL Normal 0.2-1.2 [facility] Comment on above: Performed By: #### 1 0256, 6399 #### [facility] of [place] [address] [employer]: Hesham Platt MD BILIRUBIN, INDIRECT 0.5 mg/dL (calc) Normal 0.2-1.2 [facility] Comment on above: Performed By: #### 1 0256, 6399 #### [facility] of [place] [address] [employer]: Hesham Platt MD Bilirubin.indirect [Mass/Vol] 0.1 mg/dL Normal < OR = 0.2 [facility] Comment on above: Performed By: #### 1 0256, 6399 #### [facility] of [place] [address] [employer]: Hesham Platt MD Globulin (S) [Mass/Vol] 2.5 g/dL Normal 1.9-3.7 [facility] Comment on above: Performed By: #### 1 0256, [id number] #### [facility] [place] [address] [employer]: Hesham Platt MD Protein [Mass/Vol] 6.0 g/dL Low 6.1-8.1 [facility] Comment on above: Performed By: #### 1 3296, 7332 #### [facility] [address] [facility], [address] [place] [address] [employer]: Hesham Platt MD Laboratory - Chemistry and C hemistry - challengeon 06-05-2022 Albumin [Mass/Vol] 3.5 g/dL Abnormal 3.6 - 5.1 g/dL [facility] [employer] Albumin/Globulin [Mass ratio] 1.4 {ratio} Normal 1.0 - 2.5 [facility], [facility].; [employer] ALP [Catalytic activity/Vol] 113 U/L Normal 31 - 125 U/L [facility], [facility].; [employer] [facility] ALT [Catalytic activity/Vol] 11 U/L Normal 6 - 29 U/L [facility] [employer] AST [Catalytic activity/Vol] 14 U/L Normal 10 - 30 U/L [employer] [facility], [facility].; [employer] Bilirubin [Mass/Vol] 0.6 mg/dL Normal 0.2 - 1 .2 mg/dL [employer], [employer]. Bilirubin.indirect [Mass/Vol] 0.1 mg/dL Normal [employer] [facility], [facility].; [employer] Creatinine [Mass/Vol] 15.36 mg/dL Normal [facility], [facility].; [employer] Protein (24H U) [Mass/Vol] <6.00 Normal 0.00 - 10.00 mg/dL [employer] [facility], [facility].; [employer] Protein [Mass/Vol] 6.0 g/dL Abnormal 6.1 - 8.1 g/dL [employer] Laboratory - Hematology and Cell countson 06-05-2022 Basophils (Bld) [#/Vol] 0.018 10*3/uL Normal 0 - 200 {cells/uL} [employer] Basophils/100 WBC (Bld) 0.2 % Normal [employer], [employer].; [facility] Eosinophils (Bld) [#/Vol] 0.08 10*3/uL Normal 15 - 500 {cells/uL} [facility].; [facility]. Eosinophils/100 WBC (Bld) 0.9 % Normal [facility].; [facility], [facility]. Erythrocyte distribution width (RBC) [Ratio] 12.2 % Normal 11.0 - 15.0 % [facility].; [facility], [facility] Hematocrit (Bld) [Volume fraction] 34.5 % Abnormal 35.0 - 45.0 % [facility]; [facility], [facility] Hemoglobin (Bld) [Mass/Vol] 11.5 g/dL Abnormal 11.7 - 15.5 g/dL [facility]; [facility], [facility] Lymphocytes (Bld) [#/Vol] 1.299 10*3/uL Normal 850 - 3900 {cells/uL} [facility].; [facility] Lymphocytes/100 WBC (Bld) 14.6 % Normal [facility]; [employer] [facility]. MCH (RBC) [Entitic mass] 28.8 pg Normal 27.0 - 33.0 pg [facility].; [facility], [facility]. MCHC (RBC) [Mass/Vol] 33.3 g/dL Normal 32.0 - 36.0 g/dL [facility].; [employer] [facility], [facility]. MCV (RBC) [Entitic vol] 86.3 fL Normal 80.0 - 100.0 fL [facility].; [facility]. Monocytes (Bld) [#/Vol] 0.694 10*3/uL Normal 200 - 950 {cells/uL} [facility].; [facility], [facility]. Monocytes/100 WBC (Bld) 7.8 % Normal [facility].; [facility], [facility]. Neutrophils (Bld) [#/Vol] 6.809 10*3/uL Normal 1500 - 7800 {cells/uL} [facility].; [employer], [facility]. Neutrophils/100 WBC (Bld) 76.5 % Normal [facility]; [facility] Platelet mean volume (Bld) [Entitic vol] 10.8 fL Normal 7.5 - 12.[address] [facility]; [facility] Platelets (Bld) [#/Vol] 161 10*3/uL Normal 140 - 400 [facility]; [facility] RBC (Bld) [#/Vol] 4.00 10*6/uL Normal 3.80 - 5.10 {Million/u L} [facility]; [facility] WBC (Bld) [#/Vol] 8.9 10*3/uL Normal 3.8 - 10.8 [facility]; [facility] Laboratory - Urinalysison Glucose Test strip (U) [Mass/Vol] Negative Normal [facility]; [facility] Protein Ql (U) Negative Normal [facility]; [facility] No Panel Informationon 06-05 BILIRUBIN, INDIRECT 0.5 Normal 0.2 - 1.2 [facility]; [facility] GLOBULIN 2.5 Normal 1.9 - 3.7 [facility]; [facility] PC RATIO 0.16 mg/dL Normal 0.00 - 10.00 mg/dL [facility]; [employer] [facility] Laboratory - Microbiology an d Antimicrobial susceptibilityon 05-22-2022 S. agalactiae Org specific cx Ql (Vag fld) CULTURE GBS SCREEN Normal [facility]; [facility] Laboratory - Urinalysison Glucose Test strip (U) [Mass/Vol] Negative Normal [facility]; [facility] Protein Ql (U) Negative Normal [facility]; [facility], [facility] Laboratory - Urinalysison Glucose Test strip (U) [Mass/Vol] Negative Normal [facility]; [facility] Protein Ql (U) Negative Normal [facility] Hospital[facility].; [employer]. No Panel Informationon 05-07 FIBRONECTIN Negative Normal [employer].; [employer], [employer]. Laboratory - Urinalysison Glucose Test strip (U) [Mass/Vol] Negative Normal [employer].; [employer] Protein Ql (U) Negative Normal [employer].; [employer], [employer]. No Panel Informationon 03-26 FIBRONECTIN Negative Normal [employer].; [employer]. Laboratory - Hematology and Cell countson 03-24-2022 HbA1c (Bld) [Mass fraction] 4.8 % Normal 4.6 - 7.1 % [employer] [facility].; [employer], [employer]. Hemoglobin (Bld) [Mass/Vol] 12.6 g/dL Normal 11.5 - 14.2 g/dL [employer].; [employer], [employer]. Laboratory - Urinalysison Glucose Test strip (U) [Mass/Vol] Negative Normal [employer].; [employer], [employer]. Protein Ql (U) Negative Normal [employer].; [employer], [employer]. Laboratory - Urinalysison Glucose Test strip (U) [Mass/Vol] Negative Normal [employer].; [employer], [employer]. Protein Ql (U) Negative Normal [employer].; [employer], [employer]. Laboratory - Urinalysison Glucose Test strip (U) [Mass/Vol] Negative Normal [employer].; [employer]. Protein Ql (U) Negative Normal [employer].; [employer], [employer]. OBSTETRIC PANELon 12-19-2021 ABO group Nom (Bld) O Normal [facility] Comment on above: Performed By: #### 2 5766, [id number] #### [facility] [address], [address] [place] [id number] [employer]: Hesham Platt MD ANTIBODY SCREEN, RBC W/REFL [...] alloimmunized . Performed By: #### 2 209, #### [facility] [place] [address] [employer]: Hesham Platt MD Basophils (Bld) [#/Vol] 0.011 10*3/uL Normal 0-200 [facility] Comment on above: Performed By: #### 2 209, #### [facility] [place] [address] [employer]: Hesham Platt MD Basophils/100 WBC (Bld) 0.2 % Normal [facility] Comment on above: Performed By: #### 2 209, #### [facility] [place] [address] [employer]: Hesham Platt MD Eosinophils (Bld) [#/Vol] 0.028 10*3/uL Normal 15-500 [facility] Comment on above: Performed By: #### 2 209, #### [facility] [place] [address] [employer]: Hesham Platt MD Eosinophils/100 WBC (Bld) 0.5 % Normal [facility] Comment on above: Performed By: #### 2 209, #### [facility] [place] [address] [employer]: Hesham Platt MD Erythrocyte distribution width (RBC) [Ratio] 11.8 % Normal 11.0-15.0 [facility] Comment on above: Performed By: #### 2 209, #### [facility] [place] [address] [employer]: Hesham Platt MD Hematocrit (Bld) [Volume fraction] 40.8 % Normal 35.0-45.0 [facility] Comment on above: Performed By: #### 2 209, #### [facility] [place] [address] [employer]: Hesham Platt MD Hemoglobin (Bld) [Mass/Vol] 13.3 g/dL Normal 11.7-15.5 [facility] Comment on above: Performed By: #### 2 209, #### [facility] [place] [address] [employer]: Hesham Platt MD HEPATITIS B SURFACE ANTIGEN Non-Reactive Normal NON-REACTI VE [facility] Comment on above: Performed By: #### 2 209, #### [facility] [place] [address] [employer]: Hesham Platt MD Lymphocytes (Bld) [#/Vol] 1.546 10*3/uL Normal 850-3900 [facility] Comment on above: Performed By: #### 2 209, #### [facility] [place] [address] [employer]: Hesham Platt MD Lymphocytes/100 WBC (Bld) 27.6 % Normal [facility] Comment on above: Performed By: #### 2 209, #### [facility] [place] [address] [employer]: Hesham Platt MD MCH (RBC) [Entitic mass] 28.2 pg Normal 27.0-33.0 [facility] Comment on above: Performed By: #### 2 209, #### [facility] [place] [address] [employer]: Hesham Platt MD MCHC (RBC) [Mass/Vol] 32.6 g/dL Normal 32.0-36.[address] [facility] Comment on above: Performed By: #### 2 209, #### [facility] [place] [address] [employer]: Hesham Platt MD MCV (RBC) [Entitic vol] 86.6 fL Normal 80.0-100.0 [facility] Comment on above: Performed By: #### 2 209, #### [facility] [place] [address] [employer]: Hesham Platt MD Monocytes (Bld) [#/Vol] 0.291 10*3/uL Normal 200-950 [facility] Comment on above: Performed By: #### 2 209, #### [facility] [place] [address] [employer]: Hesham Platt MD Monocytes/100 WBC (Bld) 5.2 % Normal [facility] Comment on above: Performed By: #### 2 209, #### [facility] [place] [address] [employer]: Hesham Platt MD Neutrophils (Bld) [#/Vol] 3.724 10*3/uL Normal 8932-4774 [facility] Comment on above: Performed By: #### 2 209, #### [facility] [place] [address] [employer]: Hesham Platt MD Neutrophils/100 WBC (Bld) 66.5 % Normal [facility] Comment on above: Performed By: #### 2 209, #### [facility] [place] [address] [employer]: Hesham Platt MD Platelet mean volume (Bld) [Entitic vol] 11.3 fL Normal 7.5-12.5 [facility] Comment on above: Performed By: #### 2 209, #### [facility] [place] [address] [employer]: Hesham Platt MD Platelets (Bld) [#/Vol] 179 10*3/uL Normal 140-400 [facility] Comment on above: Performed By: #### 2 209, #### [facility] of [address], [address] [place] [address] [employer]: Hesham Platt MD RBC (Bld) [#/Vol] 4.71 10*6/uL Normal 3.80-5.10 [facility] Comment on above: Performed By: #### 2 209, #### [facility] of [address], [address] [place] [address] [employer]: Hesham Platt MD RH TYPE Positive Normal [facility] Comment on above: Result Comment: For additional information, please refer to http://education.Talasim/faq/JDY072 (This link is being provided for informational/ educational purposes only.) Performed By: #### 2 209, #### [facility] [address], [address] [place] [address] [employer]: Hesham Platt MD RPR (DX) W/REFL TITER AND CONFIRMATORY TESTING Non-Reactive Normal NON-REACTI VE [facility] Comment on above: Performed By: #### 2 209, #### [facility] [place] [address] [employer]: Hesham Platt MD RUBELLA AB (IGG), IMMUNE STATUS 4.85 Index Normal [facility] Comment on above: Result Comment: Inde x Interpretation ----- <0.90 Not consistent with immunity 0.90-0.99 Equivocal > or = 1.00 Consistent with immunity The presence of rubella IgG antibody suggests immunization or past or current infection with rubella virus. Performed By: #### 2 209, #### [facility] [address], [address] [place] [address] [employer]: Hesham Platt MD WBC (Bld) [#/Vol] 5.6 10*3/uL Normal 3.8-10.8 [facility] Comment on above: Performed By: #### 2 0210, [id number] #### [facility] [address] [facility] [address] [facility], [address] [place] [address] [employer]: Hesham Platt MD TSH W/REFLEX TO FT4on 2021 TSH W/REFLEX TO FT4 0.42 mIU/L Normal [facility] Comment on above: Result Comment: Refe rence Range > or = 20 Years 0.40-4.50 Ranges First trimester 0.26-2.66 Second trimester 0.55-2.73 Third trimester 0.43-2.91 Performed By: #### 2 0210, 02380 #### [facility] [address], [address] [place] [address] [employer]: Hesham Platt MD Laboratory - Blood bankon ABO group Nom (Bld) O Normal [employer]. Rh Nom (Amn fld) Positive Normal [employer].; [employer]. Laboratory - Chemistry and C hemistry - challengeon 12-15-2021 Bilirubin Ql (U) Negative Normal [employer].; [employer], [employer]. Ketones Ql (U) Negative Normal [employer].; [employer], [employer]. pH (U) 7.0 [pH] Normal [employer].; [employer], [employer]. Specific gravity (U) [Rel density] 1.010 Normal [employer].; [employer]. Urobilinogen Qn (U) 0.2 mg/dL Normal [employer].; [employer], [employer]. Laboratory - Hematology and Cell countson 12-15-2021 Basophils (Bld) [#/Vol] 0.011 10*3/uL Normal 0 - 200 {cells/uL} [employer].; [employer], [employer]. Basophils/100 WBC (Bld) 0.2 % Normal [employer].; [employer], [employer]. Eosinophils (Bld) [#/Vol] 0.028 10*3/uL Normal 15 - 500 {cells/uL} [facility].; [facility]. Eosinophils/100 WBC (Bld) 0.5 % Normal [facility].; [facility], [facility]. Erythrocyte distribution width (RBC) [Ratio] 11.8 % Normal 11.0 - 15.0 % [facility], [facility].; [employer] [facility], [facility] Hematocrit (Bld) [Volume fraction] 40.8 % Normal 35.0 - 45.0 % [facility].; [facility], [facility] Hemoglobin (Bld) [Mass/Vol] 13.3 g/dL Normal 11.7 - 15.5 g/dL [facility].; [facility], [facility] Hemoglobin Ql (U) Negative Normal [facility].; [facility], [facility] Lymphocytes (Bld) [#/Vol] 1.546 10*3/uL Normal 850 - 3900 {cells/uL} [facility].; [place] [employer], [facility]. Lymphocytes/100 WBC (Bld) 27.6 % Normal [facility].; [employer], [facility]. MCH (RBC) [Entitic mass] 28.2 pg Normal 27.0 - 33.0 pg [facility].; [employer] [facility], [facility]. MCHC (RBC) [Mass/Vol] 32.6 g/dL Normal 32.0 - 36.0 g/dL [facility], [facility].; [employer], [facility]. MCV (RBC) [Entitic vol] 86.6 fL Normal 80.0 - 100.0 fL [facility].; [employer] [facility], [facility]. Monocytes (Bld) [#/Vol] 0.291 10*3/uL Normal 200 - 950 {cells/uL} [employer] [facility].; [employer], [facility]. Monocytes/100 WBC (Bld) 5.2 % Normal [facility].; [employer] [facility], [facility]. Neutrophils (Bld) [#/Vol] 3.724 10*3/uL Normal 1500 - 7800 {cells/uL} [employer] [facility].; [employer], [facility]. Neutrophils/100 WBC (Bld) 66.5 % Normal [facility]; [facility] Platelet mean volume (Bld) [Entitic vol] 11.3 fL Normal 7.5 - 12.[address] [facility]; [facility], [facility] Platelets (Bld) [#/Vol] 179 10*3/uL Normal 140 - 400 [facility]; [facility] RBC (Bld) [#/Vol] 4.71 10*6/uL Normal 3.80 - 5.10 {Million/u L} [facility]; [facility] WBC (Bld) [#/Vol] 5.6 10*3/uL Normal 3.8 - 10.8 [facility]; [facility] Laboratory - Specimen inform ationon 12-15-2021 Appearance (U) Clear Normal [facility]; [place] [employer] [facility] Color (U) Yellow Normal [facility]; [employer] [facility] Laboratory - Urinalysison Glucose Test strip (U) [Mass/Vol] Negative Normal [facility]; [employer] [facility] Leukocyte esterase Test strip Ql (U) Negative Normal [facility]; [facility] Nitrite Ql (U) Negative Normal [facility]; [employer] [facility] Protein Ql (U) Negative Normal [facility]; [employer] [facility] No Panel Informationon 12-15 ANTIBODY SCREEN, RBC W/REFL ID, TITER AND AG Detected Normal [facility]; [employer] [facility] HEPATITIS B SURFACE ANTIGEN Non-Reactive Normal [facility]; [employer] [facility] RPR (DX) W/REFL TITER AND CONFIRMATORY TESTING Non-Reactive Normal [facility]; [facility] RUBELLA AB (IGG), IMMUNE STATUS 4.85 {Index} Normal [facility]; [employer] [facility] TSH W/REFLEX TO FT4 0.42 {mIU/L} Normal [facility]; [facility] GL1on 07-24-2018 Glucose mass conc 180 mg/dL High 70-139 [facility] ([place]) Comment on above: Result Comment: *Joie betes [...] GMP, HCG, PABO, PABS, RUBIS, RPR, HBSAG ####[place] [address] GL2on 07-24-2018 Glucose mass conc 173 mg/dL Normal [facility] ([place]) Comment on above: Performed By: #### H GMP, HCG, PABO, PABS, RUBIS, RPR, HBSAG ####[place] [address] GL3on 07-24-2018 Glucose mass conc 62 mg/dL Normal [facility] ([place]) Comment on above: Performed By: #### H GMP, HCG, PABO, PABS, RUBIS, RPR, HBSAG ####[place] [address] GLFon 07-24-2018 Glucose mass conc 70 mg/dL Normal 70-110 [facility] ([place]) Comment on above: Performed By: #### H GMP, HCG, PABO, PABS, RUBIS, RPR, HBSAG ####[place] [address] PZF2Mft 07-17-2018 Glucose mass conc 173 mg/dL High 70-139 [facility] ([place]) Comment on above: Performed By: #### G LU1P ####[place] [address] [employer] [facility] Reporton 2017 [employer] [facility] Report . Pathology ReportsAccession: Collected Date/Time: Received Date/Time: Pathologist:[id number] 01/29/2018 17:30 EST 01/30/2018 18:00 EST [facility] [employer] ReportSPECIMEN:Specimen Description: ConventionalSpecimen: Cervical/EndocervicalScree lizy or Diagnostic: ScreeningRELEVANT HISTORY:LMP: 11/01/2017SPECIMEN ADEQUACY:SATISFACTORY FOR EVALUATIONENDOCERVICAL/TRA NSFORMATIONAL ZONE COMPONENT ABSENT/INSUFFICIENTINTERPR ETATION/RESULTS:NEGATIVE FOR INTRAEPITHELIAL LESION OR MALIGNANCYElectronically Signed byPathology report verified by [facility] Hospitalcreened by: GLElectronically signed by Daria Broussardign-Out Date: 02/05/2018 10:13Performing Lab: [address]DisclaimerThe Pap test is a screening test for cervical cancer. As evidenced by published data, it is subject to both inherent false negative and false positive results. Your patient's results should be interpreted in context with pertinent clinical history including gynecological examination. [facility] ([place]) Comment on above: Performed By: #### G YCR ####[place] [address] CURon 01-31-2018 CUR . MICRO - MicrobiologyPROCEDURE: [...] datePerforming Locations*1: This test was performed at: [address], [address] [place] [address] ([place]) Comment on above: Performed By: #### C UR ####[place] [address] HBSAGon 01-15-2018 Hep B Surf Ag Negative Normal Negative [facility] ([place]) Comment on above: Performed By: #### H GMP, HCG, PABO, PABS, RUBIS, RPR, HBSAG ####[address] [address] RPRon 01-15-2018 Reagin Ab RPR Ql (S) Non-Reactive Normal Non-[place] cti ve [facility] ([place]) Comment on above: Result Comment: The RPR [...] GMP, HCG, PABO, PABS, RUBIS, RPR, HBSAG ####[place] [id number] RUBISon 01-15-[address] Positive Normal Positive [facility] ([place]) Comment on above: Result Comment: This immune status assay detects IgM and/or IgG antibody to Rubella. Interpret results in conjunction with clinical history. POS: Antibody detected; exposure at undetermined recent or distant time. If clinically indicated, order Rubella IGM to rule out recent infection. NEG: No antibody detected. Performed By: #### H GMP, HCG, PABO, PABS, RUBIS, RPR, HBSAG ####[address] [address] HCGon 01-14-2018 Date of LMP Normal [facility] ([place]) Comment on above: Performed By: #### H GMP, HCG, PABO, PABS, RUBIS, RPR, HBSAG ####[address] [address] hCG, quantitative 003843.2 mIU/mL Normal [facility] ([place]) Comment on above: Result Comment: Naresh titative [...] GMP, HCG, PABO, PABS, RUBIS, RPR, HBSAG ####[place] [address] HGMPon 01-14-2018 Erythrocyte distribution width Auto Ratio (RBC) 14.0 % Normal 11.5-15.5 [facility] ([place]) Comment on above: Performed By: #### H GMP, HCG, PABO, PABS, RUBIS, RPR, HBSAG ####[place] [address] Hematocrit Auto Volume Fraction (Bld) 38.2 % Normal 34.0-46.0 [facility] ([place]) Comment on above: Performed By: #### H GMP, HCG, PABO, PABS, RUBIS, RPR, HBSAG ####[place] [address] Hemoglobin mass conc (Bld) 12.7 G/dL Normal 12.0-16.0 [facility] ([place]) Comment on above: Performed By: #### H GMP, HCG, PABO, PABS, RUBIS, RPR, HBSAG ####[place] [address] MCH Auto Entitic mass (RBC) 28.3 pg Normal 27.0-33.0 [facility] ([place]) Comment on above: Performed By: #### H GMP, HCG, PABO, PABS, RUBIS, RPR, HBSAG ####[place] [address] MCHC Auto mass conc (RBC) 33.3 G/dL Normal 32.0-36.0 [facility] ([place]) Comment on above: Performed By: #### H GMP, HCG, PABO, PABS, RUBIS, RPR, HBSAG ####[place] [address] MCV Auto Entitic volume (RBC) 84.9 fL Normal 80.0-99.0 [facility] ([place]) Comment on above: Performed By: #### H GMP, HCG, PABO, PABS, RUBIS, RPR, HBSAG ####[place] [address] Platelet mean volume Auto Entitic volume (Bld) 9.3 fL Normal 6.6-10.5 [facility] ([place]) Comment on above: Performed By: #### H GMP, HCG, PABO, PABS, RUBIS, RPR, HBSAG ####[place] [address] Platelets Auto #/vol (Bld) 230 10 3/mcL Normal 150-450 [facility] ([place]) Comment on above: Performed By: #### H GMP, HCG, PABO, PABS, RUBIS, RPR, HBSAG ####[place] [address] RBC Auto #/vol (Bld) 4.50 10 6/mcL Normal 4.10-5.30 [facility] ([place]) Comment on above: Performed By: #### H GMP, HCG, PABO, PABS, RUBIS, RPR, HBSAG ####[place] [address] WBC Auto #/vol (Bld) 7.20 10 3/mcL Normal 4.50-10.80 [facility] ([place]) Comment on above: Performed By: #### H GMP, HCG, PABO, PABS, RUBIS, RPR, HBSAG ####[place] [id number] [place] [id number] PABOon 01-14-2018 PABO/Rh Interp Positive Invalid Interpretation Code [facility] ([place]) Comment on above: Performed By: #### H GMP, HCG, PABO, PABS, RUBIS, RPR, HBSAG ####[facility] [place] [id number] PABSon 01-14-2018 PABS Interp Negative Normal [facility] ([place]) Comment on above: Performed By: #### H GMP, HCG, PABO, PABS, RUBIS, RPR, HBSAG ####[address] [address] Vital Signs Date Time Vital Sign Value Performing Clinician Facility 09-08-2025 08:49-0400 Body height 162.56 cm Kimberly Roldan PA Work Phone: 4(085)395-699115 [address] 09-08-2025 08:49-0400 Body mass index (BMI) [Ratio] 27 kg/m2 Kimberly Roldan PA Work Phone: 9(219)235-852755 [place] [address] 09-08-2025 08:49-0400 Body weight 71.44 kg Kimberly Roldan PA Work Phone: 9(260)124-199455 [place] [address] 09-08-2025 08:49-0400 Diastolic blood pressure 73 mm[Hg] Kimberly Roldan PA Work Phone: 5(487)178-212730 [place] [address] 09-08-2025 08:49-0400 Systolic blood pressure 106 mm[Hg] Kimberly Roldan PA Work Phone: 9(317)935-421430 [place] [address] 09-07-2025 15:04-0400 Body mass index (BMI) [Ratio] 26.9 kg/m2 Kimberly Roldan PA Work Phone: 09-07-2025 15:04-0400 Body temperature 98 [degF] Kimberly Roldan PA Work Phone: 09-07-2025 15:04-0400 Body weight 71.32 kg Kimberly Roldan PA Work Phone: 09-07-2025 15:04-0400 Diastolic blood pressure 76 mm[Hg] Kimberly Roldan PA Work Phone: 09-07-2025 15:04-0400 Heart rate 75 /min Kimberly Roldan PA Work Phone: 2(079)796-660830 [place] [address] 09-07-2025 15:04-0400 Respiratory rate 16 /min Kimberly Roldan PA Work Phone: 6(859)239-483030 [place] [address] 09-07-2025 15:04-0400 SaO2% (BldA) [Mass fraction] 98 % Kimberly Roldan PA Work Phone: 09-07-2025 15:04-0400 Systolic blood pressure 114 mm[Hg] Kimberly Roldan PA Work Phone: 0(221)467-735430 [place] [address] 07-27-2025 15:31-0400 Body height 162.56 cm Kimberly Roldan PA Work Phone: 7(699)853-288615 [address] 07-27-2025 15:31-0400 Body mass index (BMI) [Ratio] 27.4 kg/m2 Kimberly Roldan PA Work Phone: 3(599)789-484930 [place] [address] 07-27-2025 15:31-0400 Body temperature 97.8 [degF] Kimberly Roldan PA Work Phone: 6(717)316-675530 [place] [address] 07-27-2025 15:31-0400 Body weight 72.63 kg Kimberly Roldan PA Work Phone: 07-27-2025 15:31-0400 Diastolic blood pressure 71 mm[Hg] Kimberly Roldan PA Work Phone: 07-27-2025 15:31-0400 Heart rate 84 /min Kimberly Roldan PA Work Phone: 07-27-2025 15:31-0400 Respiratory rate 14 /min Kimberly Roldan PA Work Phone: 07-27-2025 15:31-0400 SaO2% (BldA) [Mass fraction] 84 % Kimberly Roldan PA Work Phone: 07-27-2025 15:31-0400 Systolic blood pressure 104 mm[Hg] Kimberly Roldan PA Work Phone: 07-15-2025 12:15-0400 Body temperature 97.6 [degF] Kimberly Roldan PA Work Phone: 9(918)446-218130 [place] [address] 07-15-2025 12:15-0400 Diastolic blood pressure 71 mm[Hg] Kimberly Roldan PA Work Phone: 2(628)955-701115 [address] 07-15-2025 12:15-0400 Heart rate 75 /min Kimberly Roldan PA Work Phone: 5(578)259-205630 [place] [address] 07-15-2025 12:15-0400 Respiratory rate 16 /min Kimberly Roldan PA Work Phone: 7(079)057-126115 [address] 07-15-2025 12:15-0400 SaO2% (BldA) [Mass fraction] 100 % Kimberly Roldan PA Work Phone: 4(774)228-506230 [place] [address] 07-15-2025 12:15-0400 Systolic blood pressure 101 mm[Hg] Kimberly Roldan PA Work Phone: 8(860)819-261530 [place] [address] 07-15-2025 10:24-0400 Body height 162.56 cm Kimberly Roldan PA Work Phone: 6(781)429-457830 [place] [address] 07-15-2025 10:24-0400 Body mass index (BMI) [Ratio] 27.2 kg/m2 Kimberly Roldan PA Work Phone: 9(067)564-407630 [place] [address] 07-15-2025 10:24-0400 Body weight 72 kg Kimberly Roldan PA Work Phone: 06-28-2025 18:00-0400 Body temperature 98.2 [degF] Kimberly Roldan PA Work Phone: 9(911)013-534630 [place] [address] 06-28-2025 18:00-0400 Diastolic blood pressure 86 mm[Hg] Kimberly Roldan PA Work Phone: 9(679)545-244830 [place] [address] 06-28-2025 18:00-0400 Heart rate 74 /min Kimberly Roldan PA Work Phone: 5(631)393-886930 [place] [address] 06-28-2025 18:00-0400 Respiratory rate 18 /min Kimberly Roldan PA Work Phone: 2(751)168-300355 [place] [address] 06-28-2025 18:00-0400 SaO2% (BldA) [Mass fraction] 100 % Kimberly Roldan PA Work Phone: 3(197)966-029055 [place] [address] 06-28-2025 18:00-0400 Systolic blood pressure 117 mm[Hg] Kimberly Roldan PA Work Phone: 5(422)702-105855 [place] [address] 06-28-2025 13:56-0400 Body height 162.56 cm Kimberly Roldan PA Work Phone: 4(744)609-195955 [place] [address] 06-28-2025 13:56-0400 Body mass index (BMI) [Ratio] 28 kg/m2 Kimberly Roldan PA Work Phone: 5(424)467-006355 [place] [address] 06-28-2025 13:56-0400 Body weight 74.25 kg Kimberly Roldan PA Work Phone: 9(387)333-521630 [place] [address] 06-24-2025 13:13-0400 Body height 162.56 cm Gudelia Yates LPN [facility], [facility].; [facility], [facility]. 06-24-2025 13:13-0400 Body mass index (BMI) [Ratio] 27.98 kg/m2 Gudelia Yates LPN [facility], [facility].; [facility], [facility]. 06-24-2025 13:13-0400 Body surface area Derived from formula 1.79 m2 Gudelia Yates LPN [facility], [facility].; [facility], [facility]. 06-24-2025 13:13-0400 Body temperature 98.8 [degF] Gudelia Yates LPN [facility].; [facility], [facility] Comment on above: Method: Tympanic 06-24-2025 13:13-0400 Body weight 73.94 kg Gudelia Yates LPN [facility], [facility] [employer]. 06-24-2025 13:13-0400 Diastolic blood pressure 69 mm[Hg] Gudelia Yates LPN [facility], [facility] [employer], [employer]. Comment on above: Patient Position: Sitting; Cuff Location : Left Arm; Cuff Size: Standard 06-24-2025 13:13-0400 Heart rate 69 /min Gudelia Yates LPN [facility], [facility] [employer], [employer]. Comment on above: Pattern: Regular 06-24-2025 13:13-0400 Systolic blood pressure 102 mm[Hg] Gudelia Yates LPN [facility], [facility] [employer], [employer] Comment on above: Patient Position: Sitting; Cuff Location : Left Arm; Cuff Size: Standard 08-20-2022 10:45-0400 Body weight 75.75 kg Polina Olivares LPN [facility], [facility] [employer] 08-20-2022 10:45-0400 Diastolic blood pressure 78 mm[Hg] Polinacameron Olivares LPN [employer] [facility], [employer].; [employer], [employer]. Comment on above: Patient Position: Sitting; Cuff Location : Left Arm; Cuff Size: Standard 08-20-2022 10:45-0400 Heart rate 93 /min Polinacameron Olivares LPN [employer] [facility], [facility] [employer], [employer]. Comment on above: Pattern: Regular 08-20-2022 10:45-0400 Systolic blood pressure 111 mm[Hg] Polina Olivares LPN [employer] [facility], [facility] [employer], [employer]. Comment on above: Patient Position: Sitting; Cuff Location : Left Arm; Cuff Size: Standard 06-22-2022 09:44-0400 Body weight 78.02 kg Polina Olivares LPN [employer] [facility], [facility] [employer], [employer]. 06-22-2022 09:44-0400 Diastolic blood pressure 69 mm[Hg] Polina Olivares LPN [employer] [facility], [employer].; [employer]. Comment on above: Patient Position: Sitting; Cuff Location : Left Arm; Cuff Size: Standard 06-22-2022 09:44-0400 Heart rate 90 /min Polina Walitayler LEYVA [facility], [employer].; [employer]. Comment on above: Pattern: Regular 06-22-2022 09:44-0400 Systolic blood pressure 104 mm[Hg] Polina Olivares LPN [employer] [facility], [facility] [employer], [employer]. Comment on above: Patient Position: Sitting; Cuff Location : Left Arm; Cuff Size: Standard 06-12-2022 10:59-0400 Body weight 78.93 kg Yeimy Zaugg GORDON [facility], [employer].; [employer], [employer]. 06-12-2022 10:59-0400 Diastolic blood pressure 69 mm[Hg] Yeimy Yakelinugg GORDON [employer], [employer].; [employer], [employer]. Comment on above: Patient Position: Sitting; Cuff Location : Left Arm; Cuff Size: Standard 06-12-2022 10:59-0400 Heart rate 105 /min Yeimy Yakelinugg GORDON [employer] [facility], [employer].; [employer]. Comment on above: Pattern: Regular 06-12-2022 10:59-0400 Systolic blood pressure 109 mm[Hg] Yeimy Zaugg TEACHERS' AIDE [employer] [facility], [employer].; [employer], [employer]. Comment on above: Patient Position: Sitting; Cuff Location : Left Arm; Cuff Size: Standard 06-05-2022 08:21-0400 Body weight 79.11 kg Tierra Vidal MA [employer] [facility], [facility] [employer]. 06-05-2022 08:21-0400 Diastolic blood pressure 71 mm[Hg] Tierra Vidal MA [employer], [employer].; [employer]. Comment on above: Patient Position: Sitting; Cuff Location : Left Arm; Cuff Size: Standard 06-05-2022 08:21-0400 Heart rate 96 /min Tierra Vidal MA [employer], [employer].; [employer]. Comment on above: Pattern: Regular 06-05-2022 08:21-0400 Systolic blood pressure 105 mm[Hg] Tierra Vidal MA [employer] [facility].; [employer]. Comment on above: Patient Position: Sitting; Cuff Location : Left Arm; Cuff Size: Standard 05-22-2022 09:04-0400 Body weight 78.02 kg Tierra Vidal MA [employer].; [employer] 05-22-2022 09:04-0400 Diastolic blood pressure 76 mm[Hg] Tierra Vidal MA [employer].; [employer]. Comment on above: Patient Position: Sitting; Cuff Location : Left Arm; Cuff Size: Standard 05-22-2022 09:04-0400 Heart rate 106 /min Tierra Vidal MA [employer].; [employer]. Comment on above: Pattern: Regular 05-22-2022 09:04-0400 Systolic blood pressure 115 mm[Hg] Tierra Vidal MA [employer].; [employer]. Comment on above: Patient Position: Sitting; Cuff Location : Left Arm; Cuff Size: Standard 05-07-2022 15:24-0400 Body weight 77.11 kg Polina Olivares LPN [employer] [facility].; [employer]. 05-07-2022 15:24-0400 Diastolic blood pressure 71 mm[Hg] Polina Olivares LPN [employer].; [employer]. Comment on above: Patient Position: Sitting; Cuff Location : Left Arm; Cuff Size: Standard 05-07-2022 15:24-0400 Heart rate 116 /min Polina Olivares LPN [employer].; [employer]. Comment on above: Pattern: Regular 05-07-2022 15:24-0400 Systolic blood pressure 109 mm[Hg] Polina Olivares LPN [employer].; [employer]. Comment on above: Patient Position: Sitting; Cuff Location : Left Arm; Cuff Size: Standard 04-20-2022 07:49-0400 Body weight 76.66 kg Jannet Garcia LPN Work Phone: [employer]; [employer]. 04-20-2022 07:49-0400 Diastolic blood pressure 70 mm[Hg] Jannet Radha TEACHERS' AIDE Work Phone: [employer].; [employer]. Comment on above: Patient Position: Sitting; Cuff Location : Left Arm; Cuff Size: Standard 04-20-2022 07:49-0400 Heart rate 96 /min Jannet Radha TEACHERS' AIDE Work Phone: [employer].; [employer]. Comment on above: Pattern: Regular 04-20-2022 07:49-0400 Systolic blood pressure 111 mm[Hg] Jannet Radha TEACHERS' AIDE Work Phone: [employer].; [employer]. Comment on above: Patient Position: Sitting; Cuff Location : Left Arm; Cuff Size: Standard 03-23-2022 09:25-0400 Body weight 73.48 kg Yeimy Zaugg TEACHERS' AIDE [employer].; [employer]. 03-23-2022 09:25-0400 Diastolic blood pressure 72 mm[Hg] Yeimy Zaugg TEACHERS' AIDE [employer].; [employer]. Comment on above: Patient Position: Sitting; Cuff Location : Left Arm; Cuff Size: Standard 03-23-2022 09:25-0400 Heart rate 85 /min Yeimy Zaugg TEACHERS' AIDE [employer].; [employer]. Comment on above: Pattern: Regular 03-23-2022 09:25-0400 Systolic blood pressure 118 mm[Hg] Yeimy Zaugg TEACHERS' AIDE [employer].; [employer]. Comment on above: Patient Position: Sitting; Cuff Location : Left Arm; Cuff Size: Standard 02-23-2022 09:01-0400 Body weight 72.58 kg Jannet Radha TEACHERS' AIDE Work Phone: [employer].; [employer]. 02-23-2022 09:01-0400 Diastolic blood pressure 66 mm[Hg] Jannet Radha TEACHERS' AIDE Work Phone: [employer].; [employer]. Comment on above: Patient Position: Sitting; Cuff Location : Left Arm; Cuff Size: Standard 02-23-2022 09:01-0400 Heart rate 103 /min Jannet Garcia LPN Work Phone: [facility].; [employer]. Comment on above: Pattern: Regular 02-23-2022 09:01-0400 Systolic blood pressure 101 mm[Hg] Jannet Garcia LPN Work Phone: [facility].; [employer]. Comment on above: Patient Position: Sitting; Cuff Location : Left Arm; Cuff Size: Standard 02-22-2022 10:26-0400 Body height 162.56 cm Jannet Garcia LPN Work Phone: [facility].; [employer]. 01-26-2022 10:37-0500 Body weight 69.85 kg Polinacameron Olivares [facility].; [employer]. 01-26-2022 10:37-0500 Diastolic blood pressure 74 mm[Hg] Polinacameron Joey TEACHERS' AIDE [employer] [facility].; [employer]. Comment on above: Patient Position: Sitting; Cuff Location : Left Arm; Cuff Size: Standard 01-26-2022 10:37-0500 Heart rate 91 /min Polina Tatyanainocencia TEACHERS' AIDE [facility], [employer].; [employer]. Comment on above: Pattern: Regular 01-26-2022 10:37-0500 Systolic blood pressure 115 mm[Hg] Polina Tatyanay TEACHERS' AIDE [employer] [facility].; [employer]. Comment on above: Patient Position: Sitting; Cuff Location : Left Arm; Cuff Size: Standard 12-15-2021 11:05-0500 Body weight 69.85 kg Yeimy Zita TEACHERS' AIDE [employer] [facility], [employer].; [employer]. 12-15-2021 11:05-0500 Diastolic blood pressure 69 mm[Hg] Yeimy Zaugg TEACHERS' AIDE [employer] [facility].; [employer]. Comment on above: Patient Position: Sitting; Cuff Location : Left Arm; Cuff Size: Standard 12-15-2021 11:05-0500 Heart rate 92 /min Yeimy Ahumada LPN [facility], [facility]. Comment on above: Pattern: Regular 12-15-2021 11:05-0500 Systolic blood pressure 105 mm[Hg] Yeimy Hamlinmarixa LEYVA [facility] Comment on above: Patient Position: Sitting; Cuff Location : Left Arm; Cuff Size: Standard Encounters Encounter Date Encounter Type Care Provider Facility Start: 10-05-2025 End: 10-05-2025 ambulatory Kimberly Roldan Facility:[facility] Start: 09-08-2025 End: 09-08-2025 Patient encounter procedure Luna CASTILLO -[facility] Work Phone: Start: 09-08-2025 End: 09-08-2025 ambulatory Kimberly Roldan PA Work Phone: [facility] Start: 09-07-2025 End: 09-07-2025 Patient encounter procedure Dasia CASTILLO -[facility] Work Phone: Start: 09-07-2025 End: 09-08-2025 ambulatory Kimberly Roldan PA Work Phone: [facility] Start: 08-09-2025 Encounter for other preprocedural examination [facility] Start: 07-27-2025 End: 07-27-2025 Patient encounter procedure Dasia CASTILLO -[facility] Work Phone: Start: 07-27-2025 End: 07-27-2025 ambulatory Kimberly Roldan PA Work Phone: [facility] Start: 07-15-2025 ambulatory Kimberly Roldan Facility:[facility] Start: 07-15-2025 Non-patient / Non-visit Sam Hubbard nd DO -[facility] Start: 07-15-2025 End: 07-15-2025 Admission to same day surgery center Sam Avila DO -Endoscopy Work Phone: Start: 07-15-2025 End: 07-15-2025 ambulatory Kimberly Roldan PA Work Phone: -Endoscopy Start: 06-30-2025 End: 06-30-2025 Telephone follow-up Crystal Uptain CNM Work Phone: [facility] Start: 06-29-2025 End: 06-29-2025 Patient encounter procedure Steffany CASTILLO -[facility] Work Phone: Start: 06-29-2025 End: 06-29-2025 ambulatory Kimberly Roldan PA Work Phone: -[facility] Start: 06-29-2025 ambulatory KIMBERLY HAL ROLDAN [facility] Start: 06-29-2025 End: 06-29-2025 ambulatory Kimberly Roldan Facility:[facility] Start: 06-28-2025 End: 06-28-2025 Emergency department patient visit Kimberly Roldan PA Work Phone: -Emergency Department Work Phone: Start: 06-28-2025 End: 06-28-2025 Orders Crystal Uptain CNM Work Phone: [facility] Start: 06-24-2025 End: 06-24-2025 Office outpatient visit 15 minutes Crystal Uptain CNM Work Phone: [facility] Start: 06-24-2025 Review Crystal Uptain CNM Work Phone: [facility] Start: 05-13-2025 End: 05-13-2025 Emergency department patient visit TIAAR BAKER [facility] Start: 09-06-2022 End: 09-06-2022 Orders Crystal Uptain CNM Work Phone: [facility] Start: 08-20-2022 End: 08-20-2022 Office outpatient visit 25 minutes Crystal Uptain CNM Work Phone: [facility] Start: 06-22-2022 End: 06-22-2022 Office outpatient visit 15 minutes Crystal Uptain CNM Work Phone: [facility] Start: 06-12-2022 End: 06-12-2022 Office outpatient visit 15 minutes Crystal Uptain CNM Work Phone: [facility] Start: 06-05-2022 End: 06-05-2022 Office outpatient visit 15 minutes Crystal Uptain CNM Work Phone: [facility] Start: 05-22-2022 End: 05-22-2022 Office outpatient visit 15 minutes Crystal Uptain CNM Work Phone: [facility] Start: 05-16-2022 End: 05-18-2022 Orders Crystal Uptain CNM Work Phone: [facility] Start: 05-07-2022 End: 05-07-2022 Office outpatient visit 15 minutes Crystal Uptain CNM Work Phone: [facility] Start: 04-20-2022 End: 04-20-2022 Office outpatient visit 15 minutes Crystal Uptain CNM Work Phone: [facility] Start: 03-26-2022 End: 03-26-2022 Office outpatient visit 15 minutes Crystal Uptain CNM Work Phone: [facility] Start: 03-24-2022 End: 03-24-2022 Orders Crystal Uptain CNM Work Phone: [facility] Start: 03-23-2022 End: 03-23-2022 Office outpatient visit 15 minutes Crystal Uptain CNM Work Phone: [facility] Start: 02-23-2022 End: 02-22-2022 Historical Summary Crystal Uptain CNM Work Phone: [facility] Start: 02-23-2022 End: 02-23-2022 Patient encounter procedure Crystal Uptain CNM Work Phone: [facility] Start: 01-26-2022 End: 01-26-2022 Office outpatient visit 15 minutes Crystal Uptain CNM Work Phone: [facility] Start: 12-15-2021 End: 12-15-2021 Office outpatient visit 25 minutes Crystal Uptain CNM Work Phone: 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 Kimberly Roldan PA Work Phone: Comment on above: Test not performed Start: 06-28-2025 Estimated creatinine clearance Kimberly Roldan PA Work Phone: Start: 06-28-2025 End: 07-07-2025 Ct abdomen & pelvis w/contrast material Kimberly Roldan PA-C Work Phone: Start: 05-13-2025 Urinalysis TIARA Talley Comment on above: Result Comment: URIN ALYSIS Performed By: #### [id number] #### [facility],[address] [place], [place] [id number] Start: 08-20-2022 End: 08-20-2022 Screening for depression [...] 01-26-2022 Ob care antepartum vag dlvr & Crystal K Uptain CNM Work Phone: Start: 12-15-2021 End: 12-15-2021 Us preg uterus after 1st trimest 11/25 gestation Crystal K Uptain CNM Work Phone: Start: 12-15-2021 End: 12-15-2021 Ob care antepartum vag dlvr & Crystal K Uptain CNM Work Phone: Cholecystectomy Polina deleon TEACHERS' AIDE Dilation and curetta ge of uterus Polina Olivares TEACHERS' AIDE Comment on above: Retained placental t issue History of cholecystectomy S/P cholecyste ctomy Kimberly GOLD Work Phone: Plan of Treatment Date Care Activity Detail Author Start: 07-15-2025 Colonoscopy w/biopsy single/multiple COLONOSCOPY AND BIOPSY Start: 07-15-2025 Patient discharge [facility] [place] Start: 06-29-2025 Elastase.pancreatic [Presence] in Stool Start: 06-29-2025 Giardia lamblia Ag [Presence] in Stool by Immunoassay Start: 06-29-2025 Cytoplasmic ANCA Screen Start: 06-28-2025 [facility] Start: 06-28-2025 Ct abdomen & pelvis w/contrast material Abdomen/Pelvis CT W/ Contrast per protocol (30671) Start: 28-Jun-2025 [facility], [facility].; [facility] Start: 05-18-2022 Us uterus limited 1/> fetuses LIMITED OBSTETRICAL ULTRASOUND (78522) Start: 18-May-2022 Intent Comments: Cervical length [facility], [facility].; [facility], [facility]. Comment on above: Cervical length Antibody to lupus La protein measurement Antibody to SS-A measurement DNA double strand Ab [Units/volume] in Serum Patient Education ED Abdominal P ain Unkn Cause Fem Work Phone: US Pelvis [facility] Payers Date Payer Category Payer Unknown 2025 Unknown [id number] 2018 Self-pay 1990 Unknown [id number] 2.16.8 [id number] 1990 Unknown [id number] 2.16.8 [id number] Unknown 157 Unknown [id number] 2.16.8 40.1.210548.3.579.2.462 Unknown [id number] 2.16.8 40.1.183075.3.579.2.462 Unknown [id number] 2.16.8 40.1.632343.3.579.2.462 Unknown [id number] 2.16.8 40.1.843848.3.579.2.462 Unknown [id number] 2.16.8 40.1.411678.3.579.2.462 Unknown [id number] 2.16.8 40.1.892873.3.579.2.462 Unknown [id number] 2.16.8 40.1.055304.3.579.2.462 Unknown [id number] 2.16.8 40.1.531441.3.579.2.462 Unknown [id number] 2.16.8 40.1.878586.3.579.2.462 Unknown [id number] 2.16.8 40.1.235249.3.579.2.462 Unknown [id number] 2.16.8 40.1.357441.3.579.2.462 Unknown [id number] 2.16.8 40.1.668887.3.579.2.462 Social History Date Type Detail Facility Spouse Spouse [facility] [employer]. Tobacco/Smoke Exposure: Tobacco/Smoke Exposure: ; None. [facility] [employer] Start: 1990 Female [facility] None [facility] [employer]. Work Phone: Start: 06-28-2025 End: 09-08-2025 Tobacco smoking status NHIS Never smoked tobacco (finding) Not [facility] Goals Date Patient Goal Desired Activity /State Mental Status Date Assessment Result Facility 07-15-2025 Cognitive function Voice/Name [facility] Work Phone: Clinical Notes 06-28-2025 to 09-08-2025 Note Date & Type Note Facility 09-08-2025 Progress note [facility] 09-07-2025 Progress note [facility] 09-07-2025 Progress note Note Date/Time September 07, 2025 3:29pm [facility] [address] [place] [address] OFFICE VISIT Date of Service: 09/07/25 MR#: [id number] Acct: [id number] Name: ALESSIA BARRIENTOS Rep #: [id number] : 1990 Provider: JONATHAN Burton Age/Sex: 34/F Location[place] [email or web address] Status: Signed Intake Vital Signs 07/27/25 15:31 [...] 6 wk FU Chief Complaint: Abdominal Pain Edi Analyst Required: No Accompanied by: Is patient in [...] initially presented to the emergency department at [facility] April 2025 with right sided abdominal [...] weeks, sooner for worsening of symptoms. Note: [employer] speech recognition marketing and communications officer software was used to create portions of this document. Sound-alike and misspelled words, as well as other marketing and communications officer errors may be contained in the documentation. Patient Instructions: Fibercon 2 tablets once daily with 8 ounces of water after a meal. May take up to 3 weeks for symptom improvement. Start a probiotic ([employer], P[employer]R Labpak or Cirrascale) once daily. Theseare all multispecies probiotics, pick [...] well nourished Orientation: alert and oriented x3 HENKY Head: normocephalic Ears: hearing grossly normal bilaterally [...] Smoking Screening Smoking Status: Never smoker 09/07/25 8046 <Electronically signed by Dasia CASTILLO> Date _ Dasia CASTILLO Cosigner Signature: Date (if applicable) CC: ~ [facility] Work Phone: 1(220) 931-111208-21-2025 Consult note Author Gerber Arthur Note Date/Time July 15, 2025 10 :42am [facility] Medical Records Department [address] [place] [address] Pre-Anesthesia Evaluation 07/15/25 1042 MR#: [id number] Acct: [id number] Name: ALESSIA BARRIENTOS Rep #:[id number] : 1990 34 From: Gerber Arthur MD PCP: ASIF Aguirre Status:REG SDC Y Race: C Location: [place] [address] ASA Classification* ASA Classification ASA Classification: 2 [...] Procedure(s): COLONOSCOPY Anesthesia History Anesthesia History - senior manufacturing test engineer: Anesthesia History - senior manufacturing test engineer Hx Hospitalization No 07/13/25 16:09 Any Problems [...] take am of surgery PONV PONV - senior manufacturing test engineer: PONV - senior manufacturing test engineer Female Yes 07/13/25 16:09 HX of Motion [...] 07/15/25 10:24 Respiratory Assessment Respiratory Assessment - senior manufacturing test engineer: Respiratory Tract Infection Hx - senior manufacturing test engineer Hx Respiratory Tract Infection No 07/13/25 16:09 STOP Sleep Apnea STOP Sleep Apnea - senior manufacturing test engineer: STOP Sleep Apnea - senior manufacturing test engineer Hx Hypertension No 07/13/25 16:09 Hx Sleep [...] Tobacco Use History Tobacco Use History - senior manufacturing test engineer: Tobacco Use History - senior manufacturing test engineer Tobacco Use Smoking Status Never smoker 07/13/25 16:09 Hx Tobacco Use No 07/13/25 16:09 Years Smoking Packs Smoked per Day Smoking Cessation Date was within the last 15 years Hx Smoking Cessation Date Hx Smoking Cessation Counseling Hematologic Medial History Hematologic Hx - senior manufacturing test engineer: Hematologic Medical Hx - hot mill tin roller Hx of Blood Transfusion No 07/13/25 16:09 [...] confused, unrespo /Reproduction History /Reproductive History - senior manufacturing test engineer: /Reproductive Hx- senior manufacturing test engineer Hx Now No 07/13/25 16:09 Gestational Age [...] signed by Gerber Padilla> Date _ Gerber Arthur MD Cosigner Signature: Date CC: ~ Signed Work Phone: 1(739) 837-287608-21-2025 Procedure note [facility] Medical Records Department [address] [place] [address] Colonoscopy Report MR#: [id number] Acct: [id number] Name: ALESSIA BARRIENTOS Rep #:[id number] : 1990 34 From: Sam Avila DO PCP: ASIF Aguirre Status:[facility] Patient Name: Alessia Barrientos Procedure Date: 07/15/2025 [...] pathology results. Procedure Code(s): --- Professional --- 50058, Colonoscopy, flexible; with biopsy, single or multiple CPT copyright 2021 [employer]. All rights reserved. The codes documented in this report are preliminary and upon mill controller review may be revised to meet current compliance requirements. Sam Avila DO 07/15/2025 11:49:39 AM This report has been signed electronically. Number of Addenda: 0 Note Initiated On: 07/15/2025 11:07 AM 07/15/25 1149 Date _ Sam Avila DO Cosigner Signature: Date (if indicated) CC: Sam Avila DO; ASIF Aguirre ~ Date Dictated: 07/15/25 1107 Date Transcribed: Timber Hewer: RF Signed 08-21-2025 Procedure note [facility] Medical Records Department [address] [place] [address] Provation Physician Letter MR#: [id number] Acct: [id number] Name: ALESSIA BARRIENOTS Rep #:[id number] : 1990 34 From: Sam Avila DO PCP: ASIF Aguirre Status:REG [facility] 07/15/2025 Asif Aguirre Re : Colonoscopy procedure for Alessia Iliana Roldan This procedure was performed on , July [...] signed electronically. 07/15/25 1149 Date _ Sam Avila DO Cosigner Signature: Date (if indicated) CC: Sam Avila DO; ASIF Aguirre ~ Date Dictated: 07/15/25 1107 Date Transcribed: Timber Hewer: RF Signed 08-21-2025 Consult note [facility] Medical Records Department [address] [place] [address] Anesthesia Postop Eval II 07/15/25 1136 MR#: [id number] Acct: [id number] Name: ALESSIA BARRIENTOS Rep #:[id number] : 1990 34 From: Trav Sosa RNA PCP: ASIF Aguirre Status:REG DCC Y Race: C Location: [place] [address] Anesthesia Postop Eval I Sum Postop Eval Completion status Anesthesia document: Postop Eval 1 completed: Yes Anesthesia Postop Eval I Summary Anesthesia Postop Eval I Summary: Anesthesia Postop Eval I: Assessment Summary Airway patent Yes 07/15/25 11:32 PULMONARY NURSE PRACTITIONER.MDOT Spontaneous unlabored Yes 07/15/25 11:32 PULMONARY NURSE PRACTITIONER.MDOT respirations Mental status Awake,Calm 07/15/25 11:32 PULMONARY NURSE PRACTITIONER.MDOT nausea No 07/15/25 11:32 PULMONARY NURSE PRACTITIONER.MDOT Vomiting No 07/15/25 11:32 PULMONARY NURSE PRACTITIONER.MDOT Anesthesia Postop Eval I: Fluid Summary Crystalloid volume administer 100 07/15/25 11:32 PULMONARY NURSE PRACTITIONER.MDOT (ml) Colloids volume administered ( ml) Blood Product volume administered (ml) Total IV fluid infused 100 07/15/25 11:32 PULMONARY NURSE PRACTITIONER.MDVANI Anesthesia Postop Eval I: Summary Notes Anesthesia Complication No 07/15/25 11:32 PULMONARY NURSE PRACTITIONER.MDOT Anesthesia Complication Comment: Post-operative progress note Anesthesia: Postop Eval II Evaluation Mental status: Awake and Calm Pain Level: 0 nausea: No Vomiting: No Complications Anesthesia Complication: No 07/15/25 1136 PULMONARY NURSE PRACTITIONER> Date _ Trav Hylton CRNA Cosigner Signature: Date CC: ~ Signed 08-21-2025 Consult note [facility] Medical Records Department [address] [place] [address] Anesthesia Postop Eval I 07/15/25 1132 MR#: [id number] Acct: [id number] Name: ALESSIA BARRIENTOS Rep #:[id number] : 1990 34 From: Trav Sosa RNA PCP: ASIF Aguirre Status:REG DCC Y Race: C Location: [place] [address] Anesthesia: Postop Eval I Current Vital Signs [...] document: Postop Eval 1 completed: Yes 07/15/25 1132 PULMONARY NURSE PRACTITIONER> Date _ Trav Ross Signature: Date CC: ~ Signed 08-21-2025 History and physical note [facility] Medical Records Department [address] [place] [address] History & Physical Exam 07/15/25 1104 MR#: [id number] Acct: [id number] Name: ALESSIA BARRIENTOS Rep #:[id number] : 1990 34 From: Sam Friend DO PCP: ASIF Aguirre Status:REG [facility] Location: [place] [address] HPI - General General Date of Admission: 07/15/25 Date of Service: 07/15/25 Chief Complaint: diarrhea HPI Narrative ALESSIA BARRIENTOS, is a 34 F who presentsALESSIA BARRIENTOS, is a 34 Latter Day F who presentsto the office todayfor establishment with [facility] regarding concerns of right sidedabdominal pain. [facility] ER visit on 06.28.25,CBC and CMP without significant abnormalities, no imaging performed. She states the right-sided abdo abhi pain is sharp and very crampy, rates the pain 8 out of 10 with 10 being the worst. She denies food increasing symptoms, but states physical activity does increase the severity. She had an ER visit at [facility] on May 13, had a CT ofabd/pelvis that demonstrated enteritis of the small bowel and right adnexal cyst. She then visited her EYEGLASS LENS CUTTER MD in [place], where she had been told that sheshould probably have a hysterectomy but they wanted to try a control [...] gallbladder was removed due to gallstones. [facility] Medical History Wears glasses Low iron Easy [...] presents to the office today for establishment withI regarding concerns of right sided abdominal pain. [...] CC: Sam Avila DO; ASIF Aguirre~ Signed 08-21-2025 [facility] Medical Records Department [address] [place] [address] History Physical Exam 07/15/25 1104 MR#: [id number] Acct: [id number] Name: ALESSIA BARRIENTOS Rep #: [id number] : 1990 34 From: Sam Avila DO PCP: ASIF Aguirre Status:REG [facility] Location: [place] [address] HPI - General General Date of Admission: 07/15/25 Date of Service: 07/15/25 Chief Complaint: diarrhea HPI Narrative ALESSIA BARRIENTOS, is a 34 F who presentsNETTJOVANNY BARRIENTOS, is a 34 Latter Day F who presents to the office today for establishment with [facility] regarding concerns of right sided abdominal pain. [facility] ER visit on 06.28.25, CBC and CMP without significant abnormalities, no imaging performed. She states the right-sided abdominal pain is sharp and very crampy, rates the pain 8 out of 10 with 10 being the worst. She denies food increasing symptoms, but states physical activity does increase the severity. She had an ER visit at [facility] on May 13, had a CT of abd/pelvis that demonstrated enteritis of the small bowel and right adnexal cyst. She then visited her EYEGLASS LENS CUTTER MD in [place], where she had been told that she should probably have a hysterectomy but they wanted to try a control [...] gallbladder was removed due to gallstones. [facility] Medical History Wears glasses Low iron Easy [...] R10.9 - Unspeci (more content not included)... 08-21-2025 Consult note [facility] Medical Records Department [address] [place] [address] Pre-Anesthesia Evaluation 07/15/25 1042 MR#: [id number] Acct: [id number] Name: ALESSIA BARRIENTOS Rep #:[id number] : 1990 34 From: Gerber Arthur MD PCP: ASIF Aguirre Status:REG SDC Y Race: C Location: [place] [address] ASA Classification* ASA Classification ASA Classification: 2 [...] Procedure(s): COLONOSCOPY Anesthesia History Anesthesia History - senior manufacturing test engineer: Anesthesia History - senior manufacturing test engineer Hx Hospitalization No 07/13/25 16:09 Any Problems [...] take am of surgery PONV PONV - senior manufacturing test engineer: PONV - senior manufacturing test engineer Female Yes 07/13/25 16:09 HX of Motion [...] 07/15/25 10:24 Respiratory Assessment Respiratory Assessment - senior manufacturing test engineer: Respiratory Tract Infection Hx - senior manufacturing test engineer Hx Respiratory Tract Infection No 07/13/25 16:09 STOP Sleep Apnea STOP Sleep Apnea - senior manufacturing test engineer: STOP Sleep Apnea - senior manufacturing test engineer Hx Hypertension No 07/13/25 16:09 Hx Sleep [...] Tobacco Use History Tobacco Use History - senior manufacturing test engineer: Tobacco Use History - senior manufacturing test engineer Tobacco Use Smoking Status Never smoker 07/13/25 16:09 Hx Tobacco Use No 07/13/25 16:09 Years Smoking Packs Smoked per Day Smoking Cessation Date was within the last 15 years Hx Smoking Cessation Date Hx Smoking Cessation Counseling Hematologic Medial History Hematologic Hx - senior manufacturing test engineer: Hematologic Medical Hx - hot mill tin roller Hx of Blood Transfusion No 07/13/25 16:09 [...] confused, unrespo /Reproduction History /Reproductive History - senior manufacturing test engineer: /Reproductive Hx- senior manufacturing test engineer Hx Now No 07/13/25 16:09 Gestational Age [...] documented. 07/15/25 1042 D> Date _ Gerber Arthur MD Cosigner Signature: Date CC: ~ Signed 08-05-2025 Radiology Diagnostic study note [facility] Imaging Services [address] [place], [place] [address] Abdomen/Pelvis WITH Contrast MR#: [id number] Acct: [id number] Name: NEFTALI BARRIENTOSRAGHAV Tan Rep #: [id number] : 1990 F 34 From: Shar Estevez MD PCP: ASIF Aguirre Status: REG CLI Study:Abdomen/Pelvis WITH Contrast Date of Ex am: 06/29/25 Exam# [id number] Ordering Dr: Jose Gilliam AIRCRAFT SHEET METAL MECHANIC-C PROCEDURE: ABDOMEN/PELVIS WITH CONTRAST 06/29/2025 REASON FOR [...] colitis of the rectosigmoid colon. Reading Location: [id number] CC: JONATHAN Gilliam; ASIF Aguirre ~ Timber Hewer: Signed 08-05-2025 Evaluation note* Diagnosis Onset Date Resolution Status Admit Date Diarrhea acute June 29 11:20am Right-sided abdominal pain o f unknown cause acute June 29, 2025 11:20am Work Phone: 1(364) 752-550008-05-2025 Evaluation note* Diagnosis Onset Date Resolution Status Admit Date Diarrhea acute June 29 11:20am Right-sided abdominal pain o f unknown cause inactive June 29, 2025 11:20am Diarrhea acute July 15, 2 025 9:08am Work Phone: 1(636) 834-929408-05-2025 Evaluation note* Diagnosis Onset Date Resolution Status Admit Date Diarrhea acute June 29 11:20am Right-sided abdominal pain of unknown cause inactive June 29 11:20am Diarrhea acute July 15, 2 025 9:08am Irritable bowel syndrome with diarrhea acute July 27 025 3:03pm Irritable bowel syndrome with diarrhea acute September 07 2:45pm Oral mucosal lesion acute Octob er 2024 2:45pm Abnormal uterine bleeding (AUB) acute September 08 8:44am Ovarian cyst acute August 8:44am [facility] [employer] Work Phone: 1(367) 746-744108-04-2025 Discharge summary [facility] Medical Records Department [address] [place] [address] Emergency Department Summary 06/28/25 MR#: [id number] Acct: [id number] Name: ALESSIA BARRIENTOS Rep #:[id number] : 1990 34 From: Juan Hart MD [...] % (Auto) 62.4 Lymph % (Auto) 23.7 [place] % (Auto) 8.5 Eos % (Auto) 4.7 [...] or mucus in your stool. Print Language: [place] Citizen Disposition Disposition: Home, Self Care What to do if you have Problems For any increased pain, shortness of breath, bleeding, nausea or vomiting, chestpain, or any unexpected problems, contact your Primary Care Provider. Call [facility] ([phone]) or report tothe closest Emergency Room. Call 911 if necessary. 06/28/25 7808 Cosigner Signature (if applicable): CC: ASIF Aguirre ~ Signed 08-04-2025 Discharge summary Author Juan Hart Note Date/Time June 28, 2025 5:4 8pm [facility] Medical Records Department [address] [place] [address] Emergency Department Summary 06/28/25 MR#: [id number] Acct: [id number] Name: ALESSIA BARRIENTOS Rep #:[id number] : 1990 34 From: Juan Hart MD [...] % (Auto) 62.4 Lymph % (Auto) 23.7 [place] % (Auto) 8.5 Eos % (Auto) 4.7 [...] or mucus in your stool. Print Language: [place] Citizen Disposition Disposition: Home, Self Care What to do if you have Problems For any increased pain, shortness of breath, bleeding, nausea or vomiting, chestpain, or any unexpected problems, contact your Primary Care Provider. Call [facility] ([phone]) or report to the closest Emergency Room. Call 911 if necessary. 06/28/258 <Electronically signed by Juan Hart MD> Cosigner Signature (if applicable): CC: ASIF Aguirre ~ Signed Work Phone: Consult note Author Trav Hylton Note Date/Time July 15, 2025 11 :32am [facility] Medical Records Department [address] [facility] [place] [address] Anesthesia Postop Eval I 07/15/25 113 MR#: [id number] Acct: [id number] Name: ALESSIA BARRIENTOS Rep #:[id number] : 1990 34 From: Trav Sosa RNA PCP: ASIF Aguirre Status:REG [facility] Y Race: C Location: [place] [address] Anesthesia: Postop Eval I Current Vital Signs [...] Postop Eval 1 completed: Yes 07/15/25 113 <Electronically signed by Trav Hylton CRNA> Date _ Trav Hytlon CRNA Cosigner Signature: Date CC: ~ Signed Work Phone: Consult note Author Trav Hylton Note Date/Time July 15, 2025 11 :36am [facility] Medical Records Department [address] [place] [address] Anesthesia Postop Eval II 07/15/25 1136 MR#: [id number] Acct: [id number] Name: ALESSIA BARRIENTOS Rep #:[id number] : 1990 34 From: Trav Sosa RNA PCP: ASIF Aguirre Status:REG SDC Y Race: C Location: [place] [address] Anesthesia Postop Eval I Sum Postop Eval Completion status Anesthesia document: Postop Eval 1 completed: Yes Anesthesia Postop Eval I Summary Anesthesia Postop Eval I Summary: Anesthesia Postop Eval I: Assessment Summary Airway patent Yes 07/15/25 11:32 PULMONARY NURSE PRACTITIONER.MDOT Spontaneous unlabored Yes 07/15/25 11:32 PULMONARY NURSE PRACTITIONER.MDOT respirations Mental status Awake,Calm 07/15/25 11:32 PULMONARY NURSE PRACTITIONER.MDOT nausea No 07/15/25 11:32 PULMONARY NURSE PRACTITIONER.MDOT Vomiting No 07/15/25 11:32 PULMONARY NURSE PRACTITIONER.MDOT Anesthesia Postop Eval I: Fluid Summary Crystalloid volume administer 100 07/15/25 11:32 PULMONARY NURSE PRACTITIONER.MDOT (ml) Colloids volume administered ( ml) Blood Product volume administered (ml) Total IV fluid infused 100 07/15/25 11:32 PULMONARY NURSE PRACTITIONER.MDVANI Anesthesia Postop Eval I: Summary Notes Anesthesia Complication No 07/15/25 11:32 PULMONARY NURSE PRACTITIONER.MDOT Anesthesia Complication Comment: Post-operative progress note Anesthesia: Postop Eval II Evaluation Mental status: Awake and Calm Pain Level: 0 nausea: No Vomiting: No Complications Anesthesia Complication: No 07/15/25 1136 <Electronically signed by Trav Hylton CRNA> Date _ Trav Hylton CRNA Cosigner Signature: Date CC: ~ Signed Work Phone: Evaluation noteNo assessment information available Work Phone: Evaluation note* Diagnosis Onset Date Resolution Status Admit Date Diarrhea acute June 29 11:20am Right-sided abdominal pain o f unknown cause acute June 29, 2025 11:20am [facility] Work Phone: History and physical note Author Sam Friend Note Date/Time July 15, 2025 11 :07am [facility] Medical Records Department [address] [place] [address] History & Physical Exam 07/15/25 1104 MR#: [id number] Acct: [id number] Name: ALESSIA BARRIENTOS Rep #:[id number] : 1990 34 From: Sam Avila DO PCP: ASIF Aguirre Status:REG [facility] Location: [place] [address] HPI - General General Date of Admission: 07/15/25 Date of Service: 07/15/25 Chief Complaint: diarrhea HPI Narrative ALESSIA BARRIENTOS, is a 34 F who presentsALESSIA BARRIENTOS, is a 34 Latter Day F who presentsto the office today for establishment with [facility] regarding concerns of right sidedabdominal pain. [facility] ER visit on 06.28.25, CBC and CMP without significant abnormalities, no imaging performed. She states the right-sided abdominal pain is sharp and very crampy, rates the pain 8 out of 10 with 10 being the worst. She denies food increasing symptoms, but states physical activity does increase the severity. She had an ER visit at [facility] on May 13, had a CT ofabd/pelvis that demonstrated enteritis of the small bowel and right adnexal cyst. She then visited her EYEGLASS LENS CUTTER MD in [place], where she had been told that sheshould probably have a hysterectomy but they wanted to try a control [...] gallbladder was removed due to gallstones. [facility] Medical History Wears glasses Low iron Easy [...] presents to the office today for establishment withI regarding concerns of right sided abdominal pain. [...] CC: Sam Avila DO; ASIF Aguirre~ Signed Work Phone: Hospital Discharge instructionsAdditional Instructions 1. Recommend keeping scheduled appointment with Dr. Avila that the typing secretary will schedule for you. 2. Return if you have a temperature greater than 100, unable to eat or drink anything, severe pain, blood or mucus in your stool. Work Phone: Progress note Author Luna Browne [facility] Note Date/Time September 08, 2025 9 :17am [facility] [address] [place] [address], [address] [place] [address] OFFICE VISIT Date of Service: 09/08/25 MR#: [id number] Acct: [id number] Name: ALESSIA BARRIENTOS Rep #: [id number] : 1990 Provider: JONATHAN Browne Age/Sex: 34/F Location: [facility] Status: Signed Intake Vital Signs 07/27/25 15:31 [...] air Intake Visit Reasons: Ovarian Cyst ([place]) Edi Analyst Required: No Is patient in pain?: No [...] cysts. Denies any pain today. Saw an OB specialist in [place] in April after an ED visit and [...] RTO prn Plan Details Follow Up: prn (AIRCRAFT SHEET METAL MECHANIC 3 code) 09/08/25 3448 <Electronically signed by Luna lopez NP AIRCRAFT SHEET METAL MECHANIC-C> Date _ Luna Asbury AIRCRAFT SHEET METAL MECHANIC AIRCRAFT SHEET METAL MECHANIC-C Cosigner Signature: Date (if applicable) CC: ~ [facility] Work Phone: Reason for referral (narrative)No reason for referral information availableWPro[facility] Work Phone: Summary Purpose Family History No Family History Records Found Relationship Condition Age at Onset Recorded Date/T berkley uncle Malignant neoplasm Unknown Advance Directives No Advanced Directives Records Found Advance Directive Response Recorded Date/ Time Do you have a Healthcare Power of Compensation Associate? No June 28, 2025 4:06pm Advance Directive Response Recorded Date/ Time Do you have a Healthcare Power of Compensation Associate? No June 28, 2025 4:06pm Do you have a Healthcare Power of Compensation Associate? No July 13, 2025 4:09pm Chief Complaint and Reason for Visit Chief Complaint Admit Date abd June 28, 2025 1:5 5pm Chief Complaint Admit Date abd June 28, 2025 1:5 5pm RIGHT SIDED ABDOMINAL PAIN June 29 11:20am Reason for Visit Admit Date Diarrhea June 29, 2025 11: 20am Right-sided abdominal pain of unknown ca use June 29, 2025 11:20am Chief Complaint Admit Date abd June 28, 2025 1:5 5pm RIGHT SIDED ABDOMINAL PAIN June 29 025 11:20am INT LAB ORDERS June 29, 2025 12: 06pm STAT ABD PAIN June 29, 2025 12: 18pm Reason for Visit Admit Date Diarrhea June 29, 2025 11: 20am Right-sided abdominal pain of unknown ca use June 29, 2025 11:20am Diarrhea July 15, 2025 9: 08am Chief Complaint Admit Date abd June 28, 2025 1:5 5pm RIGHT SIDED ABDOMINAL PAIN June 29 025 11:20am INT LAB ORDERS June 29, [...] section and content) DATE CREATED AUTHOR 07/27/2018 [facility] ([place]) DATE CREATED AUTHOR AUTHOR'S ORGANIZ ATION 08/28/2022 [facility] DATE CREATED AUTHOR AUTHOR'S ORGANIZ ATION 07/01/2025 [facility] DATE CREATED AUTHOR AUTHOR'S ORGANIZ ATION 10/07/2025 [facility] Care Teams (unrecognized sec tion [...] Provider Active S tart: June 29, 2025 Steffany Gilliam [employer] Attending Provider Active S tart: June 29, 2025 Steffany Gilliam [employer] Referring Provider Active S tart: June 29, 2025 Team Status: Inactive Member Role/Relationship Status Dates ASIF Aguirre Primary Care Provider Active S tart: June 29, 2025 End: June 29, 2025 Steffany Gilliam NP-C Attending Provider Active S tart: June 29, 2025 End: June 29, 2025 Steffany Gilliam [employer]-C Referring Provider Active S tart: June 29, 2025 End: June 29, 2025 Team Status: Inactive Member Role/Relationship Status Dates ASIF Aguirre Primary Care Provider Active S tart: June 29, 2025 End: June 29, 2025 Steffany Gilliam [employer]-C Attending Provider Active S tart: June 29, 2025 End: June 29, 2025 Steffany Gilliam [employer]-C Referring Provider Active S tart: June 29, 2025 End: June 29, 2025 Team Status: Inactive Member Role/Relationship Status Dates ASIF Aguirre Primary Care Provider Active S tart: July 15, 2025 End: July 15, 2025 ASIF Aguirre Referring Provider Active Star t: July 15, 2025 End: July 15, 2025 Dr. Sam Avila DO Attending Provider Active Start: July 15, 2025 End: July 15, 2025 Team Status: Active Member Role/Relationship Status Dates ASIF Aguirre Primary Care Provider Active S tart: July 15, 2025 ASIF Aguirre Referring Provider Active Star t: July 15, 2025 Dr. Sam Avila DO Attending Provider Active Start: July 15, 2025 Dr. Sam Avila DO Other Provider Active St art: July 15, 2025 Team Status: Inactive Member Role/Relationship Status Dates ASIF Aguirre Primary Care Provider Active S tart: July 27, 2025 End: July 27, 2025 ASIF Aguirre Referring Provider Active Star t: July 27, 2025 End: July 27, 2025 DAYANA LagunasC Attending Provider Active Start: July 27, 2025 End: July 27, 2025 Team Status: Active Member Role/Relationship Status Dates ASIF Aguirre Primary care physician Active Team Status: Inactive Member Role/Relationship Status Dates ASIF Aguirre Primary care physician Active Start: June 28, [...] June 29, 2025 End: June 29, 2025 Kimberly Roldan PA Referring Provider Active Star t: June 29, 2025 End: June 29, 2025 JONATHAN David Attending physician Active Start: June 29, 2025 End: June 29, 2025 Team Status: Inactive Member Role/Relationship Status Dates ASIF Aguirre Primary care physician Active Start: June 29, 2025 End: June 29, 2025 JONATHAN David Attending physician Active Start: June 29, 2025 End: June 29, 2025 JONATHAN David Referring Provider Active S tart: June 29, 2025 End: June 29, 2025 Team Status: Inactive Member Role/Relationship Status Dates ASIF Aguirre Primary care physician Active Start: June 29, 2025 End: June 29, 2025 JONATHAN David Attending physician Active Start: June 29, 2025 End: June 29, 2025 JONATHAN David Referring Provider Active S tart: June 29, 2025 End: June 29, 2025 Team Status: Inactive Member Role/Relationship Status Dates ASIF Aguirre Primary care physician Active Start: July 15, 2025 End: July 15, 2025 Kimberly Roldan , PA Referring Provider Active Star t: July 15, 2025 End: July 15, 2025 Dr. Sam Avila DO Attending physician Active Start: July 15, 2025 End: July 15, 2025 Team Status: Active Member Role/Relationship Status Dates Kimberly Roldan PA Primary care physician Active Start: July 15, [...] July 27, 2025 End: July 27, 2025 Kimberly Roldan , PA Referring Provider Active Star t: July 27, 2025 End: July 27, 2025 DAYANA LagunasC Attending physician Active Start: July 27, 2025 End: July 27, 2025 Team Status: Inactive Member Role/Relationship Status Dates Kimberly Roldan , PA Primary care physician Active Start: September 07, 2025 End: September 07, 2025 Kimberly Roldan , PA Referring Provider Active Star t: September 07, 2025 End: September 07, 2025 JONATHAN Lagunas Attending physician Active Start: September 07, 2025 End: September 07, 2025 Team Status: Inactive Member Role/Relationship Status Dates Kimberly Roldan , PA Primary care physician Active Start: September 08, 2025 End: September 08, 2025 Kimberly Roldan , PA Referring Provider Active Star t: September 08, 2025 End: September 08, 2025 Luna Browne NP [employer] Attending physician Active Start: September 08, 2025 End: September 08, 2025 Team Status: Inactive Member Role/Relationship Status Dates Kimberly Roldan , PA Primary care physician Active Start: September 08, 2025 End: September 08, 2025 JONATHAN Lagunas Attending physician Active Start: September 08, 2025 End: September 08, 2025 DAYANA LagunasC Referring Provider Active Start: September 08, 2025 [...] BE BASED ON THE PRIMARY CLINICAL RECORDS. [facility]. provides no warranty or guarantee of the accuracy or completeness of information in this document.
== END | disposition home or self-care (01) ==
LOC: US 12:39
PROVIDERS: Referring Provider Nurse Practitioner Women's Health; Visit Provider Nurse Practitioner Women's Health
DX: R10.20 Pelvic and perineal pain unspecified side (principal); N93.9 Abnormal uterine and vaginal bleeding, unspecified
CPT/HCPCS: 76830; 76856